=== PATIENT | male | born 2000 | race Two or more races ===

== ENCOUNTER 2024-07-23 08:43 | Inpatient (IN) | payer MEDICAID, SELFPAY ==
[2024-07-23] VITALS (47 sets, daily range): BP systolic 91–156; BP diastolic 60–94; PULSE 102–176; RESP 17–32; TEMP 36.9–38.7; O2SAT 95–100; BMI 25.8; BMI 23.6
--- NOTE | 2024-07-23 08:50 | PC.NURSE ---
pt began having seizures activity at this time, dr haddad informed. new orders received
[2024-07-23] MEDS: LORazepam 2 MG/ML VIAL IVP (08:52)
--- NOTE | 2024-07-23 08:58 | PC.NURSE ---
PER DR REYES DO NOT CALL SEPSIS ALERT ON PT. TEMP AND TACHYCARDIA IS DUE TO SEIZURE ACTIVITY
[2024-07-23] MEDS: ROCURONIUM INJ 10 MG/ML VIAL 10 ML 50 MG IVP (09:03)
[2024-07-23] MEDS: ETOMIDATE INJ 2 MG/ML VIAL 10 ML 20 MG IVP (09:03)
--- NOTE | 2024-07-23 09:04 | XR_ITS ---
Examination: AP chest single view Technique: AP supine portable chest single view Exam date and time: July 23, 2024 0925 hrs. Comparison 05/20/2024 Indications: Hypoxic respiratory failure postintubation this week Findings: Significant left base pneumonia with air bronchograms Endotracheal tube tip 2.6 cm above alysa The orogastric tube is in the stomach satisfactory position Mild vascular congestion Impression: Significant left base pneumonia, consider aspiration pneumonia
--- NOTE | 2024-07-23 09:04 | PC.NURSE ---
PT INTUBATED BY DR REYES AT THIS TIME WITH SIZE 7.5 TUBE. 21 AT TEETH. POSITIVE COLOR CHANGE ON C02 DETECTOR. BILATERAL LUNG SOUNDS AUSCULTATED BY DR REYES
--- NOTE | 2024-07-23 09:04 | XR_ITS ---
Examination: CT brain head without contrast. 2-D sagittal coronal reconstructions Date and time of exam:July 23, 2024 1018 hrs. Indications: Multiple seizures this morning, with hypoxic respiratory failure, postintubation CTDI: vol (mGy):49.8 DLP: (mGycm):1080 Technique: Multiple CT axial sections of the brain have been obtained, 5 mm slice thickness. Contrast has not been administered. 2-D sagittal, coronal reconstructions have been obtained Low dose protocols were performed. One or more of the following dose reduction techniques were used; automated exposure control, adjustment of the mA and/or KV according to patient size, use of iterative reconstruction technique. Findings: No significant ventricular enlargement. Intra-axial or extra-axial hemorrhage density is not seen. No mass effect or midline shift Basal cisterns are not remarkable. Fourth ventricle is midline. Cranial vault intact. Prominent right sphenoid sinusitis Impression: Negative for acute hemorrhage, mass effect or midline shift Consider brain MRI follow-up, pre and postcontrast, seizure protocol
--- NOTE | 2024-07-23 09:08 | EDNOTE_ITS ---
ED Seizures RME/HPI General Chief Complaint: Seizure Stated Complaint: SEIZURES Time Seen by Provider: 07/23/24 08:49 Arrival date/time: 07/23/24 08:43 RME / HPI RME / HPI Narrative: Patient has history of seizure disorder. History is limited due to patient's active seizing. The family witnessed 3 episodes of seizures prior to the arrival of the EMS to the scene. Once on the scene, they witnessed another seizure which was treated with 4 mg of intranasal Versed. At the hospital entrance he had another seizure which was treated with 2 mg of IV Versed. Here in the emergency department patient never fully regained consciousness and had 3 more episodes of seizures witnessed, which required intubation to stabilize her condition. The patient was intubated with first-pass using a glide scope and a 7.5 ET tube with good CO2 color change and bilateral breath sounds. He remained at 100% saturation at all times. For the timing and details see the nursing documentation. Patient was induced using rocuronium 50 mg and etomidate 20 mg IV Review of systems is limited due to above 0950 Patient's brother is at the bedside. Informs me that the patient's mother has only been providing him with 3 out of 6 of the medications that he was supposed to be. Also states the patient has been using cocaine Related Data Home Medications ?Medication ?Instructions ?Recorded ?Confirmed oxcarbazepine 600 mg tablet 1,200 mg PO BID 07/23/24 07/23/24 Previous Rx's ?Medication ?Instructions ?Recorded apixaban 5 mg (74 tabs) tablets in 5 mg PO BID #74 tabs 06/20/24 a dose pack (EpiVax DVT-PE Treat 30D Start) clobazam 10 mg oral film 15 mg PO BID #60 ea 06/22/24 lacosamide 200 mg tablet 200 mg PO BID 30 days #60 tabs 06/22/24 levetiracetam 750 mg tablet 1,500 mg (2 x 750 mg) PO Q8HR #180 06/22/24 tabs perampanel 10 mg tablet (Fycompa) 10 mg PO HS #30 tabs 06/22/24 valproic acid 250 mg capsule 1,250 mg (5 x 250 mg) PO TID #360 06/22/24 caps Allergies Allergy/AdvReac Type Severity Reaction Status Date / Time No Known Allergies Allergy Verified 07/23/24 09:34 Review of Systems Review of Systems ROS Unobtainable: unobtainable due to mental status ED Exam Narrative Physical exam: Patient has a small hematoma to the posterior scalp. He has bit his tongue during his seizure with small amount of hemorrhage inside the mouth without need of repair General General appearance: Present other (See HPI. Patient never regained full consciousness) Eye Eye exam: Present normal appearance Neck Neck exam: Present normal inspection Respiratory Respiratory exam: Present normal lung sounds bilaterally Cardiovascular Cardiovascular exam: Present regular rate Abdominal Exam Abdominal exam: Present soft exam: Present normal inspection Course Quality Measures none Orders Category Date Time Status 24 HR Medical Restraints Q2HR Care 07/23/24 09:09 Active COVID-19 Screening Questionnaire NOW Care 07/23/24 11:17 Active Decision to Admit X1 Care 07/23/24 11:17 Active Rodriguez [Urinary Catheter] QS Care 07/23/24 09:09 Active Insert IV NOW Care 07/23/24 09:26 Active Insert NG / OG tube NOW Care 07/23/24 09:08 Active Intubation NOW Care 07/23/24 09:[address] head/brain wo con Stat Exams 07/23/24 09:04 Completed XR chest 1V post procedure Stat Exams 07/23/24 09:04 Completed Alcohol, Blood Medical Stat Lab 07/23/24 09:10 Results Arterial Blood Gas Stat Lab 07/23/24 10:00 Completed Blood Culture (Lab) Stat Lab 07/23/24 09:10 Received CBC Stat Lab 07/23/24 09:10 Completed CMP [Comprehensive Metabolic Panel] Stat Lab 07/23/24 09:10 Results Drug Screen,Urine Stat Lab 07/23/24 09:10 Received Lactic Acid [Lactate (Lactic Acid)] Stat Lab 07/23/24 09:10 Results Sputum Culture and Gram Stain Stat Lab 07/23/24 09:55 Received Troponin I Stat Lab 07/23/24 09:10 Results Urinalysis, C/S if Indicated Stat Lab 07/23/24 09:10 Completed Etomidate Inj [Amidate Inj] Med 07/23/24 08:56 Discontinued 20 mg .ROUTE .STK-MED ONE Etomidate Inj [Amidate Inj] Med 07/23/24 09:04 Discontinued 20 mg IVP X1 ONE LORazepam [Ativan Inj] Med 07/23/24 08:49 Discontinued 2 mg IVP X1 ONE Midazolam Inj [Versed Inj] Med 07/23/24 09:41 Discontinued 5 mg IV X1 ONE Midazolam Inj [Versed Inj] Med 07/23/24 09:57 Discontinued 5 mg IV X1 ONE Midazolam Inj [Versed Inj] Med 07/23/24 09:38 Discontinued 6 mg .ROUTE .STK-MED ONE Midazolam/Ns 100 mg Ivpb [Versed Pf Inj in Ns Premix] Med 07/23/24 09:05 Active 100 mg in 100 ml IV 1 mg/hr Rocuronium Inj [Zemuron Inj] Med 07/23/24 08:57 Discontinued 100 mg .ROUTE .STK-MED ONE Rocuronium Inj [Zemuron Inj] Med 07/23/24 09:04 Discontinued 50 mg IVP X1 ONE Sodium Chloride Rt Adeline 10% [NS Rt Adeline 10%] Med 07/23/24 09:30 Discontinued 5 ml INH X1 ONE cefTRIAXone/D5w 1gm IV premix [Rocephin/D5w 1gm IV Med 07/23/24 10:09 Discontinued premix] 50 ml IV X1 levETIRAcetam INJ [Keppra Inj] Med 07/23/24 09:56 Discontinued 1,000 mg IVP X1 ONE Sputum Induction PRN RT 07/23/24 09:45 Ordered Ventilator [Volume Ventilator] Stat RT 07/23/24 Active Vital Signs Vital signs: Vital Signs Temperature 99.3 F 07/23/24 08:46 Pulse Rate 163 H 07/23/24 08:46 Respiratory Rate 28 H 07/23/24 08:46 Blood Pressure 143/94 H 07/23/24 08:46 Pulse Oximetry (%) 98 07/23/24 08:46 Oxygen Delivery Method Oxy Mask 07/23/24 08:46 Oxygen Flow Rate 15 07/23/24 08:46 Seizure Patient data External records reviewed:: [facility] previous records and EMS form Clinical information provided by:: EMS and family Social determinants that could affect healthcare access:: substance use Patient has the following chronic illnesses:: Seizure disorder. Drug use disorder How is presenting disease/condition affected by chronic disease/condition?: caused by Evaluation data The following diagnostics were reviewed and interpreted by me:: radiology exam(s) and EKG tracing(s) Lab and/or radiology exams considered but not ordered:: Elevated WBC is secondary to demargination and does not appear to be from the infectious process of pneumonitis that was seen on the chest x-ray Interpretation Summary: As above Medications / Prescriptions Medications or Prescriptions considered but not ordered:: Not applicable Medication administrations:: Medication Administration History Midazolam HCl (Versed Pf Inj In Ns Premix) 100 mg in 100 mls @ 1 mls/hr IV .Q24H PRN; Protocol PRN Reason: PER PROTOCOL Stop: 07/28/24 09:04 Last Admin: 07/23/24 09:16 Dose: 1 mg/hr, 1 mls/hr Documented By: DO Co-signed By: ED Discontinued Medications Etomidate (Etomidate Inj 2 Mg/Ml Vial 10 Ml) Confirm Administered Dose 20 mg .ROUTE .STK-MED ONE Stop: 07/23/24 08:57 Last Admin: 07/23/24 09:06 Dose: Not Given Documented By: DO Non-Admin Reason: Override Medication Etomidate (Etomidate Inj 2 Mg/Ml Vial 10 Ml) 20 mg IVP X1 ONE Stop: 07/23/24 09:05 Last Admin: 07/23/24 09:03 Dose: 20 mg Documented By: DO Ceftriaxone Sodium/Dextrose (Rocephin/D5w 1gm Iv Premix) 50 mls @ 100 mls/hr IV X1 ONE Stop: 07/23/24 10:38 Last Admin: 07/23/24 10:50 Dose: 100 mls/hr Documented By: DO Levetiracetam (Levetiracetam Inj 100 Mg/Ml Vial 5ml) 1,000 mg IVP X1 ONE Stop: 07/23/24 09:57 Last Admin: 07/23/24 10:11 Dose: 1,000 mg Documented By: DO Lorazepam (Lorazepam 2 Mg/Ml Vial) 2 mg IVP X1 ONE Stop: 07/23/24 08:50 Last Admin: 07/23/24 08:52 Dose: 2 mg Documented By: DO Midazolam HCl (Midazolam Inj 1 Mg/Ml Vial 2 Ml) Confirm Administered Dose 6 mg .ROUTE .STK-MED ONE Stop: 07/23/24 09:39 Last Admin: 07/23/24 09:43 Dose: Not Given Documented By: DO Non-Admin Reason: Duplicate Medication on eMAR Midazolam HCl (Midazolam Inj 1 Mg/Ml Vial 2 Ml) 5 mg IV X1 ONE Stop: 07/23/24 09:42 Last Admin: 07/23/24 09:44 Dose: 5 mg Documented By: DO Midazolam HCl (Midazolam Inj 1 Mg/Ml Vial 2 Ml) 5 mg IV X1 ONE Stop: 07/23/24 09:58 Last Admin: 07/23/24 09:59 Dose: 5 mg Documented By: DO Rocuronium Evans (Rocuronium Inj 10 Mg/Ml Vial 10 Ml) Confirm Administered Dose 100 mg .ROUTE .STK-MED ONE Stop: 07/23/24 08:58 Last Admin: 07/23/24 09:08 Dose: Not Given Documented By: DO Non-Admin Reason: Override Medication Rocuronium Evans (Rocuronium Inj 10 Mg/Ml Vial 10 Ml) 50 mg IVP X1 ONE Stop: 07/23/24 09:05 Last Admin: 07/23/24 09:03 Dose: 50 mg Documented By: DO Co-signed By: TONIO Sodium Chloride (Sodium Chloride Rt 10% 15 Ml Nebu) 5 ml INH X1 ONE Stop: 07/23/24 09:31 As noted Consultations Consultation(s) initiated? (list below): Yes Diagnosis Seizure Differential Diagnosis: intractable seizure disorder, generalized seizure, epileptic seizure and status epilepticus Most likely diagnosis given after review of the tests above:: Status epilepticus Admission Indicated Admission indicated?: indicated Admission Request Was there a request for admission?: Yes Admission Attestation Admission request attestation: Discussed case with [] from Hospitalist service regarding admission. Discussed patients ED course, exam findings, labs, and radiology results. The Hospitalist [agrees,declines] to accept the patient for admission. Disposition Plan Disposition Plan: Admit Critical Care Time Critical Care Time Critical Care Time: Yes Total Critical Care Time (min.): 45 Attestation: Patient was discussed with Dr. Oakes who will admit the patient. Dr. Singh is also aware and will consult on the patient. The critical care time is separate from intubation time Discharge Plan Plan Patient Disposition: Admit Acute Care w/in Hospital Patient condition on transfer: Stable Prescriptions/Referrals Prescriptions/Med Rec: No Action Eliquis DVT-PE Treat 30D Start 5 mg (74 tabs) tablets,dose pack 5 mg PO BID Qty: 74 0RF Rx Instructions: Please take 2 tabs of 5 mg twice daily for 1 week and then continue with 1 tablet of 5 mg twice daily to complete total 3 months. lacosamide 200 mg tablet 200 mg PO BID 30 Days Qty: 60 2RF levetiracetam 750 mg tablet 1,500 mg PO Q8HR Qty: 180 2RF Fycompa 10 mg tablet 10 mg PO HS Qty: 30 2RF valproic acid 250 mg capsule 1,250 mg PO TID Qty: 360 3RF clobazam 10 mg film 15 mg PO BID Qty: 60 3RF oxcarbazepine 600 mg tablet 1,200 mg PO BID Referrals: No Primary/Family,Physician [Primary Care Provider] - In 1 week Problem List Clinical Impression: Convulsions, status epilepticus Patient/Caregiver Discharge Instructions Print Language: Nigerien Stand Alone Forms: Vee Award Info., Patient Portal Info Letter
[2024-07-23] MEDS: MIDAZOLAM/NS 100 MG IVPB 100 MG/100 ML BAG IV (09:16)
[2024-07-23 09:38] LABS: Collection Type, Urine Catheter
[2024-07-23] MEDS: MIDAZOLAM INJ 1 MG/ML VIAL 2 ML 5 MG IV ×4 (09:44→12:54)
[2024-07-23 09:51] LABS: Basophils # (Auto) 0.1 Thou/mm3 (0.0-0.2); Basophils % (Auto) 0 % (0-2.5); Eosinophils # (Auto) 0.1 Thou/mm3 (0.0-0.5); Eosinophils % (Auto) 1 % (0-10); Hemoglobin 15.5 g/dL (13.5-16.0); Immature Granulocytes % (Auto) 6 % (0-0); Immature Granulocytes Auto 1.02 Thou/mm3 (0.00-0.00); Lymphocytes # (Auto) 7.1 Thou/mm3 (1.0-4.8); Lymphocytes % (Auto) 44 % (10-50); Mean Corpuscular Hemoglobin 29.8 pg (25.0-35.0); Mean Corpuscular Volume 96 fL (80-100); Monocytes % (Auto) 6 % (0-12); Neutrophils # (Auto) 6.9 Thou/mm3 (1.8-7.7); Neutrophils % (Auto) 43 % (37-80); Nucleated Red Blood Cell % 0 /100 WBC (0); Platelet Count 568 Thou/mm3 (140-440); RDW Standard Deviation 49.1 fL (35.1-43.9); Red Blood Count 5.21 Miln/mm3 (4.50-5.90); White Blood Count 16.1 Thou/mm3 (3.8-10.6)
[2024-07-23 09:56] LABS: Bilirubin,Urine Negative (Negative); Blood,Urine Trace (Negative); Clarity,Urine Clear (Clear/Hazy); Color,Urine Colorless (Lt Yel-Yel); Culture Indicated,Urine Not Indicated; Glucose, Urine Negative (Negative); Ketones,Urine 1+ (Negative); Leukocyte Esterase,Urine Negative (Negative); Nitrite,Urine Negative (Negative); Protein,Urine 2+ (Neg - Trace); RBC,Urine 1 /hpf (0-3); Specific Gravity,Urine 1.012 (1.001-1.035); Squamous Epithelial Cell,Urine < 1 /hpf (0-5); Urobilinogen,Urine Negative mg/dL (0.0-1.0); WBC,Urine < 1 /hpf (0-5)
[2024-07-23 10:06] LABS: Base Excess -16 (-3-3); HCO3 16 mEq/L (20-26); Inspired Oxygen, FIO2 50 %; PCO2 64 mmHg (32.0-48.0); PO2 110 mmHg (83-108)
[2024-07-23] MEDS: levETIRAcetam INJ 100 MG/ML VIAL 5ML 1000 MG IVP (10:11)
[2024-07-23 10:12] LABS: Allen Test Not Performed; O2 Saturation 96 % (91-98); Puncture Site Right Radial
[2024-07-23 10:14] LABS: pH, Arterial 7.01 (7.35-7.45)
[2024-07-23 10:20] LABS: Alanine Aminotransferase 21 U/L (10-49); Albumin, Serum 5.5 gm/dL (3.5-5.0); Albumin/Globulin Ratio 1.7 (1.2-2.2); Alkaline Phosphatase 128 U/L (46-116); Anion Gap 28 (7-16); Aspartate Amino Transferase 38 U/L (0-34); BUN/Creatinine Ratio 5 Ratio (12-20); Blood Urea Nitrogen 7 mg/dL (9-23); Calcium 11.6 mg/dL (8.3-10.6); Calcium (Corrected) 11.6 mg/dL (8.5-10.1); Chloride 97 mMol/L (98-107); Creatinine (Component) 1.3 mg/dL (0.6-1.3); Estimated Creatinine Clearance 80.4 mL/min (>60); Globulin 3.2 gm/dL (2.3-3.5); Glucose 283 mg/dL (74-106); Osmolality,Calculated 278 (275-295); Potassium 4.9 mMol/L (3.4-5.1); Sodium 135 mMol/L (136-145); Total Protein 8.7 gm/dL (5.7-8.2); Troponin I < 0.020 ng/mL (0.0-0.045); eGFR > 60 See Note
[2024-07-23 10:22] LABS: Carbon Dioxide < 10.0 mMol/L (20.0-31.0)
[2024-07-23 10:34] LABS: Alcohol, Blood Medical < 3.0 mg/dL (0-10.0)
[2024-07-23] MEDS: cefTRIAXone/D5w 1gm IV premix 50 ML IV (10:50)
[2024-07-23 12:04] LABS: Bilirubin,Total 0.5 mg/dL (0.3-1.2)
[2024-07-23 12:25] LABS: Amphetamine/Methamp Scrn,U Positive (Negative); Barbiturate Screen,Urine Negative (Negative); Benzodiazepines Screen,Urine Positive (Negative); Benzoylecgonine Screen, Ur Negative (Negative); Fentanyl Screen,Urine Negative (Negative); Opiate Screen,Urine Negative (Negative); THC Screen,Urine Negative (Negative)
[2024-07-23 12:40] LABS: Reflex Lactate? Y
--- NOTE | 2024-07-23 12:42 | PC.NURSE ---
pt waking up and fighting vent. called dr Tafoya. new orders received to give versed 5mg ivp and increase drip to 5mg/hr
--- NOTE | 2024-07-23 13:12 | PC.NURSE ---
report given to Heather on ICU floor. pt to go to room 255
[2024-07-23 14:58] LABS: Lactic Acid, 3 HR 1.3 mMol/L (0.4-2.0)
[2024-07-23] MEDS: PROPOFOL 1,000 MG IVPB 1,000 MG/100 ML VIAL 2.177 MG IV (15:02)
--- NOTE | 2024-07-23 15:57 | ESHP_ITS ---
Documentation for date of: 07/23/24 [facility] History of Present Illness Chief complaint: seizures History of present illness: The patient is a 24-year-old male with a previous medical history of seizure disorder, right upper extremity brachial DVT and substance abuse disorder who was brought by the ambulance due to multiple seizures, before coming to the hospital he received 6 mg of Versed IV. Patient has a history of previous ICU admission with status epilepticus that required tranfer to the [facility], where he inderwent deep brain stimulation. He was discharged from [facility] in May 2024 and 2 medication added to his antiepileptic medications: clobazam and perampanel. ED course: BP was 143/94, RR 28, SaO2 98% on oxymask at the arrival. He continued to have seizures at the ED, received 2 mg of lorazepam, was tachycardic and had temperature of 101.6 and to continuing seizures, according to the nurse, he never regained consciousness and altered mental status he was intubated for airway protection and management of status epilepticus. He was started on midazolam drip, later midazolam IV was added as needed. During examination patient was awake, was trying to sit up, was retching due to the tube. Was dyssynchronising with ventilator. Was additionally started on propofol for sedation. Labs showed: Leukocytosis 16.1, platelets 568, ABGs showed pH 7.01, pCO2 64, pO2 110. Sodium 135, bicarb <10, creatinine 1.3, glucose 283, Lactic Acid 29.0, Ca 11.6, Alk phos 128. Headt CT negative for stroke, bleeding or fractures. Chest xray showed left base pneumonia. EEG 07/23/24: normal. Utox was positive for methamphetamine and benzodiazepines. Home medications: Clobazam, lacosamide, levetiracetam, oxcarbazepine, perampanel, valproic acid, apixaban. Patient was admitted to the ICU for epileptic status management. Review of Systems Review of Systems ROS Unobtainable: unobtainable due to mental status and due to endotracheal tube Exam Vital Signs Temp Pulse Resp BP Pulse Ox O2 Del Method O2 Flow Rate 99.8 F 121 H 17 125/85 H 100 Mechanical Ventilation 15 07/23/24 13:04 07/23/24 14:55 07/23/24 13:30 07/23/24 14:55 07/23/24 14:55 07/23/24 13:04 07/23/24 08:46 FiO2 40 07/23/24 14:55 Narrative Exam Physical Exam General: Sedated, intubated. Follows commands after repeating. Intubated. RASS - 1 HEENT: Normocephalic, atraumatic, mucous membranes moist. Heart: Regular rate and rhythm, no murmurs. Lungs: Clear to auscultation with no wheezing or crackles. Abdomen: Soft, nondistended, nontender, positive bowel sounds. ?No guarding or rebound tenderness. Neurologic: intubated, sedated, no gross neurological deficit, and patient able to move all 4 extremities. Extremities: No edema. Skin: No rash or ecchymoses. Shaved spots on the parietal and occipital area of the head s/p electrode implantation. Results: Labs 07/30/24 04:33 07/29/24 05:34 Labs: Short CBC 07/23/24 Range/Units 09:10 WBC 16.1 H (3.8-10.6) Thou/mm3 Hgb 15.5 (13.5-16.0) g/dL Hct 50.0 (41.0-53.0) % Plt Count 568 H D (140-440) Thou/mm3 BMP 07/23/24 09:10 Sodium 135 L Potassium 4.9 Chloride 97 L Carbon Dioxide < 10.0 L* BUN 7 L Creatinine 1.3 Glucose 283 H Calcium 11.6 H Cardiac Enzymes 07/23/24 Range/Units 09:10 Troponin I < 0.020 (0.0-0.045) ng/mL Liver Function 07/23/24 Range/Units 09:10 Total Bilirubin 0.5 (0.3-1.2) mg/dL AST 38 H (0-34) U/L ALT 21 (10-49) U/L Alkaline Phosphatase 128 H (46-116) U/L Albumin 5.5 H (3.5-5.0) gm/dL Urine 07/23/24 Range/Units 09:10 Urine Color Colorless A (Lt Yel-Yel) Urine Clarity Clear (Clear/Hazy) Urine pH 6.0 (5.0-7.0) Ur Specific [place] 1.012 (1.001-1.035) Urine Protein 2+ A (Neg - Trace) Urine Glucose (UA) Negative (Negative) ABG Interpretation ABG results: 07/23/24 10:00 ABG pH 7.01 L* ABG pCO2 64 H ABG pO2 110 H ABG HCO3 16 L ABG O2 Saturation 96 ABG Base Excess -16 L Quality Measures Quality Measures VTE prophylaxis Medications Home Medications and Allergies Home Medications ?Medication ?Instructions ?Recorded ?Confirmed ?Type oxcarbazepine 600 mg tablet 1,200 mg PO BID 07/23/24 07/23/24 History Allergies Allergy/AdvReac Type Severity Reaction Status Date / Time No Known Allergies Allergy Verified 07/23/24 09:34 Visit Medications Apixaban (Apixaban 2.5 Mg Tablet) 5 mg PO BID [facility] Stop: 08/13/24 20:59 Phenobarbital Sodium 130 mg/ (Sodium Chloride 12 ml) 0 mg IVP TID PANCHO Stop: 08/06/24 15:44 Midazolam HCl (Versed Pf Inj In Ns Premix) 100 mg in 100 mls @ 1 mls/hr IV .Q24H PRN; Protocol PRN Reason: PER PROTOCOL Stop: 07/28/24 09:04 Last Titration: 07/23/24 12:50 Dose: 5 mg/hr, 5 mls/hr Propofol (Diprivan Ivpb) 1,000 mg in 100 mls @ 13.064 mls/hr IV .Q7H40M PRN; Protocol PRN Reason: PER PROTOCOL Stop: 08/22/24 14:49 Last Admin: 07/23/24 15:02 Dose: 5 mcg/kg/min, 2.177 mls/hr Lacosamide (Lacosamide 50 Mg Tablet) 200 mg PO BID PANCHO Stop: 08/22/24 20:59 Levetiracetam (Levetiracetam Liqd 500 Mg/5 Ml Udc) 1,500 mg PO Q8HR PANCHO Stop: 08/22/24 13:59 Midazolam HCl (Midazolam Inj 1 Mg/Ml Vial 2 Ml) 2 mg IV Q10MIN PRN PRN Reason: breakthrough seizures Stop: 07/28/24 12:29 Home Medication- Please Speak With Patient Caregiver To Have Rx Brought To [facility] 15 mg PO BID PANCHO Stop: 08/22/24 20:59 Oxcarbazepine (Oxcarbazepine 150 Mg Tablet (Non-Formulary)) 1,200 mg PO BID [facility] Stop: 08/22/24 20:59 Perampanel (Perampanel 10 Mg Tablet (Non-Form)) 10 mg PO HS@1900 [facility] Stop: 08/22/24 18:59 Valproic Acid (Valproic Acid Syrup 250 Mg/5 Ml Udc) 1,250 mg PO TID [facility] Stop: 08/22/24 13:59 Discontinued Medications Etomidate (Etomidate Inj 2 Mg/Ml Vial 10 Ml) 20 mg IVP X1 ONE Stop: 07/23/24 09:05 Last Admin: 07/23/24 09:03 Dose: 20 mg Ceftriaxone Sodium/Dextrose (Rocephin/D5w 1gm Iv Premix) 50 mls @ 100 mls/hr IV X1 ONE Stop: 07/23/24 10:38 Last Infusion: 07/23/24 11:30 Dose: Infused Propofol (Diprivan Ivpb) 1,000 mg in 100 mls @ 2.177 mls/hr IV .Q24H PRN; Protocol PRN Reason: PER PROTOCOL Stop: 08/22/24 14:49 Levetiracetam (Levetiracetam Inj 100 Mg/Ml Vial 5ml) 1,000 mg IVP X1 ONE Stop: 07/23/24 09:57 Last Admin: 07/23/24 10:11 Dose: 1,000 mg Lorazepam (Lorazepam 2 Mg/Ml Vial) 2 mg IVP X1 ONE Stop: 07/23/24 08:50 Last Admin: 07/23/24 08:52 Dose: 2 mg Midazolam HCl (Midazolam Inj 1 Mg/Ml Vial 2 Ml) 5 mg IV X1 ONE Stop: 07/23/24 09:42 Last Admin: 07/23/24 09:44 Dose: 5 mg Midazolam HCl (Midazolam Inj 1 Mg/Ml Vial 2 Ml) 5 mg IV X1 ONE Stop: 07/23/24 09:58 Last Admin: 07/23/24 09:59 Dose: 5 mg Midazolam HCl (Midazolam Inj 1 Mg/Ml Vial 2 Ml) 5 mg IV X1 ONE Stop: 07/23/24 11:55 Last Admin: 07/23/24 12:00 Dose: 5 mg Midazolam HCl (Midazolam Inj 1 Mg/Ml Vial 2 Ml) 5 mg IV X1 ONE Stop: 07/23/24 12:50 Last Admin: 07/23/24 12:54 Dose: 5 mg Rocuronium [place] (Rocuronium Inj 10 Mg/Ml Vial 10 Ml) 50 mg IVP X1 ONE Stop: 07/23/24 09:05 Last Admin: 07/23/24 09:03 Dose: 50 mg Sodium Chloride (Sodium Chloride Rt 10% 15 Ml Nebu) 5 ml INH X1 ONE Stop: 07/23/24 09:31 Assessment & Plan Plan The patient is a 24-year-old male with a previous medical history of seizure disorder, right upper extremity brachial DVT and substance abuse disorder who was brought by the ambulance due to multiple seizures, before coming to the hospital he received 6 mg of Versed IV. Patient has a history of previous ICU admission with status epilepticus that required tranfer to the [facility]. He was discharged from [facility] in May 2024 and 2 medication added to his antiepileptic medications: clobazam and perampanel. NEURO # Status epilepticus, improving #Seizure disorder #Substance abuse Patient is awake, somnolent, intubated. Utox was positive for Methamphetamine and benzodiazepines (could be due patient receiving versed IV before test) Plan: ?Resumed home medications ?Clobazam 50 mg twice daily ? Lacosamide 200 mg twice daily ? Levetiracetam 1500 mg p.o. every 8 hours ? Oxcarbazepine 1200 twice daily ? Perampanel 10 mg daily ? Valproic acid 1250 mg 3 times daily - Alli downtitrate sedation and will try to extubate tomorrow CARDIO #Sinus tachycardia # History of upper extremity DVT Tachycardia most likely due to seizure activity. Patient was diagnosed with upper extremity DVT while being admitted inthe [facility]. At the moment, no signs of DVT. Plan: ?Continue Eliquis 5 mg twice a day PULM #No active problems GI #No active problems NEPHRO #Lactic acidosis, resolved. Most likelt due to seizure activity. Repeat LA is 1.3. URO #No active problems HEME #Leukocytosis Most likely reactive in the setting of status epilepticus. ENDO #No active problems ID #No active problems MSK #No active problems SKIN #No active problems DVT prophylaxis: Eliquis GI prophylaxis: None Diet: NPO Rodriguez: Present Lines: peripheral Antibiotics: none CODE STATUS: FULL CODE Reason for ICU care: status epilepticus requiring intubation and sedation Plan of care discussed with attending Dr. Mosley and PGY-[address] Tafoya. Yarely Bocanegra MD, PGY 1. Attending Provider Attestation/Addendum Patient seen and examined with above resident, Yarely Bocanegra MD. I agree with the findings, assessment, and plan of care as documented except for any differences below. Patient seen in the ED where he was intubated for status epilepticus and adequate control of seizures using propofol/versed. Patient with sedation reduced now remains appropriate with no repeat seizure activity. Will plan on continuing on heavy sedation overnight until we are able to load him with his antiepileptic regimen. UDS is positive for amphetamines as a potential precipitant alternatively though family reports that he has been noncompliant only when he is using illicit substances. Otherwise has been compliant with regimen since discharge from [facility] after prior to transfer there from [facility] for status epilepticus that was refractory to available regimen here. Patient was advised remains hemodynamically stable with no other evidence of endorgan damage at this point. Patient's sister was at bedside and provided bottles of his medications which we were able to locate and reinitiate. EEG testing as per neurology, they will assess the patient on their own later on today. Appreciate their input as always. I personally discussed plan of care and counseled the patient's sister at bedside. Total critical care time: I personally spent 40 minutes for review of physiologic parameters, directing plan of care throughout the day, coordination of care with other specialties, and counseling patient's family at bedside. This is exclusive of time spent teaching housestaff or performing any separate billable procedures. Patient continues to require critical care services for acute respiratory failure/hypoxia and status epilepticus. Patient remains at high risk for further morbidity and increased mortality.
[2024-07-23] MEDS: levETIRAcetam LIQD 500 MG/5 ML UDC 1500 MG PO ×2 (17:18→21:50)
[2024-07-23] MEDS: VALPROIC ACID SYRUP 250 MG/5 ML UDC 1250 MG PO ×2 (17:19→21:51)
[2024-07-23] MEDS: [UNRECOGNIZED DRUG - REMARK] 15 MG PO (19:25)
[2024-07-23] MEDS: [UNRECOGNIZED DRUG - REMARK] PO (19:26)
--- NOTE | 2024-07-23 20:10 | PC.NURSE ---
at 1400 received report from Nataliia, pt transported to room 255 ICU via gurney and mechanically ventilated, pt following commands, pt sister Kellie at the bedside with patients home medications, home medications given to Dr. Mosley
[2024-07-23] MEDS: APIXABAN 2.5 MG TABLET 5 MG PO (20:50)
[2024-07-23] MEDS: LACOSAMIDE 50 MG TABLET 200 MG PO (20:50)
[2024-07-23] MEDS: OXCARBazepine 150 MG TABLET (NON-FORMULARY) 1200 MG PO (21:50)
--- NOTE | 2024-07-23 22:29 | PC.NURSE ---
pt intubated, all po meds given tonight given thru OGtube.
[2024-07-23] MEDS: MIDAZOLAM/NS 100 MG IVPB 100 MG/100 ML BAG 7 MG IV (22:55)
--- NOTE | 2024-07-23 23:44 | ESCONSULT_ITS ---
History of Present Illness Data of Consult Requesting Physician: Chintan Mosley MD Primary Care Provider: Physician No Primary/Family Consult Narrative History of present illness: Mr. Evangelista is a 24-year-old male with seizure disorder, right upper extremity brachial DVT and substance abuse was brought by the ambulance due to multiple seizures. Prior to coming to the hospital, he received 6 mg of Versed IV. Patient has a history of previous ICU admission with status epilepticus that required transfer to the [facility]. Subsequently was discharged on additional AEDs: clobazam and perampanel. Workup in the ER: Vitals: febrile, BP was 143/94, RR 28, SaO2 98% on oxymask at the arrival. As the seizures recurred at the ER, he got 2 mg of lorazepam. As he never regained consciousness and altered mental status persisted, he was intubated for airway protection and management of status epilepticus. He was started on midazolam infusion followed by midazolam IV needed. He needed propofol for additional sedation as he started waking up and retching from the tube placement. Labs: Leukocytosis 16.1, platelets 568, ABGs showed pH 7.01, pCO2 64, pO2 110. Sodium 135, bicarb <10, creatinine 1.3, glucose 283, Lactic Acid 29.0, Ca 11.6, Alk phos 128 Utox was positive for methamphetamine and benzodiazepines. Imaging: Head CT negative for stroke, bleeding or fractures. Chest xray showed left base pneumonia. Home medications: Clobazam, lacosamide, levetiracetam, oxcarbazepine, perampanel, valproic acid, apixaban. However, noted that he was only taking 3 out of 6 meds. Patient was admitted to the ICU for management of status epilepticus. Neurology was consulted in the ER. cc:: cc: Chintan Mosley MD Review of Systems Review of Systems ROS Unobtainable: unobtainable due to mental status Past Medical History Past Medical History Comments PMH COMMENT: Past Medical History: seizure disorder, multi-substance abuse Family History: Non-contributory Surgical History: None Social History: Denies history of smoking, alcohol use with average of 12 beers weekly, cocaine use, benzo use with Xanax Current Medications: oxcarbazepine 900 mg BID, clobazepam (Onfi) 15 mg BID, lacosamide (Vimpat) 200 mg BID, levetiracetam (Keppra) 1500 mg TID, valproic acid 1250 mg TID, perampanel (Fycompa) 10 mg HS, ergocalciferol, multivitamin, Miralax, senna (Source: [facility] rec discharge paperwork) Allergies: No known drug allergies Meds Home Medications and Allergies Home Medications ?Medication ?Instructions ?Recorded ?Confirmed ?Type oxcarbazepine 600 mg tablet 1,200 mg PO BID 07/23/24 07/23/24 History Allergies Allergy/AdvReac Type Severity Reaction Status Date / Time No Known Allergies Allergy Verified 07/23/24 09:34 Exam - Neurology Vital Signs Temp Pulse Resp BP Pulse Ox O2 Del Method O2 Flow Rate 98.4 F 114 H 20 102/82 100 Mechanical Ventilation 15 07/23/24 20:00 07/23/24 23:15 07/23/24 14:08 07/23/24 23:15 07/23/24 23:15 07/23/24 20:00 07/23/24 08:46 FiO2 35 07/23/24 23:14 Narrative Exam GENERAL APPEARANCE: Well hydrated, well-nourished, intubated and on mechanical ventilatory support on sedation HEENT: Normocephalic, atraumatic, extraocular movements intact. Pupils: Equal reacting to light NECK: Supple, no JVD or bruits. CARDIOVASULAR: Heart: S1, S2 heard, regular without S3-S4 or murmur no rubs or gallops. LUNGS/CHEST: Clear to auscultation bilaterally. No rails, rhonchi, or wheezing. Normal inspection. ABDOMEN: Soft, nontender, with normal bowel sounds. No pulsatile masses. No rebound, rigidity, or guarding. Normal inspection and palpation. EXTREMITIES: Normal inspection and palpation. No edema, clubbing or cyanosis. SKIN: Warm and dry without rashes. Normal inspection. MUSCULOSKELETAL: No cervical, thoracic, lumbar or midline bony tenderness. Normal inspection. NEURO: Limited secondary to sedation on board, brainstem function: Intact, no signs of meningeal irritation noted. PSYCHIATRIC: Limited. Results Labs 07/23/24 09:10 07/23/24 09:10 Labs: Short CBC 07/23/24 Range/Units 09:10 WBC 16.1 H (3.8-10.6) Thou/mm3 Hgb 15.5 (13.5-16.0) g/dL Hct 50.0 (41.0-53.0) % Plt Count 568 H D (140-440) Thou/mm3 BMP 07/23/24 09:10 Sodium 135 L Potassium 4.9 Chloride 97 L Carbon Dioxide < 10.0 L* BUN 7 L Creatinine 1.3 Glucose 283 H Calcium 11.6 H Cardiac Enzymes 07/23/24 Range/Units 09:10 Troponin I < 0.020 (0.0-0.045) ng/mL Liver Function 07/23/24 Range/Units 09:10 Total Bilirubin 0.5 (0.3-1.2) mg/dL AST 38 H (0-34) U/L ALT 21 (10-49) U/L Alkaline Phosphatase 128 H (46-116) U/L Albumin 5.5 H (3.5-5.0) gm/dL Urine 07/23/24 Range/Units 09:10 Urine Color Colorless A (Lt Yel-Yel) Urine Clarity Clear (Clear/Hazy) Urine pH 6.0 (5.0-7.0) Ur Specific [place] 1.012 (1.001-1.035) Urine Protein 2+ A (Neg - Trace) Urine Glucose (UA) Negative (Negative) ABG Interpretation ABG results: 07/23/24 10:00 ABG pH 7.01 L* ABG pCO2 64 H ABG pO2 110 H ABG HCO3 16 L ABG O2 Saturation 96 ABG Base Excess -16 L Assessment & Plan Assessment and plan (1) Status epilepticus: Status: Resolved Assessment and plan: Continue with the current AEDs: Oxcarbazepine 1200 mg bid, Keppra 1500 mg tid and Vimpat 200 mg twice daily Will try and get the rest of the meds refilled at [place] pharmacy as prescribed at [facility] upon discharge: Clobazam 15 mg bid and Fycompa 10 mg qhs if not available here Monitor for any sz (2) Pneumonia: Status: Acute Assessment and plan: Continue with IV antibiotics. could be from aspiration.
[2024-07-24] VITALS (53 sets, daily range): BP systolic 83–144; BP diastolic 53–104; PULSE 93–130; RESP 14–28; TEMP 35.9–37.6; O2SAT 95–100; BMI 23.6
[2024-07-24] MEDS: VALPROIC ACID SYRUP 250 MG/5 ML UDC 1250 MG PO ×3 (05:39→21:20)
[2024-07-24] MEDS: levETIRAcetam LIQD 500 MG/5 ML UDC 1500 MG PO ×3 (05:39→21:20)
[2024-07-24 06:56] LABS: Base Excess, Venous -4 (-3-3); O2 Saturation, Venous 84 % (96-97); PCO2, Venous 41 mmHg (36-56); PO2, Venous 49 mmHg (15-58); pH, Venous 7.33 (7.33-7.66)
[2024-07-24] MEDS: LACOSAMIDE 50 MG TABLET 200 MG PO ×2 (08:02→21:18)
[2024-07-24] MEDS: APIXABAN 2.5 MG TABLET 5 MG PO ×2 (08:03→21:17)
[2024-07-24] MEDS: OXCARBazepine 150 MG TABLET (NON-FORMULARY) 1200 MG PO ×2 (08:03→21:19)
[2024-07-24] MEDS: [UNRECOGNIZED DRUG - REMARK] 15 MG PO ×2 (08:03→19:45)
[2024-07-24 08:59] LABS: Basophils # (Auto) 0.1 Thou/mm3 (0.0-0.2); Basophils % (Auto) 1 % (0-2.5); Eosinophils % (Auto) 0 % (0-10); Hematocrit 41.9 % (41.0-53.0); Hemoglobin 14.1 g/dL (13.5-16.0); Immature Granulocytes % (Auto) 1 % (0-0); Immature Granulocytes Auto 0.11 Thou/mm3 (0.00-0.00); Lymphocytes # (Auto) 1.6 Thou/mm3 (1.0-4.8); Lymphocytes % (Auto) 15 % (10-50); Mean Corpuscular HGB Conc 33.7 g/dl (31.0-37.0); Mean Corpuscular Hemoglobin 29.6 pg (25.0-35.0); Mean Corpuscular Volume 88 fL (80-100); Monocytes # (Auto) 0.9 Thou/mm3 (0.0-0.8); Monocytes % (Auto) 9 % (0-12); Neutrophils # (Auto) 7.7 Thou/mm3 (1.8-7.7); Neutrophils % (Auto) 74 % (37-80); Nucleated Red Blood Cell % 0 /100 WBC (0); Platelet Count 446 Thou/mm3 (140-440); RDW Standard Deviation 47.1 fL (35.1-43.9); Red Blood Count 4.77 Miln/mm3 (4.50-5.90); White Blood Count 10.4 Thou/mm3 (3.8-10.6)
[2024-07-24 09:17] LABS: Alanine Aminotransferase 19 U/L (10-49); Albumin, Serum 4.5 gm/dL (3.5-5.0); Albumin/Globulin Ratio 1.7 (1.2-2.2); Alkaline Phosphatase 104 U/L (46-116); Anion Gap 12 (7-16); Aspartate Amino Transferase 20 U/L (0-34); BUN/Creatinine Ratio 6 Ratio (12-20); Bilirubin,Total 0.4 mg/dL (0.3-1.2); Blood Urea Nitrogen 21 mg/dL (9-23); Calcium 9.4 mg/dL (8.3-10.6); Calcium (Corrected) 9.4 mg/dL (8.5-10.1); Carbon Dioxide 20.8 mMol/L (20.0-31.0); Chloride 100 mMol/L (98-107); Creatinine (Component) 3.7 mg/dL (0.6-1.3); Estimated Creatinine Clearance 28.3 mL/min (>60); Globulin 2.7 gm/dL (2.3-3.5); Glucose 88 mg/dL (74-106); Osmolality,Calculated 268 (275-295); Potassium 4.2 mMol/L (3.4-5.1); Sodium 133 mMol/L (136-145); Total Protein 7.2 gm/dL (5.7-8.2); eGFR 23 See Note
--- NOTE | 2024-07-24 10:01 | PC.SS ---
FIRE CONTROL MECHANIC went to see pt but pt was asleep, FIRE CONTROL MECHANIC called pt's mom Angela Evangelista who is listed as pt's medical decision maker and emergency contact. Pt lives at home with his parents and currently not employed. Pt does not use any DME and is not diabetic or on dialysis. Pt uses [facility] in [place]. Pt only sees his PCP Kathie Felder at [facility] and if needed SNF pt's family does not have a preference.
[2024-07-24] MEDS: RINGERS LACTATED 1000 ML 1,000 ML 999 ML IV (10:24)
[2024-07-24] MEDS: RINGERS LACTATED 1000 ML 1,000 ML 200 ML IV ×2 (10:28→17:05)
[2024-07-24 10:31] LABS: Creatine Kinase 102 U/L (34-171)
[2024-07-24] MEDS: cefTRIAXone/D5w 1gm IV premix 50 ML IV (18:23)
--- NOTE | 2024-07-24 18:37 | ESPR_ITS ---
<Statement entered by Ele Marin MD - 07/25/24 07:26> Patient was seen and examined by me personally. I have directly supervised and reviewed the above documentation by the team resident and agree with its findings with any exceptions or additional findings as below. Plan of care was discussed with the attending, Dr. Mosley. Ele Marin, PGY-2 Documentation for date of: 07/24/24 Subjective Subjective Interval history: 07/24/2024:Patient was seen and examined by the bedside. Overnight patient continued to be on midazolam and propofol sedation, he received all of his antiseizure medications. In the morning patient became more awake, was able to follow commands, successfully passed SBT and was extubated. After the extubation he continued to be somnolent, but is able to protect his airways and saturates well on room air. He is urine output was low, he received 1 L bolus of LR and continued on LR 200 mL/h. Will continue to monitor I's and O's, if kidney function improves and output is adequate, will consider to downgrade to the floors tomorrow. Exam Vital Signs Temp Pulse Resp BP Pulse Ox O2 Del Method O2 Flow Rate 98.0 F 103 H 22 H 84/55 L 96 Room Air 2 07/24/24 16:00 07/24/24 17:00 07/24/24 17:00 07/24/24 17:00 07/24/24 17:00 07/24/24 17:00 07/24/24 10:00 FiO2 21 07/24/24 09:24 Narrative Exam Physical Exam General: Somnolent. Follows commands. HEENT: Normocephalic, atraumatic, mucous membranes moist. Heart: Regular rate and rhythm, no murmurs. Lungs: Mild diffuse rhonchi. Abdomen: Soft, nondistended, nontender, positive bowel sounds. ?No guarding or rebound tenderness. Neurologic: no gross neurological deficit, and patient able to move all 4 extremities. Extremities: No edema. Skin: No rash or ecchymoses. Shaved spots on the parietal and occipital area of the head s/p electrode implantation. Objective Labs 07/30/24 04:33 07/29/24 05:34 Labs: Laboratory Results - last 24 hr 07/24/24 07/24/24 06:30 08:40 WBC 10.4 D RBC 4.77 Hgb 14.1 Hct 41.9 MCV 88 MCH 29.6 MCHC 33.7 RDW Std Deviation 47.1 H Plt Count 446 H D Neut % (Auto) 74 Lymph % (Auto) 15 [place] % (Auto) 9 Eos % (Auto) 0 Baso % (Auto) 1 Neut # (Auto) 7.7 Lymph # (Auto) 1.6 [place] # (Auto) 0.9 H Eos # (Auto) 0.0 Baso # (Auto) 0.1 Immature Gran # (Auto) 0.11 H Absolute Nucleated RBC 0.00 Immature Gran % 1 H Nucleated RBC % 0 VBG pH 7.33 VBG pCO2 41 VBG pO2 49 VBG O2 Sat (Davion) 84 L VBG Base Excess -4 L Sodium 133 L Potassium 4.2 D Chloride 100 Carbon Dioxide 20.8 Anion Gap 12 BUN 21 Creatinine 3.7 H D Estim Creat Clear Calc 28.3 L eGFR 23 L BUN/Creatinine Ratio 6 L Glucose 88 D Calculated Osmolality 268 L Calcium 9.4 D Corrected Calcium 9.4 D Total Bilirubin 0.4 AST 20 ALT 19 Alkaline Phosphatase 104 D Total Creatine Kinase 102 D Total Protein 7.2 Albumin 4.5 D Globulin 2.7 Albumin/Globulin Ratio 1.7 ABG Interpretation ABG results: 07/23/24 07/24/24 10:00 06:30 ABG pH 7.01 L* ABG pCO2 64 H ABG pO2 110 H ABG HCO3 16 L ABG O2 Saturation 96 ABG Base Excess -16 L VBG pH 7.33 VBG pCO2 41 VBG pO2 49 VBG Base Excess -4 L Quality Measures Quality Measures VTE prophylaxis Assessment & Plan Assessment Current Active Medications: Generic Name Dose Route Start Last Admin Trade Name Freq PRN Reason Stop Dose Admin Apixaban 5 mg 07/23/24 21:00 07/24/24 08:03 Apixaban 2.5 Mg Tablet PO 08/13/24 20:59 5 mg BID PANCHO Administration Clobazam 15 mg 07/23/24 19:00 07/24/24 08:03 Clobazam 10 Mg Tablet (Non-Form) PO 07/28/24 18:59 15 mg BID@0700,1900 PANCHO Administration Midazolam HCl 100 mg in 100 mls @ 1 mls/hr 07/23/24 09:05 07/24/24 08:19 Versed Pf Inj In Ns Premix IV 07/28/24 09:04 0 mg/hr .Q24H PRN 0 mls/hr PER PROTOCOL Titration Protocol 1 MG/HR Propofol 1,000 mg in 100 mls @ 13.064 mls/hr 07/23/24 14:53 07/24/24 08:19 Diprivan Ivpb IV 08/22/24 14:49 0 mcg/kg/min .Q7H40M PRN 0 mls/hr PER PROTOCOL Titration Protocol 30 MCG/KG/MIN Ceftriaxone Sodium/Dextrose 50 mls @ 100 mls/hr 07/24/24 17:54 07/24/24 18:23 Rocephin/D5w 1gm Iv Premix IV 07/31/24 17:53 100 mls/hr QDAY PANCHO Administration Lacosamide 200 mg 07/23/24 21:00 07/24/24 08:02 Lacosamide 50 Mg Tablet PO 08/22/24 20:59 200 mg BID PANCHO Administration Levetiracetam 1,500 mg 07/23/24 14:00 07/24/24 14:14 Levetiracetam Liqd 500 Mg/5 Ml Udc PO 08/22/24 13:59 1,500 mg Q8HR PANCHO Administration Midazolam HCl 2 mg 07/23/24 12:20 Midazolam Inj 1 Mg/Ml Vial 2 Ml IV 07/28/24 12:29 Q10MIN PRN breakthrough seizures Oxcarbazepine 1,200 mg 07/23/24 21:00 07/24/24 08:03 Oxcarbazepine 150 Mg Tablet (Non-Formulary) PO 08/22/24 20:59 1,200 mg BID PANCHO Administration Perampanel 10 mg 07/23/24 19:00 07/23/24 19:26 Perampanel 10 Mg Tablet (Non-Form) PO 08/22/24 18:59 10 mg HS@1900 PANCHO Administration Valproic Acid 1,250 mg 07/23/24 14:00 07/24/24 14:14 Valproic Acid Syrup 250 Mg/5 Ml Udc PO 08/22/24 13:59 1,250 mg TID PANCHO Administration Plan The patient is a 24-year-old male with a previous medical history of seizure disorder, right upper extremity brachial DVT and substance abuse disorder who was brought by the ambulance due to multiple seizures, before coming to the hospital he received 6 mg of Versed IV. Patient has a history of previous ICU admission with status epilepticus that required tranfer to the [facility]. He was discharged from [facility] in May 2024 and 2 medication added to his antiepileptic medications: clobazam and perampanel. NEURO #Status epilepticus, resolved #Seizure disorder #Substance abuse Patient is awake, somnolent, intubated. Utox was positive for Methamphetamine and benzodiazepines (could be due patient receiving versed IV before test) Plan: ?Resumed home medications ?Clobazam 50 mg twice daily ? Lacosamide 200 mg twice daily ? Levetiracetam 1500 mg p.o. every 8 hours ? Oxcarbazepine 1200 twice daily ? Perampanel 10 mg daily ? Valproic acid 1250 mg 3 times daily CARDIO #Sinus tachycardia # History of upper extremity DVT Tachycardia most likely due to seizure activity. Patient was diagnosed with upper extremity DVT while being admitted inthe [facility]. At the moment, no signs of DVT. Plan: ?Continue Eliquis 5 mg twice a day PULM #Aspiration pneumonia Chest Xray showed: significant left base pneumonia, consider aspiration pneumonia. Sputum cultures grew gram-positive cocci and gram-negative rods. On auscultation mild diffuse rhonchi. Plan: ? Ceftriaxone 07/24?present GI #No active problems NEPHRO #CECILE #Lactic acidosis, resolved. Prerenal versus intrarenal Could be in the setting of decreased oral intake. CK level is normal. Repeat LA 07/23 is 1.3. Patient received 1 L bolus and will continue to receive maintenance fluids. Plan: ? Normal saline at 75 mL/h ? Encouraged oral rehydration ? Daily CMP ? I's and O's URO #No active problems HEME #Leukocytosis Most likely reactive in the setting of status epilepticus and aspiration pneumonia. ENDO #No active problems ID #No active problems MSK #No active problems SKIN #No active problems DVT prophylaxis: Eliquis GI prophylaxis: None Diet: Regular Rodriguez: Present Lines: peripheral Antibiotics: Ceftriaxone CODE STATUS: FULL CODE Reason for ICU care: status epilepticus requiring intubation and sedation Plan of care discussed with attending Dr. Mosley and PGY-[address] Marin. Yarely Bocanegra MD, PGY 1. Attending Provider Attestation/Addendum Patient seen and examined with above resident, Yarely Bocanegra MD. I agree with the findings, assessment, and plan of care as documented except for any differences below. Patient successfully weaned from mechanical ventilation today. No repeat seizure events and EEG completed. Neurology is on board and assisting with resumption of antiepileptic regimen as prescribed by neurology team at [facility] during previous admission for status epilepticus. Patient continues to do well overall however low urine output noted. Concern for rhabdomyolysis secondary to seizure activity that may have led to acute kidney injury. Large volume resuscitation initiated with 1 L LR bolus given followed by high rate of continuous IV fluids. Patient continues to produce urine which is slowly clearing. Will complete workup for causes of acute kidney injury as well. Patient remains somnolent likely related to poor clearance of his antiepileptic regimen and will defer to neurology for appropriate adjustments in regimen. Patient's family updated at bedside on plan of care including development of renal failure. Explained need for long-term counseling for his drug abuse history given prior use of cocaine and positive for amphetamines this time. Total critical care time: I personally spent 35 minutes for review of physiologic parameters, directing plan of care throughout the day, coordination of care with other specialties, and counseling patient's family at bedside. This is exclusive of time spent teaching housestaff or performing separate billable procedures. Patient continues to require critical care services for acute hypoxic respiratory failure and status epilepticus with superimposed acute renal failure. Patient continues to be at high risk for increased morbidity and mortality.
[2024-07-24] MEDS: [UNRECOGNIZED DRUG - REMARK] PO (19:45)
[2024-07-24] MEDS: SODIUM CHLORIDE 0.9% 1000 ML 1,000 ML 150 ML IV (21:18)
--- NOTE | 2024-07-24 23:45 | VVPN_ITS ---
Telemedicine visit statement This visit was conducted with the use of phone was obtained on 07/24/24 at 2345. Documentation for date of: 07/24/24 Subjective Subjective Interval history: Patient got extubated and remains seizure-free on 6 antiepileptic drugs including Keppra, lacosamide, Depakote, clobazam, Fycompa and oxcarbazepine. Still somnolent but maintaining o2 sat fine. Virtual exam Vital Signs Temp Pulse Resp BP Pulse Ox O2 Del Method O2 Flow Rate 99.0 F 114 H 28 H 110/73 100 Room Air 2 07/24/24 21:00 07/24/24 22:00 07/24/24 22:00 07/24/24 22:00 07/24/24 22:00 07/24/24 21:00 07/24/24 10:00 FiO2 21 07/24/24 09:24 Objective Labs 07/24/24 08:40 07/24/24 08:40 Labs: Laboratory Results - last 24 hr 07/24/24 07/24/24 06:30 08:40 WBC 10.4 D RBC 4.77 Hgb 14.1 Hct 41.9 MCV 88 MCH 29.6 MCHC 33.7 RDW Std Deviation 47.1 H Plt Count 446 H D Neut % (Auto) 74 Lymph % (Auto) 15 [place] % (Auto) 9 Eos % (Auto) 0 Baso % (Auto) 1 Neut # (Auto) 7.7 Lymph # (Auto) 1.6 [place] # (Auto) 0.9 H Eos # (Auto) 0.0 Baso # (Auto) 0.1 Immature Gran # (Auto) 0.11 H Absolute Nucleated RBC 0.00 Immature Gran % 1 H Nucleated RBC % 0 VBG pH 7.33 VBG pCO2 41 VBG pO2 49 VBG O2 Sat ([place]) 84 L VBG Base Excess -4 L Sodium 133 L Potassium 4.2 D Chloride 100 Carbon Dioxide 20.8 Anion Gap 12 BUN 21 Creatinine 3.7 H D Estim Creat Clear Calc 28.3 L eGFR 23 L BUN/Creatinine Ratio 6 L Glucose 88 D Calculated Osmolality 268 L Calcium 9.4 D Corrected Calcium 9.4 D Total Bilirubin 0.4 AST 20 ALT 19 Alkaline Phosphatase 104 D Total Creatine Kinase 102 D Total Protein 7.2 Albumin 4.5 D Globulin 2.7 Albumin/Globulin Ratio 1.7 ABG Interpretation ABG results: 07/23/24 07/24/24 10:00 06:30 ABG pH 7.01 L* ABG pCO2 64 H ABG pO2 110 H ABG HCO3 16 L ABG O2 Saturation 96 ABG Base Excess -16 L VBG pH 7.33 VBG pCO2 41 VBG pO2 49 VBG Base Excess -4 L Assessment & Plan Problem List (1) Seizure disorder: Status: Acute Assessment and plan: Will continue with the current antiepileptic drugs including Keppra, lacosamide, Depakote, clobazam, oxcarbazepine and Fycompa. Continue to monitor for any breakthrough seizures and Ativan for breakthrough. EEG did show paroxysmal multifocal and generalized epileptiform discharges consistent with sz. If he continues to be somnolent, will lower the dose of Keppra to 1500 mg bid and Clobazam to 10 mg bid. (2) Status epilepticus: Status: Resolved (3) Pneumonia: Status: Acute Assessment and plan: Treated with IV antibiotics, DVT: continue Eliquis.
[2024-07-25] VITALS (16 sets, daily range): BP systolic 95–150; BP diastolic 68–103; PULSE 91–110; RESP 12–33; TEMP 36.2–37.3; O2SAT 96–100; BMI 25.0
[2024-07-25] MEDS: SODIUM CHLORIDE 0.9% 1000 ML 1,000 ML 150 ML IV (04:06)
[2024-07-25 06:08] LABS: Basophils % (Auto) 0 % (0-2.5); Eosinophils % (Auto) 0 % (0-10); Hematocrit 39.7 % (41.0-53.0); Hemoglobin 13.3 g/dL (13.5-16.0); Immature Granulocytes % (Auto) 1 % (0-0); Immature Granulocytes Auto 0.06 Thou/mm3 (0.00-0.00); Lymphocytes # (Auto) 1.5 Thou/mm3 (1.0-4.8); Lymphocytes % (Auto) 20 % (10-50); Mean Corpuscular HGB Conc 33.5 g/dl (31.0-37.0); Mean Corpuscular Hemoglobin 29.8 pg (25.0-35.0); Mean Corpuscular Volume 89 fL (80-100); Monocytes # (Auto) 0.8 Thou/mm3 (0.0-0.8); Monocytes % (Auto) 11 % (0-12); Neutrophils % (Auto) 68 % (37-80); Nucleated Red Blood Cell % 0 /100 WBC (0); Platelet Count 392 Thou/mm3 (140-440); RDW Standard Deviation 46.8 fL (35.1-43.9); Red Blood Count 4.46 Miln/mm3 (4.50-5.90); White Blood Count 7.4 Thou/mm3 (3.8-10.6)
[2024-07-25 06:33] LABS: Alanine Aminotransferase 13 U/L (10-49); Albumin, Serum 3.9 gm/dL (3.5-5.0); Albumin/Globulin Ratio 1.6 (1.2-2.2); Alkaline Phosphatase 94 U/L (46-116); Anion Gap 14 (7-16); Aspartate Amino Transferase 12 U/L (0-34); BUN/Creatinine Ratio 6 Ratio (12-20); Bilirubin,Total 0.5 mg/dL (0.3-1.2); Blood Urea Nitrogen 31 mg/dL (9-23); Calcium 8.8 mg/dL (8.3-10.6); Calcium (Corrected) 8.9 mg/dL (8.5-10.1); Carbon Dioxide 19.4 mMol/L (20.0-31.0); Chloride 106 mMol/L (98-107); Creatinine (Component) 5.6 mg/dL (0.6-1.3); Estimated Creatinine Clearance 18.7 mL/min (>60); Globulin 2.4 gm/dL (2.3-3.5); Glucose 98 mg/dL (74-106); Osmolality,Calculated 284 (275-295); Potassium 4.2 mMol/L (3.4-5.1); Sodium 139 mMol/L (136-145); Total Protein 6.3 gm/dL (5.7-8.2); eGFR 14 See Note
[2024-07-25] MEDS: levETIRAcetam LIQD 500 MG/5 ML UDC 1500 MG PO ×2 (06:51→15:41)
[2024-07-25] MEDS: VALPROIC ACID SYRUP 250 MG/5 ML UDC 1250 MG PO ×3 (06:51→21:43)
[2024-07-25 08:29] LABS: Creatine Kinase 91 U/L (34-171)
[2024-07-25] MEDS: LACOSAMIDE 50 MG TABLET 200 MG PO ×2 (08:46→21:32)
[2024-07-25] MEDS: APIXABAN 2.5 MG TABLET 5 MG PO ×2 (08:46→21:32)
[2024-07-25] MEDS: cefTRIAXone/D5w 1gm IV premix 50 ML IV (08:47)
[2024-07-25] MEDS: OXCARBazepine 150 MG TABLET (NON-FORMULARY) 1200 MG PO ×2 (08:47→21:33)
[2024-07-25] MEDS: [UNRECOGNIZED DRUG - REMARK] 15 MG PO ×2 (08:48→19:48)
--- NOTE | 2024-07-25 11:25 | XR_ITS ---
Examination: Retroperitoneal ultrasound, complete Technique: Multiple high resolution grayscale images of the retroperitoneum obtained, including kidneys and bladder. Exam date and time:July 25, 2024 1429 hours INDICATIONS: Acute renal insufficiency, creatinine on laboratory examination today 5.6 FINDINGS: Right kidney 12.2 x 6.4 x 7.4 cm cortex 1.8 cm Left kidney 12.3 x 6.4 x 4.9 cm cortex 1.9 cm Mild renal parenchymal scar formation No hydronephrosis Bladder contracted around a Rodriguez catheter No prostatomegaly IMPRESSION: Mild bilateral renal parenchymal scar No hydronephrosis
[2024-07-25] MEDS: RINGERS LACTATED 1000 ML 1,000 ML 999 ML IV (11:32)
[2024-07-25 11:51] LABS: Collection Type, Urine Catheter; Squamous Epithelial Cell,Urine 0 /hpf (0-5)
[2024-07-25 12:02] LABS: Bilirubin,Urine Negative (Negative); Blood,Urine 2+ (Negative); Clarity,Urine Clear (Clear/Hazy); Color,Urine Colorless (Lt Yel-Yel); Glucose, Urine Negative (Negative); Ketones,Urine Negative (Negative); Leukocyte Esterase,Urine Negative (Negative); Nitrite,Urine Negative (Negative); Protein,Urine Negative (Neg - Trace); RBC,Urine 9 /hpf (0-3); Specific Gravity,Urine 1.007 (1.001-1.035); Uric Acid Crystals,Urine Rare; Urobilinogen,Urine Negative mg/dL (0.0-1.0); WBC,Urine 5 /hpf (0-5)
[2024-07-25 12:05] LABS: Creatinine,Random Urine 38 mg/dL (30-125); Sodium,Urine Random 51.8 mMol/L (20.0-110.0)
--- NOTE | 2024-07-25 12:58 | PD.NEPHCONS ---
History of Present Illness Data of Consult Consult date: 07/25/24 Requesting Physician: Chintan Mosley MD Primary Care Provider: Physician No Primary/Family Consult Narrative Reason for consult: CECILE History of present illness: Chart review done as patient seems to be very sleepy and did not want to give enough information. Mr. Evangelista is a 24-year-old male with a previous medical history of seizure disorder (on 6 different antiseizure medications), right upper extremity brachial DVT and substance abuse disorder who was brought by the ambulance due to multiple seizures, before coming to the hospital he received 6 mg of Versed IV. Patient has a history of previous ICU admission with status epilepticus that required tranfer to the [facility], where he inderwent deep brain stimulation. He was discharged from [facility] in May 2024 and 2 medication added to his antiepileptic medications: clobazam and perampanel. In the emergency department patient continued to have seizures and for airway protection he was intubated. Patient was started on midazolam drip and transferred to ICU. Subsequently he was extubated. During the course of the last 24 to 48 hours patient has significant episodes of hypotension. For the last 24 hours his creatinine significantly elevated from 1.3-3.7-5.6. Nephrology consultation was requested for acute renal failure. Patient was transferred from ICU to medical floor this morning. Currently seen in medical floor along with my resident physician. Current medications include. Eliquis, ceftriaxone, Onfi, Vimpat, Keppra, Trileptal, Complera, valproic acid Dr Singh on the case. cc:: cc: Chintan Mosley MD Review of Systems Review of Systems ROS Unobtainable: unobtainable due to medical condition Past Medical History Past Medical History NEUROLOGIC: Positive Neurological Disorders, Seizures and Epilepsy CARDIAC: Negative Cardiac Disorders or Congestive Heart Failure RESPIRATORY: Negative Chronic Obstructive Pulmonary Disease (COPD) GASTROINTESTINAL: Negative Gastrointestinal Disorders GENITOURINARY: Negative Genitourinary Disorders or Renal Disease MUSCULOSKELETAL: Negative Musculoskeletal Disorders ENDOCRINE: Negative Endocrine Disorders, Diabetes Mellitus Type 1 or Diabetes Mellitus Type 2 HEMATOLOGIC: Negative Blood Disorders Family History FAMILY HISTORY: Positive Family Endocrine Disorders; Negative Family Cardiac Disorders Social History SMOKING STATUS: Never smoker SUBSTANCE USE: unknown Past Medical History Comments PMH COMMENT: Past Medical History: seizure disorder, multi-substance abuse Family History: Non-contributory Surgical History: None Social History: Denies history of smoking, alcohol use with average of 12 beers weekly, cocaine use, benzo use with Xanax Current Medications: oxcarbazepine 900 mg BID, clobazepam (Onfi) 15 mg BID, lacosamide (Vimpat) 200 mg BID, levetiracetam (Keppra) 1500 mg TID, valproic acid 1250 mg TID, perampanel (Fycompa) 10 mg HS, ergocalciferol, multivitamin, Miralax, senna (Source: [facility] rec discharge paperwork) Allergies: No known drug allergies Meds Home Medications and Allergies Home Medications ?Medication ?Instructions ?Recorded ?Confirmed ?Type oxcarbazepine 600 mg tablet 1,200 mg PO BID 07/23/24 07/23/24 History Allergies Allergy/AdvReac Type Severity Reaction Status Date / Time No Known Allergies Allergy Verified 07/23/24 09:34 Exam Vital Signs Temp Pulse Resp BP Pulse Ox O2 Del Method O2 Flow Rate 36.9 C 95 19 111/82 100 Room Air 2 07/25/24 12:00 07/25/24 12:00 07/25/24 12:00 07/25/24 12:00 07/25/24 12:00 07/25/24 12:00 07/24/24 10:00 FiO2 21 07/24/24 09:24 Narrative Exam GENERAL APPEARANCE: Patient currently seen in medical floor NECK: Neck supple, no JVD or bruit CARDIOVASCULAR: Heart regular, no murmurs LUNGS/CHEST: Chest clear to auscultation. No rales, rhonchi, wheezing ABDOMEN: Soft, nontender, nondistended. No masses. Normal bowel sounds. EXTREMITIES: No edema, clubbing or cyanosis. SKIN: Skin exam normal without any rashes MUSCULOSKELETAL: In bed NEUROLOGICAL : Sleepy, arousable no active seizures now Results Labs 07/25/24 05:41 07/25/24 05:41 Labs: Short CBC 07/25/24 Range/Units 05:41 WBC 7.4 (3.8-10.6) Thou/mm3 Hgb 13.3 L (13.5-16.0) g/dL Hct 39.7 L (41.0-53.0) % Plt Count 392 D (140-440) Thou/mm3 BMP 07/25/24 05:41 Sodium 139 Potassium 4.2 Chloride 106 Carbon Dioxide 19.4 L BUN 31 H Creatinine 5.6 H* D Glucose 98 Calcium 8.8 Cardiac Enzymes 07/25/24 Range/Units 05:41 Total Creatine Kinase 91 (34-171) U/L Liver Function 07/25/24 Range/Units 05:41 Total Bilirubin 0.5 (0.3-1.2) mg/dL AST 12 (0-34) U/L ALT 13 (10-49) U/L Alkaline Phosphatase 94 (46-116) U/L Albumin 3.9 D (3.5-5.0) gm/dL Urine 07/25/24 Range/Units 11:40 Urine Color Colorless A (Lt Yel-Yel) Urine Clarity Clear (Clear/Hazy) Urine pH 6.0 (5.0-7.0) Ur Specific [place] 1.007 (1.001-1.035) Urine Protein Negative (Neg - Trace) Urine Glucose (UA) Negative (Negative) ABG Interpretation ABG results: 07/23/24 07/24/24 10:00 06:30 ABG pH 7.01 L* ABG pCO2 64 H ABG pO2 110 H ABG HCO3 16 L ABG O2 Saturation 96 ABG Base Excess -16 L VBG pH 7.33 VBG pCO2 41 VBG pO2 49 VBG Base Excess -4 L Assessment & Plan Assessment and plan (1) Acute renal failure (ARF): Status: Acute Assessment and plan: Acute renal failure with a rapid rise in creatinine-suggestive of ATN. Upon reviewing his medications and vital signs patient has a combination of hypotensive episodes along with the multiple medications which can cause ATN. Noted mild metabolic acidosis-added Bicitra. Lactic acidosis improved. No need for emergency dialysis. Urine output seems to be good. Continue with IV fluids. If ATN hopefully there will be renal recovery. Strict I&O's ordered. (2) Metabolic acidosis: Status: Inactive Assessment and plan: Added Bicitra (3) Seizure disorder: Status: Acute Assessment and plan: Patient admitted with status epilepticus-currently asymptomatic on 6 antiseizure medications Sodium stable, CK levels normal (4) Pneumonia: Status: Acute Assessment and plan: On ceftriaxone- (5) DVT (deep venous thrombosis): Status: Acute Assessment and plan: On Eliquis Additional Assessment & Plan Additional Plan: Thank you Dr. Mosley for allowing me to participate in the care of Mr. Ashford. I will be on vacation starting 07/26/2024 through 07/30/2024. Dr Piña will be covering for me.
[2024-07-25] MEDS: CITRIC ACID/SODIUM CITR 15 ML UDC (BICITRA) 30 ML PO ×2 (15:41→21:33)
[2024-07-25] MEDS: RINGERS LACTATED 1000 ML 1,000 ML 75 ML IV (15:42)
--- NOTE | 2024-07-25 16:40 | PD.RESPRO ---
Documentation for date of: 07/25/24 Exam Vital Signs Temp Pulse Resp BP Pulse Ox O2 Del Method O2 Flow Rate 98.5 F 95 19 111/82 100 Room Air 2 07/25/24 12:00 07/25/24 12:00 07/25/24 12:00 07/25/24 12:00 07/25/24 12:00 07/25/24 12:00 07/24/24 10:00 FiO2 21 07/24/24 09:24 Objective Labs 07/25/24 05:41 07/25/24 05:41 Labs: Laboratory Results - last 24 hr 07/25/24 07/25/24 05:41 11:40 WBC 7.4 RBC 4.46 L Hgb 13.3 L Hct 39.7 L MCV 89 MCH 29.8 MCHC 33.5 RDW Std Deviation 46.8 H Plt Count 392 D Neut % (Auto) 68 Lymph % (Auto) 20 [place] % (Auto) 11 Eos % (Auto) 0 Baso % (Auto) 0 Neut # (Auto) 5.0 Lymph # (Auto) 1.5 [place] # (Auto) 0.8 Eos # (Auto) 0.0 Baso # (Auto) 0.0 Immature Gran # (Auto) 0.06 H Absolute Nucleated RBC 0.00 Immature Gran % 1 H Nucleated RBC % 0 Sodium 139 Potassium 4.2 Chloride 106 Carbon Dioxide 19.4 L Anion Gap 14 BUN 31 H Creatinine 5.6 H* D Estim Creat Clear Calc 18.7 L eGFR 14 L* BUN/Creatinine Ratio 6 L Glucose 98 Calculated Osmolality 284 Calcium 8.8 Corrected Calcium 8.9 Total Bilirubin 0.5 AST 12 ALT 13 Alkaline Phosphatase 94 Total Creatine Kinase 91 Total Protein 6.3 Albumin 3.9 D Globulin 2.4 Albumin/Globulin Ratio 1.6 Ur Collection Type Catheter Urine Color Colorless A Urine Clarity Clear Urine pH 6.0 Ur Specific [place] 1.007 Urine Protein Negative Urine Glucose (UA) Negative Urine Ketones Negative Urine Blood 2+ A Urine Nitrite Negative Urine Bilirubin Negative Urine Urobilinogen (Auto) Negative Ur Leukocyte Esterase Negative Urine RBC 9 H Urine WBC 5 Ur Squamous Epith Cells 0 Uric Acid Crystals Rare Urine Bacteria None Ur Random Creatinine 38 Ur Random Sodium 51.8 ABG Interpretation ABG results: 07/23/24 07/24/24 10:00 06:30 ABG pH 7.01 L* ABG pCO2 64 H ABG pO2 110 H ABG HCO3 16 L ABG O2 Saturation 96 ABG Base Excess -16 L VBG pH 7.33 VBG pCO2 41 VBG pO2 49 VBG Base Excess -4 L Quality Measures Quality Measures VTE prophylaxis Assessment & Plan Assessment Current Active Medications: Generic Name Dose Route Start Last Admin Trade Name Freq PRN Reason Stop Dose Admin Apixaban 5 mg 07/23/24 21:00 07/25/24 08:46 Apixaban 2.5 Mg Tablet PO 08/13/24 20:59 5 mg BID PANCHO Administration Citric Acid/Sodium Citrate 30 ml 07/25/24 13:00 07/25/24 15:41 Citric Acid/Sodium Citr 15 Ml Udc (Bicitra) PO 08/24/24 12:59 30 ml BID PANCHO Administration Clobazam 15 mg 07/23/24 19:00 07/25/24 08:48 Clobazam 10 Mg Tablet (Non-Form) PO 07/28/24 18:59 15 mg BID@0700,1900 PANCHO Administration Ceftriaxone Sodium/Dextrose 50 mls @ 100 mls/hr 07/24/24 17:54 07/25/24 08:47 Rocephin/D5w 1gm Iv Premix IV 07/31/24 17:53 100 mls/hr QDAY PANCHO Administration Lactated Ringer's 1,000 mls @ 75 mls/hr 07/25/24 15:09 07/25/24 15:42 Lactated Ringers IV 07/26/24 15:08 75 mls/hr .[id number] PANCHO Administration Lacosamide 200 mg 07/23/24 21:00 07/25/24 08:46 Lacosamide 50 Mg Tablet PO 08/22/24 20:59 200 mg BID PANCHO Administration Levetiracetam 1,500 mg 07/23/24 14:00 07/25/24 15:41 Levetiracetam Liqd 500 Mg/5 Ml Udc PO 08/22/24 13:59 1,500 mg Q8HR PANCHO Administration Midazolam HCl 2 mg 07/23/24 12:20 Midazolam Inj 1 Mg/Ml Vial 2 Ml IV 07/28/24 12:29 Q10MIN PRN breakthrough seizures Oxcarbazepine 1,200 mg 07/23/24 21:00 07/25/24 08:47 Oxcarbazepine 150 Mg Tablet (Non-Formulary) PO 08/22/24 20:59 1,200 mg BID PANCHO Administration Perampanel 10 mg 07/23/24 19:00 07/24/24 19:45 Perampanel 10 Mg Tablet (Non-Form) PO 08/22/24 18:59 10 mg HS@1900 PANCHO Administration Pharmacy Consult 1 each 07/25/24 11:19 Pharmacy Renal Dose Adjustment 1 Ea XX 08/24/24 11:18 PRN PRN CONSULT Valproic Acid 1,250 mg 07/23/24 14:00 07/25/24 15:40 Valproic Acid Syrup 250 Mg/5 Ml Udc PO 08/22/24 13:59 1,250 mg TID PANCHO Administration
--- NOTE | 2024-07-25 16:41 | PD.RESEVENT ---
Documentation for date of: 07/25/24 Event Note Event Note: ICU downgrade was received, and sign out given by Dr. Bocanegra. Team C will assume care starting tomorrow 07/26/24. 24 yr male with past medical history of seizure disorder and upper extremity DVT was admitted on 07/23/2024 due to status epilepticus. Patient was intubated while in the ED and upgraded to the ICU. Subsequent day patient passed SBT and was successfully extubated. He was restarted on all 6 antiseizure medications that he takes at home along with ceftriaxone due to aspiration pneumonia. Cultures were positive for P aeruginosa and GPC which showed sensitivity to the ceftriaxone. Patient's creatinine has elevated to 5.6 and was started on fluids. Mental status has improved and there have been no repeat seizures. Internal medicine will continue monitoring status and manage care.
--- NOTE | 2024-07-25 18:00 | ESPR_ITS ---
<Statement entered by Ele Marin MD - 07/26/24 06:52> Patient was seen and examined by me personally. I have directly supervised and reviewed the above documentation by the team resident and agree with its findings with any exceptions or additional findings as below. Plan of care was discussed with the attending, Dr. Mosley. Ele Marin, PGY-2 Documentation for date of: 07/25/24 Subjective Subjective Interval history: 07/24/2024:Patient was seen and examined by the bedside. Overnight patient continued to be on midazolam and propofol sedation, he received all of his antiseizure medications. In the morning patient became more awake, was able to follow commands, successfully passed SBT and was extubated. After the extubation he continued to be somnolent, but is able to protect his airways and saturates well on room air. He is urine output was low, he received 1 L bolus of LR and continued on LR 200 mL/h. Will continue to monitor I's and O's, if kidney function improves and output is adequate, will consider to downgrade to the floors tomorrow. 07/25/2024:Patient was seen and examined by the bedside. No acute overnight events. Patient is somnolent, AO x 2, does not remember what happened and does not remember why he is in the hospital. No seizures. Creatinine increased to 5.6, compared to 3.7 on 07/24, urine output continues to be > 100 mL/h. Patient continues to receive maintenance fluids. Renal ultrasound showed mild bilateral renal parenchymal scar, no hydronephrosis. FENa, urine creatinine were ordered. Continues to receive ceftriaxone. Patient was downgraded to the [facility], hospitalist team to assume care starting 07/26/2024 Exam Vital Signs Temp Pulse Resp BP Pulse Ox O2 Del Method O2 Flow Rate 97.4 F 104 H 19 133/94 H 96 Room Air 2 07/25/24 17:05 07/25/24 17:05 07/25/24 17:05 07/25/24 17:05 07/25/24 17:05 07/25/24 17:05 07/25/24 17:05 FiO2 21 07/25/24 17:05 Narrative Exam Physical Exam General: Somnolent. Follows commands. AOx2 HEENT: Normocephalic, atraumatic, mucous membranes moist. Heart: Regular rate and rhythm, no murmurs. Lungs: Diffuse rhonchi. Abdomen: Soft, nondistended, nontender, positive bowel sounds. ?No guarding or rebound tenderness. Neurologic: no gross neurological deficit, and patient able to move all 4 extremities. Extremities: No edema. Skin: No rash or ecchymoses. Shaved spots on the parietal and occipital area of the head s/p electrode implantation. Objective Labs 07/29/24 05:34 07/29/24 05:34 Labs: Laboratory Results - last 24 hr 07/25/24 07/25/24 05:41 11:40 WBC 7.4 RBC 4.46 L Hgb 13.3 L Hct 39.7 L MCV 89 MCH 29.8 MCHC 33.5 RDW Std Deviation 46.8 H Plt Count 392 D Neut % (Auto) 68 Lymph % (Auto) 20 [place] % (Auto) 11 Eos % (Auto) 0 Baso % (Auto) 0 Neut # (Auto) 5.0 Lymph # (Auto) 1.5 [place] # (Auto) 0.8 Eos # (Auto) 0.0 Baso # (Auto) 0.0 Immature Gran # (Auto) 0.06 H Absolute Nucleated RBC 0.00 Immature Gran % 1 H Nucleated RBC % 0 Sodium 139 Potassium 4.2 Chloride 106 Carbon Dioxide 19.4 L Anion Gap 14 BUN 31 H Creatinine 5.6 H* D Estim Creat Clear Calc 18.7 L eGFR 14 L* BUN/Creatinine Ratio 6 L Glucose 98 Calculated Osmolality 284 Calcium 8.8 Corrected Calcium 8.9 Total Bilirubin 0.5 AST 12 ALT 13 Alkaline Phosphatase 94 Total Creatine Kinase 91 Total Protein 6.3 Albumin 3.9 D Globulin 2.4 Albumin/Globulin Ratio 1.6 Ur Collection Type Catheter Urine Color Colorless A Urine Clarity Clear Urine pH 6.0 Ur Specific [place] 1.007 Urine Protein Negative Urine Glucose (UA) Negative Urine Ketones Negative Urine Blood 2+ A Urine Nitrite Negative Urine Bilirubin Negative Urine Urobilinogen (Auto) Negative Ur Leukocyte Esterase Negative Urine RBC 9 H Urine WBC 5 Ur Squamous Epith Cells 0 Uric Acid Crystals Rare Urine Bacteria None Ur Random Creatinine 38 Ur Random Sodium 51.8 ABG Interpretation ABG results: 07/23/24 07/24/24 10:00 06:30 ABG pH 7.01 L* ABG pCO2 64 H ABG pO2 110 H ABG HCO3 16 L ABG O2 Saturation 96 ABG Base Excess -16 L VBG pH 7.33 VBG pCO2 41 VBG pO2 49 VBG Base Excess -4 L Quality Measures Quality Measures VTE prophylaxis Assessment & Plan Assessment Current Active Medications: Generic Name Dose Route Start Last Admin Trade Name Freq PRN Reason Stop Dose Admin Apixaban 5 mg 07/23/24 21:00 07/25/24 08:46 Apixaban 2.5 Mg Tablet PO 08/13/24 20:59 5 mg BID PANCHO Administration Citric Acid/Sodium Citrate 30 ml 07/25/24 13:00 07/25/24 15:41 Citric Acid/Sodium Citr 15 Ml Udc (Bicitra) PO 08/24/24 12:59 30 ml BID PANCHO Administration Clobazam 15 mg 07/23/24 19:00 07/25/24 08:48 Clobazam 10 Mg Tablet (Non-Form) PO 07/28/24 18:59 15 mg BID@0700,1900 PANCHO Administration Ceftriaxone Sodium/Dextrose 50 mls @ 100 mls/hr 07/24/24 17:54 07/25/24 08:47 Rocephin/D5w 1gm Iv Premix IV 07/31/24 17:53 100 mls/hr QDAY PANCHO Administration Lactated Ringer's 1,000 mls @ 75 mls/hr 07/25/24 15:09 07/25/24 15:42 Lactated Ringers IV 07/26/24 15:08 75 mls/hr .[id number] PANCHO Administration Lacosamide 200 mg 07/23/24 21:00 07/25/24 08:46 Lacosamide 50 Mg Tablet PO 08/22/24 20:59 200 mg BID PANCHO Administration Levetiracetam 500 mg 07/26/24 09:00 Levetiracetam Liqd 500 Mg/5 Ml Udc PO 08/25/24 08:59 BID PANCHO Midazolam HCl 2 mg 07/23/24 12:20 Midazolam Inj 1 Mg/Ml Vial 2 Ml IV 07/28/24 12:29 Q10MIN PRN breakthrough seizures Oxcarbazepine 1,200 mg 07/23/24 21:00 07/25/24 08:47 Oxcarbazepine 150 Mg Tablet (Non-Formulary) PO 08/22/24 20:59 1,200 mg BID PANCHO Administration Perampanel 10 mg 07/23/24 19:00 07/24/24 19:45 Perampanel 10 Mg Tablet (Non-Form) PO 08/22/24 18:59 10 mg HS@1900 PANCHO Administration Pharmacy Consult 1 each 07/25/24 11:19 Pharmacy Renal Dose Adjustment 1 Ea XX 08/24/24 11:18 PRN PRN CONSULT Valproic Acid 1,250 mg 07/23/24 14:00 07/25/24 15:40 Valproic Acid Syrup 250 Mg/5 Ml Udc PO 08/22/24 13:59 1,250 mg TID PANCHO Administration Plan The patient is a 24-year-old male with a previous medical history of seizure disorder, right upper extremity brachial DVT and substance abuse disorder who was brought by the ambulance due to multiple seizures, before coming to the hospital he received 6 mg of Versed IV. Patient has a history of previous ICU admission with status epilepticus that required tranfer to the [facility]. He was discharged from [facility] in May 2024 and 2 medication added to his antiepileptic medications: clobazam and perampanel. NEURO #Status epilepticus, resolved #Seizure disorder #Substance abuse Patient is awake, somnolent, intubated. Utox was positive for Methamphetamine and benzodiazepines (could be due patient receiving versed IV before test) Plan: ?Resumed home medications ?Clobazam 50 mg twice daily ? Lacosamide 200 mg twice daily ? Levetiracetam 1500 mg p.o. every 8 hours ? Oxcarbazepine 1200 twice daily ? Perampanel 10 mg daily ? Valproic acid 1250 mg 3 times daily ? Neurology is following, if patient continues to be somnolent at this possible to decrease Keppra to 1500 twice daily and clobazam to 10 mg twice daily. ?Consider clinical studies specialist consult outpatient CARDIO #Sinus tachycardia, resolved # History of upper extremity DVT Tachycardia most likely due to seizure activity. Patient was diagnosed with upper extremity DVT while being admitted inthe [facility]. At the moment, no signs of DVT. Plan: ?Continue Eliquis 5 mg twice a day PULM #Aspiration pneumonia Chest Xray showed: significant left base pneumonia, consider aspiration pneumonia. Sputum cultures grew gram-positive cocci and gram-negative rods. On auscultation mild diffuse rhonchi. Plan: ? Ceftriaxone 07/24?present (7 days course) GI #No active problems NEPHRO #CECILE #Lactic acidosis, resolved. Prerenal versus intrarenal Could be in the setting of decreased oral intake. CK level is normal. Repeat LA 07/23 is 1.3. Patient received 1 L bolus and will continue to receive maintenance fluids. Plan: ? Ringer Lactate at 75 mL/h ? Encouraged oral rehydration ? Daily CMP ? I's and O's - repeat UA - FeNA, urine creatinine URO #No active problems HEME #Leukocytosis Most likely reactive in the setting of status epilepticus and aspiration pneumonia. ENDO #No active problems ID #No active problems MSK #No active problems SKIN #No active problems DVT prophylaxis: Eliquis GI prophylaxis: None Diet: Regular Rodriguez: Present Lines: peripheral Antibiotics: Ceftriaxone CODE STATUS: FULL CODE Disposition: [facility] Plan of care discussed with attending Dr. Mosley and PGY-[address] Marin. Yarely Bocanegra MD, PGY 1. Attending Provider Attestation/Addendum Patient seen and examined with above resident, Yarely Bocanegra MD. I agree with the findings, assessment, and plan of care as documented except for any differences below. Patient continues to show improvement postextubation and is back on room air. Patient however with development of acute kidney injury. CK and surprisingly low and not related to the rhabdomyolysis. Potential for hypotension leading to CECILE/ATN or drug-induced. Will send urine studies to help determining etiology of acute renal failure. Patient fortunately is having good urine output with use of IV fluids for clearance. Will keep up with any postobstructive diuresis that may occur. Patient had Rodriguez in place throughout hospitalization with close monitoring of urine output. Patient restarted on all antiepileptics as per his regimen from discharge at [facility] about 1 month ago after status epilepticus. Patient remains lethargic and neurology is adjusting medications to help with this. I suspect that this is also related to poor renal clearance of metabolites of his antiepileptic medications. Patient otherwise remained stable and will be transferred to the medicine rodriguez for ongoing management. Patient's family at bedside was updated on plan of care and appreciative of resumption of his antiepileptics appropriately based on discharge paperwork. Coordination with his insurance will be required to ensure that he has medications at home. Additionally also needs extensive counseling about drug abuse which is also playing a role in his noncompliance and as a potential precipitant. Previously patient had cocaine on UDS at this time amphetamines. Total critical care time: I personally spent 40 minutes for review of physiologic parameters, directing plan of care throughout the day, coordination of care with other specialties, and counseling patient's family at bedside. This is exclusive of time spent teaching housestaff or performing any separate billable procedures. Patient continues to require critical care services for acute respiratory failure and status epilepticus, now resolved with development of acute renal failure. Patient continues to have high risk for further morbidity and mortality.
[2024-07-25] MEDS: [UNRECOGNIZED DRUG - REMARK] PO (19:48)
--- NOTE | 2024-07-25 23:58 | ESPR_ITS ---
Documentation for date of: 07/25/24 Subjective Subjective Interval history: Mr. Evangelista was seen in [facility] today with family at the bedside. No seizures reported extubation. Continues to be lethargic Exam - Neurology Vital Signs Temp Pulse Resp BP Pulse Ox O2 Del Method O2 Flow Rate 97.1 F 99 18 140/95 H 97 Room Air 2 07/25/24 20:00 07/25/24 20:00 07/25/24 20:00 07/25/24 20:00 07/25/24 20:00 07/25/24 20:00 07/25/24 17:05 FiO2 21 07/25/24 17:05 Narrative Exam GENERAL APPEARANCE: Well-developed, well-nourished male in no acute distress HEENT: Normocephalic, atraumatic, extraocular movements intact. Pupils: Equal reacting to light NECK: Supple, no JVD or bruits. CARDIOVASULAR: Heart: S1, S2 heard, regular without S3-S4 or murmur no rubs or gallops. LUNGS/CHEST: Clear to auscultation bilaterally. No rails, rhonchi, or wheezing. Normal inspection. ABDOMEN: Soft, nontender, with normal bowel sounds. No pulsatile masses. No rebound, rigidity, or guarding. Normal inspection and palpation. EXTREMITIES: Normal inspection and palpation. No edema, clubbing or cyanosis. SKIN: Warm and dry without rashes. Normal inspection. MUSCULOSKELETAL: No cervical, thoracic, lumbar or midline bony tenderness. Normal inspection. NEURO: Lethargic but arousable, not able to answer questions readily, moves both upper and lower extremities. No focal deficit noted, no meningeal irritation seen PSYCHIATRIC: Limited. Objective Labs 07/25/24 05:41 07/25/24 05:41 Labs: Laboratory Results - last 24 hr 07/25/24 07/25/24 05:41 11:40 WBC 7.4 RBC 4.46 L Hgb 13.3 L Hct 39.7 L MCV 89 MCH 29.8 MCHC 33.5 RDW Std Deviation 46.8 H Plt Count 392 D Neut % (Auto) 68 Lymph % (Auto) 20 [place] % (Auto) 11 Eos % (Auto) 0 Baso % (Auto) 0 Neut # (Auto) 5.0 Lymph # (Auto) 1.5 [place] # (Auto) 0.8 Eos # (Auto) 0.0 Baso # (Auto) 0.0 Immature Gran # (Auto) 0.06 H Absolute Nucleated RBC 0.00 Immature Gran % 1 H Nucleated RBC % 0 Sodium 139 Potassium 4.2 Chloride 106 Carbon Dioxide 19.4 L Anion Gap 14 BUN 31 H Creatinine 5.6 H* D Estim Creat Clear Calc 18.7 L eGFR 14 L* BUN/Creatinine Ratio 6 L Glucose 98 Calculated Osmolality 284 Calcium 8.8 Corrected Calcium 8.9 Total Bilirubin 0.5 AST 12 ALT 13 Alkaline Phosphatase 94 Total Creatine Kinase 91 Total Protein 6.3 Albumin 3.9 D Globulin 2.4 Albumin/Globulin Ratio 1.6 Ur Collection Type Catheter Urine Color Colorless A Urine Clarity Clear Urine pH 6.0 Ur Specific [place] 1.007 Urine Protein Negative Urine Glucose (UA) Negative Urine Ketones Negative Urine Blood 2+ A Urine Nitrite Negative Urine Bilirubin Negative Urine Urobilinogen (Auto) Negative Ur Leukocyte Esterase Negative Urine RBC 9 H Urine WBC 5 Ur Squamous Epith Cells 0 Uric Acid Crystals Rare Urine Bacteria None Ur Random Creatinine 38 Ur Random Sodium 51.8 ABG Interpretation ABG results: 07/23/24 07/24/24 10:00 06:30 ABG pH 7.01 L* ABG pCO2 64 H ABG pO2 110 H ABG HCO3 16 L ABG O2 Saturation 96 ABG Base Excess -16 L VBG pH 7.33 VBG pCO2 41 VBG pO2 49 VBG Base Excess -4 L Assessment & Plan Assessment and plan (1) Acute renal failure (ARF): Status: Acute Assessment and plan: Noted significant drop in kidney function. Suspected lab error (2) Metabolic acidosis: Status: Inactive (3) Seizure disorder: Status: Chronic Assessment and plan: Continue with meds: Lacosamide 200 twice daily, levetiracetam 1500 mg twice daily, clobazam 10 mg twice daily, oxcarbazepine 1200 mg twice daily and perampanel 10 mg at bedtime. If mental status does not improve with improvement in kidney function, will consider discontinuing perampanel followed by clobazam after a week. (4) Pneumonia: Status: Acute Assessment and plan: Continue with IV antibiotics. could be from aspiration. (5) DVT (deep venous thrombosis): Status: Chronic Assessment and plan: Continue with Eliquis (6) Status epilepticus: Status: Resolved Assessment and plan: Monitor for any recurrence
[2024-07-26] VITALS (8 sets, daily range): BP systolic 111–137; BP diastolic 67–92; PULSE 89–104; RESP 17–19; TEMP 36.1–37; O2SAT 95–97
[2024-07-26] MEDS: ONDANSETRON INJ 2 MG/ML INJ 2 ML 4 MG IV (00:08)
[2024-07-26 06:11] LABS: Basophils % (Auto) 0 % (0-2.5); Eosinophils % (Auto) 0 % (0-10); Hematocrit 39.8 % (41.0-53.0); Hemoglobin 13.2 g/dL (13.5-16.0); Immature Granulocytes % (Auto) 1 % (0-0); Immature Granulocytes Auto 0.03 Thou/mm3 (0.00-0.00); Lymphocytes # (Auto) 1.4 Thou/mm3 (1.0-4.8); Lymphocytes % (Auto) 25 % (10-50); Mean Corpuscular HGB Conc 33.2 g/dl (31.0-37.0); Mean Corpuscular Hemoglobin 29.5 pg (25.0-35.0); Mean Corpuscular Volume 89 fL (80-100); Monocytes # (Auto) 0.5 Thou/mm3 (0.0-0.8); Monocytes % (Auto) 9 % (0-12); Neutrophils # (Auto) 3.6 Thou/mm3 (1.8-7.7); Neutrophils % (Auto) 65 % (37-80); Nucleated Red Blood Cell % 0 /100 WBC (0); Platelet Count 377 Thou/mm3 (140-440); RDW Standard Deviation 48.8 fL (35.1-43.9); Red Blood Count 4.47 Miln/mm3 (4.50-5.90); White Blood Count 5.5 Thou/mm3 (3.8-10.6)
[2024-07-26 06:52] LABS: Alanine Aminotransferase 10 U/L (10-49); Albumin, Serum 3.9 gm/dL (3.5-5.0); Albumin/Globulin Ratio 1.5 (1.2-2.2); Alkaline Phosphatase 90 U/L (46-116); Anion Gap 11 (7-16); Aspartate Amino Transferase 11 U/L (0-34); BUN/Creatinine Ratio 7 Ratio (12-20); Bilirubin,Total 0.4 mg/dL (0.3-1.2); Blood Urea Nitrogen 27 mg/dL (9-23); Calcium 9.2 mg/dL (8.3-10.6); Calcium (Corrected) 9.3 mg/dL (8.5-10.1); Carbon Dioxide 21.8 mMol/L (20.0-31.0); Chloride 113 mMol/L (98-107); Creatinine (Component) 4.1 mg/dL (0.6-1.3); Estimated Creatinine Clearance 25.5 mL/min (>60); Globulin 2.6 gm/dL (2.3-3.5); Glucose 101 mg/dL (74-106); Osmolality,Calculated 295 (275-295); Potassium 3.8 mMol/L (3.4-5.1); Sodium 146 mMol/L (136-145); Total Protein 6.5 gm/dL (5.7-8.2); eGFR 20 See Note
[2024-07-26] MEDS: cefTRIAXone/D5w 1gm IV premix 50 ML IV (08:58)
[2024-07-26] MEDS: CITRIC ACID/SODIUM CITR 15 ML UDC (BICITRA) 30 ML PO ×2 (08:58→21:59)
[2024-07-26] MEDS: [UNRECOGNIZED DRUG - REMARK] 15 MG PO ×2 (08:58→19:44)
[2024-07-26] MEDS: LACOSAMIDE 50 MG TABLET 200 MG PO ×2 (08:59→21:59)
[2024-07-26] MEDS: APIXABAN 2.5 MG TABLET 5 MG PO ×2 (08:59→21:59)
[2024-07-26] MEDS: VALPROIC ACID SYRUP 250 MG/5 ML UDC 1250 MG PO ×3 (09:00→21:58)
[2024-07-26] MEDS: levETIRAcetam LIQD 500 MG/5 ML UDC PO ×2 (09:01→21:58)
[2024-07-26] MEDS: RINGERS LACTATED 1000 ML 1,000 ML 75 ML IV (09:03)
[2024-07-26] MEDS: OXCARBazepine 150 MG TABLET (NON-FORMULARY) 1200 MG PO ×2 (10:17→21:59)
[2024-07-26 11:59] LABS: Creatine Kinase 60 U/L (34-171)
--- NOTE | 2024-07-26 17:27 | PD.RESPRO ---
Documentation for date of: 07/26/24 Subjective Subjective Interval history: Patient was seen and examined at bedside. No acute events overnight. Patient states he is feeling better today but lethargic. No new episode of seizure. Will continue with current regimen. Sputum grew Klebsiella and GPC. Patient has been on Rocefin for 2 days now. CECILE improving slowly to 4.1 today. CK ordered to rule out rhabdo. CBC, CMP otherwise unremarkable. Anticipate discharge in 24-48hrs pending Cr trend. Review of systems otherwise negative except what is mentioned above. Exam Vital Signs Temp Pulse Resp BP Pulse Ox O2 Del Method O2 Flow Rate 97.1 F 90 17 124/82 95 Room Air 2 07/26/24 16:00 07/26/24 16:00 07/26/24 16:00 07/26/24 16:00 07/26/24 16:00 07/26/24 16:00 07/26/24 00:00 FiO2 21 07/26/24 00:00 Narrative Exam Physical Exam General: Somnolent. Follows commands. AOx3 HEENT: Normocephalic, atraumatic, mucous membranes moist. Heart: Regular rate and rhythm, no murmurs. Lungs: Diffuse rhonchi. Abdomen: Soft, nondistended, nontender, positive bowel sounds. ?No guarding or rebound tenderness. Neurologic: no gross neurological deficit, and patient able to move all 4 extremities. Extremities: No edema. Skin: No rash or ecchymoses. Shaved spots on the parietal and occipital area of the head s/p electrode implantation. Objective Labs 07/26/24 05:35 07/26/24 05:35 Labs: Laboratory Results - last 24 hr 07/26/24 07/26/24 05:35 05:35 WBC 5.5 RBC 4.47 L Hgb 13.2 L Hct 39.8 L MCV 89 MCH 29.5 MCHC 33.2 RDW Std Deviation 48.8 H Plt Count 377 Neut % (Auto) 65 Lymph % (Auto) 25 [place] % (Auto) 9 Eos % (Auto) 0 Baso % (Auto) 0 Neut # (Auto) 3.6 Lymph # (Auto) 1.4 [place] # (Auto) 0.5 Eos # (Auto) 0.0 Baso # (Auto) 0.0 Immature Gran # (Auto) 0.03 H Absolute Nucleated RBC 0.00 Immature Gran % 1 H Nucleated RBC % 0 Sodium 146 H Potassium 3.8 Chloride 113 H Carbon Dioxide 21.8 Anion Gap 11 BUN 27 H Creatinine 4.1 H* D Estim Creat Clear Calc 25.5 L eGFR 20 L BUN/Creatinine Ratio 7 L Glucose 101 Calculated Osmolality 295 Calcium 9.2 Corrected Calcium 9.3 Total Bilirubin 0.4 AST 11 ALT 10 Alkaline Phosphatase 90 Total Creatine Kinase Cancelled 60 D Total Protein 6.5 Albumin 3.9 Globulin 2.6 Albumin/Globulin Ratio 1.5 ABG Interpretation ABG results: 07/23/24 07/24/24 10:00 06:30 ABG pH 7.01 L* ABG pCO2 64 H ABG pO2 110 H ABG HCO3 16 L ABG O2 Saturation 96 ABG Base Excess -16 L VBG pH 7.33 VBG pCO2 41 VBG pO2 49 VBG Base Excess -4 L Quality Measures Quality Measures VTE prophylaxis Assessment & Plan Assessment Current Active Medications: Generic Name Dose Route Start Last Admin Trade Name Freq PRN Reason Stop Dose Admin Apixaban 5 mg 07/23/24 21:00 07/26/24 08:59 Apixaban 2.5 Mg Tablet PO 08/13/24 20:59 5 mg BID PANCHO Administration Citric Acid/Sodium Citrate 30 ml 07/25/24 13:00 07/26/24 08:58 Citric Acid/Sodium Citr 15 Ml Udc (Bicitra) PO 08/24/24 12:59 30 ml BID PANCHO Administration Clobazam 15 mg 07/23/24 19:00 07/26/24 08:58 Clobazam 10 Mg Tablet (Non-Form) PO 07/28/24 18:59 15 mg BID@0700,1900 PANCHO Administration Ceftriaxone Sodium/Dextrose 50 mls @ 100 mls/hr 07/24/24 17:54 07/26/24 09:28 Rocephin/D5w 1gm Iv Premix IV 07/31/24 17:53 Infused QDAY PANCHO Infusion Lacosamide 200 mg 07/23/24 21:00 07/26/24 08:59 Lacosamide 50 Mg Tablet PO 08/22/24 20:59 200 mg BID PANCHO Administration Levetiracetam 500 mg 07/26/24 09:00 07/26/24 09:01 Levetiracetam Liqd 500 Mg/5 Ml Udc PO 08/25/24 08:59 500 mg BID PANCHO Administration Ondansetron HCl 4 mg 07/25/24 23:55 07/26/24 00:08 Ondansetron Inj 2 Mg/Ml Inj 2 Ml IV 08/24/24 23:54 4 mg Q6HR PRN Administration NAUSEA OR VOMITING Protocol Oxcarbazepine 1,200 mg 07/23/24 21:00 07/26/24 10:17 Oxcarbazepine 150 Mg Tablet (Non-Formulary) PO 08/22/24 20:59 1,200 mg BID PANCHO Administration Perampanel 10 mg 07/23/24 19:00 07/25/24 19:48 Perampanel 10 Mg Tablet (Non-Form) PO 08/22/24 18:59 10 mg HS@1900 PANCHO Administration Pharmacy Consult 1 each 07/25/24 11:19 Pharmacy Renal Dose Adjustment 1 Ea XX 08/24/24 11:18 PRN PRN CONSULT Valproic Acid 1,250 mg 07/23/24 14:00 07/26/24 14:48 Valproic Acid Syrup 250 Mg/5 Ml Udc PO 08/22/24 13:59 1,250 mg TID PANCHO Administration Plan The patient is a 24-year-old male with a previous medical history of seizure disorder, right upper extremity brachial DVT and substance abuse disorder who was brought by the ambulance due to multiple seizures, before coming to the hospital he received 6 mg of Versed IV. Patient has a history of previous ICU admission with status epilepticus that required tranfer to the [facility]. He was discharged from [facility] in May 2024 and 2 medication added to his antiepileptic medications: clobazam and perampanel. #Status epilepticus?resolved #History seizure disorder Continue -Clobazam 50 mg twice daily ? Lacosamide 200 mg twice daily ? Levetiracetam 1500 mg p.o. every 8 hours ? Oxcarbazepine 1200 twice daily ? Perampanel 10 mg daily ? Valproic acid 1250 mg 3 times daily -Neurology is following, if patient continues to be somnolent may decrease Keppra to 1500 twice daily and clobazam to 10 mg twice daily. #History of upper extremity DVT ?Patient was diagnosed with upper extremity DVT while being admitted inthe [facility]. At the moment, no signs of DVT. Plan: ?Continue Eliquis 5 mg twice a day #Aspiration pneumonia 2/2 Klebsiella pneumoniae and GPC Chest Xray showed: significant left base pneumonia, consider aspiration pneumonia. Sputum cultures grew gram-positive cocci and gram-negative rods. On auscultation mild diffuse rhonchi. Plan: ? Ceftriaxone 07/24?present (7 days course) #CECILE Creatinine peaked at 5.6 and downtrending. Today 4.1 Receiving LR maintenance fluid 75 mL/h May be due to side effect of seizure medication, Dr. Singh is following #Leukocytosis?resolved #History substance abuse disorder Health maintenance: Dispo: d/c tomorrow pending Cr DVT prophylaxis: none CODE STATUS: Full code Diet: Regular The patient's management plan was discussed with my attending physician Dr. Villasenor and senior Dr. Weaver. Brigitte Alvarado, PGY-1 Attending Provider Attestation/Addendum In short, the patient is a 24-year-old male with a previous medical history of seizure disorder, right upper extremity DVT and substance abuse who was brought to the emergency department for multiple episodes of seizure., Previous history of ICU admissions with status epilepticus requiring transfer to [facility]. INTERVAL HX: 07/26: Vital signs stable, patient afebrile overnight. No acute events overnight, patient was somnolent lethargic in the morning at time of bedside visit however no new episodes of seizure activity reported overnight. Significant labs include a normal WBC, hemoglobin stable at 13.2, sodium 146, chloride 113, BUN 27, creatinine improved to 4.1 today. A renal ultrasound performed on 07/25 demonstrated mild bilateral renal parenchymal scar formations however no hydro nephrosis reported. EEG performed on 07/24 demonstrated paroxysmal multifocal and generalized spike and wave discharges consistent with seizure disorder. Blood cultures drawn on 07/23 NGTD. PT cultures demonstrating pansensitive Klebsiella as well as gram-positive cocci. MRSA screen is negative. ASSESSMENT: #Status epilepticus?resolved #History of seizure disorder 1. Neurology consulted, appreciate recommendations. Will continue lacosamide 200 mg twice daily, Keppra 1500 mg twice daily, clobazam 10 mg twice daily, oxcarbazepine 1200 mg twice daily and perampanel 10 mg at bedtime. Patient presently however on Keppra 500 mg twice daily and valproic acid syrup 1250 mg p.o. 3 times daily so we will clarify with neurology. #Pneumonia, likely aspiration secondary to Klebsiella pneumonia and unspecified GPC as per ET cultures 1 continue ceftriaxone for a total 7-day course #CECILE possibly secondary to medications?improved, creatinine 4.1 today -Continue to monitor, encourage oral intake chronic Conditions: #Substance abuse disorder, initial U tox positive for amphetamines previously positive for cocaine and marijuana #History of upper extremity DVT: Continue Eliquis 5 mg twice daily Antimicrobials: Ceftriaxone start: 07/24 DISPO: Likely discharge home in 1 to 2 days pending clinical improvement and specialist recommendations.
[2024-07-26] MEDS: [UNRECOGNIZED DRUG - REMARK] PO (19:44)
[2024-07-26 19:50] LABS: Creatine Kinase 67 U/L (34-171)
--- NOTE | 2024-07-26 23:28 | PD.NEUROPROG ---
Documentation for date of: 07/26/24 Subjective Subjective Interval history: Mr. Evangelista was seen in [facility] today with family at the bedside. No seizures reported extubation. Continues to be somnolent Exam - Neurology Vital Signs Temp Pulse Resp BP Pulse Ox O2 Del Method O2 Flow Rate 98.6 F 94 18 120/78 97 Room Air 2 07/26/24 20:00 07/26/24 20:00 07/26/24 20:00 07/26/24 20:00 07/26/24 20:00 07/26/24 20:00 07/26/24 00:00 FiO2 21 07/26/24 00:00 Narrative Exam GENERAL APPEARANCE: Well-developed, well-nourished male in no acute distress HEENT: Normocephalic, atraumatic, extraocular movements intact. Pupils: Equal reacting to light NECK: Supple, no JVD or bruits. CARDIOVASULAR: Heart: S1, S2 heard, regular without S3-S4 or murmur no rubs or gallops. LUNGS/CHEST: Clear to auscultation bilaterally. No rails, rhonchi, or wheezing. Normal inspection. ABDOMEN: Soft, nontender, with normal bowel sounds. No pulsatile masses. No rebound, rigidity, or guarding. Normal inspection and palpation. EXTREMITIES: Normal inspection and palpation. No edema, clubbing or cyanosis. SKIN: Warm and dry without rashes. Normal inspection. MUSCULOSKELETAL: No cervical, thoracic, lumbar or midline bony tenderness. Normal inspection. NEURO: Somnolent still, no focal deficit noted, no meningeal irritation seen PSYCHIATRIC: Limited. Objective Labs 07/26/24 05:35 07/26/24 05:35 Labs: Laboratory Results - last 24 hr 07/26/24 07/26/24 07/26/24 05:35 05:35 18:49 WBC 5.5 RBC 4.47 L Hgb 13.2 L Hct 39.8 L MCV 89 MCH 29.5 MCHC 33.2 RDW Std Deviation 48.8 H Plt Count 377 Neut % (Auto) 65 Lymph % (Auto) 25 [place] % (Auto) 9 Eos % (Auto) 0 Baso % (Auto) 0 Neut # (Auto) 3.6 Lymph # (Auto) 1.4 [place] # (Auto) 0.5 Eos # (Auto) 0.0 Baso # (Auto) 0.0 Immature Gran # (Auto) 0.03 H Absolute Nucleated RBC 0.00 Immature Gran % 1 H Nucleated RBC % 0 Sodium 146 H Potassium 3.8 Chloride 113 H Carbon Dioxide 21.8 Anion Gap 11 BUN 27 H Creatinine 4.1 H* D Estim Creat Clear Calc 25.5 L eGFR 20 L BUN/Creatinine Ratio 7 L Glucose 101 Calculated Osmolality 295 Calcium 9.2 Corrected Calcium 9.3 Total Bilirubin 0.4 AST 11 ALT 10 Alkaline Phosphatase 90 Total Creatine Kinase Cancelled 60 D 67 Total Protein 6.5 Albumin 3.9 Globulin 2.6 Albumin/Globulin Ratio 1.5 ABG Interpretation ABG results: 07/23/24 07/24/24 10:00 06:30 ABG pH 7.01 L* ABG pCO2 64 H ABG pO2 110 H ABG HCO3 16 L ABG O2 Saturation 96 ABG Base Excess -16 L VBG pH 7.33 VBG pCO2 41 VBG pO2 49 VBG Base Excess -4 L Assessment & Plan Assessment and plan (1) Acute renal failure (ARF): Status: Acute (2) Seizure disorder: Status: Chronic Assessment and plan: Continue with meds: Depakote 1250 mg twice daily, lacosamide 200 twice daily, levetiracetam 500 mg twice daily, clobazam 10 mg twice daily, oxcarbazepine 1200 mg twice daily and discontinue perampanel. If continues to be lethargic, will discontinue oxcarbazepine followed by clobazam. (3) Pneumonia: Status: Acute Assessment and plan: Continue with IV antibiotics. could be from aspiration. (4) DVT (deep venous thrombosis): Status: Chronic Assessment and plan: Continue with Eliquis (5) Status epilepticus: Status: Resolved Assessment and plan: Monitor for any recurrence
[2024-07-27] VITALS (8 sets, daily range): BP systolic 119–140; BP diastolic 78–99; PULSE 77–99; RESP 15–25; TEMP 36.1–37; O2SAT 96–98
--- NOTE | 2024-07-27 00:17 | ESPR_ITS ---
RE: JULIUS HOOKS : 2000 DATE OF SERVICE: 07/26/2024 SUBJECTIVE: Briefly, he is a 24-year-old Kyrgyz speaking only gentleman with past medical history significant for seizure disorder, right upper extremity deep venous thrombosis, substance abuse with multiple seizures. The patient was also noted to have an increasing creatinine level from 1.3 up to 5.6. The patient is doing well and is more awake and alert. The patient has no episode of seizure for quite sometime. CURRENT MEDICATIONS: 1. Apixaban 5 mg b.i.d. 2. Rocephin 1 g IV daily. 3. Vimpat 200 mg p.o. b.i.d. 4. Keppra 500 mg b.i.d 5. Valproic Acid OBJECTIVE: General: He is awake, alert. Vital Signs: Blood pressure of 120/78, heart rate of 94. Heent: Anicteric sclerae. Normocephalic. Neck: Supple. No JVD. Chest and Lungs: Symmetrical expansion. Clear breath sounds. Heart: Without murmur. Abdomen: Soft, nontender. Extremities: No edema. LABORATORY DATA: Hemoglobin 13.2, WBC 5500, platelet count 277,000. Sodium 146, potassium 3.8, CO2 of 21.8, BUN 27, creatinine 4.1, glucose 101. ASSESSMENT: 1. Nonoliguric acute kidney injury, most likely secondary to acute tubular necrosis, now improving. 2. Metabolic acidosis, now improving 3. History of deep venous thrombosis. 4. Hypertension. PLAN: The patient's kidney function is now improving. Continue to monitor urine output, kidney function, electrolytes on a daily basis. DT: 22:20:31 TT: 22:41:00 Ref: [id number] - TID: [id number] MTDD
[2024-07-27] MEDS: LORazepam 2 MG/ML VIAL IVP (04:46)
[2024-07-27 05:54] LABS: Basophils % (Auto) 0 % (0-2.5); Eosinophils % (Auto) 1 % (0-10); Hematocrit 38.4 % (41.0-53.0); Immature Granulocytes % (Auto) 1 % (0-0); Immature Granulocytes Auto 0.03 Thou/mm3 (0.00-0.00); Lymphocytes # (Auto) 1.6 Thou/mm3 (1.0-4.8); Lymphocytes % (Auto) 30 % (10-50); Mean Corpuscular HGB Conc 33.9 g/dl (31.0-37.0); Mean Corpuscular Hemoglobin 29.8 pg (25.0-35.0); Mean Corpuscular Volume 88 fL (80-100); Monocytes # (Auto) 0.4 Thou/mm3 (0.0-0.8); Monocytes % (Auto) 7 % (0-12); Neutrophils # (Auto) 3.3 Thou/mm3 (1.8-7.7); Neutrophils % (Auto) 61 % (37-80); Nucleated Red Blood Cell % 0 /100 WBC (0); Platelet Count 366 Thou/mm3 (140-440); RDW Standard Deviation 48.2 fL (35.1-43.9); Red Blood Count 4.36 Miln/mm3 (4.50-5.90); White Blood Count 5.3 Thou/mm3 (3.8-10.6)
[2024-07-27 06:49] LABS: Alanine Aminotransferase 8 U/L (10-49); Albumin, Serum 3.8 gm/dL (3.5-5.0); Albumin/Globulin Ratio 1.5 (1.2-2.2); Alkaline Phosphatase 81 U/L (46-116); Anion Gap 10 (7-16); Aspartate Amino Transferase 10 U/L (0-34); BUN/Creatinine Ratio 8 Ratio (12-20); Bilirubin,Total 0.3 mg/dL (0.3-1.2); Blood Urea Nitrogen 18 mg/dL (9-23); Calcium 9.3 mg/dL (8.3-10.6); Calcium (Corrected) 9.5 mg/dL (8.5-10.1); Carbon Dioxide 27.8 mMol/L (20.0-31.0); Chloride 108 mMol/L (98-107); Creatinine (Component) 2.2 mg/dL (0.6-1.3); Estimated Creatinine Clearance 47.5 mL/min (>60); Globulin 2.5 gm/dL (2.3-3.5); Glucose 95 mg/dL (74-106); Osmolality,Calculated 292 (275-295); Potassium 3.7 mMol/L (3.4-5.1); Sodium 146 mMol/L (136-145); Total Protein 6.3 gm/dL (5.7-8.2); eGFR 42 See Note
[2024-07-27] MEDS: [UNRECOGNIZED DRUG - REMARK] PO ×2 (09:00→18:23)
[2024-07-27] MEDS: cefTRIAXone/D5w 1gm IV premix 50 ML IV (09:00)
[2024-07-27] MEDS: VALPROIC ACID SYRUP 250 MG/5 ML UDC 1250 MG PO ×2 (09:03→20:53)
[2024-07-27] MEDS: OXCARBazepine 150 MG TABLET (NON-FORMULARY) 1200 MG PO ×2 (09:04→20:56)
[2024-07-27] MEDS: levETIRAcetam LIQD 500 MG/5 ML UDC PO (09:04)
[2024-07-27] MEDS: APIXABAN 2.5 MG TABLET 5 MG PO ×2 (09:04→20:55)
[2024-07-27] MEDS: CITRIC ACID/SODIUM CITR 15 ML UDC (BICITRA) 30 ML PO ×2 (09:04→20:55)
[2024-07-27] MEDS: LACOSAMIDE 50 MG TABLET 200 MG PO ×2 (09:04→20:55)
[2024-07-27] MEDS: VANCOMYCIN/D5W 1,250 MG IVPB 250 ML 120 MG IV (10:37)
--- NOTE | 2024-07-27 12:39 | ESPR_ITS ---
Subjective Subjective Interval history: cx neg mostly but different organisms from sputum . afebrile on rx, but remains somewhat encephalopathic Exam Vital Signs Temp Pulse Resp BP Pulse Ox O2 Del Method O2 Flow Rate 98.1 F 93 18 131/99 H 96 Room Air 2 07/27/24 12:00 07/27/24 12:00 07/27/24 12:00 07/27/24 12:00 07/27/24 12:00 07/27/24 12:00 07/26/24 00:00 FiO2 21 07/26/24 00:00 Narrative Exam sister provides much of the hx. not that awake for me but that may be due to other meds. exam otherwise benign Objective - Internal Medicine Labs 07/27/24 04:10 07/27/24 04:10 Labs: Laboratory Results - last 24 hr 07/26/24 07/27/24 18:49 04:10 WBC 5.3 RBC 4.36 L Hgb 13.0 L Hct 38.4 L MCV 88 MCH 29.8 MCHC 33.9 RDW Std Deviation 48.2 H Plt Count 366 Neut % (Auto) 61 Lymph % (Auto) 30 [place] % (Auto) 7 Eos % (Auto) 1 Baso % (Auto) 0 Neut # (Auto) 3.3 Lymph # (Auto) 1.6 [place] # (Auto) 0.4 Eos # (Auto) 0.0 Baso # (Auto) 0.0 Immature Gran # (Auto) 0.03 H Absolute Nucleated RBC 0.00 Immature Gran % 1 H Nucleated RBC % 0 Sodium 146 H Potassium 3.7 Chloride 108 H Carbon Dioxide 27.8 Anion Gap 10 BUN 18 Creatinine 2.2 H D Estim Creat Clear Calc 47.5 L eGFR 42 L BUN/Creatinine Ratio 8 L Glucose 95 Calculated Osmolality 292 Calcium 9.3 Corrected Calcium 9.5 Total Bilirubin 0.3 AST 10 ALT 8 L Alkaline Phosphatase 81 Total Creatine Kinase 67 Total Protein 6.3 Albumin 3.8 Globulin 2.5 Albumin/Globulin Ratio 1.5 ABG Interpretation ABG results: 07/23/24 07/24/24 10:00 06:30 ABG pH 7.01 L* ABG pCO2 64 H ABG pO2 110 H ABG HCO3 16 L ABG O2 Saturation 96 ABG Base Excess -16 L VBG pH 7.33 VBG pCO2 41 VBG pO2 49 VBG Base Excess -4 L Assessment & Plan A&P Narrative 2 organisms in sputum in pt with abn cxr on admit and sz pt is afebrile. so other than admitting fever, none since then. ok to finish rx with po cefuroxime and doxy for total of 7d overall home at your discretion. urine unimpressive in terms of ua sz disorder substance use shaheed, resolving w/o hd will give cefuroxime, if shaheed resolved fully, may need to change dose and po doxy , both thru thursday mid day. (no adjustment needed for doxy for shaheed or ckd) will f/u thursday if remains, no objection to release if mental status adequate for that purpose. if remains encephalopathic, please consider LP . he had one not long ago (05/30/24) that was benign, but that does not assure that a current tap will be benign. Time Spent With Patient Time: Total time spent is greater than 50% in coordination of care (as documented) at patient's floor/unit and/or counseling patient:
--- NOTE | 2024-07-27 13:40 | ESPR_ITS ---
<Statement entered by Xiomy Singh MD - 07/27/24 16:52> I discussed with and supervised the machine learning intern physician who took care of this patient. I personally saw and examined the patient and discussed the assessment and plan with the entire medicine team, including my attending Dr. Villasenor, I agree with most of the assessment and plan as documented below Xiomy Singh M.D. PGY-2 Documentation for date of: 07/27/24 Subjective Subjective Interval history: 07/27/2024: No acute overnight events to report. Patient seen and examined in hospital bed with new physical exam findings; myoclonic jerking which occurs at an interval of 10 seconds and lasts about [address] Singh (neurology) regarding these findings; her recommendations are to increase patient's Keppra from 500 mg twice daily to 1000 mg twice daily. Patient's sputum speciation positive for Klebsiella and MRSA; as a result, consulted infectious disease, Dr Bryant, who started the patient on cefuroxime and doxycycline. Will continue to monitor patient for any acute changes. Exam Vital Signs Temp Pulse Resp BP Pulse Ox O2 Del Method O2 Flow Rate 98.1 F 93 18 131/99 H 96 Room Air 2 07/27/24 12:00 07/27/24 12:00 07/27/24 12:00 07/27/24 12:00 07/27/24 12:00 07/27/24 12:00 07/26/24 00:00 FiO2 21 07/26/24 00:00 Narrative Exam Physical Exam General: Somnolent. Follows commands. HEENT: Normocephalic, atraumatic, mucous membranes moist. Heart: Regular rate and rhythm, no murmurs. Lungs: Diffuse rhonchi. Abdomen: Soft, nondistended, nontender, positive bowel sounds. ?No guarding or rebound tenderness. Extremities: No edema. Skin: No rash or ecchymoses. Shaved spots on the parietal and occipital area of the head s/p electrode implantation. Neurologic: Patient having 1 second myoclonic jerking movements which occur at intervals 10 seconds. No other focal neurologic deficits. Objective Labs 07/27/24 04:10 07/27/24 04:10 Labs: Laboratory Results - last 24 hr 07/26/24 07/27/24 18:49 04:10 WBC 5.3 RBC 4.36 L Hgb 13.0 L Hct 38.4 L MCV 88 MCH 29.8 MCHC 33.9 RDW Std Deviation 48.2 H Plt Count 366 Neut % (Auto) 61 Lymph % (Auto) 30 [place] % (Auto) 7 Eos % (Auto) 1 Baso % (Auto) 0 Neut # (Auto) 3.3 Lymph # (Auto) 1.6 [place] # (Auto) 0.4 Eos # (Auto) 0.0 Baso # (Auto) 0.0 Immature Gran # (Auto) 0.03 H Absolute Nucleated RBC 0.00 Immature Gran % 1 H Nucleated RBC % 0 Sodium 146 H Potassium 3.7 Chloride 108 H Carbon Dioxide 27.8 Anion Gap 10 BUN 18 Creatinine 2.2 H D Estim Creat Clear Calc 47.5 L eGFR 42 L BUN/Creatinine Ratio 8 L Glucose 95 Calculated Osmolality 292 Calcium 9.3 Corrected Calcium 9.5 Total Bilirubin 0.3 AST 10 ALT 8 L Alkaline Phosphatase 81 Total Creatine Kinase 67 Total Protein 6.3 Albumin 3.8 Globulin 2.5 Albumin/Globulin Ratio 1.5 ABG Interpretation ABG results: 07/23/24 07/24/24 10:00 06:30 ABG pH 7.01 L* ABG pCO2 64 H ABG pO2 110 H ABG HCO3 16 L ABG O2 Saturation 96 ABG Base Excess -16 L VBG pH 7.33 VBG pCO2 41 VBG pO2 49 VBG Base Excess -4 L Quality Measures Quality Measures VTE prophylaxis Assessment & Plan Assessment Current Active Medications: Generic Name Dose Route Start Last Admin Trade Name Freq PRN Reason Stop Dose Admin Apixaban 5 mg 07/23/24 21:00 07/27/24 09:04 Apixaban 2.5 Mg Tablet PO 08/13/24 20:59 5 mg BID PANCHO Administration Cefuroxime Axetil 250 mg 07/27/24 21:00 Cefuroxime Axetil 250 Mg Tablet PO 07/30/24 12:00 BID PANCHO Citric Acid/Sodium Citrate 30 ml 07/25/24 13:00 07/27/24 09:04 Citric Acid/Sodium Citr 15 Ml Udc (Bicitra) PO 08/24/24 12:59 30 ml BID PANCHO Administration Clobazam 10 mg 07/27/24 07:00 07/27/24 09:00 Clobazam 10 Mg Tablet (Non-Form) PO 08/01/24 06:59 10 mg BID@0700,1900 PANCHO Administration Doxycycline Hyclate 100 mg 07/27/24 21:00 Doxycycline 100 Mg Tablet PO 07/30/24 12:00 BID PANCHO Lacosamide 200 mg 07/23/24 21:00 07/27/24 09:04 Lacosamide 50 Mg Tablet PO 08/22/24 20:59 200 mg BID PANCHO Administration Levetiracetam 500 mg 07/26/24 09:00 07/27/24 09:04 Levetiracetam Liqd 500 Mg/5 Ml Udc PO 08/25/24 08:59 500 mg BID PANCHO Administration Lorazepam 2 mg 07/27/24 04:36 07/27/24 04:46 Lorazepam 2 Mg/Ml Vial IVP 08/01/24 05:59 2 mg Q2HR PRN Administration sezure Ondansetron HCl 4 mg 07/25/24 23:55 07/26/24 00:08 Ondansetron Inj 2 Mg/Ml Inj 2 Ml IV 08/24/24 23:54 4 mg Q6HR PRN Administration NAUSEA OR VOMITING Protocol Oxcarbazepine 1,200 mg 07/23/24 21:00 07/27/24 09:04 Oxcarbazepine 150 Mg Tablet (Non-Formulary) PO 08/22/24 20:59 1,200 mg BID PANCHO Administration Valproic Acid 1,250 mg 07/27/24 09:00 07/27/24 09:03 Valproic Acid Syrup 250 Mg/5 Ml Udc PO 08/26/24 08:59 1,250 mg BID PANCHO Administration Plan 24-year-old male with a previous medical history of seizure disorder, right upper extremity brachial DVT and substance abuse disorder who was brought by the ambulance due to multiple seizures, before coming to the hospital he received 6 mg of Versed IV. Patient has a history of previous ICU admission with status epilepticus that required tranfer to the [facility]. He was discharged from [facility] in May 2024 and 2 medication added to his antiepileptic medications: clobazam and perampanel. #Status epilepticus, resolved #Myoclonic Jerking #History seizure disorder On exam 07/27, patient appears to have myoclonic jerking which lasts 1 second at an interval of [address] Singh (neurology) consulted - appreciate recs Plan: Increased Keppra to 1000mg BID per neurology recs Continue the following: Clobazam 50 mg twice daily, Lacosamide 200 mg twice daily, Oxcarbazepine 1200 twice daily, Valproic acid 1250 mg 3 times daily Discontined Perampanel 10 mg daily #History of upper extremity DVT [facility] At the moment, no signs of DVT. Plan: Continue Eliquis 5 mg twice a day #Aspiration pneumonia 2/2 Klebsiella pneumoniae and MRSA #Leukocytosis,resolved Chest Xray showed: significant left base pneumonia, consider aspiration pneumonia. Sputum cultures grew gram-positive cocci and gram-negative rods. On auscultation mild diffuse rhonchi. Sputum positive for Klebsiella and MRSA Plan: Dr. Bryant, ID, consulted - appreciate recs Started on Cefuroxime and Doxycycline #CECILE Creatinine peaked at 5.6 and downtrending. Today 4.1 Receiving LR maintenance fluid 75 mL/h May be due to side effect of seizure medication, Dr. 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 Bryant for aspiration PNA; Dr. Singh for myoclonic jerking Code: Full The patient's management plan was discussed with my attending physician Dr. Villasenor and senior Dr. Francisco De Luna, PGY-1 Attending Provider Attestation/Addendum In short, the patient is a 24-year-old male with a previous medical history of seizure disorder, right upper extremity DVT and substance abuse who was brought to the emergency department for multiple episodes of seizure., Previous history of ICU admissions with status epilepticus requiring transfer to [facility]. INTERVAL HX: 07/26: Vital signs stable, patient afebrile overnight. No acute events overnight, patient was somnolent lethargic in the morning at time of bedside visit however no new episodes of seizure activity reported overnight. Significant labs include a normal WBC, hemoglobin stable at 13.2, sodium 146, chloride 113, BUN 27, creatinine improved to 4.1 today. A renal ultrasound performed on 07/25 demonstrated mild bilateral renal parenchymal scar formations however no hydro nephrosis reported. EEG performed on 07/24 demonstrated paroxysmal multifocal and generalized spike and wave discharges consistent with seizure disorder. Blood cultures drawn on 07/23 NGTD. PT cultures demonstrating pansensitive Klebsiella as well as gram-positive cocci. MRSA screen is negative. 07/27: Vital signs stable, patient afebrile overnight. CBC unremarkable, BMP shows a downtrending creatinine. Patient appeared to have intermittent myoclonic jerks today during bedside examination which we did not see on previous day. No new imaging performed ASSESSMENT: #Status epilepticus?resolved #History of seizure disorder 1. Neurology consulted, appreciate recommendations. Will adjust medications to include lacosamide 200 mg twice daily, Keppra 1000 mg twice daily, clobazam 10 mg twice daily, oxcarbazepine 1200 mg twice daily. #Pneumonia, likely aspiration secondary to Klebsiella and MRSA as demonstrated in cultures 1 infectious disease consulted in setting of several antiepileptic medications, we do not want to lower the seizure threshold with antibiotic regimen. Infectious disease is currently recommending a course of cefuroxime and doxycycline for a total of 7 days. #CECILE possibly secondary to medications?improving -Continue to monitor, encourage oral intake chronic Conditions: #Substance abuse disorder, initial U tox positive for amphetamines previously positive for cocaine and marijuana #History of upper extremity DVT: Continue Eliquis 5 mg twice daily Antimicrobials: Ceftriaxone start: 07/24 DISPO: Likely discharge home in 1 to 2 days pending clinical improvement and specialist recommendations.
--- NOTE | 2024-07-27 14:25 | ESPR_ITS ---
RE: JULIUS HOOKS : 2000 DATE OF SERVICE: 07/27/2024 SUBJECTIVE: Briefly, he is a 24-year-old Persian speaking only gentleman with past medical history significant for seizure disorder, right upper extremity deep venous thrombosis, substance abuse. The patient also was found with increasing creatinine level from 1.3 to 5.6. He continues to have good urine output and creatinine started to improve and today creatinine is at 2.2. He also maintains good urine output. CURRENT MEDICATIONS: 1. Apixaban 5 mg b.i.d. 2. Cefuroxime axetil 250 mg p.o. b.i.d. 3. Sodium citrate 30 mL p.o. b.i.d. 4. Clobazam 10 mg p.o. b.i.d. 5. Doxycycline 100 mg p.o. b.i.d. 6. Lacosamide 200 mg p.o. b.i.d. 7. Lorazepam. 8. Ondansetron. 9. Trileptal 1200 mg p.o. b.i.d. 10. Valproic 1250 mg p.o. b.i.d. PHYSICAL EXAMINATION: General: He is awake and alert. Vital Signs: Blood pressure of 131/99, heart rate of 93, O2 saturation of 96% on room air. HEENT: Anicteric sclerae. Normocephalic. Neck: Supple. JVD. Chest and Lungs: Symmetrical expansion. Clear breath sounds. Heart: Without murmur. Abdomen: Soft, nontender. Extremities: No edema. LABORATORY DATA: Sodium 146, potassium 3.7, creatinine 108, CO2 27.8, BUN 18, creatinine 2.2. Hemoglobin 13, WBC 5,300, plate count 366,000. ASSESSMENT: 1. Acute kidney injury, most likely secondary to acute tubular necrosis, now improved. 2. Metabolic acidosis, now improved. 3. History of deep venous thrombosis on Eliquis. 4. Hypertension. 5. Hypernatremia, most likely secondary to lack of free water intake. Plan: Continue monitoring kidney function and electrolytes daily. The patient is on his way to full recovery. DT: 13:08:11 TT: 14:23:00 Ref: [id number] - TID: [id number]
[2024-07-27] MEDS: levETIRAcetam 250 MG TABLET 500 MG PO (16:45)
[2024-07-27] MEDS: levETIRAcetam LIQD 500 MG/5 ML UDC 1000 MG PO (20:54)
[2024-07-27] MEDS: DOXYCYCLINE 100 MG TABLET PO (20:55)
[2024-07-27] MEDS: cefuroxime axetiL 250 MG TABLET PO (20:57)
--- NOTE | 2024-07-27 21:28 | PC.NURSE ---
Contacted Dr. Dave regarding patient being hard to arouse. Nurse and patient's family member was able to arouse patient and patient was able to take his scheduled pills with no issues. Patient is currently lethargic. Family member is at bedside.
--- NOTE | 2024-07-27 23:49 | PD.VPROG1 ---
Telemedicine visit statement This visit was conducted with the use of phone was obtained on 07/27/24 at 2349. Documentation for date of: 07/27/24 Subjective Subjective Interval history: Patient is in MedSurg, is little more awake but still slow to respond. Started having myoclonic jerks very frequently lasting few seconds. Virtual exam Vital Signs Temp Pulse Resp BP Pulse Ox O2 Del Method O2 Flow Rate 97.9 F 92 16 140/96 H 97 Room Air 2 07/27/24 20:00 07/27/24 20:00 07/27/24 20:00 07/27/24 20:00 07/27/24 20:00 07/27/24 20:00 07/26/24 00:00 FiO2 21 07/26/24 00:00 Objective Labs 07/27/24 04:10 07/27/24 04:10 Labs: Laboratory Results - last 24 hr 07/27/24 04:10 WBC 5.3 RBC 4.36 L Hgb 13.0 L Hct 38.4 L MCV 88 MCH 29.8 MCHC 33.9 RDW Std Deviation 48.2 H Plt Count 366 Neut % (Auto) 61 Lymph % (Auto) 30 [place] % (Auto) 7 Eos % (Auto) 1 Baso % (Auto) 0 Neut # (Auto) 3.3 Lymph # (Auto) 1.6 [place] # (Auto) 0.4 Eos # (Auto) 0.0 Baso # (Auto) 0.0 Immature Gran # (Auto) 0.03 H Absolute Nucleated RBC 0.00 Immature Gran % 1 H Nucleated RBC % 0 Sodium 146 H Potassium 3.7 Chloride 108 H Carbon Dioxide 27.8 Anion Gap 10 BUN 18 Creatinine 2.2 H D Estim Creat Clear Calc 47.5 L eGFR 42 L BUN/Creatinine Ratio 8 L Glucose 95 Calculated Osmolality 292 Calcium 9.3 Corrected Calcium 9.5 Total Bilirubin 0.3 AST 10 ALT 8 L Alkaline Phosphatase 81 Total Protein 6.3 Albumin 3.8 Globulin 2.5 Albumin/Globulin Ratio 1.5 ABG Interpretation ABG results: 07/23/24 07/24/24 10:00 06:30 ABG pH 7.01 L* ABG pCO2 64 H ABG pO2 110 H ABG HCO3 16 L ABG O2 Saturation 96 ABG Base Excess -16 L VBG pH 7.33 VBG pCO2 41 VBG pO2 49 VBG Base Excess -4 L Assessment & Plan Problem List (1) Seizure disorder: Status: Chronic Assessment and plan: Will go back on the Keppra 1000 mg twice a day, continue with the Depakote, Vimpat and clobazam continue to monitor for any breakthrough seizures and Ativan for breakthrough. Will do a repeat EEG tomorrow if his myoclonic jerks persist (2) Status epilepticus: Status: Resolved (3) Pneumonia: Status: Acute Assessment and plan: Treated with IV antibiotics, DVT: continue Eliquis.
[2024-07-28] VITALS (7 sets, daily range): BP systolic 108–135; BP diastolic 71–98; PULSE 69–98; RESP 16–19; TEMP 36.1–36.8; O2SAT 94–98
[2024-07-28 06:26] LABS: Basophils % (Auto) 1 % (0-2.5); Eosinophils % (Auto) 1 % (0-10); Hematocrit 38.4 % (41.0-53.0); Hemoglobin 12.8 g/dL (13.5-16.0); Immature Granulocytes % (Auto) 1 % (0-0); Immature Granulocytes Auto 0.02 Thou/mm3 (0.00-0.00); Lymphocytes # (Auto) 1.5 Thou/mm3 (1.0-4.8); Lymphocytes % (Auto) 41 % (10-50); Mean Corpuscular HGB Conc 33.3 g/dl (31.0-37.0); Mean Corpuscular Hemoglobin 29.4 pg (25.0-35.0); Mean Corpuscular Volume 88 fL (80-100); Monocytes # (Auto) 0.3 Thou/mm3 (0.0-0.8); Monocytes % (Auto) 8 % (0-12); Neutrophils # (Auto) 1.9 Thou/mm3 (1.8-7.7); Neutrophils % (Auto) 50 % (37-80); Nucleated Red Blood Cell % 0 /100 WBC (0); Platelet Count 354 Thou/mm3 (140-440); RDW Standard Deviation 47.1 fL (35.1-43.9); Red Blood Count 4.35 Miln/mm3 (4.50-5.90); White Blood Count 3.7 Thou/mm3 (3.8-10.6)
[2024-07-28 06:41] LABS: Ammonia 76 uMol/L (11-32)
[2024-07-28 06:56] LABS: Folate 8.34 ng/mL (>5.38); Vitamin B12 455 pg/mL (211-911)
[2024-07-28 06:59] LABS: Carbon Dioxide 33.1 mMol/L (20.0-31.0); Chloride 106 mMol/L (98-107); Potassium 3.8 mMol/L (3.4-5.1); Sodium 143 mMol/L (136-145)
[2024-07-28 07:00] LABS: Alanine Aminotransferase < 7 U/L (10-49); Albumin, Serum 3.8 gm/dL (3.5-5.0); Albumin/Globulin Ratio 1.6 (1.2-2.2); Alkaline Phosphatase 75 U/L (46-116); Anion Gap 4 (7-16); Aspartate Amino Transferase < 8 U/L (0-34); BUN/Creatinine Ratio 9 Ratio (12-20); Bilirubin,Total 0.3 mg/dL (0.3-1.2); Blood Urea Nitrogen 12 mg/dL (9-23); Calcium 9.2 mg/dL (8.3-10.6); Calcium (Corrected) 9.4 mg/dL (8.5-10.1); Creatinine (Component) 1.3 mg/dL (0.6-1.3); Estimated Creatinine Clearance 80.4 mL/min (>60); Globulin 2.4 gm/dL (2.3-3.5); Glucose 98 mg/dL (74-106); Osmolality,Calculated 284 (275-295); Thyroid Stimulating Hormone 0.27 uIU/mL (0.55-4.78); Total Protein 6.2 gm/dL (5.7-8.2); eGFR > 60 See Note
[2024-07-28 08:00] LABS: Syphilis Nonreactive (Nonreactive)
[2024-07-28 09:11] LABS: Free T4 (Free Thyroxine) 0.54 ng/dL (0.89-1.76)
[2024-07-28] MEDS: cefuroxime axetiL 250 MG TABLET PO ×2 (09:11→21:24)
[2024-07-28] MEDS: levETIRAcetam LIQD 500 MG/5 ML UDC 1000 MG PO ×2 (09:11→21:22)
[2024-07-28] MEDS: CITRIC ACID/SODIUM CITR 15 ML UDC (BICITRA) 30 ML PO ×2 (09:11→21:22)
[2024-07-28] MEDS: VALPROIC ACID SYRUP 250 MG/5 ML UDC 1250 MG PO ×2 (09:11→21:23)
[2024-07-28] MEDS: LACOSAMIDE 50 MG TABLET 200 MG PO ×2 (09:12→21:22)
[2024-07-28] MEDS: DOXYCYCLINE 100 MG TABLET PO ×2 (09:12→21:23)
[2024-07-28] MEDS: APIXABAN 2.5 MG TABLET 5 MG PO ×2 (09:12→21:23)
[2024-07-28] MEDS: [UNRECOGNIZED DRUG - REMARK] PO ×2 (09:12→18:54)
[2024-07-28 14:23] LABS: Cocci Serology, IgM Positive (Negative)
[2024-07-28 14:24] LABS: Cocid Sro, CF/ID (UCD) NO CHG* See Sep Rpt
--- NOTE | 2024-07-28 15:00 | PC.NURSE ---
Dr. Singh notified of pt episode of jerking right arm in a back and forth motion for 2 minutes with no changes in heart rate and no muscle contractions noted, pt was laying on left side when episode occured, pt was monitored for 10 minuted post-jerking episode, pt placed on Spo2 continuous spo2 monitor.
[2024-07-28] MEDS: LORazepam 2 MG/ML VIAL IVP (17:24)
--- NOTE | 2024-07-28 17:24 | PC.NURSE ---
Dr. pozo performing a lumbar puncture at bedside during the procedure pt became very aggressive and per Dr. Pozo orders to administer lorazepam 2mg stat
[2024-07-28 18:36] LABS: Coccid Serology, CF CSF (UCD)* See Sep Rpt
[2024-07-28 18:44] LABS: CSF White Blood Cell 8 /cmm
[2024-07-28 18:46] LABS: CSF Cell Count Tube # Tube #1; CSF Color Xantochromic (Colorless); CSF Red Blood Cell 1000 /cmm
[2024-07-28 19:19] LABS: Glucose,CSF 66 mg/dL (40-70); Protein Total,CSF 68 mg/dL (8-32)
--- NOTE | 2024-07-28 19:35 | PC.NURSE ---
Contacted Dr. Banda hospitalist regarding family member Kellie's concern regarding patient's condition and the medications that are being administered to him. Per Dr. Banda, will come to unit and talk to family.
--- NOTE | 2024-07-28 19:50 | PC.NURSE ---
Was contacted by Johnnie Ellis for a follow up on patient. Dr. Singh was notified regarding patient's family member Lucy's concerns about the patient's plan of care, medications and condition. Also, hospitalist Dr. Singh arrived on unit to talk to family members regarding their concerns.
[2024-07-28 20:13] LABS: CSF, Appearance Clear (Clear)
[2024-07-28] MEDS: LACTULOSE SYRUP 20 GM/30 ML UDC 10 GM PO (21:22)
--- NOTE | 2024-07-28 22:02 | ESPR_ITS ---
<Statement entered by Xiomy Singh MD - 07/28/24 23:01> Patient seen and examined at bedside. No acute overnight events reported. Patient had a 2 minute movement of his right extremity where he was swaying back and forth, but since then no other movements. Patient however appeared very lethargic today, and could be d/t multiple issues. Patient is currently on 4 seizure medications, and can consider dropping one more tmw if lethargy doesn't improve. Patient's ammonia level was also high, and could be d/t Valproic acid, and will manage with Lactulose 10mg TID, titrate with 2-3 BMs. Patient's Cocci IgM serology also came back positive, and LP was done today with cocci CSF panel sent. Patient also on Cefuroxime and Doxycycline PO for his sputum cx. 19:30- Spoke extensively with patient's sister about above plan. Patient's sister is in agreement but still frustrated at commute and current length of stay and progress of patient. Patient's sister states that family would like to start transfer process to another hospital. Will reach out to social human services assistants tomorrow regarding starting process. However, patient's sister updated on plan and plans moving forward, and agrees. All questions asked and answered. I discussed with and supervised the hospital internship physician who took care of this patient. I personally saw and examined the patient and discussed the assessment and plan with the entire medicine team, including my attending , I agree with most of the assessment and plan as documented below Xiomy Singh M.D. PGY-2 Documentation for date of: 07/28/24 Subjective Subjective Interval history: Patient was seen and examined at bedside. No acute events overnight. Per nursing,?patient had another jerky movement of right side arm but no seizures. Patient is very somnolent and difficult to arouse. Cocci serology was positive--LP results pending to rule out disseminated infection. At this time, will hold off starting patient on antifungals due to possible interactions with seizure medications. Dr. Singh neurology will continue to follow. Due to increased somnolence and lethargy, will hold oxcarbazepine and reassess. Vitals unremarkable. CECILE improving with creatinine downtrending to 1.3 today. Ammonia levels elevated to 76 therefore started patient on lactulose 10 p.o. 3 times daily. ?No further complaints at this time. Review of systems otherwise negative except what is mentioned above. Exam Vital Signs Temp Pulse Resp BP Pulse Ox O2 Del Method O2 Flow Rate 98.0 F 81 19 126/85 H 94 L Room Air 2 07/28/24 20:00 07/28/24 20:00 07/28/24 20:00 07/28/24 20:00 07/28/24 20:00 07/28/24 20:00 07/26/24 00:00 FiO2 21 07/26/24 00:00 Narrative Exam Physical Exam General: Somnolent. Difficult to arouse, opens eye for few seconds HEENT: Normocephalic, atraumatic, mucous membranes moist. Heart: Regular rate and rhythm, no murmurs. Lungs: Diffuse rhonchi. Abdomen: Soft, nondistended, nontender, positive bowel sounds. ?No guarding or rebound tenderness. Extremities: No edema. Skin: No rash or ecchymoses. Shaved spots on the parietal and occipital area of the head s/p electrode implantation. Neurologic: Patient having 1 second myoclonic jerking movements which occur at intervals 10 seconds. No other focal neurologic deficits. Objective Labs 07/28/24 06:00 07/28/24 06:00 Labs: Laboratory Results - last 24 hr 07/28/24 07/28/24 06:00 17:30 WBC 3.7 L RBC 4.35 L Hgb 12.8 L Hct 38.4 L MCV 88 MCH 29.4 MCHC 33.3 RDW Std Deviation 47.1 H Plt Count 354 Neut % (Auto) 50 Lymph % (Auto) 41 [place] % (Auto) 8 Eos % (Auto) 1 Baso % (Auto) 1 Neut # (Auto) 1.9 Lymph # (Auto) 1.5 [place] # (Auto) 0.3 Eos # (Auto) 0.0 Baso # (Auto) 0.0 Immature Gran # (Auto) 0.02 H Absolute Nucleated RBC 0.00 Immature Gran % 1 H Nucleated RBC % 0 Sodium 143 Potassium 3.8 Chloride 106 Carbon Dioxide 33.1 H Anion Gap 4 L BUN 12 Creatinine 1.3 D Estim Creat Clear Calc 80.4 eGFR > 60 BUN/Creatinine Ratio 9 L Glucose 98 Calculated Osmolality 284 Calcium 9.2 Corrected Calcium 9.4 Total Bilirubin 0.3 AST < 8 ALT < 7 L Alkaline Phosphatase 75 Ammonia 76 H Total Protein 6.2 Albumin 3.8 Globulin 2.4 Albumin/Globulin Ratio 1.6 Vitamin B12 455 Folate 8.34 TSH 0.27 L Free T4 0.54 L CSF Appearance Clear CSF Color Xantochromic A CSF WBC 8 CSF RBC 1000 CSF Cell Count Tube # Tube #1 CSF Mononuclear WBCs 62.5 CSF Glucose 66 CSF Total Protein 68 H Syphilis Serology Nonreactive Coccidioides IgM Ab Positive A ABG Interpretation ABG results: 07/23/24 07/24/24 10:00 06:30 ABG pH 7.01 L* ABG pCO2 64 H ABG pO2 110 H ABG HCO3 16 L ABG O2 Saturation 96 ABG Base Excess -16 L VBG pH 7.33 VBG pCO2 41 VBG pO2 49 VBG Base Excess -4 L Quality Measures Quality Measures VTE prophylaxis Assessment & Plan Assessment Current Active Medications: Generic Name Dose Route Start Last Admin Trade Name Freq PRN Reason Stop Dose Admin Apixaban 5 mg 07/23/24 21:00 07/28/24 21:23 Apixaban 2.5 Mg Tablet PO 08/13/24 20:59 5 mg BID PANCHO Administration Cefuroxime Axetil 250 mg 07/27/24 21:00 07/28/24 21:24 Cefuroxime Axetil 250 Mg Tablet PO 07/30/24 12:00 250 mg BID PANCHO Administration Citric Acid/Sodium Citrate 30 ml 07/25/24 13:00 07/28/24 21:22 Citric Acid/Sodium Citr 15 Ml Udc (Bicitra) PO 08/24/24 12:59 30 ml BID PANCHO Administration Clobazam 10 mg 07/27/24 07:00 07/28/24 18:54 Clobazam 10 Mg Tablet (Non-Form) PO 08/01/24 06:59 10 mg BID@0700,1900 PANCHO Administration Doxycycline Hyclate 100 mg 07/27/24 21:00 07/28/24 21:23 Doxycycline 100 Mg Tablet PO 07/30/24 12:00 100 mg BID PANCHO Administration Lacosamide 200 mg 07/23/24 21:00 07/28/24 21:22 Lacosamide 50 Mg Tablet PO 08/22/24 20:59 200 mg BID PANCHO Administration Lactulose 10 gm 07/28/24 14:00 07/28/24 21:22 Lactulose Syrup 20 Gm/30 Ml Udc PO 08/27/24 13:59 10 gm TID PANCHO Administration Protocol Levetiracetam 1,000 mg 07/27/24 21:00 07/28/24 21:22 Levetiracetam Liqd 500 Mg/5 Ml Udc PO 08/26/24 20:59 1,000 mg BID PANCHO Administration Lorazepam 2 mg 07/27/24 04:36 07/28/24 17:24 Lorazepam 2 Mg/Ml Vial IVP 08/01/24 05:59 2 mg Q2HR PRN Administration sezure Ondansetron HCl 4 mg 07/25/24 23:55 07/26/24 00:08 Ondansetron Inj 2 Mg/Ml Inj 2 Ml IV 08/24/24 23:54 4 mg Q6HR PRN Administration NAUSEA OR VOMITING Protocol Oxcarbazepine 1,200 mg 07/23/24 21:00 07/27/24 20:56 Oxcarbazepine 150 Mg Tablet (Non-Formulary) PO 08/22/24 20:59 1,200 mg BID PANCHO Administration Sennosides 1 tab 07/27/24 16:38 Senna Tablet PO 08/26/24 16:37 QDAY PRN CONSTIPATION Protocol Valproic Acid 1,250 mg 07/27/24 09:00 07/28/24 21:23 Valproic Acid Syrup 250 Mg/5 Ml Udc PO 08/26/24 08:59 1,250 mg BID PANCHO Administration Plan 24-year-old male with a previous medical history of seizure disorder, right upper extremity brachial DVT and substance abuse disorder who was brought by the ambulance due to multiple seizures, before coming to the hospital he received 6 mg of Versed IV. Patient has a history of previous ICU admission with status epilepticus that required tranfer to the [facility]. He was discharged from [facility] in May 2024 and 2 medication added to his antiepileptic medications: clobazam and perampanel. #Status epilepticus, resolved #Myoclonic Jerking #History seizure disorder On exam 07/27, patient appears to have myoclonic jerking which lasts 1 second at an interval of [address] 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 ?At this time we will hold off starting antifungals due to interactions with seizure medications ? Will await recommendations from ID and neurology #History of upper extremity DVT [facility] At the moment, no signs of DVT. Plan: Continue Eliquis 5 mg twice a day #Aspiration pneumonia 2/2 Klebsiella pneumoniae and MRSA #Leukocytosis,resolved Chest Xray showed: significant left base pneumonia, consider aspiration pneumonia. Sputum cultures grew gram-positive cocci and gram-negative rods. On auscultation mild diffuse rhonchi. Sputum positive for Klebsiella and MRSA Plan: Dr. Bryant, ID, consulted - appreciate recs -continue Cefuroxime and Doxycycline #CECILE-resolving Creatinine peaked at 5.6 and downtrending. Today 1.3 Receiving LR maintenance fluid 75 mL/h May be due to side effect of seizure medication, Dr. 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 Villasenor and senior Dr. Francisco Alvarado, PGY-1
--- NOTE | 2024-07-28 23:24 | ESPR_ITS ---
Documentation for date of: 07/28/24 Subjective Subjective Interval history: Mr. Evangelista was seen in [facility] today with family at the bedside. Patient started having prolonged myoclonic status involving the right upper and right lower extremity with altered level of consciousness. Exam - Neurology Vital Signs Temp Pulse Resp BP Pulse Ox O2 Del Method O2 Flow Rate 98.0 F 81 19 126/85 H 94 L Room Air 2 07/28/24 20:00 07/28/24 20:00 07/28/24 20:00 07/28/24 20:00 07/28/24 20:00 07/28/24 20:00 07/26/24 00:00 FiO2 21 07/26/24 00:00 Narrative Exam GENERAL APPEARANCE: Well-developed, well-nourished male in no acute distress HEENT: Normocephalic, atraumatic, extraocular movements intact. Pupils: Equal reacting to light NECK: Supple, no JVD or bruits. CARDIOVASULAR: Heart: S1, S2 heard, regular without S3-S4 or murmur no rubs or gallops. LUNGS/CHEST: Clear to auscultation bilaterally. No rails, rhonchi, or wheezing. Normal inspection. ABDOMEN: Soft, nontender, with normal bowel sounds. No pulsatile masses. No rebound, rigidity, or guarding. Normal inspection and palpation. EXTREMITIES: Normal inspection and palpation. No edema, clubbing or cyanosis. SKIN: Warm and dry without rashes. Normal inspection. MUSCULOSKELETAL: No cervical, thoracic, lumbar or midline bony tenderness. Normal inspection. NEURO: Somnolent still, no focal deficit noted, no meningeal irritation seen PSYCHIATRIC: Limited. Objective Labs 07/30/24 04:33 07/30/24 04:33 Labs: Laboratory Results - last 24 hr 07/28/24 07/28/24 06:00 17:30 WBC 3.7 L RBC 4.35 L Hgb 12.8 L Hct 38.4 L MCV 88 MCH 29.4 MCHC 33.3 RDW Std Deviation 47.1 H Plt Count 354 Neut % (Auto) 50 Lymph % (Auto) 41 [place] % (Auto) 8 Eos % (Auto) 1 Baso % (Auto) 1 Neut # (Auto) 1.9 Lymph # (Auto) 1.5 [place] # (Auto) 0.3 Eos # (Auto) 0.0 Baso # (Auto) 0.0 Immature Gran # (Auto) 0.02 H Absolute Nucleated RBC 0.00 Immature Gran % 1 H Nucleated RBC % 0 Sodium 143 Potassium 3.8 Chloride 106 Carbon Dioxide 33.1 H Anion Gap 4 L BUN 12 Creatinine 1.3 D Estim Creat Clear Calc 80.4 eGFR > 60 BUN/Creatinine Ratio 9 L Glucose 98 Calculated Osmolality 284 Calcium 9.2 Corrected Calcium 9.4 Total Bilirubin 0.3 AST < 8 ALT < 7 L Alkaline Phosphatase 75 Ammonia 76 H Total Protein 6.2 Albumin 3.8 Globulin 2.4 Albumin/Globulin Ratio 1.6 Vitamin B12 455 Folate 8.34 TSH 0.27 L Free T4 0.54 L CSF Appearance Clear CSF Color Xantochromic A CSF WBC 8 CSF RBC 1000 CSF Cell Count Tube # Tube #1 CSF Mononuclear WBCs 62.5 CSF Glucose 66 CSF Total Protein 68 H Syphilis Serology Nonreactive Coccidioides IgM Ab Positive A ABG Interpretation ABG results: 07/23/24 07/24/24 10:00 06:30 ABG pH 7.01 L* ABG pCO2 64 H ABG pO2 110 H ABG HCO3 16 L ABG O2 Saturation 96 ABG Base Excess -16 L VBG pH 7.33 VBG pCO2 41 VBG pO2 49 VBG Base Excess -4 L Assessment & Plan Assessment and plan (1) Seizure disorder: Status: Chronic Assessment and plan: Patient is somnolent and not responsive with myoclonic status. Plan to do lumbar puncture to evaluate for encephalitis Continue with current antiepileptic drugs: Keppra Vimpat Depakote oxcarbazepine and clobazam. (2) Status epilepticus: Status: Acute Assessment and plan: Plan to do extended EEG monitoring to evaluate for nonconvulsive status (3) Pneumonia: Status: Acute Assessment and plan: Continue with antibiotics as per primary team
[2024-07-29] VITALS: PULSE 74
--- NOTE | 2024-07-29 00:29 | PC.NURSE ---
A 24hr EEG was ordered for patient and RT arrived to peform procedure on patient. Patient's family member had some concerns regarding the EEG and hospitalist Dr. Banda and Dr. Azar was notified regarding patient's family members concern. Hospitalist arrived on unit to talk to patient's family member.
[2024-07-29 03:19] LABS: CSF Gram Stain Alert Gram Stain Completed
[2024-07-29 04:00] VITALS: BP 113/84; PULSE 63; PULSE 68; RESP 18; TEMP 36.1; O2SAT 96
[2024-07-29] MEDS: LACTULOSE SYRUP 20 GM/30 ML UDC 10 GM PO ×3 (05:12→21:03)
[2024-07-29 05:55] LABS: Basophils % (Auto) 1 % (0-2.5); Eosinophils # (Auto) 0.1 Thou/mm3 (0.0-0.5); Eosinophils % (Auto) 2 % (0-10); Hematocrit 39.8 % (41.0-53.0); Hemoglobin 13.2 g/dL (13.5-16.0); Immature Granulocytes % (Auto) 1 % (0-0); Immature Granulocytes Auto 0.05 Thou/mm3 (0.00-0.00); Lymphocytes # (Auto) 2.3 Thou/mm3 (1.0-4.8); Lymphocytes % (Auto) 54 % (10-50); Mean Corpuscular HGB Conc 33.2 g/dl (31.0-37.0); Mean Corpuscular Hemoglobin 30.1 pg (25.0-35.0); Mean Corpuscular Volume 91 fL (80-100); Monocytes # (Auto) 0.3 Thou/mm3 (0.0-0.8); Monocytes % (Auto) 8 % (0-12); Neutrophils # (Auto) 1.5 Thou/mm3 (1.8-7.7); Neutrophils % (Auto) 35 % (37-80); Nucleated Red Blood Cell % 0 /100 WBC (0); Platelet Count 312 Thou/mm3 (140-440); Red Blood Count 4.39 Miln/mm3 (4.50-5.90); White Blood Count 4.3 Thou/mm3 (3.8-10.6)
[2024-07-29 07:14] LABS: Alanine Aminotransferase < 7 U/L (10-49); Albumin, Serum 3.9 gm/dL (3.5-5.0); Albumin/Globulin Ratio 1.6 (1.2-2.2); Alkaline Phosphatase 76 U/L (46-116); Anion Gap 8 (7-16); Aspartate Amino Transferase < 10 U/L (0-34); BUN/Creatinine Ratio 11 Ratio (12-20); Bilirubin,Total 0.3 mg/dL (0.3-1.2); Blood Urea Nitrogen 12 mg/dL (9-23); Calcium 9.4 mg/dL (8.3-10.6); Calcium (Corrected) 9.5 mg/dL (8.5-10.1); Carbon Dioxide 29.3 mMol/L (20.0-31.0); Chloride 108 mMol/L (98-107); Creatinine (Component) 1.1 mg/dL (0.6-1.3); Estimated Creatinine Clearance 95.1 mL/min (>60); Globulin 2.4 gm/dL (2.3-3.5); Glucose 89 mg/dL (74-106); Magnesium 1.8 mg/dL (1.6-2.6); Osmolality,Calculated 287 (275-295); Potassium 3.5 mMol/L (3.4-5.1); Sodium 145 mMol/L (136-145); Total Protein 6.3 gm/dL (5.7-8.2); eGFR > 60 See Note
[2024-07-29 07:49] LABS: CSF Mononuclear 63 %; CSF Polynuclear WBC 37 %
[2024-07-29 08:00] VITALS: BP 123/85; PULSE 66; PULSE 73; RESP 18; TEMP 36.3; O2SAT 96
[2024-07-29] MEDS: VALPROIC ACID SYRUP 250 MG/5 ML UDC 1250 MG PO ×2 (08:24→21:03)
[2024-07-29] MEDS: levETIRAcetam LIQD 500 MG/5 ML UDC 1000 MG PO ×2 (08:24→21:02)
[2024-07-29] MEDS: cefuroxime axetiL 250 MG TABLET PO ×2 (08:25→21:02)
[2024-07-29] MEDS: POTASSIUM CHLORIDE 20 mEq TABCR PO (08:25)
[2024-07-29] MEDS: APIXABAN 2.5 MG TABLET 5 MG PO ×2 (08:25→21:01)
[2024-07-29] MEDS: DOXYCYCLINE 100 MG TABLET PO ×2 (08:25→21:01)
--- NOTE | 2024-07-29 08:45 | PC.NURSE ---
Spoke to [facility] in Pharmacy regarding pt's clobazam. He stated they did not have it down there and to check and see if the family has it in the room . Per pt's mom, they brought in his meds and gave them to us and we sent them to pharmacy. I informed pharmacy that they have been delivering the med with pink slip for double signature. [facility] stated they're not in the safe where the pt's home meds are kept and today was his first day back. He said the new pharmacist will be here at 10:30 and he will ask her if she knows how they've been administering the clobazam .
[2024-07-29] MEDS: LACOSAMIDE 50 MG TABLET 200 MG PO ×2 (08:53→21:00)
[2024-07-29] MEDS: CITRIC ACID/SODIUM CITR 15 ML UDC (BICITRA) 30 ML PO ×2 (08:53→21:02)
[2024-07-29 11:07] VITALS: BMI 25.0
[2024-07-29] MEDS: [UNRECOGNIZED DRUG - REMARK] PO ×2 (11:42→19:24)
[2024-07-29 12:00] VITALS: BP 133/98; PULSE 86; PULSE 87; RESP 18; TEMP 36.3; O2SAT 97
--- NOTE | 2024-07-29 12:22 | ESCONSULT_ITS ---
RE: JULIUS HOOKS : 2000 DATE OF CONSULTATION: 07/27/2024 REFERRING PHYSICIAN: Dr. Mosley REASON FOR CONSULTATION: Encephalopathy and possible pneumonia HISTORY OF PRESENT ILLNESS: The patient is a 24-year-old who had a variety of pathogens potentially grown from his sputum when in ICU. He was initially admitted to the ICU and was seen there by Dr. Mosley. He has subsequently done relatively well. He has had no further seizures and is attended by his sister as well as nurses. He has been on a combination of vancomycin and one other agent. He is probably going to oral therapy with cephalexin and dicyclomine as the organisms present are found to be sensitive. Doxycycline is also a good atypical agent. Cocci test recently was negative, I am going to get one tomorrow as a precaution, but it would not be back for a few days because they may run it on Thursday, but they may not. His medical problems include seizure disorder, deep venous thrombosis, chronic kidney disease, acute kidney injury, and substance abuse disorder. SURGICAL HISTORY: None. ALLERGIES: NONE NOTED. IMMUNIZATIONS: Last tetanus is not known. His flu shot is probably some years, but not every year. He has had two COVID vaccines and has not had pneumococcal vaccination. FAMILY HISTORY: Father with hypertension and diabetes in his father. SOCIAL HISTORY: He lives with his parents. He is a nonsmoker. He used to work at [employer], but did not work when he had seizure before. This is all from his sister, the patient is unable to augment the history in any meaningful way. His sister speaks a mixture of Kitt[place] and Yoruba. I was able to communicate with her adequately. PHYSICAL EXAMINATION: On exam, the patient is in no distress. He does not seem to need oxygen and he does have some snoring behaviors, which may be sedation due to his seizure medication, which is commonly seen. RECOMMENDATIONS: I am going to change his antibiotics to cephalexinand possibly a second agent for the remainder of 7 days. He may go home at your discretion. I will go ahead and pear picker a valley fever test. The doxycycline will be good for atypicals, but if he has cocci, we will need to give him fluconazole for a long time. I will then be unable to follow up on his valley fever test because he will follow on this when he leaves the hospital. His antibiotics will be continued through Thursday about mid day. If you wish to go longer, that is your choice. I will check on him, he should have a repeat x-ray in 2-4 weeks to assure that the pneumonia has resolved. I will be happy to see him again if requested, but there is no routine need to see him again at this time. DT: 13:33:43 TT: 16:44:00 Ref: [id number] - TID: [id number] MTDD
--- NOTE | 2024-07-29 13:51 | ESPR_ITS ---
Documentation for date of: 07/29/24 Subjective Subjective Interval history: Patient was seen and examined at bedside. No acute events overnight. Today patient is less lethargic and somnolent with movements occurring while in bed. He is more responsive and opens eyes when you call his name. Currently undergoing 24-hour EEG study. Family had expressed interest in possibly transferring care to [facility]. reimbursement coordinator Anju was at bedside with me and spoke to patient's mother about how that would be difficult at this time unless family was able to arrange for transfer of care on their own. Vitals unremarkable. CECIEL resolving with creatinine 1.1 today. TSH 0.27, free T4 0.54--may be due to drug interaction or sick syndrome. Continue with antiseizure regimen with valproic acid 1250 twice daily, Keppra 1000 twice daily, lacosamide 200 twice daily, clobazam 10 twice daily. Continue to hold oxcarbazepine as it may have been worsening the drowsiness. Yesterday patient's cocci serology came back positive. To rule out disseminated infection, neurology Dr. Singh performed LP. No WBCs/no organisms seen on gram stain. Culture is still pending. Sputum culture positive for Klebsiella, MRSA. Continue with cefuroxime 250 twice daily and doxycycline 100 twice daily Review of systems otherwise negative except what is mentioned above. Exam Vital Signs Temp Pulse Resp BP Pulse Ox O2 Del Method O2 Flow Rate 97.4 F 87 18 133/98 H 97 Room Air 2 07/29/24 12:00 07/29/24 12:00 07/29/24 12:00 07/29/24 12:00 07/29/24 12:00 07/29/24 12:00 07/26/24 00:00 FiO2 21 07/26/24 00:00 Narrative Exam General: Less Somnolent, moving around in bed, opens eye for few seconds in response to name. HEENT: Normocephalic, atraumatic, mucous membranes moist. Heart: Regular rate and rhythm, no murmurs. Lungs: no wheezes, no crackles Abdomen: Soft, nondistended, nontender, positive bowel sounds. ?No guarding or rebound tenderness. Extremities: No edema. Skin: No rash or ecchymoses. Shaved spots on the parietal and occipital area of the head s/p electrode implantation. Neurologic: No other focal neurologic deficits, grossly intact, undergoing 24 hr EEG Objective Labs 07/29/24 05:34 07/29/24 05:34 Labs: Laboratory Results - last 24 hr 07/28/24 07/28/24 07/29/24 06:00 17:30 05:34 WBC 4.3 RBC 4.39 L Hgb 13.2 L Hct 39.8 L MCV 91 MCH 30.1 MCHC 33.2 RDW Std Deviation 48.0 H Plt Count 312 D Neut % (Auto) 35 L Lymph % (Auto) 54 H [place] % (Auto) 8 Eos % (Auto) 2 Baso % (Auto) 1 Neut # (Auto) 1.5 L Lymph # (Auto) 2.3 [place] # (Auto) 0.3 Eos # (Auto) 0.1 Baso # (Auto) 0.0 Immature Gran # (Auto) 0.05 H Absolute Nucleated RBC 0.00 Immature Gran % 1 H Nucleated RBC % 0 Sodium 145 Potassium 3.5 Chloride 108 H Carbon Dioxide 29.3 Anion Gap 8 BUN 12 Creatinine 1.1 Estim Creat Clear Calc 95.1 eGFR > 60 BUN/Creatinine Ratio 11 L Glucose 89 Calculated Osmolality 287 Calcium 9.4 Corrected Calcium 9.5 Magnesium 1.8 Total Bilirubin 0.3 AST < 10 ALT < 7 L Alkaline Phosphatase 76 Total Protein 6.3 Albumin 3.9 Globulin 2.4 Albumin/Globulin Ratio 1.6 CSF Appearance Clear CSF Color Xantochromic A CSF WBC 8 CSF RBC 1000 CSF Cell Count Tube # Tube #1 CSF Mononuclear WBCs 63 CSF Polynuclear WBCs 37 CSF Glucose 66 CSF Total Protein 68 H Coccidioides IgM Ab Positive A ABG Interpretation ABG results: 07/23/24 07/24/24 10:00 06:30 ABG pH 7.01 L* ABG pCO2 64 H ABG pO2 110 H ABG HCO3 16 L ABG O2 Saturation 96 ABG Base Excess -16 L VBG pH 7.33 VBG pCO2 41 VBG pO2 49 VBG Base Excess -4 L Quality Measures Quality Measures VTE prophylaxis Assessment & Plan Assessment Current Active Medications: Generic Name Dose Route Start Last Admin Trade Name Freq PRN Reason Stop Dose Admin Apixaban 5 mg 07/23/24 21:00 07/29/24 08:25 Apixaban 2.5 Mg Tablet PO 08/13/24 20:59 5 mg BID PANCHO Administration Cefuroxime Axetil 250 mg 07/27/24 21:00 07/29/24 08:25 Cefuroxime Axetil 250 Mg Tablet PO 07/30/24 12:00 250 mg BID PANCHO Administration Citric Acid/Sodium Citrate 30 ml 07/25/24 13:00 07/29/24 08:53 Citric Acid/Sodium Citr 15 Ml Udc (Bicitra) PO 08/24/24 12:59 30 ml BID PANCHO Administration Clobazam 10 mg 07/27/24 07:00 07/29/24 11:42 Clobazam 10 Mg Tablet (Non-Form) PO 08/01/24 06:59 10 mg BID@0700,1900 PANCHO Administration Doxycycline Hyclate 100 mg 07/27/24 21:00 07/29/24 08:25 Doxycycline 100 Mg Tablet PO 07/30/24 12:00 100 mg BID PANCHO Administration Lacosamide 200 mg 07/23/24 21:00 07/29/24 08:53 Lacosamide 50 Mg Tablet PO 08/22/24 20:59 200 mg BID PANCHO Administration Lactulose 10 gm 07/28/24 14:00 07/29/24 05:12 Lactulose Syrup 20 Gm/30 Ml Udc PO 08/27/24 13:59 10 gm TID PANCHO Administration Protocol Levetiracetam 1,000 mg 07/27/24 21:00 07/29/24 08:24 Levetiracetam Liqd 500 Mg/5 Ml Udc PO 08/26/24 20:59 1,000 mg BID PANCHO Administration Lorazepam 2 mg 07/27/24 04:36 07/28/24 17:24 Lorazepam 2 Mg/Ml Vial IVP 08/01/24 05:59 2 mg Q2HR PRN Administration sezure Ondansetron HCl 4 mg 07/25/24 23:55 07/26/24 00:08 Ondansetron Inj 2 Mg/Ml Inj 2 Ml IV 08/24/24 23:54 4 mg Q6HR PRN Administration NAUSEA OR VOMITING Protocol Oxcarbazepine 1,200 mg 07/23/24 21:00 07/27/24 20:56 Oxcarbazepine 150 Mg Tablet (Non-Formulary) PO 12/23/24 20:59 1,200 mg BID PANCHO Administration Sennosides 1 tab 07/27/24 16:38 Senna Tablet PO 08/26/24 16:37 QDAY PRN CONSTIPATION Protocol Valproic Acid 1,250 mg 07/27/24 09:00 07/29/24 08:24 Valproic Acid Syrup 250 Mg/5 Ml Udc PO 08/26/24 08:59 1,250 mg BID PANCHO Administration Plan 24-year-old male with a previous medical history of seizure disorder, right upper extremity brachial DVT and substance abuse disorder who was brought by the ambulance due to multiple seizures, before coming to the hospital he received 6 mg of Versed IV. Patient has a history of previous ICU admission with status epilepticus that required tranfer to the [facility]. He was discharged from [facility] in May 2024 and 2 medication added to his antiepileptic medications: clobazam and perampanel. #Status epilepticus, resolved #Myoclonic Jerking #History seizure disorder On exam 07/27, patient appears to have myoclonic jerking which lasts 1 second at an interval of [address] Singh (neurology) consulted - appreciate recs Plan: -continue Keppra to 1000mg BID per neurology recs -Continue the following: Clobazam 50 mg twice daily, Lacosamide 200 mg twice daily, Valproic acid 1250 mg 3 times daily -Discontined Perampanel 10 mg daily and oxcabazepine for now due to worsening somnolence #Rule out disseminated Cocci Coccidioides serology positive for IgM antibodies Lumbar puncture results are pending to evaluate for possible Coccidioides dissemination due to worsening lethargy and somnolence and patient. -No WBCs/no organisms seen on LP gram stain. Culture is still pending. ?At this time we will hold off starting antifungals due to interactions with seizure medications ? Will await recommendations from ID and neurology #History of upper extremity DVT [facility] At the [facility], no signs of DVT. Plan: Continue Eliquis 5 mg twice a day #Aspiration pneumonia 2/2 Klebsiella pneumoniae and MRSA #Leukocytosis,resolved Chest Xray showed: significant left base pneumonia, consider aspiration pneumonia. Sputum cultures grew gram-positive cocci and gram-negative rods. On auscultation mild diffuse rhonchi. Sputum positive for Klebsiella and MRSA Plan: Dr. Bryant, ID, consulted - appreciate recs -continue Cefuroxime and Doxycycline #CECILE-resolving Creatinine peaked at 5.6 and downtrending. Today 1.1 Receiving LR maintenance fluid 75 mL/h May be due to side effect of seizure medication, Dr. Piña is following #History substance abuse disorder Plan: student support services director Counselled for cessation and healthier lifestyle Health Maintenance: Lines: PIV Bowel: Senna prn Diet: Regular GI prophylaxis: not needed DVT prophylaxis: none Dispo: LP culture pending Code: Full The patient's management plan was discussed with my attending physician Dr. Villasenor and senior Dr. Francisco Alvarado, PGY-1 Attending Provider Attestation/Addendum I have discussed and was present for the essential components of the history, physical examination, diagnosis, and treatment plan with the resident. I agree with the patient's care as documented by the resident and amended herein by me. Claudio Villasenor, DO. No acute events overnight, no reported additional seizure activity, repeat EEG ongoing this morning. Vital signs stable, patient afebrile overnight. CSF protein noted to be 68, cultures pending. Per ID recommendations, antibiotics changed to Keflex and dicyclomine which will end on 07/31. Patient may need fluconazole if CSF cultures grow cocci. Neurology consulted, appreciate recommendations. I did have a thorough discussion with one of the patient's sisters today on the patient's management and plan. Apparently his other sister who works works at [employer] is upset with the patient's management and plan, instructed the family member at bedside today that she can call the hospital and discuss case with me at any time due to the fact she does not normally get here at bedside until approximately 730 to 8 PM. I am happy to discuss the case with her over the phone. For now we will continue Eliquis 5 mg p.o. twice daily, JONNIE Bassham 10 mg p.o. twice daily, lacosamide 200 mg p.o. twice daily, Keppra 1000 mg p.o. twice daily, oxcarbazepine currently held and valproic acid 1250 mg p.o. twice daily and as needed Ativan for any breakthrough seizures. Will continue to monitor closely Although this document has been carefully reviewed, there may still be some phonetic and other typographical errors. These errors are purely grammatical due to imperfections in the software program and should not be construed in any way to compromise the substance of the patient's medical care during this visit.
[2024-07-29 16:00] VITALS: BP 130/82; PULSE 80; PULSE 86; RESP 19; TEMP 36.3; O2SAT 95
[2024-07-29 20:00] VITALS: BP 121/90; PULSE 82; RESP 16; TEMP 36.2; O2SAT 100
--- NOTE | 2024-07-29 23:34 | VVPN_ITS ---
Telemedicine visit statement This visit was conducted with the use of phone was obtained on 07/29/24. Documentation for date of: 07/29/24 Subjective Subjective Interval history: Patient is in MedSurg, is little more awake but still slow to respond. No more seizures reported Virtual exam Vital Signs Temp Pulse Resp BP Pulse Ox O2 Del Method O2 Flow Rate 97.2 F 82 16 121/90 H 100 Room Air 2 07/29/24 20:00 07/29/24 20:00 07/29/24 20:00 07/29/24 20:00 07/29/24 20:00 07/29/24 20:00 07/26/24 00:00 FiO2 21 07/26/24 00:00 Objective Labs 07/30/24 04:33 07/30/24 04:33 Labs: Laboratory Results - last 24 hr 07/28/24 07/29/24 17:30 05:34 WBC 4.3 RBC 4.39 L Hgb 13.2 L Hct 39.8 L MCV 91 MCH 30.1 MCHC 33.2 RDW Std Deviation 48.0 H Plt Count 312 D Neut % (Auto) 35 L Lymph % (Auto) 54 H [place] % (Auto) 8 Eos % (Auto) 2 Baso % (Auto) 1 Neut # (Auto) 1.5 L Lymph # (Auto) 2.3 [place] # (Auto) 0.3 Eos # (Auto) 0.1 Baso # (Auto) 0.0 Immature Gran # (Auto) 0.05 H Absolute Nucleated RBC 0.00 Immature Gran % 1 H Nucleated RBC % 0 Sodium 145 Potassium 3.5 Chloride 108 H Carbon Dioxide 29.3 Anion Gap 8 BUN 12 Creatinine 1.1 Estim Creat Clear Calc 95.1 eGFR > 60 BUN/Creatinine Ratio 11 L Glucose 89 Calculated Osmolality 287 Calcium 9.4 Corrected Calcium 9.5 Magnesium 1.8 Total Bilirubin 0.3 AST < 10 ALT < 7 L Alkaline Phosphatase 76 Total Protein 6.3 Albumin 3.9 Globulin 2.4 Albumin/Globulin Ratio 1.6 Free T3 pg/dL 2.0 L CSF Mononuclear WBCs 63 CSF Polynuclear WBCs 37 ABG Interpretation ABG results: 07/23/24 07/24/24 10:00 06:30 ABG pH 7.01 L* ABG pCO2 64 H ABG pO2 110 H ABG HCO3 16 L ABG O2 Saturation 96 ABG Base Excess -16 L VBG pH 7.33 VBG pCO2 41 VBG pO2 49 VBG Base Excess -4 L Assessment & Plan Problem List (1) Seizure disorder: Status: Chronic Assessment and plan: Continue with Keppra 1000 mg twice a day, Depakote, oxcarbazepine, Vimpat and clobazam continue to monitor for any breakthrough seizures and Ativan for breakthrough. Follow-up with extended EEG report (2) Status epilepticus: Status: Resolved (3) Pneumonia: Status: Acute Assessment and plan: Getting treated with cefuroxime and doxycycline as per primary team DVT: continue Eliquis.
[2024-07-30] VITALS (8 sets, daily range): BP systolic 113–146; BP diastolic 74–95; PULSE 65–88; RESP 14–19; TEMP 36.2–36.8; O2SAT 94–99
--- NOTE | 2024-07-30 01:13 | RESP.EEG ---
EEG has been completed and is ready for MD interpretation
[2024-07-30] MEDS: LACTULOSE SYRUP 20 GM/30 ML UDC 10 GM PO ×3 (05:13→22:17)
[2024-07-30 06:49] LABS: Basophils # (Auto) 0.1 Thou/mm3 (0.0-0.2); Basophils % (Auto) 1 % (0-2.5); Eosinophils # (Auto) 0.1 Thou/mm3 (0.0-0.5); Eosinophils % (Auto) 2 % (0-10); Hematocrit 40.7 % (41.0-53.0); Hemoglobin 13.6 g/dL (13.5-16.0); Immature Granulocytes % (Auto) 1 % (0-0); Immature Granulocytes Auto 0.07 Thou/mm3 (0.00-0.00); Lymphocytes # (Auto) 2.7 Thou/mm3 (1.0-4.8); Lymphocytes % (Auto) 54 % (10-50); Mean Corpuscular HGB Conc 33.4 g/dl (31.0-37.0); Mean Corpuscular Hemoglobin 29.6 pg (25.0-35.0); Mean Corpuscular Volume 89 fL (80-100); Monocytes # (Auto) 0.4 Thou/mm3 (0.0-0.8); Monocytes % (Auto) 8 % (0-12); Neutrophils # (Auto) 1.7 Thou/mm3 (1.8-7.7); Neutrophils % (Auto) 34 % (37-80); Nucleated Red Blood Cell % 0 /100 WBC (0); Platelet Count 314 Thou/mm3 (140-440); RDW Standard Deviation 45.2 fL (35.1-43.9)
[2024-07-30 07:32] LABS: Alanine Aminotransferase 7 U/L (10-49); Albumin, Serum 4.1 gm/dL (3.5-5.0); Albumin/Globulin Ratio 1.8 (1.2-2.2); Alkaline Phosphatase 80 U/L (46-116); Anion Gap 12 (7-16); Aspartate Amino Transferase < 8 U/L (0-34); BUN/Creatinine Ratio 16 Ratio (12-20); Bilirubin,Total 0.3 mg/dL (0.3-1.2); Blood Urea Nitrogen 13 mg/dL (9-23); Calcium 9.5 mg/dL (8.3-10.6); Calcium (Corrected) 9.5 mg/dL (8.5-10.1); Carbon Dioxide 23.7 mMol/L (20.0-31.0); Chloride 106 mMol/L (98-107); Creatinine (Component) 0.8 mg/dL (0.6-1.3); Estimated Creatinine Clearance 130.7 mL/min (>60); Globulin 2.3 gm/dL (2.3-3.5); Glucose 81 mg/dL (74-106); Magnesium 1.5 mg/dL (1.6-2.6); Osmolality,Calculated 282 (275-295); Sodium 142 mMol/L (136-145); Total Protein 6.4 gm/dL (5.7-8.2); eGFR > 60 See Note
[2024-07-30] MEDS: [UNRECOGNIZED DRUG - REMARK] PO ×2 (08:10→18:34)
[2024-07-30] MEDS: CITRIC ACID/SODIUM CITR 15 ML UDC (BICITRA) 30 ML PO ×2 (08:11→22:24)
[2024-07-30] MEDS: levETIRAcetam LIQD 500 MG/5 ML UDC 1000 MG PO ×2 (08:12→21:12)
[2024-07-30] MEDS: VALPROIC ACID SYRUP 250 MG/5 ML UDC 1250 MG PO ×2 (08:13→21:25)
[2024-07-30] MEDS: DOXYCYCLINE 100 MG TABLET PO (08:15)
[2024-07-30] MEDS: APIXABAN 2.5 MG TABLET 5 MG PO ×2 (08:15→21:10)
[2024-07-30] MEDS: cefuroxime axetiL 250 MG TABLET PO (08:16)
[2024-07-30] MEDS: Magnesium Sulfate 2 GM Ivpb 2 GM/50 ML BAG IV (08:17)
[2024-07-30] MEDS: LACOSAMIDE 50 MG TABLET 200 MG PO ×2 (08:30→21:11)
[2024-07-30] MEDS: ONDANSETRON INJ 2 MG/ML INJ 2 ML 4 MG IV (13:02)
--- NOTE | 2024-07-30 13:05 | PC.NURSE ---
pt was vomiting filled up and emesis bag and got the rest of his gown, pt cleaned and changed administered 4 mg of zofran, Dr. Alvarado notified
--- NOTE | 2024-07-30 14:19 | PD.RESPRO ---
Documentation for date of: 07/30/24 Subjective Subjective Interval history: Patient was seen and examined at bedside. No acute events overnight. Per nursing,?patient had 1 episode of large-volume emesis. No blood noticed, somewhat clear. Symptoms improved with Zofran. Today patient is better and much less somnolent. Alert and oriented x 3. Lumbar puncture culture pending Vitals unremarkable labs significant for low Mag--repleted with 2 g Spent extensive time with patient and counseled on drug use. ?No further complaints at this time. Review of systems otherwise negative except what is mentioned above. Exam Vital Signs Temp Pulse Resp BP Pulse Ox O2 Del Method O2 Flow Rate 97.2 F 88 16 126/92 H 98 Room Air 2 07/30/24 13:19 07/30/24 13:19 07/30/24 12:00 07/30/24 13:19 07/30/24 13:19 07/30/24 12:00 07/26/24 00:00 FiO2 21 07/26/24 00:00 Narrative Exam General: A&Ox3, moving around in bed, doesn't make eye contact HEENT: Normocephalic, atraumatic, mucous membranes moist. Heart: Regular rate and rhythm, no murmurs. Lungs: no wheezes, no crackles Abdomen: Soft, nondistended, nontender, positive bowel sounds. ?No guarding or rebound tenderness. Extremities: No edema. Skin: No rash or ecchymoses. Shaved spots on the parietal and occipital area of the head s/p electrode implantation. Neurologic: No other focal neurologic deficits, grossly intact, undergoing 24 hr EEG Objective Labs 07/30/24 04:33 07/30/24 04:33 Labs: Laboratory Results - last 24 hr 07/29/24 07/30/24 05:34 04:33 WBC 5.0 RBC 4.60 Hgb 13.6 Hct 40.7 L MCV 89 MCH 29.6 MCHC 33.4 RDW Std Deviation 45.2 H Plt Count 314 Neut % (Auto) 34 L Lymph % (Auto) 54 H [place] % (Auto) 8 Eos % (Auto) 2 Baso % (Auto) 1 Neut # (Auto) 1.7 L Lymph # (Auto) 2.7 [place] # (Auto) 0.4 Eos # (Auto) 0.1 Baso # (Auto) 0.1 Immature Gran # (Auto) 0.07 H Absolute Nucleated RBC 0.00 Immature Gran % 1 H Nucleated RBC % 0 Sodium 142 Potassium 4.0 D Chloride 106 Carbon Dioxide 23.7 Anion Gap 12 BUN 13 Creatinine 0.8 Estim Creat Clear Calc 130.7 eGFR > 60 BUN/Creatinine Ratio 16 Glucose 81 Calculated Osmolality 282 Calcium 9.5 Corrected Calcium 9.5 Magnesium 1.5 L Total Bilirubin 0.3 AST < 8 ALT 7 L Alkaline Phosphatase 80 Total Protein 6.4 Albumin 4.1 Globulin 2.3 Albumin/Globulin Ratio 1.8 Free T3 pg/dL 2.0 L ABG Interpretation ABG results: 07/23/24 07/24/24 10:00 06:30 ABG pH 7.01 L* ABG pCO2 64 H ABG pO2 110 H ABG HCO3 16 L ABG O2 Saturation 96 ABG Base Excess -16 L VBG pH 7.33 VBG pCO2 41 VBG pO2 49 VBG Base Excess -4 L Quality Measures Quality Measures VTE prophylaxis Assessment & Plan Assessment Current Active Medications: Generic Name Dose Route Start Last Admin Trade Name Freq PRN Reason Stop Dose Admin Apixaban 5 mg 07/23/24 21:00 07/30/24 08:15 Apixaban 2.5 Mg Tablet PO 08/13/24 20:59 5 mg BID PANCHO Administration Citric Acid/Sodium Citrate 30 ml 07/25/24 13:00 07/30/24 08:11 Citric Acid/Sodium Citr 15 Ml Udc (Bicitra) PO 08/24/24 12:59 30 ml BID PANCHO Administration Clobazam 10 mg 07/27/24 07:00 07/30/24 08:10 Clobazam 10 Mg Tablet (Non-Form) PO 08/01/24 06:59 10 mg BID@0700,1900 PANCHO Administration Lacosamide 200 mg 07/23/24 21:00 07/30/24 08:30 Lacosamide 50 Mg Tablet PO 08/22/24 20:59 200 mg BID PANCHO Administration Lactulose 10 gm 07/28/24 14:00 07/30/24 05:13 Lactulose Syrup 20 Gm/30 Ml Udc PO 08/27/24 13:59 10 gm TID PANCHO Administration Protocol Levetiracetam 1,000 mg 07/27/24 21:00 07/30/24 08:12 Levetiracetam Liqd 500 Mg/5 Ml Udc PO 08/26/24 20:59 1,000 mg BID PANCHO Administration Lorazepam 2 mg 07/27/24 04:36 07/28/24 17:24 Lorazepam 2 Mg/Ml Vial IVP 08/01/24 05:59 2 mg Q2HR PRN Administration sezure Ondansetron HCl 4 mg 07/25/24 23:55 07/30/24 13:02 Ondansetron Inj 2 Mg/Ml Inj 2 Ml IV 08/24/24 23:54 4 mg Q6HR PRN Administration NAUSEA OR VOMITING Protocol Oxcarbazepine 1,200 mg 07/23/24 21:00 07/27/24 20:56 Oxcarbazepine 150 Mg Tablet (Non-Formulary) PO 08/22/24 20:59 1,200 mg BID PANCHO Administration Sennosides 1 tab 07/27/24 16:38 Senna Tablet PO 08/26/24 16:37 QDAY PRN CONSTIPATION Protocol Valproic Acid 1,250 mg 07/27/24 09:00 07/30/24 08:13 Valproic Acid Syrup 250 Mg/5 Ml Udc PO 08/26/24 08:59 1,250 mg BID PANCHO Administration Plan 24-year-old male with a previous medical history of seizure disorder, right upper extremity brachial DVT and substance abuse disorder who was brought by the ambulance due to multiple seizures, before coming to the hospital he received 6 mg of Versed IV. Patient has a history of previous ICU admission with status epilepticus that required tranfer to the [facility]. He was discharged from [facility] in May 2024 and 2 medication added to his antiepileptic medications: clobazam and perampanel. #Status epilepticus, resolved #Myoclonic Jerking-resolved #History seizure disorder On exam 07/27, patient appears to have myoclonic jerking which lasts 1 second at an interval of [address] Singh (neurology) consulted - appreciate recs Plan: -continue Keppra to 1000mg BID per neurology recs -Continue the following: Clobazam 50 mg twice daily, Lacosamide 200 mg twice daily, Valproic acid 1250 mg 3 times daily -Discontined Perampanel 10 mg daily and oxcabazepine for now due to worsening somnolence #Rule out disseminated Cocci Coccidioides serology positive for IgM antibodies Lumbar puncture results are pending to evaluate for possible Coccidioides dissemination due to worsening lethargy and somnolence and patient. -No WBCs/no organisms seen on LP gram stain. -Culture is still pending. ?At this time we will hold off starting antifungals due to interactions with seizure medications ? Will await recommendations from ID and neurology #History of upper extremity DVT [facility] At the [facility], no signs of DVT. Plan: Continue Eliquis 5 mg twice a day #Aspiration pneumonia 2/2 Klebsiella pneumoniae and MRSA #Leukocytosis,resolved Chest Xray showed: significant left base pneumonia, consider aspiration pneumonia. Sputum cultures grew gram-positive cocci and gram-negative rods. On auscultation mild diffuse rhonchi. Sputum positive for Klebsiella and MRSA Plan: Dr. Bryant, ID, consulted - appreciate recs -Completed course of cefuroxime and Doxycycline #CECILE-resolved Creatinine peaked at 5.6 and downtrending. Today 0.8 Receiving LR maintenance fluid 75 mL/h May be due to side effect of seizure medication, Dr. 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 Villasenor and senior Dr. Owen Alvarado, PGY-1 Attending Provider Attestation/Addendum I have discussed and was present for the essential components of the history, physical examination, diagnosis, and treatment plan with the resident. I agree with the patient's care as documented by the resident and amended herein by me. Claudio Villasenor DO. Although this document has been carefully reviewed, there may still be some phonetic and other typographical errors. These errors are purely grammatical due to imperfections in the software program and should not be construed in any way to compromise the substance of the patient's medical care during this visit.
--- NOTE | 2024-07-30 14:28 | PC.SS ---
Rounding: Pending cultures and neurology reccs
--- NOTE | 2024-07-30 22:04 | ESPR_ITS ---
Documentation for date of: 07/30/24 Subjective Subjective Interval history: Mr. Evangelista was seen in [facility] today with family at the bedside. No seizures reported for the last 48 hours, more awake and alert and answering questions. Able to tolerate oral diet. Exam - Neurology Vital Signs Temp Pulse Resp BP Pulse Ox O2 Del Method O2 Flow Rate 98.3 F 73 17 130/91 H 99 Room Air 2 07/30/24 20:00 07/30/24 20:00 07/30/24 20:00 07/30/24 20:00 07/30/24 20:00 07/30/24 20:00 07/26/24 00:00 FiO2 21 07/26/24 00:00 Narrative Exam GENERAL APPEARANCE: Well hydrated, well-nourished in no acute distress. HEENT: Normocephalic, atraumatic, extraocular movements intact. Ptosis seen bilaterally, pupils: Equal reacting to light and accommodation NECK: Supple, no JVD or bruits. CARDIOVASULAR: Heart: S1, S2 heard, regular without S3-S4 or murmur no rubs or gallops. LUNGS/CHEST: Clear to auscultation bilaterally. No rails, rhonchi, or wheezing. Normal inspection. ABDOMEN: Soft, nontender, with normal bowel sounds. No pulsatile masses. No rebound, rigidity, or guarding. Normal inspection and palpation. EXTREMITIES: Normal inspection and palpation. No edema, clubbing or cyanosis. SKIN: Warm and dry without rashes. Normal inspection. MUSCULOSKELETAL: No cervical, thoracic, lumbar or midline bony tenderness. Normal inspection. NEURO: Alert, awake and oriented x3. Cranial nerves: II through XII grossly intact. Speech and language: Normal with no dysarthria or dysphasia. Motor system: Tone and bulk: Normal: Strength: 5 out of 5 in all 4 extremities; No pronator drift noted. Deep tendon reflexes: 2+ bilaterally symmetrical. Plantar reflex: Downgoing bilaterally. Sensory system: Intact to all modalities of sensation bilaterally. Coordination: Intact to [id number]-[id number] and fgjk-omcf-oxko test bilaterally. No ataxia, no dysmetria, or dysdiadochokinesia noted. No intention tremors noted. Gait: Not tested. No signs of meningeal irritation noted. PSYCHIATRIC: Normal mood and affect. Objective Labs 07/30/24 04:33 07/30/24 04:33 Labs: Laboratory Results - last 24 hr 07/30/24 04:33 WBC 5.0 RBC 4.60 Hgb 13.6 Hct 40.7 L MCV 89 MCH 29.6 MCHC 33.4 RDW Std Deviation 45.2 H Plt Count 314 Neut % (Auto) 34 L Lymph % (Auto) 54 H [place] % (Auto) 8 Eos % (Auto) 2 Baso % (Auto) 1 Neut # (Auto) 1.7 L Lymph # (Auto) 2.7 [place] # (Auto) 0.4 Eos # (Auto) 0.1 Baso # (Auto) 0.1 Immature Gran # (Auto) 0.07 H Absolute Nucleated RBC 0.00 Immature Gran % 1 H Nucleated RBC % 0 Sodium 142 Potassium 4.0 D Chloride 106 Carbon Dioxide 23.7 Anion Gap 12 BUN 13 Creatinine 0.8 Estim Creat Clear Calc 130.7 eGFR > 60 BUN/Creatinine Ratio 16 Glucose 81 Calculated Osmolality 282 Calcium 9.5 Corrected Calcium 9.5 Magnesium 1.5 L Total Bilirubin 0.3 AST < 8 ALT 7 L Alkaline Phosphatase 80 Total Protein 6.4 Albumin 4.1 Globulin 2.3 Albumin/Globulin Ratio 1.8 ABG Interpretation ABG results: 07/23/24 07/24/24 10:00 06:30 ABG pH 7.01 L* ABG pCO2 64 H ABG pO2 110 H ABG HCO3 16 L ABG O2 Saturation 96 ABG Base Excess -16 L VBG pH 7.33 VBG pCO2 41 VBG pO2 49 VBG Base Excess -4 L Assessment & Plan Assessment and plan (1) Seizure disorder: Status: Chronic Assessment and plan: Patient is awake and alert and following commands stable on multiple antiepileptic drugs including Keppra, oxcarbazepine, Depakote, Vimpat and clobazam. Continue with the seizure precautions, Ativan for breakthrough seizures. (2) Status epilepticus: Status: Resolved (3) Pneumonia: Status: Acute Assessment and plan: Continue with antibiotics as per primary team
[2024-07-31] VITALS (7 sets, daily range): BP systolic 107–133; BP diastolic 71–94; PULSE 61–87; RESP 16–18; TEMP 36.2–36.8; O2SAT 95–100
[2024-07-31] MEDS: LACTULOSE SYRUP 20 GM/30 ML UDC 10 GM PO ×3 (06:11→21:24)
[2024-07-31 07:00] LABS: Basophils # (Auto) 0.1 Thou/mm3 (0.0-0.2); Basophils % (Auto) 1 % (0-2.5); Eosinophils # (Auto) 0.1 Thou/mm3 (0.0-0.5); Eosinophils % (Auto) 3 % (0-10); Hematocrit 40.7 % (41.0-53.0); Hemoglobin 13.6 g/dL (13.5-16.0); Immature Granulocytes % (Auto) 4 % (0-0); Immature Granulocytes Auto 0.19 Thou/mm3 (0.00-0.00); Lymphocytes # (Auto) 2.7 Thou/mm3 (1.0-4.8); Lymphocytes % (Auto) 52 % (10-50); Mean Corpuscular HGB Conc 33.4 g/dl (31.0-37.0); Mean Corpuscular Hemoglobin 29.4 pg (25.0-35.0); Mean Corpuscular Volume 88 fL (80-100); Monocytes # (Auto) 0.4 Thou/mm3 (0.0-0.8); Monocytes % (Auto) 7 % (0-12); Neutrophils # (Auto) 1.8 Thou/mm3 (1.8-7.7); Neutrophils % (Auto) 34 % (37-80); Nucleated Red Blood Cell % 0 /100 WBC (0); Platelet Count 264 Thou/mm3 (140-440); RDW Standard Deviation 44.4 fL (35.1-43.9); Red Blood Count 4.62 Miln/mm3 (4.50-5.90); White Blood Count 5.2 Thou/mm3 (3.8-10.6)
[2024-07-31 07:31] LABS: Alanine Aminotransferase 9 U/L (10-49); Albumin, Serum 4.1 gm/dL (3.5-5.0); Albumin/Globulin Ratio 1.7 (1.2-2.2); Alkaline Phosphatase 77 U/L (46-116); Anion Gap 11 (7-16); Aspartate Amino Transferase 13 U/L (0-34); BUN/Creatinine Ratio 8 Ratio (12-20); Bilirubin,Total 0.3 mg/dL (0.3-1.2); Blood Urea Nitrogen 7 mg/dL (9-23); Calcium 9.3 mg/dL (8.3-10.6); Calcium (Corrected) 9.3 mg/dL (8.5-10.1); Carbon Dioxide 25.2 mMol/L (20.0-31.0); Chloride 106 mMol/L (98-107); Creatinine (Component) 0.9 mg/dL (0.6-1.3); Estimated Creatinine Clearance 116.2 mL/min (>60); Globulin 2.4 gm/dL (2.3-3.5); Glucose 92 mg/dL (74-106); Magnesium 1.6 mg/dL (1.6-2.6); Osmolality,Calculated 281 (275-295); Potassium 3.3 mMol/L (3.4-5.1); Sodium 142 mMol/L (136-145); Total Protein 6.5 gm/dL (5.7-8.2); eGFR > 60 See Note
[2024-07-31] MEDS: LACOSAMIDE 50 MG TABLET 200 MG PO ×2 (08:05→20:06)
[2024-07-31] MEDS: [UNRECOGNIZED DRUG - REMARK] PO ×2 (08:05→18:01)
[2024-07-31] MEDS: CITRIC ACID/SODIUM CITR 15 ML UDC (BICITRA) 30 ML PO ×2 (08:06→20:06)
[2024-07-31] MEDS: levETIRAcetam LIQD 500 MG/5 ML UDC 1000 MG PO ×2 (08:06→20:06)
[2024-07-31] MEDS: APIXABAN 2.5 MG TABLET 5 MG PO ×2 (08:06→20:06)
[2024-07-31] MEDS: POTASSIUM CHLORIDE 20 mEq TABCR 40 MEQ PO (09:42)
[2024-07-31] MEDS: VALPROIC ACID SYRUP 250 MG/5 ML UDC 1250 MG PO ×2 (09:42→20:06)
--- NOTE | 2024-07-31 14:57 | PD.RESPRO ---
Documentation for date of: 07/31/24 Subjective Subjective Interval history: This patient was seen and examined with his mother by the bedside. Per mother, patient is back to his baseline. No acute overnight events and no further episodes of myoclonic jerks. Patient was able to sit by the side of bed yesterday. Rodriguez catheter was removed and recommended patient to mobilize. Vitals are stable. Physical examination remained unremarkable. Labs showed mild hypokalemia, 3.3 for which 40 mEq of oral potassium is given. CSF culture for Coccidioides is still pending. Will appreciate recommendations of Dr. Singh and planning for discharge tomorrow if Dr. Singh clears him for the discharge. Exam Vital Signs Temp Pulse Resp BP Pulse Ox O2 Del Method O2 Flow Rate 98.0 F 86 16 117/78 98 Room Air 2 07/31/24 12:00 07/31/24 12:00 07/31/24 12:00 07/31/24 12:00 07/31/24 12:00 07/31/24 12:00 07/26/24 00:00 FiO2 21 07/26/24 00:00 Narrative Exam General: Awake and in no acute distress. HEENT: Normocephalic, atraumatic, mucous membranes moist. Heart: Regular rate and rhythm, no murmurs. Lungs: Clear to auscultation with no wheezing or crackles. Abdomen: Soft, nondistended, nontender, positive bowel sounds. ?No guarding or rebound tenderness. Neurologic: Alert and oriented x3, no gross neurological deficit, and patient able to move all 4 extremities. Extremities: No edema. Skin: No rash or ecchymoses. Objective Labs 07/31/24 05:44 07/31/24 05:44 Labs: Laboratory Results - last 24 hr 07/31/24 05:44 WBC 5.2 RBC 4.62 Hgb 13.6 Hct 40.7 L MCV 88 MCH 29.4 MCHC 33.4 RDW Std Deviation 44.4 H Plt Count 264 D Neut % (Auto) 34 L Lymph % (Auto) 52 H [place] % (Auto) 7 Eos % (Auto) 3 Baso % (Auto) 1 Neut # (Auto) 1.8 Lymph # (Auto) 2.7 [place] # (Auto) 0.4 Eos # (Auto) 0.1 Baso # (Auto) 0.1 Immature Gran # (Auto) 0.19 H Absolute Nucleated RBC 0.00 Immature Gran % 4 H Nucleated RBC % 0 Sodium 142 Potassium 3.3 L D Chloride 106 Carbon Dioxide 25.2 Anion Gap 11 BUN 7 L Creatinine 0.9 Estim Creat Clear Calc 116.2 eGFR > 60 BUN/Creatinine Ratio 8 L Glucose 92 Calculated Osmolality 281 Calcium 9.3 Corrected Calcium 9.3 Magnesium 1.6 Total Bilirubin 0.3 AST 13 ALT 9 L Alkaline Phosphatase 77 Total Protein 6.5 Albumin 4.1 Globulin 2.4 Albumin/Globulin Ratio 1.7 ABG Interpretation ABG results: 07/23/24 07/24/24 10:00 06:30 ABG pH 7.01 L* ABG pCO2 64 H ABG pO2 110 H ABG HCO3 16 L ABG O2 Saturation 96 ABG Base Excess -16 L VBG pH 7.33 VBG pCO2 41 VBG pO2 49 VBG Base Excess -4 L Quality Measures Quality Measures VTE prophylaxis Assessment & Plan Assessment Current Active Medications: Generic Name Dose Route Start Last Admin Trade Name Freq PRN Reason Stop Dose Admin Apixaban 5 mg 07/23/24 21:00 07/31/24 08:06 Apixaban 2.5 Mg Tablet PO 08/13/24 20:59 5 mg BID PANCHO Administration Citric Acid/Sodium Citrate 30 ml 07/25/24 13:00 07/31/24 08:06 Citric Acid/Sodium Citr 15 Ml Udc (Bicitra) PO 08/24/24 12:59 30 ml BID PANCHO Administration Clobazam 10 mg 07/27/24 07:00 07/31/24 08:05 Clobazam 10 Mg Tablet (Non-Form) PO 08/01/24 06:59 10 mg BID@0700,1900 PANCHO Administration Lacosamide 200 mg 07/23/24 21:00 07/31/24 08:05 Lacosamide 50 Mg Tablet PO 08/22/24 20:59 200 mg BID PANCHO Administration Lactulose 10 gm 07/28/24 14:00 07/31/24 13:01 Lactulose Syrup 20 Gm/30 Ml Udc PO 08/27/24 13:59 10 gm TID PANCHO Administration Protocol Levetiracetam 1,000 mg 07/27/24 21:00 12/01/24 08:06 Levetiracetam Liqd 500 Mg/5 Ml Udc PO 08/26/24 20:59 1,000 mg BID PANCHO Administration Lorazepam 2 mg 07/27/24 04:36 07/28/24 17:24 Lorazepam 2 Mg/Ml Vial IVP 08/01/24 05:59 2 mg Q2HR PRN Administration sezure Ondansetron HCl 4 mg 07/25/24 23:55 07/30/24 13:02 Ondansetron Inj 2 Mg/Ml Inj 2 Ml IV 08/24/24 23:54 4 mg Q6HR PRN Administration NAUSEA OR VOMITING Protocol Oxcarbazepine 1,200 mg 07/23/24 21:00 07/27/24 20:56 Oxcarbazepine 150 Mg Tablet (Non-Formulary) PO 08/22/24 20:59 1,200 mg BID PANCHO Administration Sennosides 1 tab 07/27/24 16:38 Senna Tablet PO 08/26/24 16:37 QDAY PRN CONSTIPATION Protocol Valproic Acid 1,250 mg 07/27/24 09:00 07/31/24 09:42 Valproic Acid Syrup 250 Mg/5 Ml Udc PO 08/26/24 08:59 1,250 mg BID PANCHO Administration Plan 24-year-old male with a previous medical history of seizure disorder, right upper extremity brachial DVT and substance abuse disorder who was brought by the ambulance due to multiple seizures, before coming to the hospital he received 6 mg of Versed IV. Patient has a history of previous ICU admission with status epilepticus that required tranfer to the [facility]. He was discharged from [facility] in May 2024 and 2 medication added to his antiepileptic medications: clobazam and perampanel. #Status epilepticus, resolved #Myoclonic Jerking-resolved #History seizure disorder On exam 07/27, patient appears to have myoclonic jerking which lasts 1 second at an interval of [address] Singh (neurology) consulted - appreciate recs Plan: -continue Keppra to 1000mg BID per neurology recs -Continue the following: Clobazam 50 mg twice daily, Lacosamide 200 mg twice daily, Valproic acid 1250 mg 3 times daily -Discontined Perampanel 10 mg daily and oxcabazepine for now due to worsening somnolence #Rule out disseminated Cocci Coccidioides serology positive for IgM antibodies Lumbar puncture results are pending to evaluate for possible Coccidioides dissemination due to worsening lethargy and somnolence and patient. -No WBCs/no organisms seen on LP gram stain. -Culture is still pending. ?At this time we will hold off starting antifungals due to interactions with seizure medications ? Will await recommendations from ID and neurology #History of upper extremity DVT [facility] At the moment, no signs of DVT. Plan: Continue Eliquis 5 mg twice a day #Aspiration pneumonia 2/2 Klebsiella pneumoniae and MRSA #Leukocytosis,resolved Chest Xray showed: significant left base pneumonia, consider aspiration pneumonia. Sputum cultures grew gram-positive cocci and gram-negative rods. On auscultation mild diffuse rhonchi. Sputum positive for Klebsiella and MRSA Plan: Dr. Bryant, ID, consulted - appreciate recs -Completed course of cefuroxime and Doxycycline #CECILE-resolved Creatinine peaked at 5.6 and downtrending. Today 0.9 May be due to side effect of seizure medication, Dr. 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 Negro Simms, PGY1 Attending Provider Attestation/Addendum Cecelia Castro, , attest that I was physically present for the zavala portions of the service and evaluated the patient with the resident and I reviewed and discussed the case with the resident and agree with the resident's findings and plans of care as documented above Patient seen and evaluated this AM. Sister at bedside and states that the patient was able to sit at the edge of the bed this morning. He remains seizure free. Lethargy likely due to AEDs, rather than meningitis. CSF cultures are otherwise pending. Suspicion of cocci meningitis is rather low as he did not have hypoglycchorachia. Will f/u with neurology. Patient can likely be discharged within the next 24h.
--- NOTE | 2024-07-31 15:27 | PC.NURSE ---
Addendum entered by Alla Allen RN 07/31/24 15:28: ROSALBA rae at 11:35 patient urinated using urinal at bedside Original Note: ROSALBA rae at 11:35 patient urinated s
--- NOTE | 2024-07-31 16:14 | PC.SS ---
Rounding: Pending CSF cultures
--- NOTE | 2024-07-31 23:20 | PD.VPROG1 ---
Telemedicine visit statement This visit was conducted with the use of phone was obtained on 07/31/24 at 2320. Documentation for date of: 07/31/24 Subjective Subjective Interval history: Patient is in MedSurg, more awake but still slow to respond. No more seizures reported Virtual exam Vital Signs Temp Pulse Resp BP Pulse Ox O2 Del Method O2 Flow Rate 97.5 F 82 18 133/94 H 99 Room Air 2 07/31/24 20:00 07/31/24 20:00 07/31/24 20:00 07/31/24 20:00 07/31/24 20:00 07/31/24 20:00 07/26/24 00:00 FiO2 21 07/26/24 00:00 Objective Labs 08/01/24 05:45 08/01/24 06:58 Labs: Laboratory Results - last 24 hr 07/31/24 05:44 WBC 5.2 RBC 4.62 Hgb 13.6 Hct 40.7 L MCV 88 MCH 29.4 MCHC 33.4 RDW Std Deviation 44.4 H Plt Count 264 D Neut % (Auto) 34 L Lymph % (Auto) 52 H [place] % (Auto) 7 Eos % (Auto) 3 Baso % (Auto) 1 Neut # (Auto) 1.8 Lymph # (Auto) 2.7 [place] # (Auto) 0.4 Eos # (Auto) 0.1 Baso # (Auto) 0.1 Immature Gran # (Auto) 0.19 H Absolute Nucleated RBC 0.00 Immature Gran % 4 H Nucleated RBC % 0 Sodium 142 Potassium 3.3 L D Chloride 106 Carbon Dioxide 25.2 Anion Gap 11 BUN 7 L Creatinine 0.9 Estim Creat Clear Calc 116.2 eGFR > 60 BUN/Creatinine Ratio 8 L Glucose 92 Calculated Osmolality 281 Calcium 9.3 Corrected Calcium 9.3 Magnesium 1.6 Total Bilirubin 0.3 AST 13 ALT 9 L Alkaline Phosphatase 77 Total Protein 6.5 Albumin 4.1 Globulin 2.4 Albumin/Globulin Ratio 1.7 ABG Interpretation ABG results: 07/23/24 07/24/24 10:00 06:30 ABG pH 7.01 L* ABG pCO2 64 H ABG pO2 110 H ABG HCO3 16 L ABG O2 Saturation 96 ABG Base Excess -16 L VBG pH 7.33 VBG pCO2 41 VBG pO2 49 VBG Base Excess -4 L Assessment & Plan Problem List (1) Seizure disorder: Status: Chronic Assessment and plan: Continue with Keppra 1000 mg twice a day, Depakote, Vimpat and clobazam continue to monitor for any breakthrough seizures and Ativan for breakthrough. (2) Status epilepticus: Status: Resolved (3) Pneumonia: Status: Acute Assessment and plan: Getting treated with cefuroxime and doxycycline as per primary team DVT: continue Eliquis.
[2024-08-01] VITALS (7 sets, daily range): BP systolic 127–145; BP diastolic 88–98; PULSE 62–91; RESP 17–18; TEMP 36.3–36.9; O2SAT 98–100
[2024-08-01] MEDS: LACTULOSE SYRUP 20 GM/30 ML UDC 10 GM PO ×2 (05:31→14:31)
[2024-08-01 06:15] LABS: Basophils # (Auto) 0.1 Thou/mm3 (0.0-0.2); Basophils % (Auto) 1 % (0-2.5); Eosinophils # (Auto) 0.2 Thou/mm3 (0.0-0.5); Eosinophils % (Auto) 3 % (0-10); Hematocrit 42.5 % (41.0-53.0); Hemoglobin 14.4 g/dL (13.5-16.0); Immature Granulocytes % (Auto) 3 % (0-0); Immature Granulocytes Auto 0.14 Thou/mm3 (0.00-0.00); Lymphocytes # (Auto) 2.7 Thou/mm3 (1.0-4.8); Lymphocytes % (Auto) 50 % (10-50); Mean Corpuscular HGB Conc 33.9 g/dl (31.0-37.0); Mean Corpuscular Hemoglobin 29.8 pg (25.0-35.0); Mean Corpuscular Volume 88 fL (80-100); Monocytes # (Auto) 0.4 Thou/mm3 (0.0-0.8); Monocytes % (Auto) 7 % (0-12); Neutrophils % (Auto) 36 % (37-80); Nucleated Red Blood Cell % 0 /100 WBC (0); Platelet Count 195 Thou/mm3 (140-440); RDW Standard Deviation 44.3 fL (35.1-43.9); Red Blood Count 4.84 Miln/mm3 (4.50-5.90); White Blood Count 5.5 Thou/mm3 (3.8-10.6)
[2024-08-01 07:26] LABS: Alanine Aminotransferase 16 U/L (10-49); Albumin, Serum 4.6 gm/dL (3.5-5.0); Albumin/Globulin Ratio 1.6 (1.2-2.2); Alkaline Phosphatase 88 U/L (46-116); Anion Gap 12 (7-16); Aspartate Amino Transferase 14 U/L (0-34); BUN/Creatinine Ratio 10 Ratio (12-20); Bilirubin,Total 0.4 mg/dL (0.3-1.2); Blood Urea Nitrogen 8 mg/dL (9-23); Calcium 10.1 mg/dL (8.3-10.6); Calcium (Corrected) 10.1 mg/dL (8.5-10.1); Carbon Dioxide 23.9 mMol/L (20.0-31.0); Chloride 107 mMol/L (98-107); Creatinine (Component) 0.8 mg/dL (0.6-1.3); Estimated Creatinine Clearance 130.7 mL/min (>60); Globulin 2.8 gm/dL (2.3-3.5); Glucose 98 mg/dL (74-106); Magnesium 1.7 mg/dL (1.6-2.6); Osmolality,Calculated 283 (275-295); Potassium 3.6 mMol/L (3.4-5.1); Sodium 143 mMol/L (136-145); Total Protein 7.4 gm/dL (5.7-8.2); eGFR > 60 See Note
--- NOTE | 2024-08-01 09:18 | ESPR_ITS ---
Subjective Subjective Interval history: awake , alert. off abx. cocci pos IgM on f/u. cxr on admit abnormal. Exam Vital Signs Temp Pulse Resp BP Pulse Ox O2 Del Method O2 Flow Rate 97.9 F 72 18 145/98 H 100 Room Air 2 08/01/24 07:36 08/01/24 07:36 08/01/24 07:36 08/01/24 07:36 08/01/24 07:36 08/01/24 07:36 07/26/24 00:00 FiO2 21 07/26/24 00:00 Narrative Exam awake, alert. no stigmata of active cocci noted. Objective - Internal Medicine Labs 08/01/24 05:45 08/01/24 06:58 Labs: Laboratory Results - last 24 hr 08/01/24 08/01/24 05:45 06:58 WBC 5.5 RBC 4.84 Hgb 14.4 Hct 42.5 MCV 88 MCH 29.8 MCHC 33.9 RDW Std Deviation 44.3 H Plt Count 195 D Neut % (Auto) 36 L Lymph % (Auto) 50 [place] % (Auto) 7 Eos % (Auto) 3 Baso % (Auto) 1 Neut # (Auto) 2.0 Lymph # (Auto) 2.7 [place] # (Auto) 0.4 Eos # (Auto) 0.2 Baso # (Auto) 0.1 Immature Gran # (Auto) 0.14 H Absolute Nucleated RBC 0.00 Immature Gran % 3 H Nucleated RBC % 0 Sodium 143 Potassium 3.6 Chloride 107 Carbon Dioxide 23.9 Anion Gap 12 BUN 8 L Creatinine 0.8 Estim Creat Clear Calc 130.7 eGFR > 60 BUN/Creatinine Ratio 10 L Glucose 98 Calculated Osmolality 283 Calcium 10.1 Corrected Calcium 10.1 Magnesium 1.7 Total Bilirubin 0.4 AST 14 ALT 16 Alkaline Phosphatase 88 Total Protein 7.4 Albumin 4.6 D Globulin 2.8 Albumin/Globulin Ratio 1.6 ABG Interpretation ABG results: 07/23/24 07/24/24 10:00 06:30 ABG pH 7.01 L* ABG pCO2 64 H ABG pO2 110 H ABG HCO3 16 L ABG O2 Saturation 96 ABG Base Excess -16 L VBG pH 7.33 VBG pCO2 41 VBG pO2 49 VBG Base Excess -4 L Assessment & Plan A&P Narrative 2 organisms in sputum in pt with abn cxr on admit and sz pt is afebrile. so other than admitting fever, none since then. ok to finish rx with po cefuroxime and doxy for total of 7d overall home at your discretion. urine unimpressive in terms of ua sz disorder substance use hx shaheed, resolving w/o hd will see again on thu if he stays will f/u wed as cocci pos initially but not likely sent out till tomorrow He had an LP not long ago (05/30/24) that was benign, but that does not assure that a current tap will be benign , although he is much improved. if released on flucon. I can see him with a copy of his cxr and pos test at [facility], but if test neg at [facility], then I can not see him in f/u Time Spent With Patient Time: Total time spent is greater than 50% in coordination of care (as documented) at patient's floor/unit and/or counseling patient:
[2024-08-01] MEDS: FLUCONAZOLE 100 MG TABLET 400 MG PO (09:50)
[2024-08-01] MEDS: CITRIC ACID/SODIUM CITR 15 ML UDC (BICITRA) 30 ML PO (09:50)
[2024-08-01] MEDS: levETIRAcetam LIQD 500 MG/5 ML UDC 1000 MG PO (09:51)
[2024-08-01] MEDS: VALPROIC ACID SYRUP 250 MG/5 ML UDC 1250 MG PO (09:51)
[2024-08-01] MEDS: LACOSAMIDE 50 MG TABLET 200 MG PO (09:51)
[2024-08-01] MEDS: APIXABAN 2.5 MG TABLET 5 MG PO (09:52)
--- NOTE | 2024-08-01 10:48 | PC.SS ---
Follow up note: Patient has d/c orders for today. D/c home. No needs.
[2024-08-01] MEDS: [UNRECOGNIZED DRUG - REMARK] PO (11:35)
--- NOTE | 2024-08-01 14:43 | ESDS_ITS ---
<Statement entered by Cecelia Tom DO - 08/02/24 20:40> I, Cecelia Tom DO, attest that I was physically present for the zavala portions of the service and evaluated the patient with the resident and I reviewed and discussed the case with the resident and agree with the resident's findings and plans of care as documented above <Statement entered by Prema Bonilla MD - 08/02/24 18:26> Patient was seen and examined by me personally. I agree with the discharge plan as discussed with the marketing pr intern physician, and my attending, Dr. Tom. Prema Bonilla MD, PGY-3 Planned Discharge Date 08/01/24 DS: Providers Provider Date of admission: 07/23/24 11:36 Primary care physician: Physician No Primary/Family Admitting Provider: Chintan Mosley MD Attending Provider on Admission: Alan Villasenor DO Consults: 07/25/24 11:52 Consult to Nephrology Stat Comment: atn Consulting Provider: Winston Loera 07/27/24 11:16 Consult to Infectious Diseases Routine Comment: Consulting Provider: Jesse Bryant 08/01/24 08:00 Referral Physical Therapy Routine Comment: Physician Instructions: Attending Provider on DC: Abdi Simms MD Discharging Provider: Abdi Simms MD DS: Diagnosis Problem List Completed Was Problem List Reviewed/Reconciled?: Yes Hospital Course Hospital Course Hospital course: The patient is a 24-year-old male with a previous medical history of seizure disorder, right upper extremity brachial DVT and substance abuse disorder who was brought by the ambulance on 07/23/2024 due to multiple seizures, before coming to the hospital he received 6 mg of Versed IV. Patient has a history of previous ICU admission with status epilepticus that required tranfer to the [facility], where he inderwent deep brain stimulation. He was discharged from [facility] in May 2024 and 2 medication added to his antiepileptic medications: clobazam and perampanel. Vitals are stable at the time of admission. He continued to have seizures at the ED, received 2 mg of lorazepam, was tachycardic and had temperature of 101.6 and continued to have seizures without regaining of consciousness in between seizure episodes. In view of altered mental status he was intubated for airway protection and management of status epilepticus. He was started on midazolam drip and propofol. Labs showed at the time of admission showed leukocytosis 16.1, platelets 568, Sodium 135, bicarb <10, creatinine 1.3, glucose 283, Lactic Acid 29.0, Ca 11.6, Alk phos 128. ABG showed pH 7.01, pCO2 64, pO2 110. Head CT negative for stroke, bleeding or fractures. Chest xray showed left base pneumonia. EEG 07/23/24: normal. Utox was positive for methamphetamine and benzodiazepines. Later seizures came under control. Dr. Singh was consulted and appreciated her recommendations. Resumed his home medications. Patient was extubated on 07/24/2024 without any complications. Later patient developed CECILE for which nephrology was consulted. As the patient is able to maintain urine output and creatinine continue to improve, patient did not get any hemodialysis during the hospital stay. Patient was downgraded to the floors for further management on 07/25/2024 for further management. During the hospital stay patient was treated with antibiotics for Klebsiella pneumonia from sputum and MRSA. As patient is still lethargic, CSF analysis was done which was within normal limits except for mildly elevated protein, 68. Also noted to have myoclonic jerks and adjusted antiepileptic medications as recommended by Dr. Julia her. After adjusting the doses and stopping oxcarbazepine, perampanel patient's lethargy started to improve and myoclonic jerks resolved. Also tested positive for IgM cocci, consulted Dr Bryant, ID specialist followed the patient and advised fluconazole 400 Mg. Counseled about medication compliance, seizure precautions and risks of drug abuse. Patient was discharged to home with the following medications and recommendations. -Follow-up with the primary care provider within 1 week of discharge -Follow-up with neurologist Dr. Singh or the consulting neurologist at your place -Continue the medications as prescribed -Follow seizure precautions -Return to the ED if symptoms worsen or returns -Continue fluconazole for 3 months and follow-up with the PCP -Continue Eliquis and if there are any signs of bleeding, immediately reach out to the doctor. #Status epilepticus, resolved #Myoclonic Jerking-resolved # Cocci #History of upper extremity DVT #Aspiration pneumonia 2/2 Klebsiella pneumoniae and MRSA #CECILE-resolved #History substance abuse disorder Patient plan of care was discussed with the attending physician, Dr. Tom and senior resident Dr. Chad Simms, PGY1 Time Spent with Patient Time attestation: Total time spent providing and/or coordinating discharge services: Time spent: Greater than 30 minutes Exam Vital Signs Temp Pulse Resp BP Pulse Ox O2 Del Method O2 Flow Rate 97.4 F 80 18 138/95 H 99 Room Air 2 08/01/24 11:46 08/01/24 12:00 08/01/24 11:46 08/01/24 11:46 08/01/24 11:46 08/01/24 11:46 07/26/24 00:00 FiO2 21 07/26/24 00:00 Narrative Exam General: Awake and in no acute distress. HEENT: Normocephalic, atraumatic, mucous membranes moist. Heart: Regular rate and rhythm, no murmurs. Lungs: Clear to auscultation with no wheezing or crackles. Abdomen: Soft, nondistended, nontender, positive bowel sounds. ?No guarding or rebound tenderness. Neurologic: Alert and oriented x3, no gross neurological deficit, and patient able to move all 4 extremities. Extremities: No edema. Skin: No rash or ecchymoses. Discharge Plan Plan Patient Disposition: HOME (Self Care) Patient condition on transfer: Stable Prescriptions/Referrals Prescriptions/Med Rec: New levetiracetam [Keppra] 1,000 mg tablet 1,000 mg PO BID 30 Days Qty: 60 0RF valproic acid 250 mg capsule 1,250 mg PO BID 30 Days Qty: 300 0RF fluconazole 200 mg tablet 400 mg PO QDAY 30 Days Qty: 60 0RF clobazam 10 mg Tablet 10 mg PO BID@0700,1900 30 Days Qty: 60 0RF Continued Eliquis DVT-PE Treat 30D Start 5 mg (74 tabs) tablets,dose pack 5 mg PO BID Qty: 74 0RF Rx Instructions: Please take 2 tabs of 5 mg twice daily for 1 week and then continue with 1 tablet of 5 mg twice daily to complete total 3 months. lacosamide 200 mg tablet 200 mg PO BID 30 Days Qty: 60 2RF Discontinued levetiracetam 750 mg tablet 1,500 mg PO Q8HR Qty: 180 2RF Fycompa 10 mg tablet 10 mg PO HS Qty: 30 2RF valproic acid 250 mg capsule 1,250 mg PO TID Qty: 360 3RF clobazam 10 mg film 15 mg PO BID Qty: 60 3RF oxcarbazepine 600 mg tablet 1,200 mg PO BID Referrals: No Primary/Family,Physician [Primary Care Provider] - Patient/Caregiver Discharge Instructions Discharge Activity: resume usual activities Other Discharge Activity Instructions:: -Follow-up with the primary care provider within 1 week of discharge -Follow-up with neurologist Dr. Singh or the consulting neurologist at your place -Continue the medications as prescribed -Follow seizure precautions -Return to the ED if symptoms worsen or returns -Continue fluconazole for 3 months and follow-up with the PCP -Continue Eliquis and if there are any signs of bleeding, immediately reach out to the doctor. Education Materials: Self-Care for Epilepsy, Preventing Deep Vein Thrombosis Print Language: Ukrainian Stand Alone Forms: Vee Award Info., Patient Portal Info Letter Discharge Order Discharge Orders: Discharge (Routine); Ordered 08/01/24 Ordered By: Davion Palacios Quality Discharge Quality Measures VTE therapy
--- NOTE | 2024-08-01 16:39 | PC.NURSE ---
Patient was discharged home with family via private vehicle at 1400. Patient was transported to hospital's main entrance via wheelchair by [employer]. IV was discontinued, tolerated well. Tele monitor discontinued. Discharge instructions were reviewed with patient and mom at beside, understanding verbalized. 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 Nursing care ended at this time.
--- NOTE | 2024-08-01 21:09 | ESPR_ITS ---
Documentation for date of: 08/01/24 Subjective Subjective Interval history: Mr. Evangelista was seen in [facility] today with family at the bedside. He is back to his baseline, no seizures reported in the last 3 days. Exam - Neurology Vital Signs Temp Pulse Resp BP Pulse Ox O2 Del Method O2 Flow Rate 97.6 F 91 18 136/93 H 98 Room Air 2 08/01/24 16:00 08/01/24 16:00 08/01/24 16:00 08/01/24 16:00 08/01/24 16:00 08/01/24 16:00 07/26/24 00:00 FiO2 21 07/26/24 00:00 Narrative Exam GENERAL APPEARANCE: Well hydrated, well-nourished in no acute distress. HEENT: Normocephalic, atraumatic, extraocular movements intact. Ptosis seen bilaterally, pupils: Equal reacting to light and accommodation NECK: Supple, no JVD or bruits. CARDIOVASULAR: Heart: S1, S2 heard, regular without S3-S4 or murmur no rubs or gallops. LUNGS/CHEST: Clear to auscultation bilaterally. No rails, rhonchi, or wheezing. Normal inspection. ABDOMEN: Soft, nontender, with normal bowel sounds. No pulsatile masses. No rebound, rigidity, or guarding. Normal inspection and palpation. EXTREMITIES: Normal inspection and palpation. No edema, clubbing or cyanosis. SKIN: Warm and dry without rashes. Normal inspection. MUSCULOSKELETAL: No cervical, thoracic, lumbar or midline bony tenderness. Normal inspection. NEURO: Alert, awake and oriented x3. Cranial nerves: II through XII grossly intact. Speech and language: Normal with no dysarthria or dysphasia. Motor system: Tone and bulk: Normal: Strength: 5 out of 5 in all 4 extremities; No pronator drift noted. Deep tendon reflexes: 2+ bilaterally symmetrical. Plantar reflex: Downgoing bilaterally. Sensory system: Intact to all modalities of sensation bilaterally. Coordination: Intact to ocmiuh-[id number]-hydth and bwal-rmic-nejn test bilaterally. No ataxia, no dysmetria, or dysdiadochokinesia noted. No intention tremors noted. Gait: Walked in the hallway with a walker.. No signs of meningeal irritation noted. PSYCHIATRIC: Normal mood and affect. Objective Labs 08/01/24 05:45 08/01/24 06:58 Labs: Laboratory Results - last 24 hr 08/01/24 08/01/24 05:45 06:58 WBC 5.5 RBC 4.84 Hgb 14.4 Hct 42.5 MCV 88 MCH 29.8 MCHC 33.9 RDW Std Deviation 44.3 H Plt Count 195 D Neut % (Auto) 36 L Lymph % (Auto) 50 [place] % (Auto) 7 Eos % (Auto) 3 Baso % (Auto) 1 Neut # (Auto) 2.0 Lymph # (Auto) 2.7 [place] # (Auto) 0.4 Eos # (Auto) 0.2 Baso # (Auto) 0.1 Immature Gran # (Auto) 0.14 H Absolute Nucleated RBC 0.00 Immature Gran % 3 H Nucleated RBC % 0 Sodium 143 Potassium 3.6 Chloride 107 Carbon Dioxide 23.9 Anion Gap 12 BUN 8 L Creatinine 0.8 Estim Creat Clear Calc 130.7 eGFR > 60 BUN/Creatinine Ratio 10 L Glucose 98 Calculated Osmolality 283 Calcium 10.1 Corrected Calcium 10.1 Magnesium 1.7 Total Bilirubin 0.4 AST 14 ALT 16 Alkaline Phosphatase 88 Total Protein 7.4 Albumin 4.6 D Globulin 2.8 Albumin/Globulin Ratio 1.6 ABG Interpretation ABG results: 07/23/24 07/24/24 10:00 06:30 ABG pH 7.01 L* ABG pCO2 64 H ABG pO2 110 H ABG HCO3 16 L ABG O2 Saturation 96 ABG Base Excess -16 L VBG pH 7.33 VBG pCO2 41 VBG pO2 49 VBG Base Excess -4 L Assessment & Plan Assessment and plan (1) Seizure disorder: Status: Chronic Assessment and plan: Patient is awake and alert and following commands, back to baseline stable on multiple antiepileptic drugs including Keppra, Depakote, Vimpat and clobazam. Continue with the seizure precautions, Ativan for breakthrough seizures. Patient is stable for discharge and follow up with neurology in 1 to 2 weeks. Advised no driving, meds compliance and drug cessation. (2) Status epilepticus: Status: Acute (3) Pneumonia: Status: Acute Assessment and plan: Continue with Diflucan for valley fever.
== END 2024-08-01 16:00 | disposition home or self-care (01) | DRG 53 ==
LOC: SERX 09:44 → S2SX 07-25 07:30 → SERHOLD 07-25 09:54 → S2SX 07-25 09:54 → S3NX 07-25 12:13
PROVIDERS: Internal Medicine Infectious Disease; Internal Medicine Nephrology; Psychiatry & Neurology Neurology; Student in an Organized Health Care Education/Training Program; Admitting Provider Internal Medicine Critical Care Medicine; Emergency Provider Emergency Medicine; Visit Provider Internal Medicine
DX: G40.901 Epilepsy, unspecified, not intractable, with status epilepticus (principal); Z86.718 Personal history of other venous thrombosis and embolism; Z79.01 Long term (current) use of anticoagulants; J69.0 Pneumonitis due to inhalation of food and vomit; J15.0 Pneumonia due to Klebsiella pneumoniae; N17.9 Acute kidney failure, unspecified; E87.20 Acidosis, unspecified; I10 Essential (primary) hypertension; E87.0 Hyperosmolality and hypernatremia; E87.6 Hypokalemia; J96.01 Acute respiratory failure with hypoxia
CPT/HCPCS: 36415; 36600; 70450; 76770; 80053; 80307; 80320; 81001; 82140; 82550; 82570; 82607; 82746; 82803; 82945; 83605; 83735; 84157; 84300; 84439; 84443; 84481; 84484; 85025; 86171; 86635; 86780; 87040; 87070; 87077; 87081; 87186; 87205; 87811; 89051; 93225; 94002; 94003; 95813; 95816; 96365; 96374; 96375; 97162; 99291; J0696; J1953; J2060; J2250; J2251; J2405; J2704; J3370; J3475; J3490; J7030; J7120; J8499; A9270; G0480

== ENCOUNTER 2024-10-15 16:57 | Inpatient (IN) | payer MEDICAID, SELFPAY ==
[2024-10-15] VITALS (29 sets, daily range): BP systolic 99–135; BP diastolic 59–92; PULSE 92–150; RESP 9–25; TEMP 38.1–39; O2SAT 94–100; BMI 29.0
[2024-10-15] MEDS: LORazepam 2 MG/ML VIAL IVP (17:00)
--- NOTE | 2024-10-15 17:00 | PD.EDSEIZ ---
ED Seizures RME/HPI General Chief Complaint: Seizure Stated Complaint: SEIZURE Time Seen by Provider: 10/15/24 17:24 Arrival date/time: 10/15/24 16:57 RME / HPI RME / HPI Narrative: DR. TOMPKINS MAIN ED EVALUATION: 24 year old male presents to the Emergency Department [facility] with complaint of a seizure; per EMS, patient had at least 10 minute long seizure. EMS gave 8 mg total of Versed prior to arrival, but patient still seizing. No trauma per EMS. PMHx: Seizures and multi-substance abuse. Medications: Keppra 1,250 mg x3 a day; Eliquis 5 mg, Lacosamide 200 mg BID. Social Hx: Multi-substance abuse. Related Data Previous Rx's ?Medication ?Instructions ?Recorded apixaban 5 mg (74 tabs) tablets in 5 mg PO BID #74 tabs 06/20/24 a dose pack (Eliquis DVT-PE Treat 30D Start) lacosamide 200 mg tablet 200 mg PO BID 30 days #60 tabs 06/22/24 Allergies Allergy/AdvReac Type Severity Reaction Status Date / Time No Known Allergies Allergy Verified 07/23/24 09:34 Review of Systems Review of Systems ROS Unobtainable: unobtainable due to mental status and unobtainable due to medical condition Past Medical History Past Medical History NEUROLOGIC: Positive Neurological Disorders, Seizures and Epilepsy CARDIAC: Negative Cardiac Disorders or Congestive Heart Failure RESPIRATORY: Negative Chronic Obstructive Pulmonary Disease (COPD) GASTROINTESTINAL: Negative Gastrointestinal Disorders GENITOURINARY: Negative Genitourinary Disorders or Renal Disease MUSCULOSKELETAL: Negative Musculoskeletal Disorders ENDOCRINE: Negative Endocrine Disorders, Diabetes Mellitus Type 1 or Diabetes Mellitus Type 2 HEMATOLOGIC: Negative Blood Disorders Family History FAMILY HISTORY: Positive Family Endocrine Disorders; Negative Family Cardiac Disorders Social History SMOKING STATUS: Never smoker SUBSTANCE USE: unknown ALCOHOL: Never Past Medical History Comments PMH COMMENT: Past Medical History: seizure disorder, multi-substance abuse Family History: Non-contributory Surgical History: None Social History: Denies history of smoking, alcohol use with average of 12 beers weekly, cocaine use, benzo use with Xanax Current Medications: oxcarbazepine 900 mg BID, clobazepam (Onfi) 15 mg BID, lacosamide (Vimpat) 200 mg BID, levetiracetam (Keppra) 1500 mg TID, valproic acid 1250 mg TID, perampanel (Fycompa) 10 mg HS, ergocalciferol, multivitamin, Miralax, senna (Source: [facility] rec discharge paperwork) Allergies: No known drug allergies ED Exam Narrative Physical exam: GENERAL APPEARANCE: Status epilepticus. Febrile. VITALS: All vitals were reviewed and the pulse ox is 100% on room air which is normal according to my interpretation. HEENT: Normocephalic, atramatic, EOMI, EACs are patent. There is no bulge or retraction. Throat without erythema or exudate. Moist oromucosa. No jaundice NECK: Supple, no JVD or bruits. CARDIOVASCULAR: Heart regular without S3-S4 or murmur. No rubs or gallops. LUNGS/CHEST: Clear to auscultation bilaterally. No rales, rhonchi, or wheezing. Normal inspection. ABDOMEN: Soft, nontender, with normal bowel sounds. No pulsatile masses. No rebound, rigidity, or guarding. No incarcerated hernia. Normal inspection and palpation. EXTREMITIES: No edema, clubbing, or cyanosis. Intact CSM. SKIN: Warm and dry without rashes. Normal inspection. MUSCULOSKELETAL: No gross deformity. NEURO: Unobtainable. Status epilepticus. PSYCHIATRIC: Unobtainable. Course Course Course Narrative: 1800: Patient was signed out to Dr. Bonilla. Past medical, surgical, social and family history reviewed. Vitals and home medications reviewed. Results and treatment plan discussed. They will assume the care of the patient at this time and will follow the patient, pending remainder of diagnostic test and final disposition. Quality Measures none Orders Category Date Time Status Bedside COVID-19 Antigen Test NOW Care 10/15/24 18:13 Active Bedside Influenza A&B Antigen Test NOW Care 10/15/24 18:13 Active EKG (ED ONLY) *Do not use* NOW Care 10/15/24 18:11 Active Rodriguez [Urinary Catheter] QS Care 10/15/24 17:31 Active Intubation NOW Care 10/15/24 17:[address] head/brain wo con Stat Exams 10/15/24 18:12 Ordered EKG (ED Only) Stat Exams 10/15/24 18:11 Ordered XR chest 1V portable Stat Exams 10/15/24 17:35 Completed XR chest 1V post procedure Stat Exams 10/15/24 17:16 Completed Acetaminophen Stat Lab 10/15/24 18:10 Ordered Alcohol, Blood Medical Stat Lab 10/15/24 17:28 Received Arterial Blood Gas Stat Lab 10/15/24 17:24 Ordered BNP [B-Type Natriuretic Peptide] Stat Lab 10/15/24 18:10 Ordered Blood Culture (Lab) Stat Lab 10/15/24 18:10 Ordered CBC Stat Lab 10/15/24 18:10 Ordered CMP [Comprehensive Metabolic Panel] Stat Lab 10/15/24 18:10 Ordered CRP [C-Reactive Protein] Stat Lab 10/15/24 18:10 Ordered Drug Screen,Urine Stat Lab 10/15/24 17:49 Received ESR [Sed Rate (ESR)] Stat Lab 10/15/24 18:10 Ordered Lactate (Lactic Acid) Stat Lab 10/15/24 18:10 Ordered Magnesium Stat Lab 10/15/24 18:10 Ordered Procalcitonin Stat Lab 10/15/24 18:10 Ordered Sputum Culture and Gram Stain Routine Lab 10/15/24 17:25 Ordered TSH [Thyroid Stimulating Hormone] Stat Lab 10/15/24 18:10 Ordered Troponin I Stat Lab 10/15/24 18:10 Ordered UA, C/S IF [Urinalysis, C/S if Indicated] Stat Lab 10/15/24 17:49 Received Acetaminophen Ivpb [Ofirmev Inj] Med 10/15/24 17:22 Discontinued 1,000 mg in 100 ml IV X1 Ketorolac Inj [Toradol Inj] Med 10/15/24 18:08 Discontinued 30 mg IVP X1 ONE LORazepam [Ativan Inj] Med 10/15/24 16:50 Discontinued 2 mg IVP X1 ONE Propofol 1,000 mg Ivpb [Diprivan Ivpb] Med 10/15/24 16:57 Discontinued 1,000 mg in 100 ml IV .STK-MED Propofol 1,000 mg Ivpb [Diprivan Ivpb] Med 10/15/24 17:06 Active 1,000 mg in 100 ml IV 5 mcg/kg/min Propofol Inj [Diprivan Inj] Med 10/15/24 16:57 Discontinued 200 mg IV .STK-MED ONE Propofol Inj [Diprivan Inj] Med 10/15/24 17:05 Discontinued 200 mg IV X1 ONE Rocuronium Inj [Zemuron Inj] Med 10/15/24 16:58 Discontinued 100 mg .ROUTE .STK-MED ONE Rocuronium Inj [Zemuron Inj] Med 10/15/24 17:04 Discontinued 60 mg IV X1 ONE Sodium Chloride 0.9% 1000 ml [Ns] 1,000 ml Med 10/15/24 17:18 Active IV 999 mls/hr Sodium Chloride 0.9% 1000 ml [Ns] 1,000 ml Med 10/15/24 17:20 Active IV 999 mls/hr cefTRIAXone [Rocephin] 2 gm Med 10/15/24 17:26 Discontinued Sodium Chloride 0.9% [Ns] 50 ml IV X1 cefTRIAXone/D5w 1gm IV premix [Rocephin/D5w 1gm IV Med 10/15/24 18:08 Active premix] 50 ml IV X1 levETIRAcetam INJ [Keppra Inj] Med 10/15/24 17:07 Discontinued 1,500 mg IVP X1 ONE levETIRAcetam INJ [Keppra Inj] Med 10/15/24 18:08 Discontinued 2,000 mg IVP X1 ONE Sputum Induction PRN RT 10/15/24 17:30 Ordered Vital Signs Vital signs: Vital Signs Temperature 102.2 F H 10/15/24 17:44 Pulse Rate 135 H 10/15/24 17:44 Respiratory Rate 20 10/15/24 17:44 Blood Pressure 135/92 H 10/15/24 17:44 Pulse Oximetry (%) 98 10/15/24 17:44 Oxygen Delivery Method Mechanical Ventilation 10/15/24 17:44 Seizure MDM Narrative MDM Narrative:: I, Abby Amaro am scribing for and in the presence of Dr. Tompkins. The patient presented to the emergency department with full-blown status epilepticus. And he was Ambu bag by the air conditioning installer supervisor. I intubated the patient with a size 7 and half ET tube. Using glide a scope. It went in easily without any complication. Positive for CO2 hand-held collar monitor change. Negative for stomach air bubble. Positive for bilateral lung sound. Postintubation chest x-ray and adjustment interpreted by me: ET tube is in good position. Heart is normal. Mediastinum normal. No pneumothorax. And there may be a retrocardiac infiltrate on the chest x-ray. Shortly after arrival to the emergency department, I was also informed that the patient spiked a fever to 102.2. Septic alert was called for. And treatment plan was according to the septic protocol. Including IV antibiotics Tylenol and culture lactic acid procalcitonin and so on. Specifically for the seizure I gave the patient Keppra IV and Ativan IV. And postintubation the patient was sedated with propofol drip. 6 PM the end of my shift, still pending workup and further evaluation and treatment, the patient is stable and improved and is signed out to Dr. Bonilla Patient data External records reviewed:: [facility] previous records (Reviewed last admission discharge dated 10/02/23, patient admitted for the following: Convulsions, status epilepticus) and EMS form Clinical information provided by:: EMS Social determinants that could affect healthcare access:: substance use (multi-substance abuse) Patient has the following chronic illnesses:: PMHx: Seizures and multi-substance abuse. Medications: Keppra 1,250 mg x3 a day; Eliquis 5 mg, Lacosamide 200 mg BID. How is presenting disease/condition affected by chronic disease/condition?: caused by Evaluation data The following diagnostics were reviewed and interpreted by me:: lab results and radiology exam(s) Lab and/or radiology exams considered but not ordered:: none Interpretation Summary: See above under MDM narrative. RADIOLOGY zProcedure(s): XR chest 1V post procedure Accession Number(s): [id number] cc: Javan Winters MD; Panfilo Tompkins MD~ Examination: AP chest single view Technique one AP portable supine chest single view Exam date and time: October 15, 2024 1759 hrs. Comparison July 23, 2024 Indications: Hypoxic respiratory failure postintubation. Findings: Endotracheal tube tip projects 2.5 cm in the right mainstem bronchus Significant pneumonia left base Prominent vascular congestion Impression: Retract the endotracheal tube 5 cm Dictated By: Javan Winters MD Procedure(s): XR chest 1V portable Accession Number(s): [id number] cc: Javan Winters MD; Panfilo Tompkins MD~ Examination: AP chest single view Technique: AP portable upright chest single view Exam date and time: October 15, 2024 1738 hrs. Comparison October 15, 2024 1729 hrs. Indications: Hypoxic respiratory failure, repositioned tracheal tube Findings: Endotracheal tube tip 2.4 cm above alysa Significant left base pneumonia Moderate vascular congestion Impression: Tracheal tube tip 2.4 cm above alysa Dictated By: Javan Winters MD Medications / Prescriptions Medications or Prescriptions considered but not ordered:: none Medication administrations:: Medication Administration History Propofol (Diprivan Ivpb) 1,000 mg in 100 mls @ 2.449 mls/hr IV .Q24H PRN; Protocol PRN Reason: PER PROTOCOL Stop: 11/14/24 17:05 Last Titration: 10/15/24 17:59 Dose: 10 mcg/kg/min, 4.899 mls/hr Documented By: Admin: 10/15/24 17:15 Dose: 5 mcg/kg/min, 2.449 mls/hr Documented By: KYLER Co-signed By: DO Sodium Chloride (Ns) 1,000 mls @ 999 mls/hr IV .Q1H1M ONE Stop: 10/15/24 18:18 Last Admin: 10/15/24 17:36 Dose: 999 mls/hr Documented By: ED Sodium Chloride (Ns) 1,000 mls @ 999 mls/hr IV .Q1H1M ONE Stop: 10/15/24 18:20 Ceftriaxone Sodium/Dextrose (Rocephin/D5w 1gm Iv Premix) 50 mls @ 100 mls/hr IV X1 ONE Stop: 10/15/24 18:37 Discontinued Medications Propofol (Diprivan Ivpb) Confirm Administered Dose 1,000 mg in 100 mls @ ud IV .STK-MED ONE Stop: 10/15/24 16:58 Last Admin: 10/15/24 17:28 Dose: Not Given Documented By: ED Non-Admin Reason: Duplicate Medication on eMAR Acetaminophen (Ofirmev Inj) 1,000 mg in 100 mls @ 250 mls/hr IV X1 ONE Stop: 10/15/24 17:45 Ceftriaxone Sodium 2 gm/ (Sodium Chloride) 50 mls @ 100 mls/hr IV X1 ONE Stop: 10/15/24 17:55 Last Admin: 10/15/24 17:39 Dose: 100 mls/hr Documented By: Ketorolac Tromethamine (Ketorolac Inj 30 Mg/Ml Vial) 30 mg IVP X1 ONE Stop: 10/15/24 18:09 Levetiracetam (Levetiracetam Inj 100 Mg/Ml Vial 5ml) 1,500 mg IVP X1 ONE Stop: 10/15/24 17:08 Last Admin: 10/15/24 17:16 Dose: 1,500 mg Documented By: ED Levetiracetam (Levetiracetam Inj 100 Mg/Ml Vial 5ml) 2,000 mg IVP X1 ONE Stop: 10/15/24 18:09 Lorazepam (Lorazepam 2 Mg/Ml Vial) 2 mg IVP X1 ONE Stop: 10/15/24 16:51 Propofol (Propofol Inj 10 Mg/Ml Vial 20 Ml) Confirm Administered Dose 200 mg IV .STK-MED ONE Stop: 10/15/24 16:58 Last Admin: 10/15/24 17:29 Dose: Not Given Documented By: ED Non-Admin Reason: Duplicate Medication on eMAR Propofol (Propofol Inj 10 Mg/Ml Vial 20 Ml) 200 mg IV X1 ONE Stop: 10/15/24 17:06 Last Admin: 10/15/24 17:10 Dose: 200 mg Documented By: ED Comments: for intubation by Dr. Tompkins. Rocuronium [place] (Rocuronium Inj 10 Mg/Ml Vial 10 Ml) 60 mg IV X1 ONE Stop: 10/15/24 17:05 Last Admin: 10/15/24 17:11 Dose: 60 mg Documented By: ED Co-signed By: KYLER Comments: for intubation by Dr. Tompkins. Rocuronium [place] (Rocuronium Inj 10 Mg/Ml Vial 10 Ml) Confirm Administered Dose 100 mg .ROUTE .STK-MED ONE Stop: 10/15/24 16:59 Last Admin: 10/15/24 17:29 Dose: Not Given Documented By: ED Non-Admin Reason: Duplicate Medication on eMAR see above Consultations Consultation(s) initiated? (list below): No Consultation #1 (Physician, Specialty, Details): Patient signout to the product development carpenter provider. Diagnosis Seizure Differential Diagnosis: intractable seizure disorder, epileptic seizure and status epilepticus Most likely diagnosis given after review of the tests above:: No official diagnoses at this time, still pending diagnostic tests. Patient signout to the product development carpenter provider. Admission Indicated Admission indicated?: not indicated Explain why admission is indicated or not indicated:: No final disposition plan at this time, still pending diagnostic tests. Patient signout to the product development carpenter provider. Admission Request Was there a request for admission?: No Disposition Plan Disposition Plan: other (specify) (Patient signout to the product development carpenter provider. ) Critical Care Time Critical Care Time Critical Care Time: Yes Total Critical Care Time (min.): 45 Attestation: The high probability of sudden, clinically significant deterioration in the patient?s condition required the highest level of my preparedness to intervene urgently. The services I provided to this patient were to treat and/or prevent clinically significant deterioration. Services included the following: chart data review, reviewing nursing notes and/or old charts, documentation time, center lead consultant collaboration regarding findings and treatment options, medication orders and management, direct patient care, vital sign assessments and ordering, interpreting and reviewing diagnostic studies and lab tests. Aggregate critical care time includes only time during which I was engaged in work directly related to the patient?s care, as described above, whether at bedside or elsewhere in the Emergency Department. It did not include time spent performing other reported procedures or the services of residents, students, nurses or physician assistants. Discharge Plan Plan Disposition Comment: Stable at signout Prescriptions/Referrals Prescriptions/Med Rec: No Action Laviniaquis DVT-PE Treat 30D Start 5 mg (74 tabs) tablets,dose pack 5 mg PO BID Qty: 74 0RF Rx Instructions: Please take 2 tabs of 5 mg twice daily for 1 week and then continue with 1 tablet of 5 mg twice daily to complete total 3 months. lacosamide 200 mg tablet 200 mg PO BID 30 Days Qty: 60 2RF Problem List Clinical Impression: Sepsis, Status epilepticus Patient/Caregiver Discharge Instructions Print Language: Bulgarian
[2024-10-15] MEDS: PROPOFOL INJ 10 MG/ML VIAL 20 ML 200 MG IV (17:10)
[2024-10-15] MEDS: ROCURONIUM INJ 10 MG/ML VIAL 10 ML 60 MG IV (17:11)
[2024-10-15] MEDS: PROPOFOL 1,000 MG IVPB 1,000 MG/100 ML VIAL 2.449 MG IV (17:15)
[2024-10-15] MEDS: levETIRAcetam INJ 100 MG/ML VIAL 5ML 1500 MG IVP (17:16)
--- NOTE | 2024-10-15 17:16 | XR_ITS ---
Examination: AP chest single view Technique one AP portable supine chest single view Exam date and time: October 15, 2024 1759 hrs. Comparison July 23, 2024 Indications: Hypoxic respiratory failure postintubation. Findings: Endotracheal tube tip projects 2.5 cm in the right mainstem bronchus Significant pneumonia left base Prominent vascular congestion Impression: Retract the endotracheal tube 5 cm
--- NOTE | 2024-10-15 17:35 | XR_ITS ---
Examination: AP chest single view Technique: AP portable upright chest single view Exam date and time: October 15, 2024 1738 hrs. Comparison October 15, 2024 1729 hrs. Indications: Hypoxic respiratory failure, repositioned tracheal tube Findings: Endotracheal tube tip 2.4 cm above alysa Significant left base pneumonia Moderate vascular congestion Impression: Tracheal tube tip 2.4 cm above alysa
[2024-10-15] MEDS: SODIUM CHLORIDE 0.9% 1000 ML 1,000 ML 999 ML IV ×2 (17:36→18:19)
[2024-10-15] MEDS: ACETAMINOPHEN IVPB 1,000 MG/100 ML VIAL 250 MG IV (18:04)
--- NOTE | 2024-10-15 18:11 | EKG_ITS ---
[facility] Test Date: 2024-10-15 Pat Name: JULIUS HOOKS Department: Room: - Gender: Male [employer]: : 2000 Requested By: Adrián Blair Order Number: [id number] Reading MD: Adrián Blair Measurements Intervals [place] Rate: 111 P: 66 MT: 113 QRS: 59 QRSD: 104 T: 48 QT: 301 QTc: 410 Interpretive Statements SINUS TACHYCARDIA WITH SHORT MT INTERVAL ABNORMAL RHYTHM ECG Compared to ECG 06/02/2024 08:26:09 No significant changes /store/S0/[id number]/ecg/[id number].pdf
--- NOTE | 2024-10-15 18:12 | XR_ITS ---
Examination: CT brain head without contrast. 2-D sagittal coronal reconstructions Date and time of exam:October 15, 2024 1911 hrs. Indications: Onset seizure today CTDI: vol (mGy):50.3 DLP: (mGycm):1046 Technique: Multiple CT axial sections of the brain have been obtained, 5 mm slice thickness. Contrast has not been administered. 2-D sagittal, coronal reconstructions have been obtained Low dose protocols were performed. One or more of the following dose reduction techniques were used; automated exposure control, adjustment of the mA and/or KV according to patient size, use of iterative reconstruction technique. Findings: No significant ventricular enlargement. Intra-axial or extra-axial hemorrhage density is not seen. No mass effect or midline shift Basal cisterns are not remarkable. Fourth ventricle is midline. Cranial vault intact. Impression: Negative for acute hemorrhage, mass effect or midline shift Consider elective brain MRI follow-up, pre and postcontrast, seizure protocol
[2024-10-15 18:14] LABS: Collection Type, Urine Catheter; Squamous Epithelial Cell,Urine 0 /hpf (0-5)
[2024-10-15 18:23] LABS: Base Excess -3 (-3-3); HCO3 24 mEq/L (20-26); Inspired Oxygen, FIO2 100 %; O2 Saturation 100 % (91-98); PCO2 45 mmHg (32.0-48.0); PO2 384 mmHg (83-108); pH, Arterial 7.32 (7.35-7.45)
[2024-10-15 18:23] LABS: Alcohol, Blood Medical < 3.0 mg/dL (0-10.0)
[2024-10-15 18:24] LABS: Bilirubin,Urine Negative (Negative); Blood,Urine Negative (Negative); Clarity,Urine Clear (Clear/Hazy); Color,Urine Lt-Yellow (Lt Yel-Yel); Culture Indicated,Urine Not Indicated; Glucose, Urine Negative (Negative); Hyaline Casts,Urine < 1 /hpf (0-1); Ketones,Urine 1+ (Negative); Leukocyte Esterase,Urine Negative (Negative); Nitrite,Urine Negative (Negative); Protein,Urine 1+ (Neg - Trace); RBC,Urine < 1 /hpf (0-3); Specific Gravity,Urine 1.019 (1.001-1.035); Urobilinogen,Urine Negative mg/dL (0.0-1.0); WBC,Urine 1 /hpf (0-5)
[2024-10-15 18:26] LABS: Allen Test Not Performed; Puncture Site Right Brachial
[2024-10-15 18:30] LABS: Basophils # (Auto) 0.1 Thou/mm3 (0.0-0.2); Basophils % (Auto) 1 % (0-2.5); Eosinophils # (Auto) 0.2 Thou/mm3 (0.0-0.5); Eosinophils % (Auto) 1 % (0-10); Hematocrit 48.7 % (41.0-53.0); Hemoglobin 15.6 g/dL (13.5-16.0); Immature Granulocytes % (Auto) 2 % (0-0); Immature Granulocytes Auto 0.36 Thou/mm3 (0.00-0.00); Lymphocytes % (Auto) 44 % (10-50); Mean Corpuscular Hemoglobin 29.4 pg (25.0-35.0); Mean Corpuscular Volume 92 fL (80-100); Monocytes # (Auto) 1.4 Thou/mm3 (0.0-0.8); Monocytes % (Auto) 9 % (0-12); Neutrophils # (Auto) 6.9 Thou/mm3 (1.8-7.7); Neutrophils % (Auto) 43 % (37-80); Nucleated Red Blood Cell % 0 /100 WBC (0); Platelet Count 414 Thou/mm3 (140-440); RDW Standard Deviation 54.2 fL (35.1-43.9); White Blood Count 15.9 Thou/mm3 (3.8-10.6)
[2024-10-15] MEDS: KETOROLAC INJ 30 MG/ML VIAL IVP (18:31)
[2024-10-15] MEDS: ETOMIDATE INJ 2 MG/ML VIAL 10 ML 20 MG IVP (18:31)
[2024-10-15 18:41] LABS: Lactate (Lactic Acid) 6.7 mMol/L (0.4-2.0)
[2024-10-15] MEDS: ROCURONIUM INJ 10 MG/ML VIAL 10 ML 100 MG IVP (18:41)
[2024-10-15 18:42] LABS: Sed Rate (ESR) 4 mm/hr (0-15)
[2024-10-15 18:44] LABS: Amphetamine/Methamp Scrn,U Negative (Negative); Barbiturate Screen,Urine Negative (Negative); Benzodiazepines Screen,Urine Positive (Negative); Benzoylecgonine Screen, Ur Positive (Negative); Fentanyl Screen,Urine Negative (Negative); Opiate Screen,Urine Negative (Negative); THC Screen,Urine Negative (Negative)
[2024-10-15 19:02] LABS: B-Type Natriuretic Peptide < 20 pg/mL (0-100)
--- NOTE | 2024-10-15 19:05 | EDNOTE_ITS ---
ED Seizures RME/HPI General Chief Complaint: Seizure Stated Complaint: SEIZURE Time Seen by Provider: 10/15/24 17:24 Arrival date/time: 10/15/24 16:57 RME / HPI RME / HPI Narrative: DR. RODAS MAIN ED EVALUATION: 24 year old male presents to the Emergency Department [facility] with complaint of a seizure; per EMS, patient had at least 10 minute long seizure. EMS gave 8 mg total of Versed prior to arrival, but patient still seizing. No trauma per EMS. PMHx: Seizures and multi-substance abuse. Medications: Keppra 1,250 mg x3 a day; Eliquis 5 mg, Lacosamide 200 mg BID. Social Hx: Multi-substance abuse. This section includes all my notes and documentations, including HPI, PE, and ED course. Adrián Bonilla MD I took over the care from Dr. Rodas at 6 PM on 10/15/2024, see his notes for complete H&P and ED course. I reviewed all diagnostic test results. At this point, diagnoses include status epilepticus and sepsis. Treatment here included intubation and ABX and IVF. I discussed the case with our hospitalist. About the presentation and exam and diagnostics and treatments here. And need of further care in the hospital. Will accept the patient. Adrián Bonilla MD Related Data Home Medications ?Medication ?Instructions ?Recorded ?Confirmed clobazam 10 mg tablet 10 mg PO BID 10/15/24 fluconazole 200 mg tablet 400 mg PO DAILY 10/15/24 levetiracetam 1,000 mg tablet 1,000 mg PO Q12H 5 10/15/24 valproic acid 250 mg capsule 1,250 mg PO TID 10/15/24 10/15/24 Allergies Allergy/AdvReac Type Severity Reaction Status Date / Time No Known Allergies Allergy Verified 07/23/24 09:34 Course Course Course Narrative: 1800: Patient was signed out to Dr. Bonilla. Past medical, surgical, social and family history reviewed. Vitals and home medications reviewed. Results and treatment plan discussed. They will assume the care of the patient at this time and will follow the patient, pending remainder of diagnostic test and final disposition. Quality Measures none Orders Category Date Time Status Bedside COVID-19 Antigen Test NOW Care 10/15/24 18:13 Active Bedside Influenza A&B Antigen Test NOW Care 10/15/24 18:13 Completed COVID-19 Screening Questionnaire NOW Care 10/15/24 20:45 Active Decision to Admit X1 Care 10/15/24 20:45 Completed EKG (ED ONLY) *Do not use* NOW Care 10/15/24 18:11 Completed Rodriguez [Urinary Catheter] QS Care 10/15/24 17:31 Active Intubation NOW Care 10/15/24 17:[address] head/brain wo con Stat Exams 10/15/24 18:12 Completed EKG (ED Only) Stat Exams 10/15/24 18:11 Draft XR chest 1V portable Stat Exams 10/15/24 17:35 Completed XR chest 1V post procedure Stat Exams 10/15/24 17:16 Completed Acetaminophen Stat Lab 10/15/24 17:28 Completed Alcohol, Blood Medical Stat Lab 10/15/24 17:28 Completed Arterial Blood Gas Stat Lab 10/15/24 18:14 Completed BNP [B-Type Natriuretic Peptide] Stat Lab 10/15/24 17:28 Completed Blood Culture (Lab) Stat Lab 10/15/24 17:28 Received CBC Stat Lab 10/15/24 17:28 Completed CMP [Comprehensive Metabolic Panel] Stat Lab 10/15/24 17:28 Completed CRP [C-Reactive Protein] Stat Lab 10/15/24 17:28 Completed Drug Screen,Urine Stat Lab 10/15/24 17:49 Completed ESR [Sed Rate (ESR)] Stat Lab 10/15/24 17:28 Completed Lactate (Lactic Acid) Stat Lab 10/15/24 18:30 Completed Magnesium Stat Lab 10/15/24 17:28 Completed Procalcitonin Stat Lab 10/15/24 17:28 Completed TSH [Thyroid Stimulating Hormone] Stat Lab 10/15/24 17:28 Completed Troponin I Stat Lab 10/15/24 17:28 Completed UA, C/S IF [Urinalysis, C/S if Indicated] Stat Lab 10/15/24 17:49 Completed Acetaminophen Ivpb [Ofirmev Inj] Med 10/15/24 17:22 Discontinued 1,000 mg in 100 ml IV X1 Etomidate Inj [Amidate Inj] Med 10/15/24 18:16 Discontinued 20 mg IVP X1 ONE Ketorolac Inj [Toradol Inj] Med 10/15/24 18:08 Discontinued 30 mg IVP X1 ONE LORazepam [Ativan Inj] Med 10/15/24 16:50 Discontinued 2 mg IVP X1 ONE Midazolam Inj [Versed Inj] Med 10/15/24 19:47 Discontinued 10 mg IV X1 ONE Midazolam/Ns 100 mg Ivpb [Versed Pf Inj in Ns Premix] Med 10/15/24 19:48 Discontinued 100 mg in 100 ml IV 1 mg/hr Propofol 1,000 mg Ivpb [Diprivan Ivpb] Med 10/15/24 16:57 Discontinued 1,000 mg in 100 ml IV .STK-MED Propofol 1,000 mg Ivpb [Diprivan Ivpb] Med 10/15/24 17:06 Discontinued 1,000 mg in 100 ml IV 5 mcg/kg/min Propofol Inj [Diprivan Inj] Med 10/15/24 16:57 Discontinued 200 mg IV .STK-MED ONE Propofol Inj [Diprivan Inj] Med 10/15/24 17:05 Discontinued 200 mg IV X1 ONE Rocuronium Inj [Zemuron Inj] Med 10/15/24 16:58 Discontinued 100 mg .ROUTE .STK-MED ONE Rocuronium Inj [Zemuron Inj] Med 10/15/24 18:16 Discontinued 100 mg IVP X1 ONE Rocuronium Inj [Zemuron Inj] Med 10/15/24 17:04 Discontinued 60 mg IV X1 ONE Sodium Chloride 0.9% 1000 ml [Ns] 1,000 ml Med 10/15/24 17:18 Discontinued IV 999 mls/hr Sodium Chloride 0.9% 1000 ml [Ns] 1,000 ml Med 10/15/24 17:20 Discontinued IV 999 mls/hr cefTRIAXone [Rocephin] 2 gm Med 10/15/24 17:26 Discontinued Sodium Chloride 0.9% [Ns] 50 ml IV X1 cefTRIAXone/D5w 1gm IV premix [Rocephin/D5w 1gm IV Med 10/15/24 18:08 Discontinued premix] 50 ml IV X1 levETIRAcetam INJ [Keppra Inj] Med 10/15/24 17:07 Discontinued 1,500 mg IVP X1 ONE levETIRAcetam INJ [Keppra Inj] Med 10/15/24 18:08 Discontinued 2,000 mg IVP X1 ONE Vital Signs Vital signs: Vital Signs Temperature 102.2 F H 10/15/24 17:44 Pulse Rate 135 H 10/15/24 17:44 Respiratory Rate 20 10/15/24 17:44 Blood Pressure 135/92 H 10/15/24 17:44 Pulse Oximetry (%) 98 10/15/24 17:44 Oxygen Delivery Method Mechanical Ventilation 10/15/24 17:44 Seizure Patient data External records reviewed:: [facility] previous records Clinical information provided by:: EMS Social determinants that could affect healthcare access:: other (specify) (Unknown) Patient has the following chronic illnesses:: Seizure disorder How is presenting disease/condition affected by chronic disease/condition?: exacerbated by Evaluation data The following diagnostics were reviewed and interpreted by me:: lab results, radiology exam(s) and EKG tracing(s) (My interpretation of the EKG: Sinus tachycardia (111 bpm) with no ST-T changes. Adrián Bonilla MD) Lab and/or radiology exams considered but not ordered:: None Interpretation Summary: Status epilepticus and sepsis Medications / Prescriptions Medications or Prescriptions considered but not ordered:: None Medication administrations:: Medication Administration History Acetaminophen (Acetaminophen Supp 650 Mg Supp) 650 mg [place] Q6HR PRN PRN Reason: [id number] Stop: 11/14/24 20:51 Dextrose (Dextrose 50%-Water Inj 50 Ml Syringe) 25 ml IV Q15MIN PRN PRN Reason: BG 50-70 responsive npo pt Stop: 11/14/24 20:51 Dextrose (Dextrose 50%-Water Inj 50 Ml Syringe) 50 ml IV Q15MIN PRN PRN Reason: BG <50 OR BG <70 & pt unresponsive Stop: 11/14/24 20:51 Enoxaparin Sodium (Enoxaparin Sod Inj 40 Mg/0.4 Ml Syringe) 40 mg SC QDAY PANCHO Stop: 10/30/24 08:59 Lactated Ringer's (Lactated Ringers) 1,000 mls @ 75 mls/hr IV .[id number] ONE Stop: 10/16/24 10:19 Last Admin: 10/15/24 21:20 Dose: 75 mls/hr Documented By: TC Ceftriaxone Sodium/Dextrose (Rocephin/D5w 1gm Iv Premix) 50 mls @ 100 mls/hr IV QDAY PANCHO Stop: 10/23/24 08:59 Azithromycin 250 mg/ Sodium (Chloride) 250 mls @ 250 mls/hr IV QDAY@2100 [facility] Stop: 10/20/24 20:59 Fentanyl Citrate (Sublimaze Inj 2,500 Mcg/250 Ml Bag) 2,500 mcg in 250 mls @ 2.5 mls/hr IV .Q24H PRN; Protocol PRN Reason: PER PROTOCOL Stop: 10/20/24 23:34 Propofol (Diprivan Ivpb) 1,000 mg in 100 mls @ 2.449 mls/hr IV .Q24H PRN; Protocol PRN Reason: PER PROTOCOL Stop: 11/14/24 17:05 Lacosamide (Lacosamide Inj 200 Mg/20 Ml Vial) 200 mg IVP BID PANCHO Stop: 11/14/24 20:59 Last Admin: 10/15/24 21:19 Dose: 200 mg Documented By: TC Levetiracetam (Levetiracetam Inj 100 Mg/Ml Vial 5ml) 1,000 mg IVP Q12HR PANCHO Stop: 11/14/24 21:09 Last Admin: 10/15/24 21:25 Dose: Not Given Documented By: TC Non-Admin Reason: Contraindicated Lorazepam (Lorazepam 2 Mg/Ml Vial) 4 mg IVP Q10M PRN PRN Reason: SEIZURES Pantoprazole Sodium (Pantoprazole Inj 40 Mg Vial) 40 mg IVP QDAY [facility] Stop: 11/15/24 08:59 Valproic Acid (Valproic Acid Syrup 250 Mg/5 Ml Udc) 1,250 mg GT BID PANCHO Stop: 11/15/24 08:59 Discontinued Medications Etomidate (Etomidate Inj 2 Mg/Ml Vial 10 Ml) 20 mg IVP X1 ONE Stop: 10/15/24 18:17 Last Admin: 10/15/24 18:31 Dose: 20 mg Documented By: KYLER Propofol (Diprivan Ivpb) Confirm Administered Dose 1,000 mg in 100 mls @ ud IV .STK-MED ONE Stop: 10/15/24 16:58 Last Admin: 10/15/24 17:28 Dose: Not Given Documented By: ED Non-Admin Reason: Duplicate Medication on eMAR Propofol (Diprivan Ivpb) 1,000 mg in 100 mls @ 2.449 mls/hr IV .Q24H PRN; Protocol PRN Reason: PER PROTOCOL Stop: 11/14/24 17:05 Last Admin: 10/15/24 22:48 Dose: 30 mcg/kg/min, 14.696 mls/hr Documented By: TC Co-signed By: MC Titration: 10/15/24 22:48 Dose: Infused Documented By: TC Co-signed By: MC Titration: 10/15/24 18:21 Dose: 30 mcg/kg/min, 14.696 mls/hr Documented By: Titration: 10/15/24 18:20 Dose: 30 mcg/kg/min, 14.696 mls/hr Documented By: Titration: 10/15/24 18:15 Dose: 25 mcg/kg/min, 12.247 mls/hr Documented By: Titration: 10/15/24 18:10 Dose: 20 mcg/kg/min, 9.798 mls/hr Documented By: Titration: 10/15/24 18:05 Dose: 15 mcg/kg/min, 7.348 mls/hr Documented By: Titration: 10/15/24 17:59 Dose: 10 mcg/kg/min, 4.899 mls/hr Documented By: Admin: 10/15/24 17:15 Dose: 5 mcg/kg/min, 2.449 mls/hr Documented By: KYLER Co-signed By: DO Sodium Chloride (Ns) 1,000 mls @ 999 mls/hr IV .Q1H1M ONE Stop: 10/15/24 18:18 Last Infusion: 10/15/24 18:38 Dose: Infused Documented By: Admin: 10/15/24 17:36 Dose: 999 mls/hr Documented By: ED Sodium Chloride (Ns) 1,000 mls @ 999 mls/hr IV .Q1H1M ONE Stop: 10/15/24 18:20 Last Infusion: 10/15/24 19:46 Dose: Infused Documented By: Admin: 10/15/24 18:19 Dose: 999 mls/hr Documented By: KYLER Acetaminophen (Ofirmev Inj) 1,000 mg in 100 mls @ 250 mls/hr IV X1 ONE Stop: 10/15/24 17:45 Last Infusion: 10/15/24 18:30 Dose: Infused Documented By: Admin: 10/15/24 18:04 Dose: 250 mls/hr Documented By: KYLER Ceftriaxone Sodium 2 gm/ (Sodium Chloride) 50 mls @ 100 mls/hr IV X1 ONE Stop: 10/15/24 17:55 Last Infusion: 10/15/24 18:10 Dose: Infused Documented By: Admin: 10/15/24 17:39 Dose: 100 mls/hr Documented By: KYLER Ceftriaxone Sodium/Dextrose (Rocephin/D5w 1gm Iv Premix) 50 mls @ 100 mls/hr IV X1 ONE Stop: 10/15/24 18:37 Last Admin: 10/15/24 19:47 Dose: Not Given Documented By: ADRIAN Non-Admin Reason: Contraindicated Midazolam HCl (Versed Pf Inj In Ns Premix) 100 mg in 100 mls @ 1 mls/hr IV .Q24H PRN; Protocol PRN Reason: Per Protocol Stop: 10/20/24 19:47 Midazolam HCl (Versed Pf Inj In Ns Premix) 100 mg in 100 mls @ 1 mls/hr IV .Q24H PRN; Protocol PRN Reason: Per Protocol Stop: 10/20/24 19:47 Azithromycin 250 mg/ Sodium (Chloride) 250 mls @ 250 mls/hr IV X1 ONE Stop: 10/15/24 22:59 Last Admin: 10/15/24 22:37 Dose: 250 mls/hr Documented By: ADRIAN Ketorolac Tromethamine (Ketorolac Inj 30 Mg/Ml Vial) 30 mg IVP X1 ONE Stop: 10/15/24 18:09 Last Admin: 10/15/24 18:31 Dose: 30 mg Documented By: KYLER Levetiracetam (Levetiracetam Inj 100 Mg/Ml Vial 5ml) 1,500 mg IVP X1 ONE Stop: 10/15/24 17:08 Last Admin: 10/15/24 17:16 Dose: 1,500 mg Documented By: TATI Levetiracetam (Levetiracetam Inj 100 Mg/Ml Vial 5ml) 2,000 mg IVP X1 ONE Stop: 10/15/24 18:09 Last Admin: 10/15/24 18:20 Dose: Not Given Documented By: KYLER Non-Admin Reason: Cancelled by Provider Levetiracetam (Levetiracetam Inj 100 Mg/Ml Vial 5ml) 1,500 mg IVP Q12HR PANCHO Stop: 11/15/24 08:59 Lorazepam (Lorazepam 2 Mg/Ml Vial) 2 mg IVP X1 ONE Stop: 10/15/24 16:51 Last Admin: 10/15/24 17:00 Dose: 2 mg Documented By: SM Midazolam HCl (Midazolam Inj 1 Mg/Ml Vial 2 Ml) 10 mg IV X1 ONE Stop: 10/15/24 19:48 Last Admin: 10/15/24 21:38 Dose: Not Given Documented By: TC Non-Admin Reason: Change of Condition Propofol (Propofol Inj 10 Mg/Ml Vial 20 Ml) Confirm Administered Dose 200 mg IV .STK-MED ONE Stop: 10/15/24 16:58 Last Admin: 10/15/24 17:29 Dose: Not Given Documented By: ED Non-Admin Reason: Duplicate Medication on eMAR Propofol (Propofol Inj 10 Mg/Ml Vial 20 Ml) 200 mg IV X1 ONE Stop: 10/15/24 17:06 Last Admin: 10/15/24 17:10 Dose: 200 mg Documented By: ED Comments: for intubation by Dr. Rodas. Rocuronium [place] (Rocuronium Inj 10 Mg/Ml Vial 10 Ml) 60 mg IV X1 ONE Stop: 10/15/24 17:05 Last Admin: 10/15/24 17:11 Dose: 60 mg Documented By: ED Co-signed By: SM Comments: for intubation by Dr. Rodas. Rocuronium [place] (Rocuronium Inj 10 Mg/Ml Vial 10 Ml) Confirm Administered Dose 100 mg .ROUTE .STK-MED ONE Stop: 10/15/24 16:59 Last Admin: 10/15/24 17:29 Dose: Not Given Documented By: ED Non-Admin Reason: Duplicate Medication on eMAR Rocuronium [place] (Rocuronium Inj 10 Mg/Ml Vial 10 Ml) 100 mg IVP X1 ONE Stop: 10/15/24 18:17 Last Admin: 10/15/24 18:41 Dose: 100 mg Documented By: SM Co-signed By: DO Valproic Acid (Valproic Acid Syrup 250 Mg/5 Ml Udc) 1,250 mg GT TID APNCHO Stop: 11/15/24 05:59 Intubation and ABX and IVF Consultations Consultation(s) initiated? (list below): No Diagnosis Seizure Differential Diagnosis: intractable seizure disorder, febrile convulsion, focal seizure, generalized seizure, new onset seizure, epileptic seizure and status epilepticus Most likely diagnosis given after review of the tests above:: Status epilepticus and sepsis Admission Indicated Admission indicated?: indicated Explain why admission is indicated or not indicated:: Status epilepticus and sepsis Admission Request Was there a request for admission?: Yes Admission Attestation Admission request attestation: Discussed case with ICU service regarding admission. Discussed patients ED course, exam findings, labs, and radiology results. The Hospitalist [agrees] to accept the patient for admission. Disposition Plan Disposition Plan: Admit Discharge Plan Plan Patient Disposition: Admit Acute Care w/in Hospital Disposition Comment: Stable at signout Problem List Clinical Impression: Status epilepticus, Sepsis
[2024-10-15 19:11] LABS: Acetaminophen < 2.0 mcg/mL (10.0-20.0); Alanine Aminotransferase 45 U/L (10-49); Albumin, Serum 4.7 gm/dL (3.5-5.0); Albumin/Globulin Ratio 1.6 (1.2-2.2); Alkaline Phosphatase 123 U/L (46-116); Anion Gap 27 (7-16); Aspartate Amino Transferase 33 U/L (0-34); BUN/Creatinine Ratio 6 Ratio (12-20); Bilirubin,Total 0.2 mg/dL (0.3-1.2); Blood Urea Nitrogen 7 mg/dL (9-23); C-Reactive Protein < 0.4 mg/dL (0.0-0.9); Calcium 9.6 mg/dL (8.3-10.6); Calcium (Corrected) 9.6 mg/dL (8.5-10.1); Chloride 105 mMol/L (98-107); Creatinine (Component) 1.1 mg/dL (0.6-1.3); Estimated Creatinine Clearance 105.7 mL/min (>60); Globulin 2.9 gm/dL (2.3-3.5); Glucose 163 mg/dL (74-106); Magnesium 2.2 mg/dL (1.6-2.6); Osmolality,Calculated 290 (275-295); Potassium 4.3 mMol/L (3.4-5.1); Procalcitonin 0.07 ng/ml (0.0-0.49); Sodium 145 mMol/L (136-145); Thyroid Stimulating Hormone 3.06 uIU/mL (0.55-4.78); Total Protein 7.6 gm/dL (5.7-8.2); Troponin I < 0.020 ng/mL (0.0-0.045); eGFR > 60 See Note
[2024-10-15 19:24] LABS: Carbon Dioxide 12.7 mMol/L (20.0-31.0)
--- NOTE | 2024-10-15 21:16 | PC.RT ---
1817: decreased fio2 to 60% per ABG.
--- NOTE | 2024-10-15 21:17 | PC.RT ---
2051: Decreased fio2 to 50% on vent. SATHISH patel.
[2024-10-15] MEDS: LACOSAMIDE INJ 200 MG/20 ML VIAL IVP (21:19)
[2024-10-15] MEDS: RINGERS LACTATED 1000 ML 1,000 ML 75 ML IV (21:20)
--- NOTE | 2024-10-15 21:20 | PD.RESHP ---
Documentation for date of: 10/15/24 HPI History of Present Illness History of present illness: Patient is a 24-year-old male with a previous medical history of seizure disorder with multiple admissions at [facility] for seizures and status epilepticus, right upper extremity brachial DVT and substance use disorder who was brought via ambulance due to status epilepticus with seizures lasting longer than 10 minutes. En route to hospital patient received 8 milligrams of Versed by EMS. Patient was intubated for airway protection on arrival to ED. Most of information obtained from chart review. Spoke with neurologist Dr Singh prior to admission, and she will follow-up with patient during hospitalization. Patient currently intubated and sedated. No known drug allergies Patient has history of drug use Patient is full code Pertinent labs: WBCs 15.9, bicarb 12.7, anion gap 27, lactic acid 6.7, alk phos 123, UA positive for benzos and cocaine. In ED patient was given Keppra, ceftriaxone, propofol, IV fluids and Tylenol. Review of Systems Review of Systems Narrative Review of Systems: Unable to obtain due to patient's current condition. Exam Vital Signs Temp Pulse Resp BP Pulse Ox O2 Del Method O2 Flow Rate 100.5 F H 95 19 115/77 100 Mechanical Ventilation 100 10/15/24 19:54 10/15/24 20:30 10/15/24 20:30 10/15/24 20:30 10/15/24 20:30 10/15/24 19:00 10/15/24 18:02 FiO2 100 10/15/24 19:00 Narrative Exam GENERAL: Young male, sedated and intubated. HEENT: Atraumatic. PERRLA, nonicteric. HEART: Regular rate and rhythm, no murmurs, rubs or gallops. LUNGS: Clear to auscultation bilaterally with symmetrical chest rise. On mechanical ventilation ABDOMEN: Soft, non-tender, no guarding or rebound tenderness. There are no abnormal masses palpated. Active bowel sounds. EXTREMITIES: Non-tender. No edema. On restraints SKIN: Warm and dry, no jaundice or rashes noted. Results: Labs 10/15/24 17:28 10/15/24 17:28 Labs: Short CBC 10/15/24 Range/Units 17:28 WBC 15.9 H (3.8-10.6) Thou/mm3 Hgb 15.6 (13.5-16.0) g/dL Hct 48.7 (41.0-53.0) % Plt Count 414 (140-440) Thou/mm3 BMP 10/15/24 17:28 Sodium 145 Potassium 4.3 Chloride 105 Carbon Dioxide 12.7 L* BUN 7 L Creatinine 1.1 Glucose 163 H Calcium 9.6 Cardiac Enzymes 10/15/24 Range/Units 17:28 Troponin I < 0.020 (0.0-0.045) ng/mL Liver Function 10/15/24 Range/Units 17:28 Total Bilirubin 0.2 L (0.3-1.2) mg/dL AST 33 (0-34) U/L ALT 45 (10-49) U/L Alkaline Phosphatase 123 H (46-116) U/L Albumin 4.7 (3.5-5.0) gm/dL Urine 10/15/24 Range/Units 17:49 Urine Color Lt-Yellow (Lt Yel-Yel) Urine Clarity Clear (Clear/Hazy) Urine pH 6.0 (5.0-7.0) Ur Specific [place] 1.019 (1.001-1.035) Urine Protein 1+ A (Neg - Trace) Urine Glucose (UA) Negative (Negative) ABG Interpretation ABG results: 10/15/24 18:14 ABG pH 7.32 L ABG pCO2 45 ABG pO2 384 H ABG HCO3 24 ABG O2 Saturation 100 H ABG Base Excess -3 Quality Measures Quality Measures none Medications Home Medications and Allergies Home Medications ?Medication ?Instructions ?Recorded ?Confirmed ?Type clobazam 10 mg tablet 10 mg PO BID 10/15/24 10/15/24 History fluconazole 200 mg tablet 400 mg PO DAILY 10/15/24 10/15/24 History levetiracetam 1,000 mg tablet 1,000 mg PO Q12H 10/15/24 10/15/24 History valproic acid 250 mg capsule 1,250 mg PO TID 10/15/24 10/15/24 History Allergies Allergy/AdvReac Type Severity Reaction Status Date / Time No Known Allergies Allergy Verified 07/23/24 09:34 Visit Medications Acetaminophen (Acetaminophen Supp 650 Mg Supp) 650 mg [place] Q6HR PRN PRN Reason: [id number] Stop: 11/14/24 20:51 Dextrose (Dextrose 50%-Water Inj 50 Ml Syringe) 25 ml IV Q15MIN PRN PRN Reason: BG 50-70 responsive npo pt Stop: 11/14/24 20:51 Dextrose (Dextrose 50%-Water Inj 50 Ml Syringe) 50 ml IV Q15MIN PRN PRN Reason: BG <50 OR BG <70 & pt unresponsive Stop: 11/14/24 20:51 Enoxaparin Sodium (Enoxaparin Sod Inj 40 Mg/0.4 Ml Syringe) 40 mg SC QDAY PANCHO Stop: 10/30/24 08:59 Propofol (Diprivan Ivpb) 1,000 mg in 100 mls @ 2.449 mls/hr IV .Q24H PRN; Protocol PRN Reason: PER PROTOCOL Stop: 11/14/24 17:05 Last Titration: 10/15/24 18:21 Dose: 30 mcg/kg/min, 14.696 mls/hr Lactated Ringer's (Lactated Ringers) 1,000 mls @ 75 mls/hr IV .[id number] ONE Stop: 10/16/24 10:19 Midazolam HCl (Versed Pf Inj In Ns Premix) 100 mg in 100 mls @ 1 mls/hr IV .Q24H PRN; Protocol PRN Reason: Per Protocol Stop: 10/20/24 19:47 Lacosamide (Lacosamide Inj 200 Mg/20 Ml Vial) 200 mg IVP BID PANCHO Stop: 11/14/24 20:59 Levetiracetam (Levetiracetam Inj 100 Mg/Ml Vial 5ml) 1,000 mg IVP Q12HR PANCHO Stop: 11/14/24 21:09 Pantoprazole Sodium (Pantoprazole Inj 40 Mg Vial) 40 mg IVP QDAY PANCHO Stop: 11/15/24 08:59 Discontinued Medications Etomidate (Etomidate Inj 2 Mg/Ml Vial 10 Ml) 20 mg IVP X1 ONE Stop: 10/15/24 18:17 Last Admin: 10/15/24 18:31 Dose: 20 mg Sodium Chloride (Ns) 1,000 mls @ 999 mls/hr IV .Q1H1M ONE Stop: 10/15/24 18:18 Last Infusion: 10/15/24 18:38 Dose: Infused Sodium Chloride (Ns) 1,000 mls @ 999 mls/hr IV .Q1H1M ONE Stop: 10/15/24 18:20 Last Infusion: 10/15/24 19:46 Dose: Infused Acetaminophen (Ofirmev Inj) 1,000 mg in 100 mls @ 250 mls/hr IV X1 ONE Stop: 10/15/24 17:45 Last Infusion: 10/15/24 18:30 Dose: Infused Ceftriaxone Sodium 2 gm/ (Sodium Chloride) 50 mls @ 100 mls/hr IV X1 ONE Stop: 10/15/24 17:55 Last Infusion: 10/15/24 18:10 Dose: Infused Ceftriaxone Sodium/Dextrose (Rocephin/D5w 1gm Iv Premix) 50 mls @ 100 mls/hr IV X1 ONE Stop: 10/15/24 18:37 Last Admin: 10/15/24 19:47 Dose: Not Given Midazolam HCl (Versed Pf Inj In Ns Premix) 100 mg in 100 mls @ 1 mls/hr IV .Q24H PRN; Protocol PRN Reason: Per Protocol Stop: 10/20/24 19:47 Ketorolac Tromethamine (Ketorolac Inj 30 Mg/Ml Vial) 30 mg IVP X1 ONE Stop: 10/15/24 18:09 Last Admin: 10/15/24 18:31 Dose: 30 mg Levetiracetam (Levetiracetam Inj 100 Mg/Ml Vial 5ml) 1,500 mg IVP X1 ONE Stop: 10/15/24 17:08 Last Admin: 10/15/24 17:16 Dose: 1,500 mg Levetiracetam (Levetiracetam Inj 100 Mg/Ml Vial 5ml) 2,000 mg IVP X1 ONE Stop: 10/15/24 18:09 Last Admin: 10/15/24 18:20 Dose: Not Given Levetiracetam (Levetiracetam Inj 100 Mg/Ml Vial 5ml) 1,500 mg IVP Q12HR PANCHO Stop: 11/15/24 08:59 Lorazepam (Lorazepam 2 Mg/Ml Vial) 2 mg IVP X1 ONE Stop: 10/15/24 16:51 Last Admin: 10/15/24 17:00 Dose: 2 mg Midazolam HCl (Midazolam Inj 1 Mg/Ml Vial 2 Ml) 10 mg IV X1 ONE Stop: 10/15/24 19:48 Propofol (Propofol Inj 10 Mg/Ml Vial 20 Ml) 200 mg IV X1 ONE Stop: 10/15/24 17:06 Last Admin: 10/15/24 17:10 Dose: 200 mg Rocuronium [place] (Rocuronium Inj 10 Mg/Ml Vial 10 Ml) 60 mg IV X1 ONE Stop: 10/15/24 17:05 Last Admin: 10/15/24 17:11 Dose: 60 mg Rocuronium [place] (Rocuronium Inj 10 Mg/Ml Vial 10 Ml) 100 mg IVP X1 ONE Stop: 10/15/24 18:17 Last Admin: 10/15/24 18:41 Dose: 100 mg Assessment & Plan Plan Patient is a 24-year-old male with a previous medical history of seizure disorder with multiple admissions at [facility] for seizures and status epilepticus, right upper extremity brachial DVT and substance use disorder who was brought via ambulance due to status epilepticus with seizures lasting longer than 10 minutes. Patient admitted to ICU after being intubated for airway protection. Neuro #Status epilepticus #History of seizures Patient currently sedated and on mechanical ventilation CT head negative for any acute changes Patient on propofol and Versed with RASS -3 Patient restarted home med Keppra and lacosamide Neurology consulted appreciate recommendations Seizure precautions #Polysubstance use Patient positive for cocaine guest services attendant referral Cardiac Stable Pulm #Intubated and mechanically ventilated Patient is intubated for airway protection given status epilepticus Daily SBT's until patient meets extubation criteria GI Currently stable Renal #Anion gap metabolic acidosis #Lactic acidosis Likely secondary to seizure activity Patient given IV fluids Will follow-up lactic acid Follow-up creatinine kinase Endo Currently stable Heme #Leukocytosis Likely reactive in setting of status epilepticus Will continue to monitor ID #Sepsis #Pneumonia Patient meets 3 out of 4 SIRS positive Tachycardia, febrile, and leukocytosis Chest x-ray reading left base pneumonia Likely secondary to status epilepticus VS left base pneumonia noted on x-ray Pro-Jose negative Will start patient on ceftriaxone and azithromycin for community acquired pneumonia Patient received IV fluids per sepsis protocol Follow-up blood cultures De-escalate antibiotics pending results DVT prophylaxis: Lovenox Diet: N.p.o. CODE STATUS: Full code Case discussed with attending physician Dr. Alanis Arias MD PGY3 Attending Provider Attestation/Addendum 25-year-old male patient with seizure disorder was admitted for status epilepticus. The patient is currently intubated. [id number] evaluation done in the emergency room tonight. I discussed with housestaff.
[2024-10-15 21:30] LABS: Reflex Lactate? Y
[2024-10-15 21:41] LABS: Lactic Acid, 3 HR 2.7 mMol/L (0.4-2.0)
[2024-10-15 22:22] LABS: Creatine Kinase 1340 U/L (34-171)
[2024-10-15] MEDS: AZITHROMYCIN INJ 250 MG in SODIUM CHLORIDE 0.9% 250 ML 250 ML IV (22:37)
[2024-10-15] MEDS: PROPOFOL 1,000 MG IVPB 1,000 MG/100 ML VIAL 14.696 MG IV (22:48)
--- NOTE | 2024-10-15 23:36 | XR_ITS ---
Examination: AP chest single view Technique one AP portable semiupright chest single view Exam date and time: October 15, 2024 1146 hrs. Comparison October 15, 2024 1738 hrs. Indications: Hypoxic respiratory failure postintubation. Findings: Endotracheal tube tip 4.7 cm above alysa Normal heart size Moderate vascular congestion Subsegmental atelectasis left base No pneumonia or pulmonary edema Impression: Endotracheal tube tip 4.7 cm above alysa Moderate vascular congestion
--- NOTE | 2024-10-15 23:45 | PC.RT ---
ETT placement requested CXR for tube placement confirmation. Tube located 22cm @ lip upon arrival and while CXR film was shot. initial appearance looked well above right-mainstem placement. resecured in place at 22cm @ lip
[2024-10-16] VITALS (22 sets, daily range): BP systolic 89–126; BP diastolic 52–92; PULSE 94–126; RESP 15–39; TEMP 36.9–37.8; O2SAT 99–100
[2024-10-16] MEDS: PROPOFOL 1,000 MG IVPB 1,000 MG/100 ML VIAL 24.494 MG IV (02:43)
[2024-10-16 05:08] LABS: Basophils # (Auto) 0.1 Thou/mm3 (0.0-0.2); Basophils % (Auto) 0 % (0-2.5); Eosinophils # (Auto) 0.1 Thou/mm3 (0.0-0.5); Eosinophils % (Auto) 1 % (0-10); Hematocrit 38.9 % (41.0-53.0); Hemoglobin 12.9 g/dL (13.5-16.0); Immature Granulocytes % (Auto) 1 % (0-0); Immature Granulocytes Auto 0.07 Thou/mm3 (0.00-0.00); Lymphocytes # (Auto) 2.7 Thou/mm3 (1.0-4.8); Lymphocytes % (Auto) 20 % (10-50); Mean Corpuscular HGB Conc 33.2 g/dl (31.0-37.0); Mean Corpuscular Hemoglobin 29.5 pg (25.0-35.0); Mean Corpuscular Volume 89 fL (80-100); Monocytes # (Auto) 1.3 Thou/mm3 (0.0-0.8); Monocytes % (Auto) 10 % (0-12); Neutrophils # (Auto) 9.6 Thou/mm3 (1.8-7.7); Neutrophils % (Auto) 69 % (37-80); Nucleated Red Blood Cell % 0 /100 WBC (0); Platelet Count 286 Thou/mm3 (140-440); RDW Standard Deviation 53.1 fL (35.1-43.9); Red Blood Count 4.37 Miln/mm3 (4.50-5.90); White Blood Count 13.8 Thou/mm3 (3.8-10.6)
[2024-10-16 05:19] LABS: Alanine Aminotransferase 28 U/L (10-49); Albumin, Serum 3.4 gm/dL (3.5-5.0); Albumin/Globulin Ratio 1.5 (1.2-2.2); Alkaline Phosphatase 76 U/L (46-116); Anion Gap 9 (7-16); Aspartate Amino Transferase 29 U/L (0-34); BUN/Creatinine Ratio 9 Ratio (12-20); Bilirubin,Total 0.4 mg/dL (0.3-1.2); Blood Urea Nitrogen 7 mg/dL (9-23); Calcium 8.6 mg/dL (8.3-10.6); Calcium (Corrected) 9.1 mg/dL (8.5-10.1); Chloride 112 mMol/L (98-107); Creatinine (Component) 0.8 mg/dL (0.6-1.3); Estimated Creatinine Clearance 145.3 mL/min (>60); Globulin 2.2 gm/dL (2.3-3.5); Glucose 94 mg/dL (74-106); Magnesium 2.1 mg/dL (1.6-2.6); Osmolality,Calculated 286 (275-295); Potassium 4.2 mMol/L (3.4-5.1); Sodium 145 mMol/L (136-145); Total Protein 5.6 gm/dL (5.7-8.2); eGFR > 60 See Note
[2024-10-16 05:52] LABS: Path Review Blood Smear Sent to Pathologist
[2024-10-16] MEDS: PROPOFOL 1,000 MG IVPB 1,000 MG/100 ML VIAL 17.146 MG IV (08:14)
[2024-10-16] MEDS: levETIRAcetam INJ 100 MG/ML VIAL 5ML 1000 MG IVP ×2 (08:32→22:14)
[2024-10-16] MEDS: PANTOPRAZOLE INJ 40 MG VIAL IVP (08:32)
[2024-10-16] MEDS: ENOXAPARIN SOD INJ 40 MG/0.4 ML SYRINGE SC (08:33)
[2024-10-16] MEDS: cefTRIAXone 1,000 MG in SODIUM CHLORIDE 0.9% (P) 50 ML 100 MG IV (08:33)
[2024-10-16] MEDS: VANCOMYCIN/WATER 1250 MG IVPB 250 ML 120 MG IV ×2 (10:55→23:35)
--- NOTE | 2024-10-16 11:36 | ESPR_ITS ---
<Statement entered by Nadeem Martinez MD - 10/17/24 13:49> TOTAL CC TIME: 45 MIN I saw and evaluated the patient. I reviewed the resident?s note and agree with findings and plan as documented in the resident?s note. Upon my evaluation, this patient had a high probability of imminent or life- threatening deterioration due to prolonged seizures in the setting of cocaine use history. Which required my direct attention, intervention, and personal management. This time is exclusive of time spent on procedures, which are documented separately if performed. Seizures have abated with appropriate medications, Keppra was started. Encephalopathy is improving. Patient is likely bacterial pneumonia given thick purulent sputum and fevers as well as retrocardiac infiltrate. Appropriate antibiotics have been started. Extubated after passing SBT. Documentation for date of: 10/16/24 Subjective Subjective Interval history: Marc Evangelista is a 24-year-old male with a PMHx of seizure disorder with multiple admissions at [facility] for seizures/status epilepticus requiring intubation, RUE brachial DVT, and substance use disorder who was BIBA for status epilepticus with seizures lasting longer than 10 minutes. En route to hospital patient received 8 milligrams of Versed by EMS. Intubated for airway protection on arrival to ED and then received 2 mg lorazepam and 1.5 g keppra. Met 3/4 SIRS criteria with fever 102.2 ?F, WBC 15.9, and HR 135. CXR showed left base pneumonia, suspect due to aspiration in setting of status epilepticus. Spoke with neurologist, Dr. Singh, prior to admission, and she will follow-up with patient during hospitalization. 10/16: Seen and examined at bedside in ICU. Initially intubated and and sedated on fentanyl propofol but was able to open his eyes and follow commands. Given hemodynamic stability, good O2 saturation, and RSBI < 105, patient was extubated at around 10 AM. Has history of MRSA and Klebsiella pneumonia positive sputum cultures so started on vancomycin and will continue ceftriaxone and azithromycin. Obtained new sputum cultures today and follow-up. Per patient, states that he only takes valproate 250 mg x5 BID and not TID. Exam Vital Signs Temp Pulse Resp BP Pulse Ox O2 Del Method O2 Flow Rate 98.4 F 107 H 18 121/92 H 100 Mechanical Ventilation 100 10/16/24 08:00 10/16/24 10:00 10/16/24 10:00 10/16/24 10:00 10/16/24 10:00 10/16/24 04:00 10/15/24 18:02 FiO2 30 10/16/24 08:00 Narrative Exam General: alert, mildly sedated, in no acute distress HEENT: NC/AT, mucous membranes moist, bilateral sclera anicteric Cardiovascular: tachycardic, regular rhythm, S1/S2 present, no murmurs appreciated Pulmonary: coarse lung sounds in upper lung richardson, no rales/rhonchi/wheezes Abdominal: soft, non-tender, non-distended, no rebound/guarding, normal bowel sounds present Musculoskeletal: normal ROM, no peripheral edema Skin: warm and dry, intact, no rashes Objective Labs 10/16/24 04:17 10/16/24 04:17 Labs: Laboratory Results - last 24 hr 10/15/24 10/15/24 10/15/24 17:28 17:49 18:14 WBC 15.9 H RBC 5.30 Hgb 15.6 Hct 48.7 MCV 92 MCH 29.4 MCHC 32.0 RDW Std Deviation 54.2 H Plt Count 414 Neut % (Auto) 43 Lymph % (Auto) 44 [place] % (Auto) 9 Eos % (Auto) 1 Baso % (Auto) 1 Neut # (Auto) 6.9 Lymph # (Auto) 7.0 H [place] # (Auto) 1.4 H Eos # (Auto) 0.2 Baso # (Auto) 0.1 Immature Gran # (Auto) 0.36 H Absolute Nucleated RBC 0.00 Immature Gran % 2 H Nucleated RBC % 0 Smear Path Review Sent to Pathologist ESR 4 Puncture Site Right Brachial ABG pH 7.32 L ABG pCO2 45 ABG pO2 384 H ABG HCO3 24 ABG O2 Saturation 100 H ABG Base Excess -3 FiO2 100 Sodium 145 Potassium 4.3 Chloride 105 Carbon Dioxide 12.7 L* Anion Gap 27 H BUN 7 L Creatinine 1.1 Estim Creat Clear Calc 105.7 eGFR > 60 BUN/Creatinine Ratio 6 L Glucose 163 H Calculated Osmolality 290 Lactic Acid Calcium 9.6 Corrected Calcium 9.6 Magnesium 2.2 Total Bilirubin 0.2 L AST 33 ALT 45 Alkaline Phosphatase 123 H Total Creatine Kinase Troponin I < 0.020 C-Reactive Prot, Quant < 0.4 B-Natriuretic Peptide < 20 Total Protein 7.6 Albumin 4.7 Globulin 2.9 Albumin/Globulin Ratio 1.6 Procalcitonin 0.07 TSH 3.06 Ur Collection Type Catheter Urine Color Lt-Yellow Urine Clarity Clear Urine pH 6.0 Ur Specific [place] 1.019 Urine Protein 1+ A Urine Glucose (UA) Negative Urine Ketones 1+ A Urine Blood Negative Urine Nitrite Negative Urine Bilirubin Negative Urine Urobilinogen (Auto) Negative Ur Leukocyte Esterase Negative Urine RBC < 1 Urine WBC 1 Ur Squamous Epith Cells 0 Urine Bacteria None Hyaline Casts < 1 Ur Culture Indicated? Not Indicated Urine Opiates Screen Negative Urine Fentanyl Screen Negative Acetaminophen < 2.0 L Ur Barbiturates Screen Negative U Amphetamin/Meth Scrn Negative U Benzodiazepines Scrn Positive A U Cocaine Metab Screen Positive A U Marijuana (THC) Screen Negative Ethyl Alcohol < 3.0 10/15/24 10/15/24 10/16/24 18:30 21:30 04:17 WBC 13.8 H RBC 4.37 L Hgb 12.9 L D Hct 38.9 L MCV 89 MCH 29.5 MCHC 33.2 RDW Std Deviation 53.1 H Plt Count 286 D Neut % (Auto) 69 Lymph % (Auto) 20 [place] % (Auto) 10 Eos % (Auto) 1 Baso % (Auto) 0 Neut # (Auto) 9.6 H Lymph # (Auto) 2.7 [place] # (Auto) 1.3 H Eos # (Auto) 0.1 Baso # (Auto) 0.1 Immature Gran # (Auto) 0.07 H Absolute Nucleated RBC 0.00 Immature Gran % 1 H Nucleated RBC % 0 Smear Path Review ESR Puncture Site ABG pH ABG pCO2 ABG pO2 ABG HCO3 ABG O2 Saturation ABG Base Excess FiO2 Sodium 145 Potassium 4.2 Chloride 112 H Carbon Dioxide 24.0 Anion Gap 9 BUN 7 L Creatinine 0.8 Estim Creat Clear Calc 145.3 eGFR > 60 BUN/Creatinine Ratio 9 L Glucose 94 D Calculated Osmolality 286 Lactic Acid 6.7 H* 2.7 H Calcium 8.6 Corrected Calcium 9.1 Magnesium 2.1 Total Bilirubin 0.4 AST 29 ALT 28 Alkaline Phosphatase 76 D Total Creatine Kinase 1340 H Troponin I C-Reactive Prot, Quant B-Natriuretic Peptide Total Protein 5.6 L Albumin 3.4 L D Globulin 2.2 L Albumin/Globulin Ratio 1.5 Procalcitonin TSH Ur Collection Type Urine Color Urine Clarity Urine pH Ur Specific [place] Urine Protein Urine Glucose (UA) Urine Ketones Urine Blood Urine Nitrite Urine Bilirubin Urine Urobilinogen (Auto) Ur Leukocyte Esterase Urine RBC Urine WBC Ur Squamous Epith Cells Urine Bacteria Hyaline Casts Ur Culture Indicated? Urine Opiates Screen Urine Fentanyl Screen Acetaminophen Ur Barbiturates Screen U Amphetamin/Meth Scrn U Benzodiazepines Scrn U Cocaine Metab Screen U Marijuana (THC) Screen Ethyl Alcohol ABG Interpretation ABG results: 10/15/24 18:14 ABG pH 7.32 L ABG pCO2 45 ABG pO2 384 H ABG HCO3 24 ABG O2 Saturation 100 H ABG Base Excess -3 Quality Measures Quality Measures none Assessment & Plan Assessment Current Active Medications: Generic Name Dose Route Start Last Admin Trade Name Freq PRN Reason Stop Dose Admin Acetaminophen 650 mg 10/15/24 20:52 Acetaminophen Supp 650 Mg Supp RI 11/14/24 20:51 Q6HR PRN [id number] Dextrose 25 ml 10/15/24 20:52 Dextrose 50%-Water Inj 50 Ml Syringe IV 11/14/24 20:51 Q15MIN PRN BG 50-70 responsive npo pt Dextrose 50 ml 10/15/24 20:52 Dextrose 50%-Water Inj 50 Ml Syringe IV 11/14/24 20:51 Q15MIN PRN BG <50 OR BG <70 & pt unresponsive Enoxaparin Sodium 40 mg 10/16/24 09:00 10/16/24 08:33 Enoxaparin Sod Inj 40 Mg/0.4 Ml Syringe SC 10/30/24 08:59 40 mg QDAY PANCHO Administration Azithromycin 250 mg/ Sodium 250 mls @ 250 mls/hr 10/16/24 21:00 Chloride IV 10/20/24 20:59 QDAY@2100 PANCHO Propofol 1,000 mg in 100 mls @ 2.449 mls/hr 10/15/24 23:36 10/16/24 08:14 Diprivan Ivpb IV 11/14/24 17:05 35 mcg/kg/min .Q24H PRN 17.146 mls/hr PER PROTOCOL Administration Protocol 5 MCG/KG/MIN Ceftriaxone Sodium 1,000 mg/ 50 mls @ 100 mls/hr 10/16/24 09:00 10/16/24 08:33 Sodium Chloride IV 10/23/24 08:59 100 mls/hr QDAY PANCHO Administration Dexmedetomidine/Sodium Chloride 200 mcg in 50 mls @ 3.615 mls/hr 10/16/24 07:46 Precedex Ivpb IV 11/15/24 07:45 .[id number] PRN Per PROTOCOL Protocol 0.2 MCG/KG/HR Vancomycin HCl 250 mls @ 120 mls/hr 10/16/24 10:00 Vancomycin/Water 1250 Mg Ivpb IV 10/23/24 09:59 BID@1000,2200 PANCHO Protocol Influenza Virus Vaccine Quadrival 0.5 ml 10/16/24 12:00 Influenza Virus Quadrivalent 0.5 Ml Syringe IMi 10/16/24 12:01 .ONCE ONE Levetiracetam 1,000 mg 10/15/24 21:10 10/16/24 08:32 Levetiracetam Inj 100 Mg/Ml Vial 5ml IVP 11/14/24 21:09 1,000 mg Q12HR PANCHO Administration Lorazepam 4 mg 10/15/24 22:02 Lorazepam 2 Mg/Ml Vial IVP Q10M PRN SEIZURES Pantoprazole Sodium 40 mg 10/16/24 09:00 10/16/24 08:32 Pantoprazole Inj 40 Mg Vial IVP 11/15/24 08:59 40 mg QDAY PANCHO Administration Pharmacy Consult 1 each 10/16/24 09:45 Vancomycin Pharmacy To Dose 1 Each Each IV 11/15/24 09:44 QDAY PRN PROTOCOL Valproic Acid 1,250 mg 10/16/24 14:00 Valproic Acid Syrup 250 Mg/5 Ml Udc PO 11/15/24 13:59 TID PANCHO Plan Marc Evangelista is a 24-year-old male with a PMHx of seizure disorder with multiple admissions at [facility] for seizures/status epilepticus requiring intubation, RUE brachial DVT, and substance use disorder who was BIBA for status epilepticus, intubated in the ED for airway protection, and admitted to the ICU for further management. Status post extubation on 10/16 at 10 AM and downgraded to med surg. Neurological #Status epilepticus #History of seizures 2 mg lorazepam and 1.5 g Keppra given in ED with total of 8 mg versed in field. Weaned off sedation and extubated. CT head negative for acute changes. Home meds: clobazam 10 mg twice daily, Keppra 1 g twice daily, valproic acid 250 mg x5 TID but states he takes BID (lacosamide listed but patient does not have on him) ? Keppra 1 g IV twice daily ? Valproic acid 1.25 g p.o. 3 times daily ? Lorazepam 4 mg IV as needed ? Neurology consulted appreciate recommendations ? Seizure precautions #Polysubstance use Positive for cocaine ? caregiver services home referral Cardiovascular Stable Pulmonary #Intubated and mechanically ventilated for airway protection, extubated on 10/16 Given hemodynamic stability, good O2 saturation, and RSBI < 105, patient was extubated at around 10 AM. Gastrointestinal Stable Renal #Anion gap metabolic acidosis, secondary to #Lactic acidosis Lactic acid decreased from 6.2 to 2.7, HCO3 increased from 12.7 and 24 Likely secondary to seizure activity and already given 2 L IVF (NS and LR) #Rhabdomyolysis, secondary to status epilepticus Total CK 1340 -> received 1 L NS in ED and on LR at 75 mL/h Already given 2 L IVF (NS and LR) Endocrine Stable Heme #Leukocytosis Likely reactive in setting of status epilepticus ? Continue to monitor Infectious disease #Sepsis, secondary to aspiration pneumonia #History of MRSA (+) sputum culture 3/4 SIRS positive: HR 135, 102.2 ?F, WBC 15.9 on admission. CXR: left base pneumonia. Remained afebrile overnight, pro-tigist negative, WBC improving, and received IVF per sepsis protocol. ? Ceftriaxone/azithromycin (10/15-) for community acquired pneumonia ? Vancomycin (10/16-) for history of MRSA positive sputum culture ? Follow-up sputum (10/16) and blood cultures (10/15) Hospital management: Disposition: ICU to med surg Pressors: none Sedation: none Fluids: none Diet: passed nurse bedside swallow screen -> clear liquid, advance as tolerated Lines: peripheral IV DVT prophylaxis: enoxaparin 40 mg SC daily GI prophylaxis: pantoprazole Rodriguez: removed CODE STATUS: full code ----- Plan discussed with attending physician Dr. Michelle Banda MD PGY-1 Internal Medicine
--- NOTE | 2024-10-16 12:04 | ESPR_ITS ---
<Statement entered by Dl Lux MD - 10/17/24 07:03> I discussed with and supervised the dietary internship physician involved in the care of this patient. Patient assessment and plan was discussed with entire medicine team, including my attending. I agree with the assessment and plan as documented by dietary internship doctor. Patient care was discussed with my attending physician Dr. Sara Lux, PGY-2 Documentation for date of: 10/16/24 Subjective Subjective Interval history: 10/16/2024: Signout received from ICU resident regarding 24-year-old male with past medical history of status epilepticus (since 8 months of age) who presented to the ED with seizures requiring intubation on 10/15. Patient has long history of noncompliance with medications along with use of illicit drugs (cocaine). Patient has been treated in the past at [facility] for recurring seizures; moreover, did develop a upper extremity/brachial DVT and was treated with 3-month course of anticoagulation. During this admission, patient presented with fever (102.2), tachycardia and elevated WBC with an elevated CK (1.3 thousand), lactic acid of 6.2 initially which then down trended to 2.7, bicarb of 12 which improved to 24. Patient was extubated on 10/16 after being weaned off sedation. Patient continues to be treated for right lung pneumonia seen on imaging with ceftriaxone and azithromycin along with vancomycin as patient's sputum is positive for MRSA. Patient's family members, Daquan (sister) and Lance ([id number]) spoke to me away from the patient regarding his frequent hospitalizations for seizures. They are concerned that his noncompliance will lead to his eventual demise. Patient's family is requesting meetings to discuss potential placement at a clinic in [place]. Will consult social work program coordinator for more information. Please contact Daquan at as she requested to be present for any family discussions. Exam Vital Signs Temp Pulse Resp BP Pulse Ox O2 Del Method O2 Flow Rate 98.4 F 107 H 18 121/92 H 100 Mechanical Ventilation 100 10/16/24 08:00 10/16/24 10:00 10/16/24 10:00 10/16/24 10:00 10/16/24 10:00 10/16/24 04:00 10/15/24 18:02 FiO2 30 10/16/24 08:00 Narrative Exam Physical exam: General: alert, mildly sedated, appears stated age HEENT: NC/AT, mucous membranes moist, mild scarring noted on left side of nose Cardiovascular: tachycardic, regular rhythm, S1/S2 present, no murmurs appreciated Pulmonary: coarse lung sounds in upper lung [place], no rales/rhonchi/wheezes Abdominal: soft, non-tender, non-distended, no rebound/guarding, normal bowel sounds present Musculoskeletal: normal ROM, no peripheral edema Neuro: Alert oriented x 3, no focal neurologic deficits Objective Labs 10/19/24 05:06 10/19/24 05:06 Labs: Laboratory Results - last 24 hr 10/15/24 10/15/24 10/15/24 17:28 17:49 18:14 WBC 15.9 H RBC 5.30 Hgb 15.6 Hct 48.7 MCV 92 MCH 29.4 MCHC 32.0 RDW Std Deviation 54.2 H Plt Count 414 Neut % (Auto) 43 Lymph % (Auto) 44 [place] % (Auto) 9 Eos % (Auto) 1 Baso % (Auto) 1 Neut # (Auto) 6.9 Lymph # (Auto) 7.0 H [place] # (Auto) 1.4 H Eos # (Auto) 0.2 Baso # (Auto) 0.1 Immature Gran # (Auto) 0.36 H Absolute Nucleated RBC 0.00 Immature Gran % 2 H Nucleated RBC % 0 Smear Path Review Sent to Pathologist ESR 4 Puncture Site Right Brachial ABG pH 7.32 L ABG pCO2 45 ABG pO2 384 H ABG HCO3 24 ABG O2 Saturation 100 H ABG Base Excess -3 FiO2 100 Sodium 145 Potassium 4.3 Chloride 105 Carbon Dioxide 12.7 L* Anion Gap 27 H BUN 7 L Creatinine 1.1 Estim Creat Clear Calc 105.7 eGFR > 60 BUN/Creatinine Ratio 6 L Glucose 163 H Calculated Osmolality 290 Lactic Acid Calcium 9.6 Corrected Calcium 9.6 Magnesium 2.2 Total Bilirubin 0.2 L AST 33 ALT 45 Alkaline Phosphatase 123 H Total Creatine Kinase Troponin I < 0.020 C-Reactive Prot, Quant < 0.4 B-Natriuretic Peptide < 20 Total Protein 7.6 Albumin 4.7 Globulin 2.9 Albumin/Globulin Ratio 1.6 Procalcitonin 0.07 TSH 3.06 Ur Collection Type Catheter Urine Color Lt-Yellow Urine Clarity Clear Urine pH 6.0 Ur Specific [place] 1.019 Urine Protein 1+ A Urine Glucose (UA) Negative Urine Ketones 1+ A Urine Blood Negative Urine Nitrite Negative Urine Bilirubin Negative Urine Urobilinogen (Auto) Negative Ur Leukocyte Esterase Negative Urine RBC < 1 Urine WBC 1 Ur Squamous Epith Cells 0 Urine Bacteria None Hyaline Casts < 1 Ur Culture Indicated? Not Indicated Urine Opiates Screen Negative Urine Fentanyl Screen Negative Acetaminophen < 2.0 L Ur Barbiturates Screen Negative U Amphetamin/Meth Scrn Negative U Benzodiazepines Scrn Positive A U Cocaine Metab Screen Positive A U Marijuana (THC) Screen Negative Ethyl Alcohol < 3.0 10/15/24 10/15/24 10/16/24 18:30 21:30 04:17 WBC 13.8 H RBC 4.37 L Hgb 12.9 L D Hct 38.9 L MCV 89 MCH 29.5 MCHC 33.2 RDW Std Deviation 53.1 H Plt Count 286 D Neut % (Auto) 69 Lymph % (Auto) 20 [place] % (Auto) 10 Eos % (Auto) 1 Baso % (Auto) 0 Neut # (Auto) 9.6 H Lymph # (Auto) 2.7 [place] # (Auto) 1.3 H Eos # (Auto) 0.1 Baso # (Auto) 0.1 Immature Gran # (Auto) 0.07 H Absolute Nucleated RBC 0.00 Immature Gran % 1 H Nucleated RBC % 0 Smear Path Review ESR Puncture Site ABG pH ABG pCO2 ABG pO2 ABG HCO3 ABG O2 Saturation ABG Base Excess FiO2 Sodium 145 Potassium 4.2 Chloride 112 H Carbon Dioxide 24.0 Anion Gap 9 BUN 7 L Creatinine 0.8 Estim Creat Clear Calc 145.3 eGFR > 60 BUN/Creatinine Ratio 9 L Glucose 94 D Calculated Osmolality 286 Lactic Acid 6.7 H* 2.7 H Calcium 8.6 Corrected Calcium 9.1 Magnesium 2.1 Total Bilirubin 0.4 AST 29 ALT 28 Alkaline Phosphatase 76 D Total Creatine Kinase 1340 H Troponin I C-Reactive Prot, Quant B-Natriuretic Peptide Total Protein 5.6 L Albumin 3.4 L D Globulin 2.2 L Albumin/Globulin Ratio 1.5 Procalcitonin TSH Ur Collection Type Urine Color Urine Clarity Urine pH Ur Specific [place] Urine Protein Urine Glucose (UA) Urine Ketones Urine Blood Urine Nitrite Urine Bilirubin Urine Urobilinogen (Auto) Ur Leukocyte Esterase Urine RBC Urine WBC Ur Squamous Epith Cells Urine Bacteria Hyaline Casts Ur Culture Indicated? Urine Opiates Screen Urine Fentanyl Screen Acetaminophen Ur Barbiturates Screen U Amphetamin/Meth Scrn U Benzodiazepines Scrn U Cocaine Metab Screen U Marijuana (THC) Screen Ethyl Alcohol ABG Interpretation ABG results: 10/15/24 18:14 ABG pH 7.32 L ABG pCO2 45 ABG pO2 384 H ABG HCO3 24 ABG O2 Saturation 100 H ABG Base Excess -3 Quality Measures Quality Measures none Assessment & Plan Assessment Current Active Medications: Generic Name Dose Route Start Last Admin Trade Name Freq PRN Reason Stop Dose Admin Acetaminophen 650 mg 10/15/24 20:52 Acetaminophen Supp 650 Mg Supp DE 11/14/24 20:51 Q6HR PRN [id number] Dextrose 25 ml 10/15/24 20:52 Dextrose 50%-Water Inj 50 Ml Syringe IV 11/14/24 20:51 Q15MIN PRN BG 50-70 responsive npo pt Dextrose 50 ml 10/15/24 20:52 Dextrose 50%-Water Inj 50 Ml Syringe IV 11/14/24 20:51 Q15MIN PRN BG <50 OR BG <70 & pt unresponsive Enoxaparin Sodium 40 mg 10/16/24 09:00 10/16/24 08:33 Enoxaparin Sod Inj 40 Mg/0.4 Ml Syringe SC 10/30/24 08:59 40 mg QDAY PANCHO Administration Azithromycin 250 mg/ Sodium 250 mls @ 250 mls/hr 10/16/24 21:00 Chloride IV 10/20/24 20:59 QDAY@2100 PANCHO Propofol 1,000 mg in 100 mls @ 2.449 mls/hr 10/15/24 23:36 10/16/24 08:14 Diprivan Ivpb IV 11/14/24 17:05 35 mcg/kg/min .Q24H PRN 17.146 mls/hr PER PROTOCOL Administration Protocol 5 MCG/KG/MIN Ceftriaxone Sodium 1,000 mg/ 50 mls @ 100 mls/hr 10/16/24 09:00 10/16/24 08:33 Sodium Chloride IV 10/23/24 08:59 100 mls/hr QDAY PANCHO Administration Dexmedetomidine/Sodium Chloride 200 mcg in 50 mls @ 3.615 mls/hr 10/16/24 07:46 Precedex Ivpb IV 11/15/24 07:45 .[id number] PRN Per PROTOCOL Protocol 0.2 MCG/KG/HR Vancomycin HCl 250 mls @ 120 mls/hr 10/16/24 10:00 Vancomycin/Water 1250 Mg Ivpb IV 10/23/24 09:59 BID@1000,2200 [facility] Protocol Levetiracetam 1,000 mg 10/15/24 21:10 10/16/24 08:32 Levetiracetam Inj 100 Mg/Ml Vial 5ml IVP 11/14/24 21:09 1,000 mg Q12HR PANCHO Administration Lorazepam 4 mg 10/15/24 22:02 Lorazepam 2 Mg/Ml Vial IVP Q10M PRN SEIZURES Pantoprazole Sodium 40 mg 10/16/24 09:00 10/16/24 08:32 Pantoprazole Inj 40 Mg Vial IVP 11/15/24 08:59 40 mg QDAY PANCHO Administration Pharmacy Consult 1 each 10/16/24 09:45 Vancomycin Pharmacy To Dose 1 Each Each IV 11/15/24 09:44 QDAY PRN PROTOCOL Valproic Acid 1,250 mg 10/16/24 14:00 Valproic Acid Syrup 250 Mg/5 Ml Udc PO 11/15/24 13:59 TID PANCHO Plan 24-year-old male with a PMHx of seizure disorder with multiple admissions at [facility] for seizures/status epilepticus requiring intubation, RUE brachial DVT, and substance use disorder who was BIBA for status epilepticus, intubated in the ED for airway protection, and admitted to the ICU for further management. Status post extubation on 10/16 at 10 AM and downgraded to med surg. #Status epilepticus #History of seizures Patient has history of seizures since 8 months of age; moreover, he is apparently noncompliant with medications 2 mg lorazepam and 1.5 g Keppra given in ED with total of 8 mg versed in field Presented with status epilepticus and required intubation and mechanical ventilation for airway protection Weaned off sedation and extubated on 10/16 CT head negative for acute changes Home meds: clobazam 10 mg twice daily, Keppra 1 g twice daily, valproic acid 250 mg x5 TID but states he takes BID (lacosamide listed but patient does not have on him) Plan: Keppra 1 g IV twice daily Valproic acid 1.25 g p.o. 3 times daily Lorazepam 4 mg IV as needed Neurology consulted appreciate recommendations Seizure precautions #Polysubstance use Positive for cocaine Patient's family members, Daquan (sister) and Lance ([id number]) spoke to me away from the patient regarding his frequent hospitalizations for seizures. They are concerned that his noncompliance will lead to his eventual demise. Patient's family is requesting meetings to discuss potential placement at a clinic in [place]. Will consult social work program coordinator for more information. Plan: director agricultural services referral #Anion gap metabolic acidosis, secondary to #Lactic acidosis Lactic acid decreased from 6.2 to 2.7, HCO3 increased from 12.7 and 24 Likely secondary to seizure activity and already given 2 L IVF (NS and LR) Plan: Treating underlying condition #Rhabdomyolysis, secondary to status epilepticus Total CK 1340 -> received 1 L NS in ED and on LR at 75 mL/h Already given 2 L IVF (NS and LR) Plan: Will continue to monitor, not concerningly elevated #Sepsis, secondary to aspiration pneumonia #History of MRSA (+) sputum culture #Leukocytosis Met 3/4 SIRS criteria: HR 135, 102.2 ?F, WBC 15.9 on admission. CXR: left base pneumonia. Remains afebrile, pro-tigist negative, WBC improving, and received IVF per sepsis protocol Plan: Ceftriaxone/azithromycin (10/15-) for community acquired pneumonia Vancomycin (10/16-) for history of MRSA positive sputum culture Blood and sputum cultures pending Hospital Management: Bowel: senna Diet: Regular Lines: PIV GI prophylaxis: not needed DVT prophylaxis: enoxaparin 40 mg SC daily Disposition: ICU to med surg Code: Full Patient seen and assessed with attending Dr. Ruiz and senior resident Dr. Maci De Luna, PGY-1 Attending Provider Attestation/Addendum I attest that I was physically present for the evaluation, physical examination, lab and imaging review of the patient with the residents. I discussed the case with the residents and agree with the findings and plans of care as documented above. Moses Ruiz MD
[2024-10-16] MEDS: ACETAMINOPHEN 325 MG TABLET 650 MG PO (14:13)
[2024-10-16] MEDS: VALPROIC ACID SYRUP 250 MG/5 ML UDC 1250 MG PO ×2 (14:14→23:34)
--- NOTE | 2024-10-16 18:25 | PC.NURSE ---
Seizure pads, suction, O2, and avasure set up for seizure precautions.
--- NOTE | 2024-10-16 19:17 | PC.NURSE ---
Rodriguez catheter removed at 1700
[2024-10-16] MEDS: AZITHROMYCIN INJ 250 MG in SODIUM CHLORIDE 0.9% 250 ML 250 ML IV (22:14)
--- NOTE | 2024-10-16 22:45 | VVPN_ITS ---
Telemedicine visit statement This visit was conducted with the use of interactive audio and video telecommunications system that permits real time communication between the patient and the provider. Patient's verbal consent for virtual visit was obtained on 10/16/24 at 2245. Documentation for date of: 10/16/24 Subjective Subjective Interval history: Patient is in MedSurg, no seizures reported after admission. Virtual exam Vital Signs Temp Pulse Resp BP Pulse Ox O2 Del Method O2 Flow Rate 98.8 F 126 H 32 H 119/79 99 Room Air 100 10/16/24 18:24 10/16/24 14:00 10/16/24 14:00 10/16/24 14:00 10/16/24 14:00 10/16/24 14:00 10/15/24 18:02 FiO2 30 10/16/24 08:00 Objective Labs 10/18/24 04:30 10/18/24 04:30 Labs: Laboratory Results - last 24 hr 10/15/24 10/16/24 17:28 04:17 WBC 13.8 H RBC 4.37 L Hgb 12.9 L D Hct 38.9 L MCV 89 MCH 29.5 MCHC 33.2 RDW Std Deviation 53.1 H Plt Count 286 D Neut % (Auto) 69 Lymph % (Auto) 20 [place] % (Auto) 10 Eos % (Auto) 1 Baso % (Auto) 0 Neut # (Auto) 9.6 H Lymph # (Auto) 2.7 [place] # (Auto) 1.3 H Eos # (Auto) 0.1 Baso # (Auto) 0.1 Immature Gran # (Auto) 0.07 H Absolute Nucleated RBC 0.00 Immature Gran % 1 H Nucleated RBC % 0 Smear Path Review Sent to Pathologist Sodium 145 Potassium 4.2 Chloride 112 H Carbon Dioxide 24.0 Anion Gap 9 BUN 7 L Creatinine 0.8 Estim Creat Clear Calc 145.3 eGFR > 60 BUN/Creatinine Ratio 9 L Glucose 94 D Calculated Osmolality 286 Calcium 8.6 Corrected Calcium 9.1 Magnesium 2.1 Total Bilirubin 0.4 AST 29 ALT 28 Alkaline Phosphatase 76 D Total Protein 5.6 L Albumin 3.4 L D Globulin 2.2 L Albumin/Globulin Ratio 1.5 ABG Interpretation ABG results: 10/15/24 18:14 ABG pH 7.32 L ABG pCO2 45 ABG pO2 384 H ABG HCO3 24 ABG O2 Saturation 100 H ABG Base Excess -3 Assessment & Plan Problem List (1) Seizure disorder: Status: Chronic Assessment and plan: Continue with Depakote, Keppra and clobazam continue to monitor for any breakthrough seizures and Ativan for breakthrough. (2) Status epilepticus: Status: Resolved (3) Pneumonia: Status: Acute Assessment and plan: Getting treated with vancomycin and Zithromax
[2024-10-17] VITALS: PULSE 112
[2024-10-17 04:00] VITALS: PULSE 101
[2024-10-17] MEDS: VALPROIC ACID SYRUP 250 MG/5 ML UDC 1250 MG PO ×3 (05:11→22:49)
[2024-10-17 05:55] LABS: Basophils # (Auto) 0.1 Thou/mm3 (0.0-0.2); Basophils % (Auto) 1 % (0-2.5); Eosinophils # (Auto) 0.2 Thou/mm3 (0.0-0.5); Eosinophils % (Auto) 2 % (0-10); Hematocrit 38.8 % (41.0-53.0); Hemoglobin 12.9 g/dL (13.5-16.0); Immature Granulocytes % (Auto) 1 % (0-0); Immature Granulocytes Auto 0.09 Thou/mm3 (0.00-0.00); Lymphocytes # (Auto) 3.3 Thou/mm3 (1.0-4.8); Lymphocytes % (Auto) 27 % (10-50); Mean Corpuscular HGB Conc 33.2 g/dl (31.0-37.0); Mean Corpuscular Volume 90 fL (80-100); Monocytes # (Auto) 0.9 Thou/mm3 (0.0-0.8); Monocytes % (Auto) 8 % (0-12); Neutrophils # (Auto) 7.5 Thou/mm3 (1.8-7.7); Neutrophils % (Auto) 62 % (37-80); Nucleated Red Blood Cell % 0 /100 WBC (0); Platelet Count 292 Thou/mm3 (140-440); RDW Standard Deviation 53.9 fL (35.1-43.9); White Blood Count 12.1 Thou/mm3 (3.8-10.6)
[2024-10-17 06:00] VITALS: BMI 25.7
[2024-10-17 06:32] LABS: Alanine Aminotransferase 23 U/L (10-49); Albumin, Serum 3.5 gm/dL (3.5-5.0); Albumin/Globulin Ratio 1.5 (1.2-2.2); Alkaline Phosphatase 79 U/L (46-116); Anion Gap 11 (7-16); Aspartate Amino Transferase 29 U/L (0-34); BUN/Creatinine Ratio 9 Ratio (12-20); Bilirubin,Total 0.3 mg/dL (0.3-1.2); Blood Urea Nitrogen 7 mg/dL (9-23); Calcium 8.7 mg/dL (8.3-10.6); Calcium (Corrected) 9.1 mg/dL (8.5-10.1); Carbon Dioxide 26.1 mMol/L (20.0-31.0); Chloride 110 mMol/L (98-107); Creatinine (Component) 0.8 mg/dL (0.6-1.3); Estimated Creatinine Clearance 130.7 mL/min (>60); Globulin 2.3 gm/dL (2.3-3.5); Glucose 94 mg/dL (74-106); Magnesium 2.1 mg/dL (1.6-2.6); Osmolality,Calculated 290 (275-295); Potassium 3.7 mMol/L (3.4-5.1); Sodium 147 mMol/L (136-145); Total Protein 5.8 gm/dL (5.7-8.2); eGFR > 60 See Note
[2024-10-17 08:00] VITALS: BP 130/88; PULSE 101; PULSE 112; RESP 18; TEMP 36.8; O2SAT 95
[2024-10-17] MEDS: levETIRAcetam INJ 100 MG/ML VIAL 5ML 1000 MG IVP ×2 (09:35→20:55)
[2024-10-17] MEDS: ENOXAPARIN SOD INJ 40 MG/0.4 ML SYRINGE SC (09:35)
[2024-10-17] MEDS: cefTRIAXone 1,000 MG in SODIUM CHLORIDE 0.9% (P) 50 ML 100 MG IV (09:35)
[2024-10-17 12:00] VITALS: PULSE 112
[2024-10-17] MEDS: VANCOMYCIN/WATER 1250 MG IVPB 250 ML 120 MG IV ×2 (14:35→23:19)
[2024-10-17] MEDS: DEXTROSE 5%-NS 1,000 ML 100 ML IV (15:33)
[2024-10-17 16:00] VITALS: BP 115/68; PULSE 100; PULSE 98; RESP 18; TEMP 36.6; O2SAT 97
--- NOTE | 2024-10-17 17:49 | ESPR_ITS ---
Documentation for date of: 10/17/24 Subjective Subjective Interval history: No significant overnight events. WBC down trended from 13.8-12.1, hemoglobin stable. CHEM labs significant for sodium 147. On physical exam patient seems to be dehydrated, will start patient on D5 W NS. Patient pending further neurology recommendations. Anticipating to discharge patient within 24 to 48 hours. Exam Vital Signs Temp Pulse Resp BP Pulse Ox O2 Del Method O2 Flow Rate 97.8 F 100 18 115/68 97 Room Air 100 10/17/24 16:00 10/17/24 16:00 10/17/24 16:00 10/17/24 16:00 10/17/24 16:00 10/17/24 16:00 10/15/24 18:02 FiO2 30 10/16/24 08:00 Narrative Exam Physical exam: General: alert, mildly sedated, appears stated age HEENT: NC/AT, mucous membranes moist, mild scarring noted on left side of nose Cardiovascular: tachycardic, regular rhythm, S1/S2 present, no murmurs appreciated Pulmonary: coarse lung sounds in upper lung rich[place]son, no rales/rhonchi/wheezes Abdominal: soft, non-tender, non-distended, no rebound/guarding, normal bowel sounds present Musculoskeletal: normal ROM, no peripheral edema Neuro: Alert oriented x 3, no focal neurologic deficits Objective Labs 10/19/24 05:06 10/19/24 05:06 Labs: Laboratory Results - last 24 hr 10/17/24 04:26 WBC 12.1 H RBC 4.30 L Hgb 12.9 L Hct 38.8 L MCV 90 MCH 30.0 MCHC 33.2 RDW Std Deviation 53.9 H Plt Count 292 Neut % (Auto) 62 Lymph % (Auto) 27 [place] % (Auto) 8 Eos % (Auto) 2 Baso % (Auto) 1 Neut # (Auto) 7.5 Lymph # (Auto) 3.3 [place] # (Auto) 0.9 H Eos # (Auto) 0.2 Baso # (Auto) 0.1 Immature Gran # (Auto) 0.09 H Absolute Nucleated RBC 0.00 Immature Gran % 1 H Nucleated RBC % 0 Sodium 147 H Potassium 3.7 D Chloride 110 H Carbon Dioxide 26.1 Anion Gap 11 BUN 7 L Creatinine 0.8 Estim Creat Clear Calc 130.7 eGFR > 60 BUN/Creatinine Ratio 9 L Glucose 94 Calculated Osmolality 290 Calcium 8.7 Corrected Calcium 9.1 Magnesium 2.1 Total Bilirubin 0.3 AST 29 ALT 23 Alkaline Phosphatase 79 Total Protein 5.8 Albumin 3.5 Globulin 2.3 Albumin/Globulin Ratio 1.5 ABG Interpretation ABG results: 10/15/24 18:14 ABG pH 7.32 L ABG pCO2 45 ABG pO2 384 H ABG HCO3 24 ABG O2 Saturation 100 H ABG Base Excess -3 Quality Measures Quality Measures none Assessment & Plan Assessment Current Active Medications: Generic Name Dose Route Start Last Admin Trade Name Freq PRN Reason Stop Dose Admin Acetaminophen 650 mg 10/16/24 13:57 10/16/24 14:13 Acetaminophen 325 Mg Tablet PO 11/15/24 13:56 650 mg Q6HR PRN Administration pain or fever > 100 Dextrose 25 ml 10/15/24 20:52 Dextrose 50%-Water Inj 50 Ml Syringe IV 11/14/24 20:51 Q15MIN PRN BG 50-70 responsive npo pt Dextrose 50 ml 10/15/24 20:52 Dextrose 50%-Water Inj 50 Ml Syringe IV 11/14/24 20:51 Q15MIN PRN BG <50 OR BG <70 & pt unresponsive Enoxaparin Sodium 40 mg 10/16/24 09:00 10/17/24 09:35 Enoxaparin Sod Inj 40 Mg/0.4 Ml Syringe SC 10/30/24 08:59 40 mg QDAY PANCHO Administration Azithromycin 250 mg/ Sodium 250 mls @ 250 mls/hr 10/16/24 21:00 10/16/24 23:14 Chloride IV 10/20/24 20:59 Infused QDAY@2100 PANCHO Infusion Ceftriaxone Sodium 1,000 mg/ 50 mls @ 100 mls/hr 10/16/24 09:00 10/17/24 09:35 Sodium Chloride IV 10/23/24 08:59 100 mls/hr QDAY PANCHO Administration Vancomycin HCl 250 mls @ 120 mls/hr 10/16/24 10:00 10/17/24 14:35 Vancomycin/Water 1250 Mg Ivpb IV 10/23/24 09:59 120 mls/hr BID@1000,2200 PANCHO Administration Protocol Dextrose/Sodium Chloride 1,000 mls @ 100 mls/hr 10/17/24 15:15 10/17/24 15:33 D5-Ns IV 11/16/24 15:14 100 mls/hr .Q10H PANCHO Administration Levetiracetam 1,000 mg 10/15/24 21:10 10/17/24 09:35 Levetiracetam Inj 100 Mg/Ml Vial 5ml IVP 11/14/24 21:09 1,000 mg Q12HR PANCHO Administration Lorazepam 4 mg 10/15/24 22:02 Lorazepam 2 Mg/Ml Vial IVP Q10M PRN SEIZURES Pharmacy Consult 1 each 10/16/24 09:45 Vancomycin Pharmacy To Dose 1 Each Each IV 11/15/24 09:44 QDAY PRN PROTOCOL Sennosides 1 tab 10/16/24 13:38 Senna Tablet PO 11/15/24 13:37 QDAY PRN CONSTIPATION Protocol Valproic Acid 1,250 mg 10/16/24 14:00 10/17/24 15:32 Valproic Acid Syrup 250 Mg/5 Ml Udc PO 11/15/24 13:59 1,250 mg TID PANCHO Administration Plan 24-year-old male with a PMHx of seizure disorder with multiple admissions at [facility] for seizures/status epilepticus requiring intubation, RUE brachial DVT, and substance use disorder who was BIBA for status epilepticus, intubated in the ED for airway protection, and admitted to the ICU for further management. Status post extubation on 10/16 at 10 AM and downgraded to med surg. #Status epilepticus #History of seizures Patient has history of seizures since 8 months of age; moreover, he is apparently noncompliant with medications 2 mg lorazepam and 1.5 g Keppra given in ED with total of 8 mg versed in field Presented with status epilepticus and required intubation and mechanical ventilation for airway protection Weaned off sedation and extubated on 10/16 CT head negative for acute changes Home meds: clobazam 10 mg twice daily, Keppra 1 g twice daily, valproic acid 250 mg x5 TID but states he takes BID (lacosamide listed but patient does not have on him) Plan: Keppra 1 g IV twice daily Valproic acid 1.25 g p.o. 3 times daily Lorazepam 4 mg IV as needed Neurology consulted appreciate recommendations Seizure precautions #Polysubstance use Positive for cocaine Patient's family members, Daquan (sister) and Lance ([id number]) spoke to me away from the patient regarding his frequent hospitalizations for seizures. They are concerned that his noncompliance will lead to his eventual demise. Patient's family is requesting meetings to discuss potential placement at a clinic in [place]. Will consult social service liaison for more information. Plan: director of anesthesia services referral #Anion gap metabolic acidosis, secondary to #Lactic acidosis Lactic acid decreased from 6.2 to 2.7, HCO3 increased from 12.7 and 24 Likely secondary to seizure activity and already given 2 L IVF (NS and LR) Plan: Treating underlying condition #Rhabdomyolysis, secondary to status epilepticus Total CK 1340 -> received 1 L NS in ED and on LR at 75 mL/h Already given 2 L IVF (NS and LR) Plan: Will continue to monitor, not concerningly elevated #Sepsis, secondary to aspiration pneumonia #History of MRSA (+) sputum culture #Leukocytosis Met 3/4 SIRS criteria: HR 135, 102.2 ?F, WBC 15.9 on admission. CXR: left base pneumonia. Remains afebrile, pro-tigist negative, WBC improving, and received IVF per sepsis protocol Plan: Ceftriaxone/azithromycin (10/15-) for community acquired pneumonia Vancomycin (10/16-) for history of MRSA positive sputum culture Blood and sputum cultures pending Hospital Management: Bowel: senna Diet: Regular Lines: PIV GI prophylaxis: not needed DVT prophylaxis: enoxaparin 40 mg SC daily Disposition: ICU to med surg Code: Full This patient care was discussed with my attending Dr. Sara Lux MD PGY-2 Disclaimer: Minor errors in bakery machine mechanic supervisor may be present since this note was dictated by speech recognition software. Attending Provider Attestation/Addendum I attest that I was physically present for the evaluation, physical examination, lab and imaging review of the patient with the residents. I discussed the case with the residents and agree with the findings and plans of care as documented above. Moses Ruiz MD
[2024-10-17 20:00] VITALS: BP 132/90; PULSE 98; PULSE 99; RESP 18; TEMP 36.6; O2SAT 98
[2024-10-17] MEDS: AZITHROMYCIN INJ 250 MG in SODIUM CHLORIDE 0.9% 250 ML 250 ML IV (20:55)
[2024-10-17 22:49] LABS: Vancomycin,Trough 11.1 mcg/mL (5.0-10.0)
[2024-10-18] VITALS (8 sets, daily range): BP systolic 114–124; BP diastolic 68–96; PULSE 75–101; RESP 16–19; TEMP 36.3–36.8; O2SAT 92–98; BMI 28.5
--- NOTE | 2024-10-18 00:02 | ESPR_ITS ---
Documentation for date of: 10/18/24 Subjective Subjective Interval history: Mr. Evangelista was seen in [facility] today with family at the bedside. He is back to his baseline, no seizures reported since admission Exam - Neurology Vital Signs Temp Pulse Resp BP Pulse Ox O2 Del Method O2 Flow Rate 97.9 F 98 18 132/90 H 98 Room Air 100 10/17/24 20:00 10/17/24 20:00 10/17/24 20:00 10/17/24 20:00 10/17/24 20:00 10/17/24 20:00 10/15/24 18:02 FiO2 30 10/16/24 08:00 Narrative Exam GENERAL APPEARANCE: Well hydrated, well-nourished in no acute distress. HEENT: Normocephalic, atraumatic, extraocular movements intact. Ptosis seen bilaterally, pupils: Equal reacting to light and accommodation NECK: Supple, no JVD or bruits. CARDIOVASULAR: Heart: S1, S2 heard, regular without S3-S4 or murmur no rubs or gallops. LUNGS/CHEST: Clear to auscultation bilaterally. No rails, rhonchi, or wheezing. Normal inspection. ABDOMEN: Soft, nontender, with normal bowel sounds. No pulsatile masses. No rebound, rigidity, or guarding. Normal inspection and palpation. EXTREMITIES: Normal inspection and palpation. No edema, clubbing or cyanosis. SKIN: Warm and dry without rashes. Normal inspection. MUSCULOSKELETAL: No cervical, thoracic, lumbar or midline bony tenderness. Normal inspection. NEURO: Alert, awake and oriented x3. Cranial nerves: II through XII grossly intact. Speech and language: Normal with no dysarthria or dysphasia. Motor system: Tone and bulk: Normal: Strength: 5 out of 5 in all 4 extremities; No pronator drift noted. Deep tendon reflexes: 2+ bilaterally symmetrical. Plantar reflex: Downgoing bilaterally. Sensory system: Intact to all modalities of sensation bilaterally. Coordination: Intact to [id number] and kwwp-fcyy-loca test bilaterally. No ataxia, no dysmetria, or dysdiadochokinesia noted. No intention tremors noted. Gait: Walked in the hallway with a walker.. No signs of meningeal irritation noted. PSYCHIATRIC: Normal mood and affect. Objective Labs 10/18/24 04:30 10/18/24 04:30 Labs: Laboratory Results - last 24 hr 10/17/24 10/17/24 04:26 21:03 WBC 12.1 H RBC 4.30 L Hgb 12.9 L Hct 38.8 L MCV 90 MCH 30.0 MCHC 33.2 RDW Std Deviation 53.9 H Plt Count 292 Neut % (Auto) 62 Lymph % (Auto) 27 [place] % (Auto) 8 Eos % (Auto) 2 Baso % (Auto) 1 Neut # (Auto) 7.5 Lymph # (Auto) 3.3 [place] # (Auto) 0.9 H Eos # (Auto) 0.2 Baso # (Auto) 0.1 Immature Gran # (Auto) 0.09 H Absolute Nucleated RBC 0.00 Immature Gran % 1 H Nucleated RBC % 0 Sodium 147 H Potassium 3.7 D Chloride 110 H Carbon Dioxide 26.1 Anion Gap 11 BUN 7 L Creatinine 0.8 Estim Creat Clear Calc 130.7 eGFR > 60 BUN/Creatinine Ratio 9 L Glucose 94 Calculated Osmolality 290 Calcium 8.7 Corrected Calcium 9.1 Magnesium 2.1 Total Bilirubin 0.3 AST 29 ALT 23 Alkaline Phosphatase 79 Total Protein 5.8 Albumin 3.5 Globulin 2.3 Albumin/Globulin Ratio 1.5 Vancomycin Trough 11.1 H ABG Interpretation ABG results: 10/15/24 18:14 ABG pH 7.32 L ABG pCO2 45 ABG pO2 384 H ABG HCO3 24 ABG O2 Saturation 100 H ABG Base Excess -3 Assessment & Plan Assessment and plan (1) Seizure disorder: Status: Chronic Assessment and plan: Patient is awake and alert and following commands, back to baseline stable on multiple antiepileptic drugs including Keppra, Depakote and clobazam. Continue with the seizure precautions, Ativan for breakthrough seizures. Patient is stable for discharge and follow up with neurology in 1 to 2 weeks. Advised no driving, meds compliance and drug cessation. (2) Status epilepticus: Status: Resolved
[2024-10-18] MEDS: VALPROIC ACID SYRUP 250 MG/5 ML UDC 1250 MG PO ×3 (05:17→21:20)
[2024-10-18 05:26] LABS: Basophils # (Auto) 0.1 Thou/mm3 (0.0-0.2); Basophils % (Auto) 1 % (0-2.5); Eosinophils # (Auto) 0.2 Thou/mm3 (0.0-0.5); Eosinophils % (Auto) 3 % (0-10); Hematocrit 37.4 % (41.0-53.0); Hemoglobin 12.6 g/dL (13.5-16.0); Immature Granulocytes % (Auto) 1 % (0-0); Immature Granulocytes Auto 0.09 Thou/mm3 (0.00-0.00); Lymphocytes # (Auto) 3.4 Thou/mm3 (1.0-4.8); Lymphocytes % (Auto) 40 % (10-50); Mean Corpuscular HGB Conc 33.7 g/dl (31.0-37.0); Mean Corpuscular Hemoglobin 30.1 pg (25.0-35.0); Mean Corpuscular Volume 90 fL (80-100); Monocytes # (Auto) 0.5 Thou/mm3 (0.0-0.8); Monocytes % (Auto) 6 % (0-12); Neutrophils # (Auto) 4.1 Thou/mm3 (1.8-7.7); Neutrophils % (Auto) 49 % (37-80); Nucleated Red Blood Cell % 0 /100 WBC (0); Platelet Count 258 Thou/mm3 (140-440); RDW Standard Deviation 52.6 fL (35.1-43.9); Red Blood Count 4.18 Miln/mm3 (4.50-5.90); White Blood Count 8.4 Thou/mm3 (3.8-10.6)
[2024-10-18 06:01] LABS: Alanine Aminotransferase 17 U/L (10-49); Albumin, Serum 3.3 gm/dL (3.5-5.0); Albumin/Globulin Ratio 1.6 (1.2-2.2); Alkaline Phosphatase 63 U/L (46-116); Anion Gap 10 (7-16); Aspartate Amino Transferase 25 U/L (0-34); BUN/Creatinine Ratio 8 Ratio (12-20); Bilirubin,Total 0.3 mg/dL (0.3-1.2); Blood Urea Nitrogen 5 mg/dL (9-23); Calcium 8.8 mg/dL (8.3-10.6); Calcium (Corrected) 9.4 mg/dL (8.5-10.1); Carbon Dioxide 26.7 mMol/L (20.0-31.0); Chloride 106 mMol/L (98-107); Creatinine (Component) 0.6 mg/dL (0.6-1.3); Estimated Creatinine Clearance 174.3 mL/min (>60); Globulin 2.1 gm/dL (2.3-3.5); Glucose 95 mg/dL (74-106); Magnesium 1.7 mg/dL (1.6-2.6); Osmolality,Calculated 282 (275-295); Potassium 3.4 mMol/L (3.4-5.1); Sodium 143 mMol/L (136-145); Total Protein 5.4 gm/dL (5.7-8.2); eGFR > 60 See Note
[2024-10-18] MEDS: VANCOMYCIN/WATER 1250 MG IVPB 250 ML 120 MG IV ×3 (08:55→21:25)
[2024-10-18] MEDS: Magnesium Sulfate 4 GM Ivpb 4 GM/50 ML BAG IV (08:56)
[2024-10-18] MEDS: ENOXAPARIN SOD INJ 40 MG/0.4 ML SYRINGE SC (08:56)
[2024-10-18] MEDS: levETIRAcetam INJ 100 MG/ML VIAL 5ML 1000 MG IVP ×2 (08:56→20:31)
[2024-10-18] MEDS: cefTRIAXone 1,000 MG in SODIUM CHLORIDE 0.9% (P) 50 ML 100 MG IV (08:56)
[2024-10-18 09:33] LABS: Creatine Kinase 2123 U/L (34-171)
[2024-10-18] MEDS: POTASSIUM CHLORIDE 20 mEq TABCR 40 MEQ PO (10:07)
--- NOTE | 2024-10-18 14:43 | ESPR_ITS ---
<Statement entered by Dl Lux MD - 10/19/24 13:47> I discussed with and supervised the creative services intern physician involved in the care of this patient. Patient assessment and plan was discussed with entire medicine team, including my attending. I agree with the assessment and plan as documented by creative services intern doctor. Patient care was discussed with my attending physician Dr. Sara Lux, PGY-2 Documentation for date of: 10/18/24 Subjective Subjective Interval history: 10/18/2024: No acute on evidence to report. Patient seen and examined in hospital bed remains at current baseline; neurology has been following the patient and per recommendations remained stable. Patient's creatinine kinase has been elevated; moreover, we will continue to monitor for any acute changes. Anticipating discharge within the next 24 to 48 hours. Exam Vital Signs Temp Pulse Resp BP Pulse Ox O2 Del Method O2 Flow Rate 97.4 F 89 16 118/96 H 98 Room Air 100 10/18/24 11:52 10/18/24 11:52 10/18/24 11:52 10/18/24 11:52 10/18/24 11:52 10/18/24 11:52 10/15/24 18:02 FiO2 30 10/16/24 08:00 Narrative Exam Physical exam: General: alert, mildly sedated, appears stated age HEENT: NC/AT, mucous membranes moist, mild scarring noted on left side of nose Cardiovascular: tachycardic, regular rhythm, S1/S2 present, no murmurs appreciated Pulmonary: coarse lung sounds in upper lung richardson, no rales/rhonchi/wheezes Abdominal: soft, non-tender, non-distended, no rebound/guarding, normal bowel sounds present Musculoskeletal: normal ROM, no peripheral edema Neuro: Alert oriented x 3, no focal neurologic deficits Objective Labs 10/19/24 05:06 10/19/24 05:06 Labs: Laboratory Results - last 24 hr 10/17/24 10/18/24 21:03 04:30 WBC 8.4 RBC 4.18 L Hgb 12.6 L Hct 37.4 L MCV 90 MCH 30.1 MCHC 33.7 RDW Std Deviation 52.6 H Plt Count 258 D Neut % (Auto) 49 Lymph % (Auto) 40 [place] % (Auto) 6 Eos % (Auto) 3 Baso % (Auto) 1 Neut # (Auto) 4.1 Lymph # (Auto) 3.4 [place] # (Auto) 0.5 Eos # (Auto) 0.2 Baso # (Auto) 0.1 Immature Gran # (Auto) 0.09 H Absolute Nucleated RBC 0.00 Immature Gran % 1 H Nucleated RBC % 0 Sodium 143 Potassium 3.4 Chloride 106 Carbon Dioxide 26.7 Anion Gap 10 BUN 5 L Creatinine 0.6 Estim Creat Clear Calc 174.3 eGFR > 60 BUN/Creatinine Ratio 8 L Glucose 95 Calculated Osmolality 282 Calcium 8.8 Corrected Calcium 9.4 Magnesium 1.7 Total Bilirubin 0.3 AST 25 ALT 17 Alkaline Phosphatase 63 D Total Creatine Kinase 2123 H D Total Protein 5.4 L Albumin 3.3 L Globulin 2.1 L Albumin/Globulin Ratio 1.6 Vancomycin Trough 11.1 H ABG Interpretation ABG results: 10/15/24 18:14 ABG pH 7.32 L ABG pCO2 45 ABG pO2 384 H ABG HCO3 24 ABG O2 Saturation 100 H ABG Base Excess -3 Quality Measures Quality Measures none Assessment & Plan Assessment Current Active Medications: Generic Name Dose Route Start Last Admin Trade Name Freq PRN Reason Stop Dose Admin Acetaminophen 650 mg 10/16/24 13:57 10/16/24 14:13 Acetaminophen 325 Mg Tablet PO 11/15/24 13:56 650 mg Q6HR PRN Administration pain or fever > 100 Azithromycin 250 mg 10/18/24 21:00 Azithromycin 250 Mg Tablet PO 10/20/24 20:59 HS PANCHO Dextrose 25 ml 10/15/24 20:52 Dextrose 50%-Water Inj 50 Ml Syringe IV 11/14/24 20:51 Q15MIN PRN BG 50-70 responsive npo pt Dextrose 50 ml 10/15/24 20:52 Dextrose 50%-Water Inj 50 Ml Syringe IV 11/14/24 20:51 Q15MIN PRN BG <50 OR BG <70 & pt unresponsive Enoxaparin Sodium 40 mg 10/16/24 09:00 10/18/24 08:56 Enoxaparin Sod Inj 40 Mg/0.4 Ml Syringe SC 10/30/24 08:59 40 mg QDAY PANCHO Administration Ceftriaxone Sodium 1,000 mg/ 50 mls @ 100 mls/hr 10/16/24 09:00 10/18/24 08:56 Sodium Chloride IV 10/23/24 08:59 100 mls/hr QDAY PANCHO Administration Dextrose/Sodium Chloride 1,000 mls @ 100 mls/hr 10/17/24 15:15 10/17/24 15:33 D5-Ns IV 11/16/24 15:14 100 mls/hr .Q10H PANCHO Administration Vancomycin HCl 250 mls @ 120 mls/hr 10/18/24 07:00 10/18/24 14:33 Vancomycin/Water 1250 Mg Ivpb IV 10/25/24 06:59 120 mls/hr Q8HR PANCHO Administration Protocol Levetiracetam 1,000 mg 10/15/24 21:10 10/18/24 08:56 Levetiracetam Inj 100 Mg/Ml Vial 5ml IVP 11/14/24 21:09 1,000 mg Q12HR PANCHO Administration Lorazepam 4 mg 10/15/24 22:02 Lorazepam 2 Mg/Ml Vial IVP Q10M PRN SEIZURES Pharmacy Consult 1 each 10/16/24 09:45 Vancomycin Pharmacy To Dose 1 Each Each IV 11/15/24 09:44 QDAY PRN PROTOCOL Sennosides 1 tab 10/16/24 13:38 Senna Tablet PO 11/15/24 13:37 QDAY PRN CONSTIPATION Protocol Valproic Acid 1,250 mg 10/16/24 14:00 10/18/24 05:17 Valproic Acid Syrup 250 Mg/5 Ml Udc PO 11/15/24 13:59 1,250 mg TID PANCHO Administration Plan 24-year-old male with a PMHx of seizure disorder with multiple admissions at [facility] for seizures/status epilepticus requiring intubation, RUE brachial DVT, and substance use disorder who was BIBA for status epilepticus, intubated in the ED for airway protection, and admitted to the ICU for further management. Status post extubation on 10/16 at 10 AM and downgraded to med surg. #Status epilepticus #History of seizures Patient has history of seizures since 8 months of age; moreover, he is apparently noncompliant with medications 2 mg lorazepam and 1.5 g Keppra given in ED with total of 8 mg versed in field Presented with status epilepticus and required intubation and mechanical ventilation for airway protection Weaned off sedation and extubated on 10/16 CT head negative for acute changes Home meds: clobazam 10 mg twice daily, Keppra 1 g twice daily, valproic acid 250 mg x5 TID but states he takes BID (lacosamide listed but patient does not have on him) Plan: Keppra 1 g IV twice daily Valproic acid 1.25 g p.o. 3 times daily Lorazepam 4 mg IV as needed Neurology consulted appreciate recommendations Seizure precautions #Rhabdomyolysis, secondary to status epilepticus, moderate Total CK 1340 -> received 1 L NS in ED and on LR at 75 mL/h Already given 2 L IVF (NS and LR) Patient creatinine kinase remains elevated at 2123 Plan: LR @150cc/hr - continue for now. Will continue to monitor #Polysubstance use Positive for cocaine Patient's family members, Daquan (sister) and Lance ([id number]) spoke to me away from the patient regarding his frequent hospitalizations for seizures. They are concerned that his noncompliance will lead to his eventual demise. Patient's family is requesting meetings to discuss potential placement at a clinic in [place]. Will consult outreach and education social worker for more information. Plan: dietary services manager referral #Anion gap metabolic acidosis, secondary to #Lactic acidosis Lactic acid decreased from 6.2 to 2.7, HCO3 increased from 12.7 and 24 Likely secondary to seizure activity and already given 2 L IVF (NS and LR) Plan: Treating underlying condition #Sepsis, secondary to aspiration pneumonia #History of MRSA (+) sputum culture #Leukocytosis Met 3/4 SIRS criteria: HR 135, 102.2 ?F, WBC 15.9 on admission. CXR: left base pneumonia. Remains afebrile, pro-tigist negative, WBC improving, and received IVF per sepsis protocol Plan: Ceftriaxone/azithromycin (10/15-) for community acquired pneumonia Vancomycin (10/16-) for history of MRSA positive sputum culture Blood and sputum cultures pending Hospital Management: Bowel: senna Diet: Regular Lines: PIV GI prophylaxis: not needed DVT prophylaxis: enoxaparin 40 mg SC daily Disposition: ICU to med surg Code: Full Patient seen and assessed with attending Dr. Ruiz and senior resident Dr. Maci De Luna, PGY-1 Attending Provider Attestation/Addendum I attest that I was physically present for the evaluation, physical examination, lab and imaging review of the patient with the residents. I discussed the case with the residents and agree with the findings and plans of care as documented above. Moses Ruiz MD
[2024-10-18] MEDS: RINGERS LACTATED 1000 ML 1,000 ML 150 ML IV (17:51)
[2024-10-18] MEDS: AZITHROMYCIN 250 MG TABLET PO (20:31)
[2024-10-18] MEDS: LORazepam 2 MG/ML VIAL 4 MG IVP (21:40)
--- NOTE | 2024-10-18 21:40 | PC.NURSE ---
Addendum entered by Abebe Atkinson RN 10/19/24 07:00: 2mg Lorazepam given IVP out of 4mg order,MD notified. Original Note: Received a call from the tele sitter that the patient was exhibiting unusual behavior and flailing his arm and legs. Upon arrival, the patient had a blank stare with altered mental status and was observed experiencing a tonic-clinic seizure. PRN lorazepam 4 mg IVP administered as per MD order. The patient became receptive, as evidenced by the AAOx.4 and relaxed muscle tone. Seizure duration: Approximately [address] Singh made aware.
--- NOTE | 2024-10-18 21:43 | PD.VPROG1 ---
Telemedicine visit statement This visit was conducted with the use of phone was obtained on 10/18/24 at 2143. Documentation for date of: 10/18/24 Subjective Subjective Interval history: Patient is in MedSurg, he just recently had a seizure lasting for 5 to 6 minutes, described as generalized tonic-clonic seizures with loss of consciousness. He was given Ativan. Virtual exam Vital Signs Temp Pulse Resp BP Pulse Ox O2 Del Method O2 Flow Rate 97.7 F 75 17 124/80 95 Room Air 100 10/18/24 20:00 10/18/24 20:00 10/18/24 20:00 10/18/24 20:00 10/18/24 20:00 10/18/24 20:00 10/15/24 18:02 FiO2 30 10/16/24 08:00 Objective Labs 10/18/24 04:30 10/18/24 04:30 Labs: Laboratory Results - last 24 hr 10/17/24 10/18/24 21:03 04:30 WBC 8.4 RBC 4.18 L Hgb 12.6 L Hct 37.4 L MCV 90 MCH 30.1 MCHC 33.7 RDW Std Deviation 52.6 H Plt Count 258 D Neut % (Auto) 49 Lymph % (Auto) 40 [place] % (Auto) 6 Eos % (Auto) 3 Baso % (Auto) 1 Neut # (Auto) 4.1 Lymph # (Auto) 3.4 [place] # (Auto) 0.5 Eos # (Auto) 0.2 Baso # (Auto) 0.1 Immature Gran # (Auto) 0.09 H Absolute Nucleated RBC 0.00 Immature Gran % 1 H Nucleated RBC % 0 Sodium 143 Potassium 3.4 Chloride 106 Carbon Dioxide 26.7 Anion Gap 10 BUN 5 L Creatinine 0.6 Estim Creat Clear Calc 174.3 eGFR > 60 BUN/Creatinine Ratio 8 L Glucose 95 Calculated Osmolality 282 Calcium 8.8 Corrected Calcium 9.4 Magnesium 1.7 Total Bilirubin 0.3 AST 25 ALT 17 Alkaline Phosphatase 63 D Total Creatine Kinase 2123 H D Total Protein 5.4 L Albumin 3.3 L Globulin 2.1 L Albumin/Globulin Ratio 1.6 Vancomycin Trough 11.1 H ABG Interpretation ABG results: 10/15/24 18:14 ABG pH 7.32 L ABG pCO2 45 ABG pO2 384 H ABG HCO3 24 ABG O2 Saturation 100 H ABG Base Excess -3 Assessment & Plan Problem List (1) Seizure disorder: Status: Chronic Assessment and plan: Continue with Depakote and clobazam Increase the dose of Keppra to 1500 mg twice a day continue to monitor for any breakthrough seizures and Ativan for breakthrough. (2) Status epilepticus: Status: Resolved (3) Pneumonia: Status: Acute Assessment and plan: Getting treated with vancomycin and Zithromax
[2024-10-19] VITALS: BP 108/71; PULSE 84; PULSE 98; RESP 18; TEMP 36.1; O2SAT 94
[2024-10-19] MEDS: RINGERS LACTATED 1000 ML 1,000 ML 150 ML IV ×2 (00:53→08:06)
[2024-10-19 03:59] VITALS: PULSE 62
[2024-10-19 04:00] VITALS: BP 97/65; PULSE 88; RESP 19; TEMP 36.2; O2SAT 96
[2024-10-19] MEDS: VALPROIC ACID SYRUP 250 MG/5 ML UDC 1250 MG PO ×2 (05:03→13:05)
[2024-10-19] MEDS: VANCOMYCIN/WATER 1250 MG IVPB 250 ML 120 MG IV (05:04)
[2024-10-19 05:27] LABS: Basophils # (Auto) 0.1 Thou/mm3 (0.0-0.2); Basophils % (Auto) 1 % (0-2.5); Eosinophils # (Auto) 0.2 Thou/mm3 (0.0-0.5); Eosinophils % (Auto) 2 % (0-10); Hematocrit 45.8 % (41.0-53.0); Immature Granulocytes % (Auto) 2 % (0-0); Lymphocytes # (Auto) 3.5 Thou/mm3 (1.0-4.8); Lymphocytes % (Auto) 42 % (10-50); Mean Corpuscular HGB Conc 32.8 g/dl (31.0-37.0); Mean Corpuscular Hemoglobin 29.5 pg (25.0-35.0); Mean Corpuscular Volume 90 fL (80-100); Monocytes # (Auto) 0.5 Thou/mm3 (0.0-0.8); Monocytes % (Auto) 6 % (0-12); Neutrophils # (Auto) 3.9 Thou/mm3 (1.8-7.7); Neutrophils % (Auto) 47 % (37-80); Nucleated Red Blood Cell % 0 /100 WBC (0); Platelet Count 278 Thou/mm3 (140-440); Red Blood Count 5.08 Miln/mm3 (4.50-5.90); White Blood Count 8.4 Thou/mm3 (3.8-10.6)
[2024-10-19 06:00] VITALS: BMI 29.2
[2024-10-19 06:05] LABS: Alanine Aminotransferase 19 U/L (10-49); Albumin, Serum 4.1 gm/dL (3.5-5.0); Albumin/Globulin Ratio 1.4 (1.2-2.2); Alkaline Phosphatase 83 U/L (46-116); Anion Gap 14 (7-16); Aspartate Amino Transferase 25 U/L (0-34); BUN/Creatinine Ratio 13 Ratio (12-20); Bilirubin,Total 0.3 mg/dL (0.3-1.2); Blood Urea Nitrogen 10 mg/dL (9-23); Calcium 9.6 mg/dL (8.3-10.6); Calcium (Corrected) 9.6 mg/dL (8.5-10.1); Carbon Dioxide 24.4 mMol/L (20.0-31.0); Chloride 104 mMol/L (98-107); Creatine Kinase 979 U/L (34-171); Creatinine (Component) 0.8 mg/dL (0.6-1.3); Estimated Creatinine Clearance 144.1 mL/min (>60); Globulin 2.9 gm/dL (2.3-3.5); Glucose 84 mg/dL (74-106); Osmolality,Calculated 281 (275-295); Potassium 3.9 mMol/L (3.4-5.1); Sodium 142 mMol/L (136-145); Vancomycin,Trough 12.5 mcg/mL (5.0-10.0); eGFR > 60 See Note
[2024-10-19 08:00] VITALS: BP 117/86; PULSE 71; PULSE 95; RESP 20; TEMP 36.2; O2SAT 97
[2024-10-19] MEDS: levETIRAcetam INJ 100 MG/ML VIAL 5ML 1500 MG IVP (08:05)
[2024-10-19] MEDS: cefTRIAXone 1,000 MG in SODIUM CHLORIDE 0.9% (P) 50 ML 100 MG IV (08:06)
[2024-10-19] MEDS: ENOXAPARIN SOD INJ 40 MG/0.4 ML SYRINGE SC (08:07)
--- NOTE | 2024-10-19 11:34 | ESDS_ITS ---
<Statement entered by Cecelia Tom DO - 10/20/24 08:10> I, Cecelia Tom DO, attest that I was physically present for the zavala portions of the service and evaluated the patient with the resident and I reviewed and discussed the case with the resident and agree with the resident's findings and plans of care as documented above <Statement entered by Dl Lux MD - 10/19/24 16:38> I discussed with and supervised the mechanical intern physician involved in the care of this patient. Patient assessment and plan was discussed with entire medicine team, including my attending. I agree with the assessment and plan as documented by mechanical intern doctor. Patient care was discussed with my attending physician Dr. Negro Lux, PGY-2 Planned Discharge Date 10/19/24 DS: Providers Provider Date of admission: 10/15/24 20:52 Primary care physician: Physician Jenifer Primary/Family Admitting Provider: Mat Thapa MD Attending Provider on Admission: Mat Thapa MD Consults: 10/15/24 21:37 Consult to Neurology / Tele-Neurology Routine Comment: Seizures Consulting Provider: Raul Singh Attending Provider on DC: Wiley De Luna MD Discharging Provider: Wiley De Luna MD DS: Diagnosis Problem List Completed Was Problem List Reviewed/Reconciled?: Yes Hospital Course Hospital Course Hospital course: 24-year-old male with previous medical history of seizure disorder with multiple admissions, 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, presented to the ED on 10/15 with status epilepticus with seizure lasting 5 to 10 minutes. Patient was admitted to ICU and required intubation for airway protection along with IV sedation with fentanyl and propofol. During admission, patient met 3 out of 4 SIRS criteria with fever of 102.2 Fahrenheit, leukocytosis, tachycardia and imaging findings included left base pneumonia. Dr Singh, neurology, was consulted and followed the patient throughout hospitalization. Patient was started on IV antibiotics for suspected aspiration pneumonia with ceftriaxone, azithromycin and vancomycin was added since the patient had been MRSA positive sputum prior admission. Patient ultimately improved and was downgraded to hospitalist team; moreover, patient did have breakthrough seizure on 10/19 and was given 2 mg IV Ativan. Neurology recommendation was to increase Keppra dosage from 1000 mg twice daily to 1500 mg twice daily. Patient will be discharged stable with the following strict instructions. Please take doxycycline (antibiotic) for one more day as directed for sputum positive for Klebsiella pneumonia in sputum Increased Keppra to 1500mg by mouth twice a day Stop taking Fluconazole 400mg tablet as your Cocci studies were negative from [facility] confirmatory testing site Continue taking all other medications as prescribed Please follow-up with your neurologist in [place] this week Please follow-up with your PCP within 1-2 weeks of discharge Avoid all illicit drug use as these substances can increase your risk of seizures and other medical emergencies If you develop new or worsening fever/chills, seizures, chest pain or shortness of breath - please come back to the ED immediately. Hospital Diagnosis: #Status epilepticus #History of seizures #Rhabdomyolysis, secondary to status epilepticus, moderate, resolved #Polysubstance use #Anion gap metabolic acidosis, secondary to #Lactic acidosis, resolved #Sepsis, secondary to aspiration pneumonia, resolved #History of MRSA (+) sputum culture Wiley De Luna, PGY-1 Status at Discharge Overall status at discharge: patient is progressing back to baseline Time Spent with Patient Time attestation: Total time spent providing and/or coordinating discharge services: 45 minutes Time spent: Greater than 30 minutes Exam Vital Signs Temp Pulse Resp BP Pulse Ox O2 Del Method O2 Flow Rate 97.2 F 88 19 97/65 96 Room Air 100 10/19/24 04:00 10/19/24 04:00 10/19/24 04:00 10/19/24 04:00 10/19/24 04:00 10/19/24 04:00 10/15/24 18:02 FiO2 30 10/16/24 08:00 Narrative Exam Physical exam: General: alert, answering questions appropriately, appears stated age HEENT: NC/AT, mucous membranes moist, mild scarring noted on left side of nose Cardiovascular: tachycardic, regular rhythm, S1/S2 present, no murmurs appreciated Pulmonary: coarse lung sounds in upper lung richardson, no rales/rhonchi/wheezes Abdominal: soft, non-tender, non-distended, no rebound/guarding, normal bowel sounds present Musculoskeletal: normal ROM, no peripheral edema Neuro: Alert oriented x 3, no focal neurologic deficits Discharge Plan Plan Patient Disposition: HOME (Self Care) Disposition Comment: Stable at signout Patient condition on transfer: Stable Care Plan Goals: Please take doxycycline (antibiotic) for one more day as directed for sputum positive for Klebsiella pneumonia in sputum Increased Keppra to 1500mg by mouth twice a day Stop taking Fluconazole 400mg tablet as your Cocci studies were negative from [facility] confirmatory testing site Continue taking all other medications as prescribed Please follow-up with your neurologist in [place] this week Please follow-up with your PCP within 1-2 weeks of discharge Avoid all illicit drug use as these substances can increase your risk of seizures and other medical emergencies If you develop new or worsening fever/chills, seizures, chest pain or shortness of breath - please come back to the ED immediately. Prescriptions/Referrals Prescriptions/Med Rec: New doxycycline monohydrate 100 mg capsule 100 mg PO BID 1 Days Qty: 2 0RF levetiracetam [Keppra] 1,000 mg tablet 1,500 mg PO BID 30 Days Qty: 90 0RF Continued clobazam 10 mg tablet 10 mg PO BID Patient Comments: TAKE 1 TABLET BY MOUTH TWICE A DAY valproic acid 250 mg capsule 1,250 mg PO TID Patient Comments: TAKE 5 CAPSULE BY ORAL ROUTE EVERY 12 HOURS Discontinued fluconazole 200 mg tablet 400 mg PO DAILY Patient Comments: TAKE 2 TABLETS BY MOUTH EVERY DAY levetiracetam 1,000 mg tablet 1,000 mg PO Q12H Patient Comments: TAKE 1 TABLET BY MOUTH EVERY 12 HOURS Referrals: No Primary/Family,Physician [Primary Care Provider] - Patient/Caregiver Discharge Instructions Education Materials: Cocaine: Getting Help, Addiction Recovery Counseling, Seizures and Epilepsy Print Language: Georgian Stand Alone Forms: Vee Award Info., Patient Portal Info Letter Discharge Order Discharge Orders: Discharge (Routine); Ordered 10/19/24 Ordered By: Wiley De Luna Quality Discharge Quality Measures VTE prophylaxis
[2024-10-19 11:45] VITALS: BP 125/84; PULSE 94; RESP 16; TEMP 36.9; O2SAT 96
[2024-10-19 12:00] VITALS: PULSE 75
--- NOTE | 2024-10-19 21:48 | ESPR_ITS ---
Documentation for date of: 10/19/24 Subjective Subjective Interval history: Mr. Evangelista was seen in [facility] today with family at the bedside. He is back to his baseline, no seizures reported since admission Exam - Neurology Vital Signs Temp Pulse Resp BP Pulse Ox O2 Del Method O2 Flow Rate 98.5 F 75 16 125/84 96 Room Air 100 10/19/24 11:45 10/19/24 12:00 10/19/24 11:45 10/19/24 11:45 10/19/24 11:45 10/19/24 11:45 10/15/24 18:02 FiO2 30 10/16/24 08:00 Narrative Exam GENERAL APPEARANCE: Well hydrated, well-nourished in no acute distress. HEENT: Normocephalic, atraumatic, extraocular movements intact. Pupils: Equal reacting to light and accommodation NECK: Supple, no JVD or bruits. CARDIOVASULAR: Heart: S1, S2 heard, regular without S3-S4 or murmur no rubs or gallops. LUNGS/CHEST: Clear to auscultation bilaterally. No rails, rhonchi, or wheezing. Normal inspection. ABDOMEN: Soft, nontender, with normal bowel sounds. No pulsatile masses. No rebound, rigidity, or guarding. Normal inspection and palpation. EXTREMITIES: Normal inspection and palpation. No edema, clubbing or cyanosis. SKIN: Warm and dry without rashes. Normal inspection. MUSCULOSKELETAL: No cervical, thoracic, lumbar or midline bony tenderness. Normal inspection. NEURO: Alert, awake and oriented x3. Cranial nerves: II through XII grossly intact. Speech and language: Normal with no dysarthria or dysphasia. Motor system: Tone and bulk: Normal: Strength: 5 out of 5 in all 4 extremities; No pronator drift noted. Deep tendon reflexes: 2+ bilaterally symmetrical. Plantar reflex: Downgoing bilaterally. Sensory system: Intact to all modalities of sensation bilaterally. Coordination: Intact to [id number] and rgcz-cvoz-vzzy test bilaterally. No ataxia, no dysmetria, or dysdiadochokinesia noted. No intention tremors noted. Gait: Normal. Toe, heel, tandem walk all are normal. Romberg: Negative. No signs of meningeal irritation noted. PSYCHIATRIC: Normal mood and affect. Objective Labs 10/19/24 05:06 10/19/24 05:06 Labs: Laboratory Results - last 24 hr 10/19/24 05:06 WBC 8.4 RBC 5.08 Hgb 15.0 D Hct 45.8 MCV 90 MCH 29.5 MCHC 32.8 RDW Std Deviation 52.0 H Plt Count 278 Neut % (Auto) 47 Lymph % (Auto) 42 [place] % (Auto) 6 Eos % (Auto) 2 Baso % (Auto) 1 Neut # (Auto) 3.9 Lymph # (Auto) 3.5 [place] # (Auto) 0.5 Eos # (Auto) 0.2 Baso # (Auto) 0.1 Immature Gran # (Auto) 0.20 H Absolute Nucleated RBC 0.00 Immature Gran % 2 H Nucleated RBC % 0 Sodium 142 Potassium 3.9 D Chloride 104 Carbon Dioxide 24.4 Anion Gap 14 BUN 10 Creatinine 0.8 Estim Creat Clear Calc 144.1 eGFR > 60 BUN/Creatinine Ratio 13 Glucose 84 Calculated Osmolality 281 Calcium 9.6 Corrected Calcium 9.6 Total Bilirubin 0.3 AST 25 ALT 19 Alkaline Phosphatase 83 D Total Creatine Kinase 979 H D Total Protein 7.0 Albumin 4.1 D Globulin 2.9 Albumin/Globulin Ratio 1.4 Vancomycin Trough 12.5 H ABG Interpretation ABG results: 10/15/24 18:14 ABG pH 7.32 L ABG pCO2 45 ABG pO2 384 H ABG HCO3 24 ABG O2 Saturation 100 H ABG Base Excess -3 Assessment & Plan Assessment and plan (1) Seizure disorder: Status: Chronic Assessment and plan: Continue with Depakote and clobazam increased dose of Keppra Stable for discharge home (2) Status epilepticus: Status: Resolved (3) Pneumonia: Status: Acute
== END 2024-10-19 13:00 | disposition home or self-care (01) | DRG 720 ==
LOC: SERX 20:45 → SERHOLD 21:19 → S2SX 23:10 → S3SX 10-18 07:56
PROVIDERS: Emergency Medicine; Internal Medicine; Student in an Organized Health Care Education/Training Program; Admitting Provider Internal Medicine; Emergency Provider Emergency Medicine; Visit Provider Internal Medicine
DX: A41.50 Gram-negative sepsis, unspecified (principal); J15.0 Pneumonia due to Klebsiella pneumoniae; J69.0 Pneumonitis due to inhalation of food and vomit; G93.41 Metabolic encephalopathy; G40.901 Epilepsy, unspecified, not intractable, with status epilepticus; G83.9 Paralytic syndrome, unspecified; E87.20 Acidosis, unspecified; E86.0 Dehydration; M62.82 Rhabdomyolysis; F14.90 Cocaine use, unspecified, uncomplicated; Z86.718 Personal history of other venous thrombosis and embolism; Z79.01 Long term (current) use of anticoagulants; Z79.899 Other long term (current) drug therapy; Z91.148 Patient's other noncompliance with medication regimen for other reason; Z86.14 Personal history of Methicillin resistant Staphylococcus aureus infection
CPT/HCPCS: 36415; 36600; 70450; 71045; 80053; 80164; 80202; 80307; 80320; 80329; 81001; 82550; 82803; 83605; 83735; 83880; 84145; 84443; 84484; 85025; 85652; 86140; 87040; 87077; 87081; 87186; 87205; 87400; 87811; 93005; 94002; 94003; 96361; 96365; 96367; 96374; 96375; 99291; C9254; J0131; J0456; J0696; J1650; J1885; J1953; J2060; J2470; J2704; J3372; J3475; J3490; J7030; J7042; J7050; J7120; A9270; G0480

== ENCOUNTER 2024-10-27 10:22 | Emergency (ER) | payer MEDICAID, SELFPAY ==
[2024-10-27] VITALS (8 sets, daily range): BP systolic 109–120; BP diastolic 65–90; PULSE 100–158; RESP 16–92; TEMP 37.1–38.6; O2SAT 92–100; BMI 27.4
[2024-10-27] MEDS: levETIRAcetam INJ 100 MG/ML VIAL 5ML 1000 MG IVP (10:33)
[2024-10-27] MEDS: LORazepam 2 MG/ML VIAL IVP (10:33)
--- NOTE | 2024-10-27 10:34 | EDNOTE_ITS ---
ED Seizures RME/HPI General Chief Complaint: Seizure Stated Complaint: SIEZURE Time Seen by Provider: 10/27/24 10:35 Arrival date/time: 10/27/24 10:24 RME / HPI RME / HPI Narrative: 24 year old male with history of seizures, multiple admissions for seizures and status epilepticus, right upper extremity DVT, polysubstance use presents to the ED BIBA from home for seizure today. Per medics, on their arrival patient was seizing and per family had been seizing for 20 minutes. Patient was given 4mg Versed IN and stopped seizing. However, en route became combative and again began seizing. Was given an additional 4mg Versed IN. Prehospital BS 216. On arrival to ED patient is postictal and combative, unable to provide any additional history. Related Data Home Medications ?Medication ?Instructions ?Recorded ?Confirmed valproic acid 250 mg capsule 1,250 mg PO Q12H 10/15/24 10/27/24 Previous Rx's ?Medication ?Instructions ?Recorded levetiracetam 1,000 mg tablet 1,500 mg (1.5 x 1,000 mg ) PO BID 1 10/19/24 (Keppra) month #90 tabs Allergies Allergy/AdvReac Type Severity Reaction Status Date / Time No Known Allergies Allergy Verified 07/23/24 09:34 Review of Systems Review of Systems ROS Unobtainable: unobtainable due to mental status Past Medical History Past Medical History NEUROLOGIC: Positive Neurological Disorders, Seizures and Epilepsy Family History FAMILY HISTORY: Negative Family Cardiac Disorders Social History SMOKING STATUS: Unknown if ever smoked SUBSTANCE USE: unknown ED Exam Narrative Physical exam: Patient is postictal initially holding still but then becomes combative and agitated as were trying to get IVs and and we eventually gave him Ativan to control things. Restraints were placed once we got him sedated Physical Exam:? General:?? ? Patient is brought in by EMS with obtundation. But arouses to painful stimulation. The vital signs were reviewed. The patient is arousable with verbal and painful stimuli but immediately falls back to sleep and becomes inattentive. Patient had a spontaneous respirations that required no assistance at this time . O2 sats are adequate at the present time. Head & Scalp:?? ? Normocephalic, atraumatic. Face:?? ? Appears normal and is without lesions, deformity. No apparent trauma Ears:??? Left external pinna appears normal. Right external pinna appears normal. Eyes:?? ? The sclera is anicteric. The Left and Right Orbit/Lid/Conjunctiva appears normal without swelling, discoloration or injection. Nose: ? ? The nose is without deformity, discharge or tenderness; Throat: ? ? Appears normal.? The mucous membranes are pink and moist without exudates, redness or mass seen.? The tongue appears normal. Neck: The neck is supple and no apparent mass or adenopathy. Chest: The chest wall is normal in size and symmetry and has no chest wall tenderness or crepitus. The patient displays adequate ventilator effort without retractions, accessory muscle use. Patient has adequate air movement bilaterally with no wheezes and no rales. ? Cardiovascular: Regular rate and rhythm; No murmurs, rubs, or gallops; Gastrointestinal: The abdomen appears normal.? No obvious hernias or mass. The abdomen is soft and benign, non-distended, with no pain, no guarding and no rebound tenderness.? Bowel sounds are present and normal sounding.? No CVA tenderness. Genitourinary: No apparent injury or trauma. Back/Spine: No apparent injury or trauma Extremities/Musculoskeletal/lymphatic:? ? ? The bilateral upper and lower extremities are warm. There is no evidence of arterial? insufficiency. There is no evidence of venous insufficiency/edema. The patient is obtunded but displays no obvious focal deficits and spontaneously moves bilateral upper and lower extremities with painful or verbal stimuli There is no apparent, injury or trauma. Skin:? The skin is warm, dry and intact.? No rashes. No petechia. No purpura. No abn ormal bruising.? The color is appropriate with no cyanosis. Mental status/Psychiatric: Mental status is obtunded no further evaluation can be made Neurological:? The patient is obtunded. The pupils are equal and reactive to light No obvious focal deficits. Patient responds to painful and verbal stimuli. Course Quality Measures none Orders Category Date Time Status 24 HR Medical Restraints Q2HR Care 10/27/24 10:49 Completed Bedside COVID-19 Antigen Test NOW Care 10/27/24 11:09 Completed Bedside Influenza A&B Antigen Test NOW Care 10/27/24 11:10 Completed In and Out Catheter X1 Care 10/27/24 11:09 Completed Miscellaneous Nursing Order NOW Care 10/27/24 10:35 Completed Miscellaneous Nursing Order X1 Care 10/27/24 12:57 Completed XR chest 1V portable Stat Exams 10/27/24 13:16 Completed Blood Culture (Lab) Stat Lab 10/27/24 11:06 Received CBC Stat Lab 10/27/24 11:06 Completed Comprehensive Metabolic Panel Stat Lab 10/27/24 11:06 Completed Drug Screen,Urine Stat Lab 10/27/24 11:00 Completed Lactate (Lactic Acid) Stat Lab 10/27/24 11:06 Completed Lactic Acid [Lactate (Lactic Acid)] Stat Lab 10/27/24 14:51 Completed Lactic Acid, 3 HR Stat Lab 10/27/24 16:04 Completed Lipase Stat Lab 10/27/24 13:32 Completed PT [Prothrombin Time with INR] Stat Lab 10/27/24 13:32 Completed Procalcitonin Stat Lab 10/27/24 13:32 Completed Urinalysis Stat Lab 10/27/24 11:00 Completed Urinalysis, C/S if Indicated Stat Lab 10/27/24 11:00 Completed VBG [Venous Blood Gas] Stat Lab 10/27/24 13:32 Completed Venous Blood Gas Stat Lab 10/27/24 11:06 Completed LORazepam [Ativan Inj] Med 10/27/24 10:26 Discontinued 2 mg IVP X1 ONE Sodium Chloride 0.9% 1000 ml [Ns] 1,000 ml Med 10/27/24 11:39 Discontinued IV 999 mls/hr Sodium Chloride 0.9% 1000 ml [Ns] 2,000 ml Med 10/27/24 14:40 Discontinued IV 999 mls/hr levETIRAcetam INJ [Keppra Inj] Med 10/27/24 10:26 Discontinued 1,000 mg IVP X1 ONE Vital Signs Vital signs: Vital Signs Temperature 101 F H 10/27/24 10:38 Pulse Rate 146 H 10/27/24 10:38 Respiratory Rate 18 10/27/24 10:38 Blood Pressure 114/71 10/27/24 10:38 Pulse Oximetry (%) 92 L 10/27/24 10:38 Oxygen Delivery Method Room Air 10/27/24 10:38 Oxygen Flow Rate 2 10/27/24 10:38 Pulse ox is 92% on room air which is low. Seizure MDM Narrative MDM Narrative:: I, Jovana Sandoval, am scribing for and in the presence of Dr. Noel. Patient is a gentleman who comes in I guess frequently for tonic-clonic seizures who was given 8 mg of intranasal Versed prior to arrival by EMS his seizures seem to stop by the time he arrived but he was quite postictal and obtunded when he arrived. Then he became agitated where we had to give him 2 of Ativan IV and 1000 of Keppra and no further seizure activity was noted. 3040 minutes later he is tachycardic already and his rectal temperature was positive so a septic alert was called. The following labs were then done white count came back at 15,000 PT/INR within normal is venous blood gas 7.41 note this was done after arrival sodium 142 potassium 4.0 carbadox is 12.7 soon after arrival. Anion gap was 25. Presumed that is due to the seizure. Lactic acid elevated 14.5 again presumed due to the seizure. Urinalysis came back negative urine drug screen is positive for benzos most likely given from us. Chest x-ray is read as having no infiltrates no effusion normal heart. Patient has been reevaluated by myself multiple times for altered mental status postictal and concerns for sepsis though this is most likely all related to his seizures which were multiple prior to arrival. Note this patient is known to be noncompliant. Because of the most likely cause of the elevated white count and lactic acid and low CO2's are due to seizure activity we did not give antibiotics. And I reevaluated him at approximately 1300 hrs. patient was alert and talking although little sleepy denied having any pain anywhere stated he was not sick prior to the seizures. He actually got up and use the bedside commode. Reevaluation at 1431 hrs. the patient is alert awake talking and his [id number]'s in the room and the family is worried about him using drugs patient admits to using cocaine and meth last week but his drug screen today is essentially negative other than benzos which he probably got from us. Patient's tachycardia rate 131 while he sitting still with no clear etiology for this. Other than fever. Recheck a lactic acid and chemistries and reevaluate the patient other couple hours. Be still spiking a fever and lactic acid is getting worse and obviously going to treat with antibiotics but he looks 1000 times better at this time clinically. Patient got multiple liters of fluid has normalized to 0.9 he is alert awake smiling he is now walking the hallways he is much improved note the [id number] reports patient had 3 or 4 seizures the night before and the 4 seizures that she witnessed prior to EMS arriving. Patient admits to being noncompliant and knows that he is making bad choices. He also admitted to using meth and cocaine last week but not this past week. Patient has a bottle of Keppra at his bedside he knows he should be taking it. Needs a follow-up with his doctor he is aware of that. This patient was listed as a sepsis patient as it was febrile post ictal all related to seizures. And now things have normalized and he has no pains no symptoms and is ready to go home. Besides fluids patient did not require any antibiotics. As no source is present or apparent. Patient was advised to return. Patient data External records reviewed:: [facility] previous records (I reviewed ED visit on 10/15/2024 through 10/19/2024) and EMS form Clinical information provided by:: EMS Social determinants that could affect healthcare access:: substance use Patient has the following chronic illnesses:: seizures, multiple admissions for seizures and status epilepticus, right upper extremity DVT, polysubstance use How is presenting disease/condition affected by chronic disease/condition?: exacerbated by Evaluation data The following diagnostics were reviewed and interpreted by me:: lab results Lab and/or radiology exams considered but not ordered:: None Interpretation Summary: Ordering Physician: Frantz Noel MD Date of Service: 10/27/24 Procedure(s): XR chest 1V portable Accession Number(s): [id number] cc: Esteban Encarnacion MD; Frantz Noel MD; Javan Winters MD~ Examination: AP chest single view Technique one AP portable upright chest single view Exam date and time: October 27, 2024 1345 hrs. Comparison October 15, 2024 Indications: History hypoxic respiratory failure postintubation October 15, 2024 Findings: The patient has been extubated Normal heart size The lungs are clear Impression: No pneumonia or pulmonary edema Dictated By: Javan Winters MD Signed By: <Electronically signed by Javan Winters MD in OV> 10/27/24 1411 Medications / Prescriptions Medications or Prescriptions considered but not ordered:: None Medication administrations:: Medication Administration History Discontinued Medications Sodium Chloride (Ns) 1,000 mls @ 999 mls/hr IV .Q1H1M ONE Stop: 10/27/24 12:39 Last Infusion: 10/27/24 14:18 Dose: Infused Documented By: Admin: 10/27/24 11:45 Dose: 999 mls/hr Documented By: JED Sodium Chloride (Ns) 2,000 mls @ 999 mls/hr IV .Q2H1M ONE Stop: 10/27/24 16:40 Last Infusion: 10/27/24 17:26 Dose: Infused Documented By: Admin: 10/27/24 15:09 Dose: 999 mls/hr Documented By: BD Levetiracetam (Levetiracetam Inj 100 Mg/Ml Vial 5ml) 1,000 mg IVP X1 ONE Stop: 10/27/24 10:27 Last Admin: 10/27/24 10:33 Dose: 1,000 mg Documented By: XENIA Lorazepam (Lorazepam 2 Mg/Ml Vial) 2 mg IVP X1 ONE Stop: 10/27/24 10:27 Last Admin: 10/27/24 10:33 Dose: 2 mg Documented By: XENIA See above Consultations Consultation(s) initiated? (list below): No Diagnosis Seizure Differential Diagnosis: intractable seizure disorder, febrile convulsion, focal seizure, generalized seizure, epileptic seizure and status epilepticus Most likely diagnosis given after review of the tests above:: Status epilepticus Non-compliance Fever Admission Indicated Admission indicated?: not indicated Admission Request Was there a request for admission?: No Disposition Plan Disposition Plan: Discharge Discharge Attestation Discharge Attestation: The patient and all family members were given an opportunity to ask questions and understood the discharge instructions. Discharge instructions specifically effects, indications for sooner follow up or return to the emergency department, and the expected course of current diagnosis. Patient condition: Stable Critical Care Time Critical Care Time Critical Care Time: Yes Total Critical Care Time (min.): 75 Attestation: The high probability of sudden, clinically significant deterioration in the patient's condition required the highest level of my preparedness to intervene urgently. The services I provided to this patient were to treat and/or prevent clinically significant deterioration. Services included the following: chart data review, reviewing nursing notes and/or old charts, documentation time, search engine optimization consultant collaboration regarding findings and treatment options, medication orders and management, direct patient care, vital sign assessments and ordering, interpreting and reviewing diagnostic studies and lab tests. Aggregate critical care time includes only time during which I was engaged in work directly related to the patient's care, as described above, whether at bedside or elsewhere in the Emergency Department. It did not include time spent performing other reported procedures or the services of residents, students, nurses or physician assistants. Discharge Plan Plan Patient Disposition: HOME (Self Care) Prescriptions/Referrals Prescriptions/Med Rec: No Action valproic acid 250 mg capsule 1,250 mg PO Q12H Patient Comments: TAKE 5 CAPSULE BY ORAL ROUTE EVERY 12 HOURS levetiracetam [Keppra] 1,000 mg tablet 1,500 mg PO BID 30 Days Qty: 90 0RF Referrals: Esteban Encarnacion MD [Primary Care Provider] - In 1 week Problem List Clinical Impression: Status epilepticus, Non-compliance, Fever Patient/Caregiver Discharge Instructions Additional Instructions: As we discussed please take your seizure medicines medications exactly as prescribed to avoid the multiple seizures that brought you to the emergency room today that caused a fever tachycardia and restraints as you were combative post ictal/seizure. I am glad you are doing much better. Please take your medicines please do not use drugs. Return if you are getting worse. Print Language: Kiswahili
--- NOTE | 2024-10-27 10:52 | PC.NURSE ---
PT ARRIVED AT 1022 POSTICTAL S/P SEIZURE FOR 20 MINUTES AT HOME AND THEN ANOTHER ENROUTE TO THE HOSPITAL. PT MOVED TO [facility] AND IMMEDIATELY STARTED FIGHTING WITH STAFF, NURSE ATTEMPTING TO PUT PUBLISHING DIRECTOR AND IVL IN. 8 PEOPLE NEEDED TO HOLD PT ON [facility] FOR SAFETY OF PT AND STAFF. IVL STARTED AND MEDS GIVEN, RESTRAINTS APPLIED FOR PT AND STAFF SAFETY. DR. EMMANUEL IN ROOM WHILE PT FIGHTING WITH STAFF AND MEDICATION ORDERS GIVEN
--- NOTE | 2024-10-27 11:00 | PC.NURSE ---
delay in calling sepsis alert due to being unable to get vs's and rectal temp until pt no longer fighting staff. Dr. rubalcava in to see pt and order tests before vs's were done
[2024-10-27 11:12] LABS: Collection Type, Urine Catheter
[2024-10-27 11:19] LABS: Base Excess, Venous -10 (-3-3); O2 Saturation, Venous 97 % (96-97); PCO2, Venous 23 mmHg (36-56); PO2, Venous 84 mmHg (15-58); pH, Venous 7.36 (7.33-7.66)
[2024-10-27 11:19] LABS: Bilirubin,Urine Negative (Negative); Blood,Urine 1+ (Negative); Clarity,Urine Clear (Clear/Hazy); Color,Urine Lt-Yellow (Lt Yel-Yel); Culture Indicated,Urine Not Indicated; Glucose, Urine Negative (Negative); Ketones,Urine 1+ (Negative); Leukocyte Esterase,Urine Negative (Negative); Nitrite,Urine Negative (Negative); PH,Urine 5.5 (5.0-7.0); Protein,Urine 2+ (Neg - Trace); RBC,Urine < 1 /hpf (0-3); Specific Gravity,Urine 1.018 (1.001-1.035); Squamous Epithelial Cell,Urine < 1 /hpf (0-5); Urobilinogen,Urine Negative mg/dL (0.0-1.0); WBC,Urine 1 /hpf (0-5)
[2024-10-27 11:25] LABS: Basophils # (Auto) 0.1 Thou/mm3 (0.0-0.2); Basophils % (Auto) 1 % (0-2.5); Eosinophils # (Auto) 0.1 Thou/mm3 (0.0-0.5); Eosinophils % (Auto) 0 % (0-10); Hematocrit 42.7 % (41.0-53.0); Hemoglobin 14.4 g/dL (13.5-16.0); Immature Granulocytes % (Auto) 5 % (0-0); Immature Granulocytes Auto 0.76 Thou/mm3 (0.00-0.00); Lymphocytes # (Auto) 2.3 Thou/mm3 (1.0-4.8); Lymphocytes % (Auto) 15 % (10-50); Mean Corpuscular HGB Conc 33.7 g/dl (31.0-37.0); Mean Corpuscular Hemoglobin 30.1 pg (25.0-35.0); Mean Corpuscular Volume 89 fL (80-100); Monocytes # (Auto) 0.7 Thou/mm3 (0.0-0.8); Monocytes % (Auto) 5 % (0-12); Neutrophils # (Auto) 11.1 Thou/mm3 (1.8-7.7); Neutrophils % (Auto) 74 % (37-80); Nucleated Red Blood Cell % 0 /100 WBC (0); Platelet Count 288 Thou/mm3 (140-440); Red Blood Count 4.79 Miln/mm3 (4.50-5.90)
[2024-10-27 11:32] LABS: Lactate (Lactic Acid) 14.5 mMol/L (0.4-2.0)
[2024-10-27] MEDS: SODIUM CHLORIDE 0.9% 1000 ML 1,000 ML 999 ML IV (11:45)
[2024-10-27 11:52] LABS: Amphetamine/Methamp Scrn,U Negative (Negative); Barbiturate Screen,Urine Negative (Negative); Benzodiazepines Screen,Urine Positive (Negative); Benzoylecgonine Screen, Ur Negative (Negative); Fentanyl Screen,Urine Negative (Negative); Opiate Screen,Urine Negative (Negative); THC Screen,Urine Negative (Negative)
[2024-10-27 11:55] LABS: Alanine Aminotransferase 26 U/L (10-49); Albumin, Serum 4.5 gm/dL (3.5-5.0); Albumin/Globulin Ratio 1.7 (1.2-2.2); Alkaline Phosphatase 73 U/L (46-116); Anion Gap 25 (7-16); Aspartate Amino Transferase 27 U/L (0-34); BUN/Creatinine Ratio 10 Ratio (12-20); Bilirubin,Total 0.4 mg/dL (0.3-1.2); Blood Urea Nitrogen 11 mg/dL (9-23); Calcium 9.7 mg/dL (8.3-10.6); Calcium (Corrected) 9.7 mg/dL (8.5-10.1); Chloride 104 mMol/L (98-107); Creatinine (Component) 1.1 mg/dL (0.6-1.3); Globulin 2.6 gm/dL (2.3-3.5); Glucose 130 mg/dL (74-106); Osmolality,Calculated 284 (275-295); Sodium 142 mMol/L (136-145); Total Protein 7.1 gm/dL (5.7-8.2); eGFR > 60 See Note
--- NOTE | 2024-10-27 11:55 | PC.NURSE ---
PT ANSWERING SOME QUESTIONS APPROPRIATELY AT THIS TIME. ABLE TO STATED WHERE HE IS AND MONTH OF YEAT. SISTER HERE AND WANTING TO KNOW IF HE HAD ANYTHING IN HIS URINE. INFORMED THAT NURSE WILL LET MD KNOW SHE IS HER
[2024-10-27 12:20] LABS: Carbon Dioxide 12.7 mMol/L (20.0-31.0)
--- NOTE | 2024-10-27 13:00 | PC.NURSE ---
pt asking to use bathroom. Assisted to BSC and did weel. Answering questiona appropriately but sleepy
--- NOTE | 2024-10-27 13:16 | XR_ITS ---
Examination: AP chest single view Technique one AP portable upright chest single view Exam date and time: October 27, 2024 1345 hrs. Comparison October 15, 2024 Indications: History hypoxic respiratory failure postintubation October 15, 2024 Findings: The patient has been extubated Normal heart size The lungs are clear Impression: No pneumonia or pulmonary edema
[2024-10-27 13:45] LABS: Base Excess, Venous -1 (-3-3); O2 Saturation, Venous 65 % (96-97); PCO2, Venous 36 mmHg (36-56); PO2, Venous 34 mmHg (15-58); pH, Venous 7.41 (7.33-7.66)
[2024-10-27 14:02] LABS: INR 1.1 (0.9-1.3); Prothrombin Time 11.9 Seconds (9.0-12.2)
[2024-10-27 14:14] LABS: Reflex Lactate? Y
[2024-10-27 14:16] LABS: Lipase 50 U/L (12-53); Procalcitonin 0.06 ng/ml (0.0-0.49)
--- NOTE | 2024-10-27 14:57 | PC.LAC ---
VISITOR IN ROOM CAME OUT WANTING TO TOXICOLOGY WENT TO ROOM AND SHE STEPPED OUT NOT WANTING TO SPEAK IN FRONT OF PT WANTING TO KNOW HIS TOXICOLOGY AND DONT WANT HIM TO KNOW BECAUSE HE WONT TELL THEM. ADVISED THAT HE IS THE PT AND HE IS ALERT AND ORIENTATED AND WE CANT RELEASE THAT INFO THEY CAN ASK HIM BUT I CANT RELEASE INFO.
[2024-10-27] MEDS: SODIUM CHLORIDE 0.9% 1000 ML 2,000 ML 999 ML IV (15:09)
[2024-10-27 15:14] LABS: Lactate (Lactic Acid) 1.2 mMol/L (0.4-2.0)
[2024-10-27 16:16] LABS: Lactic Acid, 3 HR 0.9 mMol/L (0.4-2.0)
== END 2024-10-27 18:04 | disposition home or self-care (01) ==
PROVIDERS: Emergency Provider Emergency Medicine; PCP Family Medicine
DX: Z91.199 Patient's noncompliance with other medical treatment and regimen due to unspecified reason (principal); R50.9 Fever, unspecified; G40.909 Epilepsy, unspecified, not intractable, without status epilepticus; Z86.718 Personal history of other venous thrombosis and embolism
CPT/HCPCS: 51701; 36415; 71045; 80053; 80307; 81001; 82803; 83605; 83690; 84145; 85025; 85610; 87040; 87400; 87811; 96361; 96374; 96375; 99291; 99292; J1953; J2060; J7030

== ENCOUNTER 2024-11-11 19:13 | Emergency (ER) | payer MEDICAID, SELFPAY ==
[2024-11-11 19:22] VITALS: BP 159/116; PULSE 125; RESP 22; TEMP 36.8; O2SAT 100
[2024-11-11 19:24] VITALS: BMI 26.4
--- NOTE | 2024-11-11 19:28 | EDRME_ITS ---
Rapid Medical Screening Exam [facility] Arrival date/time: 11/11/24 19:13 24M with history of seizures and drug use presents to ED with cocaine intoxication. Patient denies SI/HI and has no complaints besides restlessness. Chief Complaint: General Adult/Misc Complain Vital signs: Vital Signs Temperature 98.2 F 11/11/24 19:22 Pulse Rate 125 H 11/11/24 19:22 Respiratory Rate 22 H 11/11/24 19:22 Blood Pressure 159/116 H 11/11/24 19:22 Pulse Oximetry (%) 100 11/11/24 19:22 Oxygen Delivery Method Room Air 11/11/24 19:22
[2024-11-11] MEDS: DIAZEPAM 5 MG TABLET 10 MG PO (19:49)
[2024-11-11 20:59] VITALS: BP 134/90; PULSE 118; RESP 18; O2SAT 98
--- NOTE | 2024-11-11 21:06 | EDNOTE_ITS ---
ED General RME/HPI General Chief complaint: General Adult/Misc Complain Stated complaint: COCAINE OVERDOSE Time Seen by Provider: 11/11/24 19:51 Arrival date/time: 11/11/24 19:13 RME / HPI RME / HPI narrative: 24M with history of seizures and drug use presents to ED with cocaine intoxication. After using cocaine patient complained of palpitation, jittery, and restlessness. Patient denies SI/HI and has no complaints besides restless ness. Related Data Home Medications ?Medication ?Instructions ?Recorded ?Confirmed valproic acid 250 mg capsule 1,250 mg PO Q12H 10/15/24 10/27/24 Previous Rx's ?Medication ?Instructions ?Recorded levetiracetam 1,000 mg tablet 1,500 mg (1.5 x 1,000 mg ) PO BID 1 10/19/24 (Keppra) month #90 tabs Allergies Allergy/AdvReac Type Severity Reaction Status Date / Time No Known Allergies Allergy Verified 07/23/24 09:34 Review of Systems Review of Systems Narrative Review of Systems: Review of system reviewed and within normal limits except mentioned in HPI ED Exam Narrative Physical exam: VITAL SIGNS: Reviewed. GENERAL APPEARANCE: Alert and interactive, follows commands, no acute distress, HEAD AND FACE: Non-traumatic. ENT: PERRL, pink conjunctivitis, eyelid no trauma, Mucous membrane moist. NECK: Supple, nontender, no nuchal rigidity. CHEST: No tenderness, no crepitus, no paradoxical movement, no retractions. LUNGS: Clear, well ventilated, symmetric, no rales, no wheezing, no ronchi, no stridor, good breath sounds bilaterally. HEART: Regular rate, regular rhythm, no murmur, no gallops. ABDOMEN: Soft, positive bowel sounds, nondistended, no guarding, nontender, no rebound, no masses, RECTAL: Deferred. GENITAL: Deferred. NEUROLOGICAL: Gross motor function intact sensory function intact, Appropriate for age. MUSCULOSKELETAL: low back nontender, full range of motion. EXTREMITIES: Nontender, full range of motion. SKIN: Color pink, dry, no rash, no lacerations, no abrasions, no contusions. LYMPHATICS: Deferred. Course Quality Measures none Orders Category Date Time Status Diazepam [Valium] Med 11/11/24 19:27 Discontinued 10 mg PO X1 ONE Vital Signs Vital signs: Vital Signs Temperature 98.2 F 11/11/24 19:22 Pulse Rate 125 H 11/11/24 19:22 Respiratory Rate 22 H 11/11/24 19:22 Blood Pressure 159/116 H 11/11/24 19:22 Pulse Oximetry (%) 100 11/11/24 19:22 Oxygen Delivery Method Room Air 11/11/24 19:22 MDM Patient data External records reviewed:: None Clinical information provided by:: patient Social determinants that could affect healthcare access:: substance use Patient has the following chronic illnesses:: History of seizure How is presenting disease/condition affected by chronic disease/condition?: exacerbated by Evaluation data The following diagnostics were reviewed and interpreted by me:: other (specify) (None) Lab and/or radiology exams considered but not ordered:: None Interpretation Summary: None Medications Medications considered but not ordered:: None Medication administrations:: Medication Administration History Discontinued Medications Diazepam (Diazepam 5 Mg Tablet) 10 mg PO X1 ONE Stop: 11/11/24 19:28 Last Admin: 11/11/24 19:49 Dose: 10 mg Documented By: OA Volume Consultations Consultation(s) initiated? (list below): No Diagnosis Differential Diagnosis ED Complaint MDM: Cocaine abuse, anxiety, adverse effect of cocaine Most likely diagnosis given after review of the tests above:: Adverse effect of cocaine, cocaine abuse Admission Indicated Admission indicated?: not indicated Explain why admission is indicated or not indicated:: Patient heart rate was noted to be 118 prior to discharge blood pressure is normal and patient is not having any symptoms Admission Request Was there a request for admission?: No Disposition Plan Disposition Plan: Discharge Discharge Attestation Discharge Attestation: The patient was given an opportunity to ask questions and understood the discharge instructions. Discharge instructions specifically effects, indications for sooner follow up or return to the emergency department, and the expected course of current diagnosis. Patient condition: Stable Medical Decision Making MDM Narrative MDM Narrative: 24M with history of seizures and drug use presents to ED with cocaine intoxication. After using cocaine patient complained of palpitation, jittery, and restlessness. Patient denies SI/HI and has no complaints besides restlessness. Workup was not done, patient told me that he is ready to go because the symptoms is totally gone. Patient told me that he is back to baseline now. Patient was advised to stop abusing cocaine. Patient was just smiling when I told him. Patient appears nontoxic and hemodynamically stable. Patient discharged home and instructed to follow-up with primary care provider in 24 to 48 hours. Instructed to return to the emergency department immediately if worsening of symptoms Differential Diagnosis Differential Diagnosis: Cocaine abuse, anxiety, adverse effect of cocaine Discharge Plan Plan Patient Disposition: HOME (Self Care) Disposition Comment: Stable Prescriptions/Referrals Prescriptions/Med Rec: No Action valproic acid 250 mg capsule 1,250 mg PO Q12H Patient Comments: TAKE 5 CAPSULE BY ORAL ROUTE EVERY 12 HOURS levetiracetam [Keppra] 1,000 mg tablet 1,500 mg PO BID 30 Days Qty: 90 0RF Referrals: No Primary/Family,Physician [Primary Care Provider] - In 1 week Problem List Clinical Impression: Cocaine abuse Patient/Caregiver Discharge Instructions Discharge Activity: activity as tolerated Education Materials: ED Drug Abuse Additional Instructions: Thank you for the opportunity for serving you today. You are stable for discharged . You are advised to: Follow-up with your PCP in 1 to 2 days Return to ED for worsening of symptoms Increase oral fluids Please stop abusing cocaine, it will eventually kill you Print Language: Slovak Stand Alone Forms: Vee Award Info., Patient Portal Info Letter [place] Supervising Physician [place] Supervising Physician: MD Sofi
== END 2024-11-11 21:12 | disposition home or self-care (01) ==
PROVIDERS: Emergency Provider Emergency Medicine
DX: F14.10 Cocaine abuse, uncomplicated (principal)
CPT/HCPCS: 99282; A9270

== ENCOUNTER 2024-12-21 03:50 | Emergency (ER) | payer MEDICAID, SELFPAY ==
[2024-12-21] VITALS (9 sets, daily range): BP systolic 98–127; BP diastolic 54–81; PULSE 91–123; RESP 17–20; TEMP 36.6–37; O2SAT 92–100; BMI 25.8
--- NOTE | 2024-12-21 04:49 | EDNOTE_ITS ---
ED Seizures RME/HPI General Chief Complaint: Seizure Stated Complaint: SEIZURE Time Seen by Provider: 12/21/24 03:56 Arrival date/time: 12/21/24 03:50 RME / HPI RME / HPI Narrative: DR. BEN BUSTILLO ED EVALUATION: 24 y/o male with Hx of Epilepsy and Seizure BIBA presents to ED c/o headache s/p seizure x approximately 5 hours ago. Sister states her mother called her when patient experienced a seizure where his eyes were looking around. Patient experienced 6 seizures in total over 5 hours. Patient does not recall any of his seizures. He is currently on Keppra and Valproic acid. No other concerns or complaints expressed at this time. Related Data Home Medications ?Medication ?Instructions ?Recorded ?Confirmed valproic acid 250 mg capsule 1,250 mg PO Q12H 10/15/24 10/27/24 Allergies Allergy/AdvReac Type Severity Reaction Status Date / Time No Known Allergies Allergy Verified 12/21/24 04:08 Review of Systems Review of Systems Systems Reviewed: All systems reviewed, normal except as documented Past Medical History Past Medical History NEUROLOGIC: Positive Neurological Disorders, Seizures and Epilepsy Social History SMOKING STATUS: Never smoker SUBSTANCE USE: unknown ED Exam Narrative Physical exam: GENERAL APPEARANCE: alert and oriented x 4, well-developed, well-nourished, no acute distress VITALS: All vitals were reviewed and the pulse ox is 97% on room air, which is normal according to my interpretation. HEENT: Normocephalic, atraumatic; pupils equal, round, reactive to light; EOMI; mucous membranes pink, moist; oropharynx clear NECK: Supple LUNGS: CTABL; no wheezes, no rales, no rhonchi HEART: Regular rate, regular rhythm; normal S1, S2; no murmurs ABDOMEN: non distended; normal BS; soft, no tenderness, no guarding, no rebound; no masses, no organomegaly, no hernia BACK: no CVA tenderness EXTREMITIES: atraumatic; no edema NEUROLOGIC: awake; alert and oriented x4; cranial nerves II-XII grossly intact; no focal sensory or motor deficits PSYCHIATRIC: appropriate mood and affect SKIN: warm, dry, normal color; no rashes Course Quality Measures none Orders Category Date Time Status Hospital Staff Pharmacist Q4H START 00 Care 12/21/24 04:56 Completed Continuous Pulse Oximetry NOW Care 12/21/24 04:56 Completed Alcohol, Blood Medical Stat Lab 12/21/24 05:10 Completed BMP [Basic Metabolic Panel] Stat Lab 12/21/24 10:27 Completed CBC Stat Lab 12/21/24 05:10 Completed CK [Creatine Kinase] Stat Lab 12/21/24 05:10 Completed CMP [Comprehensive Metabolic Panel] Stat Lab 12/21/24 05:10 Completed Drug Screen,Urine Stat Lab 12/21/24 05:36 Completed Lactate (Lactic Acid) Stat Lab 12/21/24 05:10 Completed Lactate (Lactic Acid) Stat Lab 12/21/24 10:27 Completed Magnesium Stat Lab 12/21/24 05:10 Completed Urinalysis, C/S if Indicated Stat Lab 12/21/24 05:36 Completed LORazepam [Ativan Inj] Med 12/21/24 04:56 Discontinued 1 mg IVP X1 ONE Sodium Chloride 0.9% 1000 ml [Ns] 1,000 ml Med 12/21/24 04:56 Discontinued IV 999 mls/hr Sodium Chloride 0.9% 1000 ml [Ns] 1,000 ml Med 12/21/24 05:30 Discontinued IV 999 mls/hr levETIRAcetam INJ [Keppra Inj] Med 12/21/24 04:56 Discontinued 1,000 mg IVP X1 ONE levETIRAcetam INJ [Keppra Inj] Med 12/21/24 06:00 Discontinued 500 mg IVP X1 ONE Vital Signs Vital signs: Vital Signs Temperature 98.1 F 12/21/24 04:04 Pulse Rate 123 H 12/21/24 04:04 Respiratory Rate 18 12/21/24 04:04 Blood Pressure 116/75 12/21/24 04:04 Pulse Oximetry (%) 92 L 12/21/24 04:04 Oxygen Delivery Method Room Air 12/21/24 04:04 Seizure MDM Narrative MDM Narrative:: Scribe Attestation: IGwen, am scribing for and in the presence of Dr. Chen. Provider Notation: Although this document has been carefully reviewed, there may still be some phonetic and other typographical errors. These errors are purely grammatical due to imperfections in the software program and should not be construed in any way to compromise the substance of the patient's medical care during this visit. Patient data External records reviewed:: [facility] previous records (Prior ED records from 11/11/24 reviewed. Patient was seen for Cocaine abuse.) and EMS form Clinical information provided by:: patient, EMS and family (Sister) Social determinants that could affect healthcare access:: substance use (Cocaine) Patient has the following chronic illnesses:: Seizure, Epilepsy How is presenting disease/condition affected by chronic disease/condition?: caused by Evaluation data The following diagnostics were reviewed and interpreted by me:: lab results Lab and/or radiology exams considered but not ordered:: None Interpretation Summary: Labs are pending at the time of signout. Medications / Prescriptions Medications or Prescriptions considered but not ordered:: None Medication administrations:: Medication Administration History Discontinued Medications Sodium Chloride (Ns) 1,000 mls @ 999 mls/hr IV .Q1H1M ONE Stop: 12/21/24 05:56 Last Infusion: 12/21/24 06:30 Dose: Infused Documented By: Admin: 12/21/24 05:22 Dose: 999 mls/hr Documented By: DONATO Sodium Chloride (Ns) 1,000 mls @ 999 mls/hr IV .Q1H1M ONE Stop: 12/21/24 06:30 Last Infusion: 12/21/24 06:57 Dose: Infused Documented By: Admin: 12/21/24 05:53 Dose: 999 mls/hr Documented By: DONATO Levetiracetam (Levetiracetam Inj 100 Mg/Ml Vial 5ml) 1,000 mg IVP X1 ONE Stop: 12/21/24 04:57 Last Admin: 12/21/24 05:23 Dose: 1,000 mg Documented By: DONATO Levetiracetam (Levetiracetam Inj 100 Mg/Ml Vial 5ml) 500 mg IVP X1 ONE Stop: 12/21/24 06:01 Last Admin: 12/21/24 06:26 Dose: 500 mg Documented By: DONATO Lorazepam (Lorazepam 2 Mg/Ml Vial) 1 mg IVP X1 ONE Stop: 12/21/24 04:57 Last Admin: 12/21/24 05:23 Dose: 1 mg Documented By: DONATO See above if any Consultations Consultation(s) initiated? (list below): No Diagnosis Seizure Differential Diagnosis: intractable seizure disorder, focal seizure, generalized seizure, epileptic seizure and status epilepticus Most likely diagnosis given after review of the tests above:: Breakthrough seizure Admission Indicated Admission indicated?: not indicated (Work up pending) Admission Request Was there a request for admission?: No Disposition Plan Disposition Plan: other (specify) (Signed out to Dr. Noel at 0600 pending work-up.) Discharge Plan Plan Patient Disposition: HOME (Self Care) Prescriptions/Referrals Prescriptions/Med Rec: No Action valproic acid 250 mg capsule 1,250 mg PO Q12H Patient Comments: TAKE 5 CAPSULE BY ORAL ROUTE EVERY 12 HOURS Referrals: No Primary/Family,Physician [Primary Care Provider] - In 1 week Problem List Clinical Impression: Tonic clonic seizures, History of medication noncompliance, Acute lactic acidosis Patient/Caregiver Discharge Instructions Additional Instructions: Please follow-up with your seizure doctor in 2 days as we discussed to get your dosing and seizure management optimized. Return if getting worse. Print Language: Telugu Stand Alone Forms: Patient Portal Info Letter
[2024-12-21 05:19] LABS: Basophils # (Auto) 0.1 Thou/mm3 (0.0-0.2); Basophils % (Auto) 0 % (0-2.5); Eosinophils % (Auto) 0 % (0-10); Hematocrit 43.3 % (41.0-53.0); Hemoglobin 15.1 g/dL (13.5-16.0); Immature Granulocytes % (Auto) 3 % (0-0); Immature Granulocytes Auto 0.73 Thou/mm3 (0.00-0.00); Lymphocytes # (Auto) 2.2 Thou/mm3 (1.0-4.8); Lymphocytes % (Auto) 10 % (10-50); Mean Corpuscular HGB Conc 34.9 g/dl (31.0-37.0); Mean Corpuscular Hemoglobin 31.2 pg (25.0-35.0); Mean Corpuscular Volume 90 fL (80-100); Monocytes # (Auto) 1.1 Thou/mm3 (0.0-0.8); Monocytes % (Auto) 5 % (0-12); Neutrophils # (Auto) 18.7 Thou/mm3 (1.8-7.7); Neutrophils % (Auto) 82 % (37-80); Nucleated Red Blood Cell % 0 /100 WBC (0); Platelet Count 288 Thou/mm3 (140-440); RDW Standard Deviation 43.5 fL (35.1-43.9); Red Blood Count 4.84 Miln/mm3 (4.50-5.90); White Blood Count 22.8 Thou/mm3 (3.8-10.6)
[2024-12-21 05:20] LABS: Lactate (Lactic Acid) 10.1 mMol/L (0.4-2.0)
[2024-12-21] MEDS: SODIUM CHLORIDE 0.9% 1000 ML 1,000 ML 999 ML IV ×2 (05:22→05:53)
[2024-12-21] MEDS: LORazepam 2 MG/ML VIAL 1 MG IVP (05:23)
[2024-12-21] MEDS: levETIRAcetam INJ 100 MG/ML VIAL 5ML 1000 MG IVP (05:23)
[2024-12-21 05:47] LABS: Alanine Aminotransferase 16 U/L (10-49); Albumin, Serum 4.6 gm/dL (3.5-5.0); Albumin/Globulin Ratio 1.8 (1.2-2.2); Alcohol, Blood Medical < 3.0 mg/dL (0-10.0); Alkaline Phosphatase 85 U/L (46-116); Anion Gap 18 (7-16); Aspartate Amino Transferase 23 U/L (0-34); BUN/Creatinine Ratio 10 Ratio (12-20); Bilirubin,Total 0.3 mg/dL (0.3-1.2); Blood Urea Nitrogen 11 mg/dL (9-23); Calcium 8.7 mg/dL (8.3-10.6); Calcium (Corrected) 8.7 mg/dL (8.5-10.1); Chloride 110 mMol/L (98-107); Creatine Kinase 309 U/L (34-171); Creatinine (Component) 1.1 mg/dL (0.6-1.3); Estimated Creatinine Clearance 95.1 mL/min (>60); Globulin 2.6 gm/dL (2.3-3.5); Glucose 161 mg/dL (74-106); Magnesium 2.4 mg/dL (1.6-2.6); Osmolality,Calculated 283 (275-295); Potassium 4.4 mMol/L (3.4-5.1); Sodium 141 mMol/L (136-145); Total Protein 7.2 gm/dL (5.7-8.2); eGFR > 60 See Note
[2024-12-21 06:07] LABS: Carbon Dioxide 12.7 mMol/L (20.0-31.0)
[2024-12-21] MEDS: levETIRAcetam INJ 100 MG/ML VIAL 5ML 500 MG IVP (06:26)
--- NOTE | 2024-12-21 06:26 | PD.EDADDENDU ---
Emergency Room Addendum <Jovana Sandoval - Last Filed: 12/21/24 12:48> Addendum Narrative: 0600: Care assumed from Dr. Chen, the previous shift emergency physician. Past medical, surgical, social and family history reviewed. Vitals and home medications reviewed. I will assume the care of the patient at this time pending labs, reassessment, and final disposition. Please refer to the emergency department record for history and examination from initial visit.?The following addendum documentation note is intended to reflect any pending information, findings, or radiology results not included in the patient?s initial chart. 0635: Patient is sleeping comfortably and in no distress. Mother at bedside made aware of pending labs. 1215: Patients lactic acid and bicarb have normalized. <Frantz Noel MD - Last Filed: 12/21/24 14:31> Addendum Narrative: 0600: Care assumed from Dr. Chen, the previous shift emergency physician. Past medical, surgical, social and family history reviewed. Vitals and home medications reviewed. I will assume the care of the patient at this time pending labs, reassessment, and final disposition. Please refer to the emergency department record for history and examination from initial visit.?The following addendum documentation note is intended to reflect any pending information, findings, or radiology results not included in the patient?s initial chart. 0635: Patient is sleeping comfortably and in no distress. Mother at bedside made aware of pending labs. Patient received hydration while waiting here and then was alert after a good night sleep and eating and drinking without difficulty. His ambulation was good 1215: Patients lactic acid and bicarb have normalized. At 1430 hrs. patient is ready to go home feels good. Patient is alert awake ambulatory eating has no complaints and is aware that he needs to continue taking his medicines as scheduled and follow-up with his seizure doctor which he says he has appointment in 2 days to further define his medication and his dosages. His girlfriend or is in the room and is concerned about him using drugs but his urine drug screen today is negative.
[2024-12-21 06:30] LABS: Collection Type, Urine Clean Catch; Squamous Epithelial Cell,Urine 0 /hpf (0-5)
[2024-12-21 06:41] LABS: Bilirubin,Urine Negative (Negative); Blood,Urine Negative (Negative); Clarity,Urine Clear (Clear/Hazy); Color,Urine Colorless (Lt Yel-Yel); Culture Indicated,Urine Not Indicated; Glucose, Urine Negative (Negative); Hyaline Casts,Urine < 1 /hpf (0-1); Ketones,Urine 1+ (Negative); Leukocyte Esterase,Urine Negative (Negative); Nitrite,Urine Negative (Negative); PH,Urine 5.5 (5.0-7.0); Protein,Urine 1+ (Neg - Trace); RBC,Urine 1 /hpf (0-3); Specific Gravity,Urine 1.017 (1.001-1.035); Urobilinogen,Urine Negative mg/dL (0.0-1.0); WBC,Urine 1 /hpf (0-5)
[2024-12-21 07:05] LABS: Amphetamine/Methamp Scrn,U Negative (Negative); Barbiturate Screen,Urine Negative (Negative); Benzodiazepines Screen,Urine Negative (Negative); Benzoylecgonine Screen, Ur Negative (Negative); Fentanyl Screen,Urine Negative (Negative); Opiate Screen,Urine Negative (Negative); THC Screen,Urine Negative (Negative)
[2024-12-21 08:16] LABS: Reflex Lactate? Y
[2024-12-21 10:53] LABS: Anion Gap 9 (7-16); BUN/Creatinine Ratio 10 Ratio (12-20); Blood Urea Nitrogen 8 mg/dL (9-23); Calcium 8.2 mg/dL (8.3-10.6); Carbon Dioxide 20.4 mMol/L (20.0-31.0); Chloride 110 mMol/L (98-107); Creatinine (Component) 0.8 mg/dL (0.6-1.3); Estimated Creatinine Clearance 130.7 mL/min (>60); Glucose 109 mg/dL (74-106); Osmolality,Calculated 276 (275-295); Potassium 4.3 mMol/L (3.4-5.1); Sodium 139 mMol/L (136-145); eGFR > 60 See Note
== END 2024-12-21 15:07 | disposition home or self-care (01) ==
PROVIDERS: Emergency Medicine; Emergency Provider Emergency Medicine
DX: G40.409 Other generalized epilepsy and epileptic syndromes, not intractable, without status epilepticus (principal)
CPT/HCPCS: 36415; 80048; 80053; 80307; 80320; 81001; 82550; 83605; 83735; 85025; 96361; 96374; 96375; 96376; 99284; J1953; J2060; J7030; G0480

== ENCOUNTER 2025-05-17 02:12 | Inpatient (IN) | payer MEDICAID, SELFPAY ==
[2025-05-17] VITALS (13 sets, daily range): BP systolic 108–133; BP diastolic 68–84; PULSE 84–140; RESP 15–30; TEMP 36.1–37.1; O2SAT 94–100; BMI 32.3; BMI 27.3
--- NOTE | 2025-05-17 02:30 | EDNOTE_ITS ---
ED Seizures RME/HPI General Chief Complaint: Seizure Stated Complaint: SEIZURE Time Seen by Provider: 05/17/25 02:32 Arrival date/time: 05/17/25 02:12 RME / HPI RME / HPI Narrative: Dr. Jones?s Main ED Evaluation: 25yo male with a history of epilepsy BIBA from home presents to the ED for a chief complaint of seizures. Per EMS, family reported the patient had 5 seizures within 1 hour, each lasting 1-2 minutes. EMS witnessed a seizure and administered Versed 4mg en route. Patient takes Keppra 1000mg TID and has reportedly been compliant with it. Full ROS is unobtainable due to the patient's AMS. Related Data Home Medications ?Medication ?Instructions ?Recorded ?Confirmed valproic acid 250 mg capsule 1,250 mg PO Q12H 10/15/24 10/27/24 Allergies Allergy/AdvReac Type Severity Reaction Status Date / Time No Known Allergies Allergy Verified 12/21/24 04:08 Review of Systems Review of Systems ROS Unobtainable: unobtainable due to mental status Past Medical History Past Medical History NEUROLOGIC: Positive Neurological Disorders, Seizures and Epilepsy CARDIAC: Negative Cardiac Disorders or Congestive Heart Failure RESPIRATORY: Negative Chronic Obstructive Pulmonary Disease (COPD) GASTROINTESTINAL: Negative Gastrointestinal Disorders GENITOURINARY: Negative Genitourinary Disorders or Renal Disease MUSCULOSKELETAL: Negative Musculoskeletal Disorders ENDOCRINE: Negative Endocrine Disorders, Diabetes Mellitus Type 1 or Diabetes Mellitus Type 2 HEMATOLOGIC: Negative Blood Disorders Family History FAMILY HISTORY: Negative Family Cardiac Disorders Social History SMOKING STATUS: Never smoker SUBSTANCE USE: unknown ED Exam Narrative Physical exam: Generally patient is lethargic nonverbal and not obeying commands, heart tachycardic rate with regular rhythm, lungs clear to auscultation equal bilaterally, abdomen soft nondistended nontender, neurologic exam shows the patient be lethargic and not obeying commands and nonverbal. He was observed to be moving all 4 extremities. Course Quality Measures none Orders Category Date Time Status CBC Stat Lab 05/17/25 03:04 Completed CMP [Comprehensive Metabolic Panel] Stat Lab 05/17/25 03:04 Completed Drug Screen,Urine Stat Lab 05/17/25 03:46 Completed Lactic Acid [Lactate (Lactic Acid)] Stat Lab 05/17/25 04:01 Ordered Valporic Acid (Depak)* Stat Lab 05/17/25 03:04 Received levETIRAcetam INJ [Keppra Inj] Med 05/17/25 02:40 Discontinued 1,000 mg IVP X1 ONE levETIRAcetam INJ [Keppra Inj] Med 05/17/25 03:50 Discontinued 500 mg IVP X1 ONE Vital Signs Vital signs: Vital Signs Pulse Rate 132 H 05/17/25 02:28 Respiratory Rate 19 05/17/25 02:28 Blood Pressure 122/75 05/17/25 02:28 Pulse Oximetry (%) 100 05/17/25 02:28 Oxygen Delivery Method Oxy Mask 05/17/25 02:28 Fraction of Inspired Oxygen 10 05/17/25 02:28 Seizure MDM Narrative MDM Narrative:: Scribe Attestation: 05/17/25 - Sena Castro am scribing for and in the presence of Dr. Jones. Patient had 5 seizures at home and 1 tonic-clonic seizure in front of the paramedics without regaining consciousness in between. By definition this patient is in status epilepticus. Patient did receive Versed 4 mg IV by paramedics. Here in the emergency room the patient received a total of 1500 mg of Keppra IV. He was slowly improving. Lab work shows a leukocytosis most likely due to stress demargination from the seizure. Chemistry labs show evidence for an increased anion gap metabolic acidosis most likely secondary to a lactic acidosis from the seizure. I discussed this case with the ICU resident and the patient will be admitted to the ICU for further treatment and evaluation for status epilepticus. Urinary tox screen was positive only for benzodiazepines and this urinary tox screen was obtained after the patient received Versed from paramedics. Patient does have a history of having a urinary tox screen in the past positive for methamphetamine as well as cocaine. Patient data External records reviewed:: [facility] previous records (Per chart review, patient was seen here on 12/21/24 for acute lactic acidosis.) and EMS form Clinical information provided by:: EMS Social determinants that could affect healthcare access:: none Patient has the following chronic illnesses:: epilepsy How is presenting disease/condition affected by chronic disease/condition?: caused by Evaluation data The following diagnostics were reviewed and interpreted by me:: lab results Lab and/or radiology exams considered but not ordered:: none Interpretation Summary: See MDM Medications / Prescriptions Medications or Prescriptions considered but not ordered:: none Medication administrations:: Medication Administration History Discontinued Medications Levetiracetam (Levetiracetam Inj 100 Mg/Ml Vial 5ml) 1,000 mg IVP X1 ONE Stop: 05/17/25 02:41 Last Admin: 05/17/25 03:06 Dose: 1,000 mg Documented By: OTILIO Levetiracetam (Levetiracetam Inj 100 Mg/Ml Vial 5ml) 500 mg IVP X1 ONE Stop: 05/17/25 03:51 see above Consultations Consultation(s) initiated? (list below): Yes Diagnosis Seizure Differential Diagnosis: other (See MDM.) Most likely diagnosis given after review of the tests above:: see clinical impression below Admission Indicated Admission indicated?: indicated Admission Request Was there a request for admission?: Yes Admission Attestation Admission request attestation: Discussed case with [] from Hospitalist service regarding admission. Discussed patients ED course, exam findings, labs, and radiology results. The Hospitalist [agrees,declines] to accept the patient for admission. Disposition Plan Disposition Plan: Admit Critical Care Time Critical Care Time Critical Care Time: Yes Total Critical Care Time (min.): 35 Attestation: Excluding other billable procedures Discharge Plan Plan Patient Disposition: Admit Acute Care w/in Hospital Prescriptions/Referrals Prescriptions/Med Rec: No Action valproic acid 250 mg capsule 1,250 mg PO Q12H Patient Comments: TAKE 5 CAPSULE BY ORAL ROUTE EVERY 12 HOURS Problem List Clinical Impression: Status epilepticus Patient/Caregiver Discharge Instructions Print Language: Niuean Stand Alone Forms: Vee Award Info., Patient Portal Info Letter
[2025-05-17] MEDS: levETIRAcetam INJ 100 MG/ML VIAL 5ML 1000 MG IVP (03:06)
[2025-05-17 03:11] LABS: Basophils # (Auto) 0.1 Thou/mm3 (0.0-0.2); Basophils % (Auto) 0 % (0-2.5); Eosinophils # (Auto) 0.1 Thou/mm3 (0.0-0.5); Eosinophils % (Auto) 1 % (0-10); Hematocrit 47.3 % (41.0-53.0); Hemoglobin 15.3 g/dL (13.5-16.0); Immature Granulocytes Auto 2.33 Thou/mm3 (0.00-0.00); Lymphocytes # (Auto) 3.5 Thou/mm3 (1.0-4.8); Lymphocytes % (Auto) 16 % (10-50); Mean Corpuscular HGB Conc 32.3 g/dl (31.0-37.0); Mean Corpuscular Hemoglobin 30.1 pg (25.0-35.0); Mean Corpuscular Volume 93 fL (80-100); Monocytes # (Auto) 0.9 Thou/mm3 (0.0-0.8); Monocytes % (Auto) 4 % (0-12); Neutrophils # (Auto) 14.4 Thou/mm3 (1.8-7.7); Neutrophils % (Auto) 67 % (37-80); Nucleated Red Blood Cell # 0.00 Thou/mm3 (0.00-0.00); Nucleated Red Blood Cell % 0 /100 WBC (0); Platelet Count 290 Thou/mm3 (140-440); RDW Standard Deviation 44.7 fL (35.1-43.9); Red Blood Count 5.08 Miln/mm3 (4.50-5.90); White Blood Count 21.3 Thou/mm3 (3.8-10.6)
[2025-05-17 03:38] LABS: Alanine Aminotransferase 20 U/L (10-49); Albumin, Serum 4.8 gm/dL (3.5-5.0); Albumin/Globulin Ratio 1.9 (1.2-2.2); Alkaline Phosphatase 107 U/L (46-116); Anion Gap 19 (7-16); Aspartate Amino Transferase 31 U/L (0-34); BUN/Creatinine Ratio 5 Ratio (12-20); Bilirubin,Total 0.2 mg/dL (0.3-1.2); Blood Urea Nitrogen 6 mg/dL (9-23); Calcium 9.4 mg/dL (8.3-10.6); Calcium (Corrected) 9.4 mg/dL (8.5-10.1); Carbon Dioxide 15.6 mMol/L (20.0-31.0); Chloride 106 mMol/L (98-107); Creatinine (Component) 1.3 mg/dL (0.6-1.3); Globulin 2.5 gm/dL (2.3-3.5); Glucose 142 mg/dL (74-106); Osmolality,Calculated 280 (275-295); Potassium 4.1 mMol/L (3.4-5.1); Sodium 141 mMol/L (136-145); Total Protein 7.3 gm/dL (5.7-8.2); eGFR > 60 See Note
[2025-05-17 04:16] LABS: Amphetamine/Methamp Scrn,U Negative (Negative); Barbiturate Screen,Urine Negative (Negative); Benzodiazepines Screen,Urine Positive (Negative); Benzoylecgonine Screen, Ur Negative (Negative); Fentanyl Screen,Urine Negative (Negative); Opiate Screen,Urine Negative (Negative); THC Screen,Urine Negative (Negative)
[2025-05-17] MEDS: levETIRAcetam INJ 100 MG/ML VIAL 5ML 500 MG IVP (04:27)
[2025-05-17 04:31] LABS: Lactate (Lactic Acid) 6.9 mMol/L (0.4-2.0)
--- NOTE | 2025-05-17 04:55 | XR_ITS ---
Examination: CT brain head without contrast. 2-D sagittal coronal reconstructions Date and time of exam:May 17, 2025 at 0555 hrs., Comparison October 15, 2024 Indications: Seizure today CTDI: vol (mGy):51.4 DLP: (mGycm):1021 Technique: Multiple CT axial sections of the brain have been obtained, 5 mm slice thickness. Contrast has not been administered. 2-D sagittal, coronal reconstructions have been obtained Low dose protocols were performed. One or more of the following dose reduction techniques were used; automated exposure control, adjustment of the mA and/or KV according to patient size, use of iterative reconstruction technique. Findings: No significant ventricular enlargement. Intra-axial or extra-axial hemorrhage density is not seen. No mass effect or midline shift Basal cisterns are not remarkable. Fourth ventricle is midline. Cranial vault intact. Impression: Negative for acute hemorrhage, mass effect or midline shift Consider elective brain MRI follow-up, pre and postcontrast, seizure protocol
--- NOTE | 2025-05-17 05:10 | PD.RESHP ---
Documentation for date of: 05/17/25 [facility] History of Present Illness History of present illness: A 24-year-old male with a history of seizure disorder (including multiple admissions and a previous episode of status epilepticus) and right upper extremity brachial DVT was brought to the ED by ambulance following a witnessed seizure. The patient lives with his parents, who observed the seizure and called EMS. According to EMS, the patient experienced five seizure episodes without fully regaining consciousness between events. Upon arrival in the ED, the patient had two more witnessed seizures, after which a loading dose of 1500 mg Keppra was administered. The seizures resolved, but the patient remained altered and postictal. Upon evaluation, the patient was alert and oriented x 3, though he appeared more confused than usual. He did not recall the events and stated he was compliant with his home Keppra regimen. Review of his medical record indicated that he had been discharged in October with instructions to continue Keppra 1500 mg twice daily and Depakote. However it appeared that the patient was only taking Keppra on home meds, and his last refill was in November. After further questioning, the patient admitted he had not been taking his Keppra due to lack of refills. Patient did say that for the last 2 or 3 days or experiencing severe headache, and had some vision changes. Denies any chest pain, palpitation, nausea, vomiting, or any other symptoms. On arrival, the patient was tachycardic and tachypneic, with the remainder of his vitals within normal limits. Laboratory results showed leukocytosis (21.3), likely reactive, and CMP results revealed high anion gap metabolic acidosis (anion gap 19, bicarbonate 15.6) and lactic acidosis (6.9). A urine toxicology screen was positive for benzodiazepines, which is consistent with the Versed the patient received prior to arrival. The patient will be admitted to telemetry for further management and close monitoring. PMH as above PSH unknown Allergy NKDA Medication Keppra and Depakote, patient is not compliant with medication Social history patient denies any recreational drug use, alcohol use or smoking, lives with the parents. Review of Systems Review of Systems Systems Reviewed: All systems reviewed, normal except as documented Exam Vital Signs Temp Pulse Resp BP Pulse Ox O2 Del Method O2 Flow Rate 97.8 F 111 H 22 H 128/73 100 Oxy Mask 10 05/17/25 04:24 05/17/25 04:24 05/17/25 04:24 05/17/25 04:24 05/17/25 04:24 05/17/25 04:05/17/25 04:24 FiO2 10 05/17/25 02:28 Narrative Exam GENERAL: no acute distress, AAO x3, postictal, poor historian HEENT: Head AT/ NC. Mucous membranes moist. NECK: Supple, no lymphadenopathy, no carotid bruits. CARDIOVASCULAR: Tachycardic. Normal S1/S2, No m/r/g. No pitting edema of bilateral LEs. RESPIRATORY: CTAB. No wheezing, rhonchi, crackles. GASTROINTESTINAL: Abdomen soft, non tender no palpable masses. MUSCULOSKELETAL:? No cyanosis or edema, no visible joint swelling. NEUROLOGICAL: No focal deficits. Sensation intact, symmetric. Results: Labs 05/17/25 05:05 05/17/25 03:04 Labs: Short CBC 05/17/25 Range/Units 03:04 WBC 21.3 H (3.8-10.6) Thou/mm3 Hgb 15.3 (13.5-16.0) g/dL Hct 47.3 (41.0-53.0) % Plt Count 290 (140-440) Thou/mm3 BMP 05/17/25 03:04 Sodium 141 Potassium 4.1 Chloride 106 Carbon Dioxide 15.6 L BUN 6 L Creatinine 1.3 Glucose 142 H Calcium 9.4 Liver Function 05/17/25 Range/Units 03:04 Total Bilirubin 0.2 L (0.3-1.2) mg/dL AST 31 (0-34) U/L ALT 20 (10-49) U/L Alkaline Phosphatase 107 (46-116) U/L Albumin 4.8 (3.5-5.0) gm/dL Quality Measures Quality Measures none Medications Home Medications and Allergies Home Medications ?Medication ?Instructions ?Recorded ?Confirmed ?Type valproic acid 250 mg capsule 1,250 mg PO Q12H 10/15/24 10/27/24 History Allergies Allergy/AdvReac Type Severity Reaction Status Date / Time No Known Allergies Allergy Verified 12/21/24 04:08 Visit Medications Acetaminophen (Acetaminophen 325 Mg Tablet) 650 mg PO Q6H PRN PRN Reason: Fever >101.5 Stop: 06/16/25 04:46 Heparin Sodium (Porcine) (Heparin Sod Inj 5000 Unit/Ml Vial) 5,000 unit SC Q8HR [facility] Stop: 05/31/25 05:59 Lactated Ringer's (Lactated Ringers) 1,000 mls @ 999 mls/hr IV .Q1H1M ONE Stop: 05/17/25 05:44 Lactated Ringer's (Lactated Ringers) 1,000 mls @ 75 mls/hr IV .[id number] [facility] Stop: 06/16/25 04:59 Levetiracetam (Levetiracetam 250 Mg Tablet) 1,500 mg PO BID [facility] Stop: 06/16/25 08:59 Midazolam HCl (Midazolam Inj 1 Mg/Ml Vial 2 Ml) 2 mg IVP Q5MIN PRN PRN Reason: seizure Ondansetron HCl (Ondansetron Inj 2 Mg/Ml Inj 2 Ml) 4 mg IVP Q6H PRN; Protocol PRN Reason: NAUSEA OR VOMITING Stop: 06/16/25 04:46 Discontinued Medications Levetiracetam (Levetiracetam Inj 100 Mg/Ml Vial 5ml) 1,000 mg IVP X1 ONE Stop: 05/17/25 02:41 Last Admin: 05/17/25 03:06 Dose: 1,000 mg Levetiracetam (Levetiracetam Inj 100 Mg/Ml Vial 5ml) 500 mg IVP X1 ONE Stop: 05/17/25 03:51 Last Admin: 05/17/25 04:27 Dose: 500 mg Assessment & Plan Plan A 24-year-old male with a history of seizure disorder, including multiple admissions and a previous episode of status epilepticus, was admitted for status epilepticus. The episode has since resolved, and the patient is being treated and managed for seizures. #Status epilepticus resolved #Seizure disorder -noncompliant with medication #Intractable headache & blurry vision Patient had multiple episodes of witnessed seizures without completely regaining consciousness Upon arrival patient was tachycardic, however was saturating well and was able to protect airways. EMS gave 4 mg of Versed, in ED patient had another episode of seizure, loading dose of Keppra was given ? Admit to telemetry for continuous monitoring ? Continue Keppra and reassess dosing as necessary ? Consider adjusting or adding another anticonvulsant therapy as needed ? Consider repeat EEG to evaluate for ongoing seizure activity, ? Consider MRI with and without contrast ? Neurocheck every 4 hours ? Seizure precaution ? Aspiration precaution ? Versed 2 mg as needed for seizure ? Monitor close for further seizures or signs of status epilepticus ? Neurology was consulted, recommendations appreciated #High anion gap metabolic acidosis most likely secondary due to lactic acidosis #Lactic acidosis secondary due to seizure Labs revealed high anion gap, elevated lactic acid and decreased bicarb ? Correct metabolic acidosis with appropriate fluid resuscitation and electrolyte replacement ? Will continue adequate hydration and mental renal function. Currently patient is receiving LR bolus, plan to continue with maintenance LR, evaluate renal function, ? Trend lactic acid every 3 hours ? Pending CPK, follow-up with results ? pending VBG ? Monitor urine output closely #Leukocytosis Most likely reactive in the setting of seizure No sign or symptoms of ongoing infection Patient is afebrile ? Continue to monitor for #Social ? Educate the patient and family on the importance of medication adherence and scheduling refills to prevent further seizure ? Discussed the need for regular follow-up with neurology ? patient financial services manager consult Disposition:Telemetry DVT prophylaxis: heparin GI prophylaxis: none Diet: NPO Lines: PIV CODE STATUS:Full code Patient care was discussed with attending physician Dr. Owen Dave MD PGY-3 I have carefully reviewed this document. Due to imperfections in the voice software, there could be grammatical errors including phonetic/typographic errors. This in no way compromises the medical care the patient is receiving Attending Provider Attestation/Addendum After examination of the patient and review of the clinical data I feel that this patient needs admission to the hospital for further treatment/evaluation. Plan of care discussed with patient and is in agreement. I Celestine Weaver MD, attest that I was physically present for zavala portions of evaluation, and examined patient, labs and imagings and plan of care were discussed with IM residents team, and I agree with the findings and plans documented above.
[2025-05-17 05:13] LABS: Base Excess, Venous -7 (-3-3); O2 Saturation, Venous 79 % (96-97); PCO2, Venous 35 mmHg (36-56); PO2, Venous 43 mmHg (15-58); pH, Venous 7.32 (7.33-7.66)
[2025-05-17] MEDS: RINGERS LACTATED 1000 ML 1,000 ML 999 ML IV ×3 (05:16→16:38)
[2025-05-17 05:52] LABS: Basophils # (Auto) 0.1 Thou/mm3 (0.0-0.2); Basophils % (Auto) 1 % (0-2.5); Eosinophils # (Auto) 0.0 Thou/mm3 (0.0-0.5); Eosinophils % (Auto) 0 % (0-10); Hematocrit 44.7 % (41.0-53.0); Hemoglobin 15.0 g/dL (13.5-16.0); Immature Granulocytes Auto 1.11 Thou/mm3 (0.00-0.00); Lymphocytes # (Auto) 1.2 Thou/mm3 (1.0-4.8); Lymphocytes % (Auto) 8 % (10-50); Mean Corpuscular HGB Conc 33.6 g/dl (31.0-37.0); Mean Corpuscular Hemoglobin 30.5 pg (25.0-35.0); Mean Corpuscular Volume 91 fL (80-100); Monocytes # (Auto) 1.0 Thou/mm3 (0.0-0.8); Monocytes % (Auto) 7 % (0-12); Neutrophils # (Auto) 11.8 Thou/mm3 (1.8-7.7); Neutrophils % (Auto) 77 % (37-80); Nucleated Red Blood Cell # 0.00 Thou/mm3 (0.00-0.00); Nucleated Red Blood Cell % 0 /100 WBC (0); Platelet Count 151 Thou/mm3 (140-440); RDW Standard Deviation 45.0 fL (35.1-43.9); Red Blood Count 4.91 Miln/mm3 (4.50-5.90); White Blood Count 15.3 Thou/mm3 (3.8-10.6)
[2025-05-17 06:00] LABS: Creatine Kinase 910 U/L (34-171); Magnesium 2.2 mg/dL (1.6-2.6); Phosphorous 3.5 mg/dL (2.4-5.1)
[2025-05-17] MEDS: HEPARIN SOD INJ 5000 UNIT/ML VIAL SC ×3 (06:19→21:14)
[2025-05-17 06:41] LABS: Path Review Blood Smear Sent to Pathologist
[2025-05-17 07:28] LABS: Reflex Lactate? Y
--- NOTE | 2025-05-17 07:43 | PC.NURSE ---
CONFIRMATION WITH DR. AMANDA, ADMINISTER ONLY 1 L LR AT [facility].
--- NOTE | 2025-05-17 07:44 | PC.NURSE ---
PATIENT UP TO [facility] TRANFER VIA [facility], ALERT AND ORIENTED TO SELF AND PLACE, ROOM AIR, HE IS SLOW TO ANSWER. PT WAS ABLE TO TRANSFER HIMSELF FROM [facility] TO HOSPITAL BED.
--- NOTE | 2025-05-17 07:50 | PC.NURSE ---
SEIZURE PRECAUTIONS AT BEDSIDE.
[2025-05-17 09:20] LABS: Lactate (Lactic Acid) 2.7 mMol/L (0.4-2.0)
--- NOTE | 2025-05-17 10:52 | PC.SS ---
SS met with patient who is alert/oriented. Patient's family was at bedside. Patient's family states patient resides with his mother. Patient was admitted for seizures. Patient is ambulatory and independent with ADL's. Patient does not possess any DME. Patient's family provides transportation assistance to all appointments. Patient's PCP: [facility] in [place]. Last appt. 3 months ago. Patient sees a Neurologist at [facility]. Pharmacy: [facility]. Patient is not employed and is not receiving social security disability. Patient d/c plan to return home. Alt medical decision maker: Angela Kumar, Transportation: family
[2025-05-17 11:08] LABS: Lactate (Lactic Acid) 2.4 mMol/L (0.4-2.0)
--- NOTE | 2025-05-17 11:32 | PD.RESCONSUL ---
HPI Data of Consult Requesting Physician: Cecelia Tom DO Admitting Provider: Celestine Weaver MD Attending Provider: Cecelia Tom DO Primary Care Provider: Physician No Primary/Family Consult Narrative History of present illness: HPI is limited as patient is poor historian at this time and most of history obtained from chart review A 24-year-old male with a history of seizure disorder (including multiple admissions and a previous episode of status epilepticus) and right upper extremity brachial DVT was brought to the ED by ambulance following a witnessed seizure. The patient lives with his parents, who observed the seizure and called EMS. According to EMS, the patient experienced five seizure episodes without fully regaining consciousness between events. Upon arrival in the ED, the patient had two more witnessed seizures, after which a loading dose of 1500 mg Keppra was administered. The seizures resolved, but the patient remained altered and postictal. Upon evaluation, the patient was alert and oriented x 3, though he appeared more confused than usual. He did not recall the events and stated he was compliant with his home Keppra regimen. Review of his medical record indicated that he had been discharged in October with instructions to continue Keppra 1500 mg twice daily and Depakote. However it appeared that the patient was only taking Keppra on home meds, and his last refill was in November. After further questioning, the patient admitted he had not been taking his Keppra due to lack of refills. Patient did say that for the last 2 or 3 days or experiencing severe headache, and had some vision changes. Denies any chest pain, palpitation, nausea, vomiting, or any other symptoms. ED course: On arrival, the patient was tachycardic and tachypneic, with the remainder of his vitals within normal limits. Laboratory results showed leukocytosis (21.3), likely reactive, and CMP results revealed high anion gap metabolic acidosis (anion gap 19, bicarbonate 15.6) and lactic acidosis (6.9). A urine toxicology screen was positive for benzodiazepines, which is consistent with the Versed the patient received prior to arrival. PMHx: as above PSHx: unknown Medications: Keppra and valproic acid, however noncompliant Allergy NKDA Social history patient denies any recreational drug use, alcohol use or smoking, lives with the parents. cc:: cc: Cecelia Tom DO Review of Systems Review of Systems Narrative Review of Systems: 12 point ROS reviewed and is otherwise negative unless stated directly in the HPI Exam Vital Signs Temp Pulse Resp BP Pulse Ox O2 Del Method O2 Flow Rate 98.3 F 115 H 16 120/79 99 Room Air 10 05/17/25 08:00 05/17/25 08:00 05/17/25 08:00 05/17/25 08:00 05/17/25 08:00 05/17/25 08:00 05/17/25 05:17 FiO2 10 05/17/25 02:28 Narrative Exam General: AAOx2, lethargic, poor historian HEENT: Moist mucous membranes, conjunctiva clear, EOMI, PERRLA, Cardiovascular: S1, S2, radial pulses +2 bilat, RRR Pulmonary: CTAB bilat no cough, no wheezing GI: No tenderness to light or deep palpitation, no guarding, rigidity, rebound tenderness or distension Extremities: No presence of trace or pitting edema in lower extremities bilaterally, dorsalis pedis pulses +2 bilaterally Neuro: AAOx2, not oriented to time, postictal Psych: Good judgement, thought and behavior Results Labs 05/18/25 04:59 05/18/25 04:59 Labs: Short CBC 05/17/25 05/17/25 Range/Units 03:04 05:05 WBC 21.3 H 15.3 H D (3.8-10.6) Thou/mm3 Hgb 15.3 15.0 (13.5-16.0) g/dL Hct 47.3 44.7 (41.0-53.0) % Plt Count 290 151 D (140-440) Thou/mm3 BMP 05/17/25 03:04 Sodium 141 Potassium 4.1 Chloride 106 Carbon Dioxide 15.6 L BUN 6 L Creatinine 1.3 Glucose 142 H Calcium 9.4 Cardiac Enzymes 05/17/25 Range/Units 03:04 Total Creatine Kinase 910 H (34-171) U/L Liver Function 05/17/25 Range/Units 03:04 Total Bilirubin 0.2 L (0.3-1.2) mg/dL AST 31 (0-34) U/L ALT 20 (10-49) U/L Alkaline Phosphatase 107 (46-116) U/L Albumin 4.8 (3.5-5.0) gm/dL ABG Interpretation ABG results: 05/17/25 04:25 VBG pH 7.32 L VBG pCO2 35 L VBG pO2 43 VBG Base Excess -7 L Quality Measures Quality Measures none Medications Home Medications and Allergies Home Medications ?Medication ?Instructions ?Recorded ?Confirmed ?Type valproic acid 250 mg capsule 1,250 mg PO Q12H 10/15/24 05/17/25 History levetiracetam 1,000 mg tablet 1,500 mg PO Q12H 05/17/25 05/17/25 History Allergies Allergy/AdvReac Type Severity Reaction Status Date / Time No Known Allergies Allergy Verified 12/21/24 04:08 Visit Medications Acetaminophen (Acetaminophen 325 Mg Tablet) 650 mg PO Q6H PRN PRN Reason: Fever >101.5 Stop: 06/16/25 04:46 Heparin Sodium (Porcine) (Heparin Sod Inj 5000 Unit/Ml Vial) 5,000 unit SC Q8HR [facility] Stop: 05/31/25 05:59 Last Admin: 05/17/25 06:19 Dose: 5,000 unit Levetiracetam (Levetiracetam 250 Mg Tablet) 1,500 mg PO BID [facility] Stop: 06/16/25 08:59 Last Admin: 05/17/25 09:00 Dose: 1,500 mg Midazolam HCl (Midazolam Inj 1 Mg/Ml Vial 2 Ml) 2 mg IVP Q5MIN PRN PRN Reason: seizure Ondansetron HCl (Ondansetron Inj 2 Mg/Ml Inj 2 Ml) 4 mg IVP Q6H PRN; Protocol PRN Reason: NAUSEA OR VOMITING Stop: 06/16/25 04:46 Valproic Acid (Valproic Acid Syrup 250 Mg/5 Ml Udc) 1,250 mg PO BID [facility] Stop: 06/16/25 11:14 Discontinued Medications Lactated Ringer's (Lactated Ringers) 1,000 mls @ 999 mls/hr IV .Q1H1M ONE Stop: 05/17/25 05:44 Last Infusion: 05/17/25 06:05 Dose: 0 mls/hr Lactated Ringer's (Lactated Ringers) 1,000 mls @ 75 mls/hr IV .[id number] [facility] Stop: 06/16/25 04:59 Lactated Ringer's (Lactated Ringers) 2,000 mls @ 999 mls/hr IV .Q2H1M ONE Stop: 05/17/25 08:15 Lactated Ringer's (Lactated Ringers) 1,000 mls @ 999 mls/hr IV .Q1H1M ONE Stop: 05/17/25 09:01 Last Admin: 05/17/25 08:05 Dose: 999 mls/hr Levetiracetam (Levetiracetam Inj 100 Mg/Ml Vial 5ml) 1,000 mg IVP X1 ONE Stop: 05/17/25 02:41 Last Admin: 05/17/25 03:06 Dose: 1,000 mg Levetiracetam (Levetiracetam Inj 100 Mg/Ml Vial 5ml) 500 mg IVP X1 ONE Stop: 05/17/25 03:51 Last Admin: 05/17/25 04:27 Dose: 500 mg Assessment & Plan Plan Assessment: A 24-year-old male with a history of seizure disorder, including multiple admissions and a previous episode of status epilepticus, was admitted for status epilepticus. The episode has since resolved, and the patient is being treated and managed for seizures. #Status epilepticus resolved #Seizure disorder -noncompliant with medication #Intractable headache & blurry vision Patient had multiple episodes of witnessed seizures without completely regaining consciousness Upon arrival patient was tachycardic, however was saturating well and was able to protect airways. EMS gave 4 mg of Versed, in ED patient had another episode of seizure, loading dose of Keppra was given Plan: ? Telemetry ? Keppra 1500 mg IV twice daily ? Depakote 625 mg IV every 6 hours ? Keppra and Depakote levels send out ? Repeat EEG, will adjust antiepileptics based on findings ? Neurocheck every 4 hours ? Seizure precaution ? Aspiration precaution ? Versed 2 mg as needed for seizure ? Monitor close for further seizures or signs of status epilepticus #High anion gap metabolic acidosis most likely secondary due to lactic acidosis #Lactic acidosis secondary due to seizure #Leukocytosis Above handled by primary hospitalist team Patient seen and care discussed with my attending physician, Dr. Francisco Decker, PGY-2 This document was transcribed using voice recognition technology. Minor inaccuracies may be present. Attending Provider Attestation/Addendum I personally have seen and examined the patient at the bedside and agreed with resident's findings, assessment and plan of care. Patient has longstanding seizure disorder, complicated by cocaine use and noncompliance triggering breakthrough seizures. Patient is neurologically afocal at present and he is back to his baseline. Continue with home medications: Keppra and Depakote and follow seizure precautions. Follow-up with EEG to decide about additional antiepileptic drug therapy. Advised him about the importance of compliance and stay quit from cocaine use.
[2025-05-17 12:19] LABS: Reflex Lactate? Y
[2025-05-17] MEDS: VALPROIC ACID SYRUP 250 MG/5 ML UDC 1250 MG PO (12:29)
[2025-05-17 13:27] LABS: Lactic Acid, 3 HR 3.6 mMol/L (0.4-2.0)
[2025-05-17 14:03] LABS: Reflex Lactate? Y
[2025-05-17] MEDS: MIDAZOLAM INJ 1 MG/ML VIAL 2 ML 2 MG IVP (15:21)
--- NOTE | 2025-05-17 15:28 | EKG_ITS ---
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
--- NOTE | 2025-05-17 15:30 | EVENTNT_ITS ---
Documentation for date of: 05/17/25 Event Note Event Note: Rapid Response was called for seizure activity at 3:30PM 05/17, patient was seen undergoing tonic-clonic seizing for <1min, and Versed 2mg was administered from an standing order resulting in cessation of the activity. Patient was in post- ictal period thereafter, unarousable to calls of his name, PERRL , ausculation of lungs did not reveal crackles/rhonchi concerning for aspiration. Neurology was previously consulted was notified of this event EKG showed sinus tachycardia. BP 120/71 and HR 132. A new as needed order for diazepam 5 mg every 15-minute was placed for ongoing seizure activity This case was discussed with my attending physician, Dr. Tom. Rylan Guevara, DO PGY I
[2025-05-17 15:48] LABS: Lactate (Lactic Acid) 19.0 mMol/L (0.4-2.0)
--- NOTE | 2025-05-17 15:50 | ESPR_ITS ---
<Statement entered by Juvenal Banda MD - 05/17/25 20:52> Overnight admission. Seen and examined at bedside in ED and resting comfortably in bed, alert and oriented x 3. States that he has been compliant with his medications and that they have been refilled outpatient. Of note, he had a rapid response today in the afternoon for breakthrough seizure and was given Versed that resolved seizure. Please see event note for details. Patient then transferred to telemetry for closer monitoring. Otherwise, we will await for further recommendations from neurology. ----- Note reviewed and agree with care plan as documented. Please refer to the note below for further details. Plan discussed with attending physician Dr. Negro Banda MD PGY-2 Internal Medicine Documentation for date of: 05/17/25 Subjective Subjective Interval history: Patient was seen lying in bed comfortably and examined. Patient stated that he had been compliant with his seizure medication with the latest refill from [facility]. However per chart review the latest refill was completed in November 2024 for 2 months medication only. The patient states that he does not recall details related to his seizing activities as he is not aware of them. He reports pain on his tongue concerning for tongue bite, denies headache. According to the nurse at the bedside, patient was incontinent. He had 5 witnessed full body tonic-clonic seizures at home and then 2 more in the ED. the episodes lasted less than a minute and patient did not regain full consciousness in between. Patient was given a total of 3 L LR, lactic acid elevated at 6.9. Patient was started on Keppra 1.5 g and within 2-hour he was noted to have improved mentation, alert and oriented x 3, and GCS improved to 15. Heart rate 140s at presentation and 122 right now. He denies headaches, chest pain, or abdominal pain. Exam Vital Signs Temp Pulse Resp BP Pulse Ox O2 Del Method O2 Flow Rate 98.7 F 97 15 108/76 97 Room Air 05/17/25 12:00 05/17/25 12:21 05/17/25 12:00 05/17/25 12:00 05/17/25 12:00 05/17/25 12:05/17/25 05:17 FiO2 05/17/25 02:28 Narrative Exam GENERAL: no acute distress, AAO x3, postictal, poor historian HEENT: Head AT/ NC. Mucous membranes moist. NECK: Supple, no lymphadenopathy, no carotid bruits. CARDIOVASCULAR: Tachycardic. Normal S1/S2, No m/r/g. No pitting edema of bilateral LEs. RESPIRATORY: CTAB. No wheezing, rhonchi, crackles. GASTROINTESTINAL: Abdomen soft, non tender no palpable masses. MUSCULOSKELETAL:? No cyanosis or edema, no visible joint swelling. NEUROLOGICAL: No focal deficits. Sensation intact, symmetric. Objective Labs 05/18/25 04:59 05/18/25 04:59 Labs: Laboratory Results - last 24 hr 05/17/25 05/17/25 05/17/25 03:04 03:46 04:25 WBC 21.3 H RBC 5.08 Hgb 15.3 Hct 47.3 MCV 93 MCH 30.1 MCHC 32.3 RDW Std Deviation 44.7 H Plt Count 290 Neut % (Auto) 67 Lymph % (Auto) 16 [place] % (Auto) 4 Eos % (Auto) 1 Baso % (Auto) 0 Neut # (Auto) 14.4 H Lymph # (Auto) 3.5 [place] # (Auto) 0.9 H Eos # (Auto) 0.1 Baso # (Auto) 0.1 Immature Gran # (Auto) 2.33 H Absolute Nucleated RBC 0.00 Immature Gran % 11 H Nucleated RBC % 0 Smear Path Review Sent to Pathologist VBG pH 7.32 L VBG pCO2 35 L VBG pO2 43 VBG O2 Sat ([place]) 79 L VBG Base Excess -7 L Sodium 141 Potassium 4.1 Chloride 106 Carbon Dioxide 15.6 L Anion Gap 19 H BUN 6 L Creatinine 1.3 Estim Creat Clear Calc Not Performed. eGFR > 60 BUN/Creatinine Ratio 5 L Glucose 142 H Calculated Osmolality 280 Lactic Acid 6.9 H* Calcium 9.4 Corrected Calcium 9.4 Phosphorus 3.5 Magnesium 2.2 Total Bilirubin 0.2 L AST 31 ALT 20 Alkaline Phosphatase 107 Total Creatine Kinase 910 H Total Protein 7.3 Albumin 4.8 Globulin 2.5 Albumin/Globulin Ratio 1.9 Urine Opiates Screen Negative Urine Fentanyl Screen Negative Ur Barbiturates Screen Negative U Amphetamin/Meth Scrn Negative U Benzodiazepines Scrn Positive A U Cocaine Metab Screen Negative U Marijuana (THC) Screen Negative 05/17/25 05/17/25 05/17/25 05:05 09:11 10:59 WBC 15.3 H D RBC 4.91 Hgb 15.0 Hct 44.7 MCV 91 MCH 30.5 MCHC 33.6 RDW Std Deviation 45.0 H Plt Count 151 D Neut % (Auto) 77 Lymph % (Auto) 8 L [place] % (Auto) 7 Eos % (Auto) 0 Baso % (Auto) 1 Neut # (Auto) 11.8 H Lymph # (Auto) 1.2 [place] # (Auto) 1.0 H Eos # (Auto) 0.0 Baso # (Auto) 0.1 Immature Gran # (Auto) 1.11 H Absolute Nucleated RBC 0.00 Immature Gran % 7 H Nucleated RBC % 0 Smear Path Review VBG pH VBG pCO2 VBG pO2 VBG O2 Sat ([place]) VBG Base Excess Sodium Potassium Chloride Carbon Dioxide Anion Gap BUN Creatinine Estim Creat Clear Calc eGFR BUN/Creatinine Ratio Glucose Calculated Osmolality Lactic Acid 2.7 H 2.4 H Calcium Corrected Calcium Phosphorus Magnesium Total Bilirubin AST ALT Alkaline Phosphatase Total Creatine Kinase Total Protein Albumin Globulin Albumin/Globulin Ratio Urine Opiates Screen Urine Fentanyl Screen Ur Barbiturates Screen U Amphetamin/Meth Scrn U Benzodiazepines Scrn U Cocaine Metab Screen U Marijuana (THC) Screen 05/17/25 05/17/25 13:13 15:33 WBC RBC Hgb Hct MCV MCH MCHC RDW Std Deviation Plt Count Neut % (Auto) Lymph % (Auto) [place] % (Auto) Eos % (Auto) Baso % (Auto) Neut # (Auto) Lymph # (Auto) [place] # (Auto) Eos # (Auto) Baso # (Auto) Immature Gran # (Auto) Absolute Nucleated RBC Immature Gran % Nucleated RBC % Smear Path Review VBG pH VBG pCO2 VBG pO2 VBG O2 Sat ([place]) VBG Base Excess Sodium Potassium Chloride Carbon Dioxide Anion Gap BUN Creatinine Estim Creat Clear Calc eGFR BUN/Creatinine Ratio Glucose Calculated Osmolality Lactic Acid 3.6 H 19.0 H* Calcium Corrected Calcium Phosphorus Magnesium Total Bilirubin AST ALT Alkaline Phosphatase Total Creatine Kinase Total Protein Albumin Globulin Albumin/Globulin Ratio Urine Opiates Screen Urine Fentanyl Screen Ur Barbiturates Screen U Amphetamin/Meth Scrn U Benzodiazepines Scrn U Cocaine Metab Screen U Marijuana (THC) Screen ABG Interpretation ABG results: 05/17/25 04:25 VBG pH 7.32 L VBG pCO2 35 L VBG pO2 43 VBG Base Excess -7 L Quality Measures Quality Measures none Assessment & Plan Assessment Current Active Medications: Generic Name Dose Route Start Last Admin Trade Name Freq PRN Reason Stop Dose Admin Acetaminophen 650 mg 05/17/25 15:27 Acetaminophen 325 Mg Tablet PO 06/16/25 04:46 Q6H PRN PAIN OR FEVER > 100.4 Diazepam 5 mg 05/17/25 15:23 Diazepam Inj 5 Mg/Ml Vial 2 Ml IVP Q5MIN PRN seizure Protocol Heparin Sodium (Porcine) 5,000 unit 05/17/25 06:00 05/17/25 13:15 Heparin Sod Inj 5000 Unit/Ml Vial SC 05/31/25 05:59 5,000 unit Q8HR PANCHO Administration Valproic Acid 625 mg/ Sodium 56.25 mls @ 56.25 mls/hr 05/17/25 18:00 Chloride IV 06/16/25 17:59 Q6HR PANCHO Levetiracetam 1,500 mg 05/17/25 21:00 Levetiracetam Inj 100 Mg/Ml Vial 5ml IVP 06/16/25 20:59 Q12HR PANCHO Midazolam HCl 2 mg 05/17/25 04:54 Midazolam Inj 1 Mg/Ml Vial 2 Ml IVP Q5MIN PRN seizure Ondansetron HCl 4 mg 05/17/25 04:47 Ondansetron Inj 2 Mg/Ml Inj 2 Ml IVP 06/16/25 04:46 Q6H PRN NAUSEA OR VOMITING Protocol Plan A 24-year-old male with a history of seizure disorder, including multiple admissions and a previous episode of status epilepticus, was admitted for status epilepticus. The episode has since resolved, and the patient is being treated and managed for seizures. #Breakthrough seizure in the setting of #Status epilepticus, uncontrolled 2/2 #Medication non-compliance Patient had multiple episodes of witnessed seizures without completely regaining consciousness. Patient has been prescribed Keppra p.o. 1.5 g twice daily and valproic acid p.o. 1.25 g twice daily, unsure whether he has been taking them. CT head: Negative for acute hemorrhage, mass effect, or midline shift. Upon arrival patient was tachycardic, however was saturating well and was able to protect airways. EMS gave 4 mg of Versed, in ED patient had another episode of seizure, loading dose of Keppra was given 1.5g. Rapid Response was called for seizure activity at 3:30PM 05/17, patient was seen undergoing tonic-clonic seizing for <1min, and Versed 2mg was administered resulting in cessation of the activity. Patient was in post-ictal period thereafter, PERRL , ausculation of lungs did not reveal crackles/rhonchi concerning for aspiration. EKG showed sinus tachycardia. ? Neurology was consulted, recommendations appreciated ? Continue Keppra IVP 1.5g bid ? Valproate sodium IV 625 mg Q6h ? Versed 2 mg PRN for seizure (1/2 doses given) ? Diazepam IVP 5mg Q5min PRN inj for seizure activity (0/3 doses given). ? Neurocheck every 4 hours ? Monitor close for further seizures or signs of status epilepticus ? Admit to telemetry for continuous monitoring ? Seizure precaution ? Aspiration precaution ? Consider MRI with and without contrast ? Consider repeat EEG to evaluate for ongoing seizure activity #High anion gap metabolic acidosis most likely secondary due to lactic acidosis #Lactic acidosis secondary due to seizure in ED, 2 L of LR was given. Labs revealed high anion gap, elevated lactic acid (19.0) and decreased bicarb (15.6). CPK 910. VBG pH 7.32, pCO2 35, PaO2 43, O2 sat 79% ? Correct metabolic acidosis with appropriate fluid resuscitation and electrolyte replacement ? LR bolus 1 L followed by D5-LR at 100 mL/h ? Trend lactic acid every 6 hours ? pending VBG ? Monitor urine output closely #Leukocytosis Most likely reactive in the setting of seizure No sign or symptoms of ongoing infection Patient is afebrile ? Continue to monitor for #Social ? Educate the patient and family on the importance of medication adherence and scheduling refills to prevent further seizure ? Discussed the need for regular follow-up with neurology ? technical services analyst consult Disposition:Telemetry, working toward seizure control, cessation of breakthrough activity with neurology on board. DVT prophylaxis: heparin GI prophylaxis: none Diet: NPO Lines: PIV CODE STATUS:Full code This case was discussed with my attending physician, Dr. Tom, and senior resident, Dr Solo Hannah. Rylan Guevara DO PGY I Attending Provider Attestation/Addendum I, Cecelia Tom, , attest that I was physically present for the zavala portions of the service and evaluated the patient with the resident and I reviewed and discussed the case with the resident and agree with the resident's findings and plans of care as documented above Patient seen and eval this a.m. Mother, [id number] and brother are at bedside. Mother states that she hands the patient and his pills, but does not watch him swallow them. She is concerned that the patient may be having seizures due to cocaine. However, toxicology is negative for any recreational drugs. Brother states that the patient often uses cocaine and there is potential that he may be noncompliant with his medications. Patient at time of evaluation is quite somnolent, but arousable and able to answer questions and follow commands. Patient states that he has a headache and is quite tired. He otherwise has no other complaints. Lungs are clear to auscultation bilaterally. Patient did have a rapid response in the afternoon due to breakthrough seizure. Seizure resolved after receiving Versed 2 mg IV push. Due to concern for aspiration, medications were switched to IV formulation. Will follow-up with neurology regarding further recommendations regarding further adjustments of AEDs. Will continue current management at this time. Case was discussed with neurology over the phone.
--- NOTE | 2025-05-17 15:53 | PC.NURSE ---
dr. alan anton made aware of lab critical lab: lactic acid 19. to redraw lactic acid. to put in orders. orders received, read back, and carried out.
--- NOTE | 2025-05-17 17:30 | PC.NURSE ---
patient transfer to tele, report given at bedside to Heather rn and Raegan rn. pt alert to self, sister Kellie at bedside update given.
[2025-05-17] MEDS: DEXTROSE 5%-LACTATED RINGERS 1,000 ML 100 ML IV (17:55)
[2025-05-17] MEDS: SODIUM CHLORIDE 0.9% IV ×2 (17:56→23:57)
[2025-05-17] MEDS: VALPROATE SOD IV ×2 (17:56→23:57)
[2025-05-17 18:42] LABS: Reflex Lactate? Y
[2025-05-17 19:27] LABS: Lactic Acid, 3 HR 2.1 mMol/L (0.4-2.0)
[2025-05-17] MEDS: levETIRAcetam INJ 100 MG/ML VIAL 5ML 1500 MG IVP (21:13)
--- NOTE | 2025-05-17 22:28 | RESP.EEG ---
EEG has been completed and is ready for MD interpretation.
[2025-05-17 22:46] LABS: Lactate (Lactic Acid) 1.8 mMol/L (0.4-2.0)
[2025-05-18] VITALS (10 sets, daily range): BP systolic 91–152; BP diastolic 61–85; PULSE 71–111; RESP 15–99; TEMP 36.1–36.6; O2SAT 94–99; BMI 27.1
[2025-05-18] MEDS: DEXTROSE 5%-LACTATED RINGERS 1,000 ML 100 ML IV ×2 (04:31→15:31)
--- NOTE | 2025-05-18 05:30 | PC.NURSE ---
DAVID MADE CALL TO PRIMARY NURSE STATING PT WITH SEIZURE ACTIVITY. UPON ENTERIN ROOM, PT WITH TONIGHT CLONIC SEIZURE, CLENCHED JAW. TURNED TO SIDE. VERSED GIVEN 2 MG X1. OXYGEN 6L NC PLACED. SEIZURE LASTING APPROX 4 MIN LONG. PT IN POST-ICTAL PHASE POST SEIZURE. MINIMALLY AROUSABLE BY STERNAL RUB. SOME IMCOMPREHENSIBLE SOUNDS. UA SENT. NO CHANGED MADE TO MEDICATIONS PER PROVIDERS AT BEDSIDE.
[2025-05-18] MEDS: MIDAZOLAM INJ 1 MG/ML VIAL 2 ML 2 MG IVP (05:34)
[2025-05-18] MEDS: HEPARIN SOD INJ 5000 UNIT/ML VIAL SC (05:47)
--- NOTE | 2025-05-18 05:54 | EVENTNT_ITS ---
Documentation for date of: 05/18/25 Event Note Event Note: Rapid Response Note: Time: 5:30 AM Reason for Activation: Seizure activity Patient experienced a 2-3 minute tonic-clonic seizure without evidence of incontinence. On Arrival ? Vital Signs: * BP: 150/85 mmHg * HR: 111 bpm * RR: 24 breaths/min * O2Sat: 99% on oxymask * Temperature: Afebrile Assessment: Patient was found in a postictal state following seizure resolution. Interventions: * Ween of oxymask - now saturating well on room air * Bedside glucose test performed * Urinalysis (UA) ordered * Versed 2 mg IV push given Plan: Primary team will be notified and evaluate for further seizure management, patient may need escalation of anti-epileptic medication. MRI may be considered, and follow-up on previous EEG results is pending. Patient seen and assessed under supervision of attending physician Dr.Alhalaibeh Alyssa Leos MD PGY-1, Internal Medicine Please note: this document was transcribed using voice recognition technology; minor inaccuracies may be present.
[2025-05-18 06:02] LABS: Basophils # (Auto) 0.1 Thou/mm3 (0.0-0.2); Basophils % (Auto) 1 % (0-2.5); Eosinophils # (Auto) 0.0 Thou/mm3 (0.0-0.5); Eosinophils % (Auto) 0 % (0-10); Hematocrit 39.8 % (41.0-53.0); Hemoglobin 13.2 g/dL (13.5-16.0); Immature Granulocytes Auto 0.11 Thou/mm3 (0.00-0.00); Lymphocytes # (Auto) 3.9 Thou/mm3 (1.0-4.8); Lymphocytes % (Auto) 46 % (10-50); Mean Corpuscular HGB Conc 33.2 g/dl (31.0-37.0); Mean Corpuscular Hemoglobin 31.0 pg (25.0-35.0); Mean Corpuscular Volume 93 fL (80-100); Monocytes # (Auto) 0.6 Thou/mm3 (0.0-0.8); Monocytes % (Auto) 6 % (0-12); Neutrophils # (Auto) 4.0 Thou/mm3 (1.8-7.7); Neutrophils % (Auto) 46 % (37-80); Nucleated Red Blood Cell # 0.00 Thou/mm3 (0.00-0.00); Nucleated Red Blood Cell % 0 /100 WBC (0); Platelet Count 207 Thou/mm3 (140-440); RDW Standard Deviation 46.7 fL (35.1-43.9); Red Blood Count 4.26 Miln/mm3 (4.50-5.90); White Blood Count 8.6 Thou/mm3 (3.8-10.6)
[2025-05-18] MEDS: VALPROATE SOD IV ×3 (06:08→17:44)
[2025-05-18] MEDS: SODIUM CHLORIDE 0.9% IV ×3 (06:08→17:44)
[2025-05-18 06:24] LABS: Anion Gap 10 (7-16); BUN/Creatinine Ratio 7 Ratio (12-20); Blood Urea Nitrogen < 5 mg/dL (9-23); Calcium 8.8 mg/dL (8.3-10.6); Carbon Dioxide 25.9 mMol/L (20.0-31.0); Chloride 108 mMol/L (98-107); Creatinine (Component) 0.7 mg/dL (0.6-1.3); Estimated Creatinine Clearance 160.0 mL/min (>60); Glucose 106 mg/dL (74-106); Osmolality,Calculated 284 (275-295); Potassium 3.8 mMol/L (3.4-5.1); Sodium 144 mMol/L (136-145); eGFR > 60 See Note
[2025-05-18 06:28] LABS: Collection Type, Urine Catheter; Squamous Epithelial Cell,Urine 0 /hpf (0-5)
[2025-05-18 07:51] LABS: Bilirubin,Urine Negative (Negative); Blood,Urine Negative (Negative); Clarity,Urine Clear (Clear/Hazy); Color,Urine Lt-Yellow (Lt Yel-Yel); Culture Indicated,Urine Not Indicated; Glucose, Urine Negative (Negative); Ketones,Urine Trace (Negative); Leukocyte Esterase,Urine Negative (Negative); Nitrite,Urine Negative (Negative); PH,Urine 6.5 (5.0-7.0); Protein,Urine Negative (Neg - Trace); RBC,Urine 2 /hpf (0-3); Specific Gravity,Urine 1.012 (1.001-1.035); Urobilinogen,Urine Negative mg/dL (0.0-1.0); WBC,Urine 1 /hpf (0-5)
[2025-05-18] MEDS: levETIRAcetam INJ 100 MG/ML VIAL 5ML 1500 MG IVP ×2 (09:58→20:29)
--- NOTE | 2025-05-18 11:40 | PD.RESPRO ---
Documentation for date of: 05/18/25 Subjective Subjective Interval history: Patient examined at bedside today. Overnight events included having a seizure for about 4 to 5 minutes that was controlled with Versed 2 mg. Patient reports he is doing well at this time. He has no other complaints. Denies any chest pain or shortness of breath. Exam Vital Signs Temp Pulse Resp BP Pulse Ox O2 Del Method O2 Flow Rate 97.6 F 104 H 15 108/76 97 Room Air 10 05/18/25 08:00 05/18/25 08:00 05/18/25 08:00 05/18/25 08:00 05/18/25 08:00 05/18/25 08:00 05/17/25 05:17 FiO2 10 05/17/25 02:28 Narrative Exam General: AAOx3, no acute distress HEENT: Moist mucous membranes, conjunctiva clear, EOMI, PERRLA, Cardiovascular: S1, S2, radial pulses +2 bilat, RRR Pulmonary: CTAB bilat no cough, no wheezing GI: No tenderness to light or deep palpitation, no guarding, rigidity, rebound tenderness or distension Extremities: No presence of trace or pitting edema in lower extremities bilaterally, dorsalis pedis pulses +2 bilaterally Neuro: AAOx3, no focal motor or sensory deficits at this time Psych: Good judgement, thought and behavior Objective Labs 05/19/25 05:02 05/19/25 06:31 Labs: Laboratory Results - last 24 hr 05/17/25 05/17/25 05/17/25 13:13 15:33 19:00 WBC RBC Hgb Hct MCV MCH MCHC RDW Std Deviation Plt Count Neut % (Auto) Lymph % (Auto) [place] % (Auto) Eos % (Auto) Baso % (Auto) Neut # (Auto) Lymph # (Auto) [place] # (Auto) Eos # (Auto) Baso # (Auto) Immature Gran # (Auto) Absolute Nucleated RBC Immature Gran % Nucleated RBC % Sodium Potassium Chloride Carbon Dioxide Anion Gap BUN Creatinine Estim Creat Clear Calc eGFR BUN/Creatinine Ratio Glucose Calculated Osmolality Lactic Acid 3.6 H 19.0 H* 2.1 H Calcium Ur Collection Type Urine Color Urine Clarity Urine pH Ur Specific [place] Urine Protein Urine Glucose (UA) Urine Ketones Urine Blood Urine Nitrite Urine Bilirubin Urine Urobilinogen (Auto) Ur Leukocyte Esterase Urine RBC Urine WBC Ur Squamous Epith Cells Urine Bacteria Ur Culture Indicated? 05/17/25 05/18/25 05/18/25 22:25 04:59 05:53 WBC 8.6 D RBC 4.26 L Hgb 13.2 L Hct 39.8 L MCV 93 MCH 31.0 MCHC 33.2 RDW Std Deviation 46.7 H Plt Count 207 D Neut % (Auto) 46 Lymph % (Auto) 46 [place] % (Auto) 6 Eos % (Auto) 0 Baso % (Auto) 1 Neut # (Auto) 4.0 Lymph # (Auto) 3.9 [place] # (Auto) 0.6 Eos # (Auto) 0.0 Baso # (Auto) 0.1 Immature Gran # (Auto) 0.11 H Absolute Nucleated RBC 0.00 Immature Gran % 1 H Nucleated RBC % 0 Sodium 144 Potassium 3.8 Chloride 108 H Carbon Dioxide 25.9 Anion Gap 10 BUN < 5 L Creatinine 0.7 D Estim Creat Clear Calc 160.0 eGFR > 60 BUN/Creatinine Ratio 7 L Glucose 106 Calculated Osmolality 284 Lactic Acid 1.8 Calcium 8.8 Ur Collection Type Catheter Urine Color Lt-Yellow Urine Clarity Clear Urine pH 6.5 Ur Specific [place] 1.012 Urine Protein Negative Urine Glucose (UA) Negative Urine Ketones Trace Urine Blood Negative Urine Nitrite Negative Urine Bilirubin Negative Urine Urobilinogen (Auto) Negative Ur Leukocyte Esterase Negative Urine RBC 2 Urine WBC 1 Ur Squamous Epith Cells 0 Urine Bacteria None Ur Culture Indicated? Not Indicated ABG Interpretation ABG results: 05/17/25 04:25 VBG pH 7.32 L VBG pCO2 35 L VBG pO2 43 VBG Base Excess -7 L Quality Measures Quality Measures none Assessment & Plan Assessment Current Active Medications: Generic Name Dose Route Start Last Admin Trade Name Freq PRN Reason Stop Dose Admin Acetaminophen 650 mg 05/17/25 15:27 Acetaminophen 325 Mg Tablet PO 06/16/25 04:46 Q6H PRN PAIN OR FEVER > 100.4 Diazepam 5 mg 05/17/25 15:23 Diazepam Inj 5 Mg/Ml Vial 2 Ml IVP Q5MIN PRN seizure Protocol Dextrose/Lactated Ringer's 1,000 mls @ 100 mls/hr 05/17/25 16:30 05/18/25 04:31 D5-Lr IV 06/16/25 16:29 100 mls/hr .Q10H PANCHO Administration Valproic Acid 625 mg/ Sodium 56.25 mls @ 56.25 mls/hr 05/18/25 12:00 Chloride IV 06/16/25 17:59 Q6HR PANCHO Levetiracetam 1,500 mg 05/17/25 21:00 05/18/25 09:58 Levetiracetam Inj 100 Mg/Ml Vial 5ml IVP 06/16/25 20:59 1,500 mg Q12HR PANCHO Administration Ondansetron HCl 4 mg 05/17/25 04:47 Ondansetron Inj 2 Mg/Ml Inj 2 Ml IVP 06/16/25 04:46 Q6H PRN NAUSEA OR VOMITING Protocol Plan Assessment: A 24-year-old male with a history of seizure disorder, including multiple admissions and a previous episode of status epilepticus, was admitted for status epilepticus. The episode has since resolved, and the patient is being treated and managed for seizures. #Status epilepticus resolved #Seizure disorder -noncompliant with medication #Intractable headache & blurry vision Patient had multiple episodes of witnessed seizures without completely regaining consciousness Upon arrival patient was tachycardic, however was saturating well and was able to protect airways. EMS gave 4 mg of Versed, in ED patient had another episode of seizure, loading dose of Keppra was given Plan: ? Telemetry ? Keppra 1500 mg IV twice daily ? Depakote 625 mg IV every 6 hours ? Keppra and Depakote levels send out ? Repeat EEG, will adjust antiepileptics based on findings ? Neurocheck every 4 hours ? Seizure precaution ? Aspiration precaution ? Versed 2 mg as needed for seizure ? Monitor close for further seizures or signs of status epilepticus #High anion gap metabolic acidosis most likely secondary due to lactic acidosis #Lactic acidosis secondary due to seizure #Leukocytosis Above handled by primary hospitalist team Patient seen and care discussed with my attending physician, Dr. Francisco Decker, PGY-2 This document was transcribed using voice recognition technology. Minor inaccuracies may be present. Attending Provider Attestation/Addendum I personally have seen and examined the patient at the bedside and I agreed with resident's findings, assessment and plan of care. Noted a breakthrough seizure this morning lasted for 4 to 5 minutes despite being on Keppra and valproic acid. As the EEG showed interictal and electrographic seizures, we will consider adding Vimpat and continuing Keppra and valproic acid at maximum doses: 1500 mg twice a day each. Talked to him about the importance of compliance to prevent recurrence and stay away from cocaine.
--- NOTE | 2025-05-18 13:18 | ESPR_ITS ---
<Statement entered by Juvenal Banda MD - 05/18/25 16:46> Overnight patient had second rapid response for tonic-clonic seizure that lasted approximately 4 minutes and was given midazolam that did eventually break patient out of his seizure. At bedside, he was oriented to self, year, and place but not birthdate. Spoke to neurology and will give loading dose of lacosamide 200 mg x1 and then 100 mg BID thereafter. Will continue to follow neurology recommendations at this time. ----- Note reviewed and agree with care plan as documented. Please refer to the note below for further details. Plan discussed with attending physician Dr. Alessio Banda MD PGY-2 Internal Medicine Documentation for date of: 05/18/25 Subjective Subjective Interval history: Patient was seen last sitting in his bed comfortably, and examined. He was alert, oriented, and conversant. Post ictal phase after breakthrough seizure at 5:30 in the morning had completely resolved. Patient denied headache, chest pain. Diet had been advanced to regular with dinner, which the patient tolerated without nausea or vomiting after. Patient was accompanied by parents in the room and awaiting the serving of breakfast. Immediately after the event, HR 111, BP 150s/85, RR 24, O2 sat 99% on oxy mask. By 9 AM, vitals had stabilized. Exam Vital Signs Temp Pulse Resp BP Pulse Ox O2 Del Method O2 Flow Rate 97.2 F 96 20 111/77 97 Room Air 10 05/18/25 12:00 05/18/25 12:00 05/18/25 12:05/18/25 12:05/18/25 12:05/18/25 12:05/17/25 05:17 FiO2 05/17/25 02:28 Narrative Exam GENERAL: no acute distress, AAO x3, postictal, poor historian HEENT: Head AT/ NC. Mucous membranes moist. NECK: Supple, no lymphadenopathy, no carotid bruits. CARDIOVASCULAR: Tachycardic. Normal S1/S2, No m/r/g. No pitting edema of bilateral LEs. RESPIRATORY: CTAB. No wheezing, rhonchi, crackles. GASTROINTESTINAL: Abdomen soft, non tender no palpable masses. MUSCULOSKELETAL:? No cyanosis or edema, no visible joint swelling. NEUROLOGICAL: No focal deficits. Sensation intact, symmetric. Objective Labs 05/19/25 05:02 09/19/25 06:31 Labs: Laboratory Results - last 24 hr 05/17/25 05/17/25 05/17/25 13:13 15:33 19:00 WBC RBC Hgb Hct MCV MCH MCHC RDW Std Deviation Plt Count Neut % (Auto) Lymph % (Auto) [place] % (Auto) Eos % (Auto) Baso % (Auto) Neut # (Auto) Lymph # (Auto) [place] # (Auto) Eos # (Auto) Baso # (Auto) Immature Gran # (Auto) Absolute Nucleated RBC Immature Gran % Nucleated RBC % Sodium Potassium Chloride Carbon Dioxide Anion Gap BUN Creatinine Estim Creat Clear Calc eGFR BUN/Creatinine Ratio Glucose Calculated Osmolality Lactic Acid 3.6 H 19.0 H* 2.1 H Calcium Ur Collection Type Urine Color Urine Clarity Urine pH Ur Specific Temple Urine Protein Urine Glucose (UA) Urine Ketones Urine Blood Urine Nitrite Urine Bilirubin Urine Urobilinogen (Auto) Ur Leukocyte Esterase Urine RBC Urine WBC Ur Squamous Epith Cells Urine Bacteria Ur Culture Indicated? 05/17/25 05/18/25 05/18/25 22:25 04:59 05:53 WBC 8.6 D RBC 4.26 L Hgb 13.2 L Hct 39.8 L MCV 93 MCH 31.0 MCHC 33.2 RDW Std Deviation 46.7 H Plt Count 207 D Neut % (Auto) 46 Lymph % (Auto) 46 [place] % (Auto) 6 Eos % (Auto) 0 Baso % (Auto) 1 Neut # (Auto) 4.0 Lymph # (Auto) 3.9 [place] # (Auto) 0.6 Eos # (Auto) 0.0 Baso # (Auto) 0.1 Immature Gran # (Auto) 0.11 H Absolute Nucleated RBC 0.00 Immature Gran % 1 H Nucleated RBC % 0 Sodium 144 Potassium 3.8 Chloride 108 H Carbon Dioxide 25.9 Anion Gap 10 BUN < 5 L Creatinine 0.7 D Estim Creat Clear Calc 160.0 eGFR > 60 BUN/Creatinine Ratio 7 L Glucose 106 Calculated Osmolality 284 Lactic Acid 1.8 Calcium 8.8 Ur Collection Type Catheter Urine Color Lt-Yellow Urine Clarity Clear Urine pH 6.5 Ur Specific [place] 1.012 Urine Protein Negative Urine Glucose (UA) Negative Urine Ketones Trace Urine Blood Negative Urine Nitrite Negative Urine Bilirubin Negative Urine Urobilinogen (Auto) Negative Ur Leukocyte Esterase Negative Urine RBC 2 Urine WBC 1 Ur Squamous Epith Cells 0 Urine Bacteria None Ur Culture Indicated? Not Indicated ABG Interpretation ABG results: 05/17/25 04:25 VBG pH 7.32 L VBG pCO2 35 L VBG pO2 43 VBG Base Excess -7 L Quality Measures Quality Measures none Assessment & Plan Assessment Current Active Medications: Generic Name Dose Route Start Last Admin Trade Name Freq PRN Reason Stop Dose Admin Acetaminophen 650 mg 05/17/25 15:27 Acetaminophen 325 Mg Tablet PO 06/16/25 04:46 Q6H PRN PAIN OR FEVER > 100.4 Diazepam 5 mg 05/17/25 15:23 Diazepam Inj 5 Mg/Ml Vial 2 Ml IVP Q5MIN PRN seizure Protocol Dextrose/Lactated Ringer's 1,000 mls @ 100 mls/hr 05/17/25 16:30 05/18/25 04:31 D5-Lr IV 06/16/25 16:29 100 mls/hr .Q10H PANCHO Administration Valproic Acid 625 mg/ Sodium 56.25 mls @ 56.25 mls/hr 05/18/25 12:00 05/18/25 12:55 Chloride IV 06/16/25 17:59 56.25 mls/hr Q6HR PANCHO Administration Levetiracetam 1,500 mg 05/17/25 21:00 05/18/25 09:58 Levetiracetam Inj 100 Mg/Ml Vial 5ml IVP 06/16/25 20:59 1,500 mg Q12HR PANCHO Administration Ondansetron HCl 4 mg 05/17/25 04:47 Ondansetron Inj 2 Mg/Ml Inj 2 Ml IVP 06/16/25 04:46 Q6H PRN NAUSEA OR VOMITING Protocol Plan A 24-year-old male with a history of seizure disorder, including multiple admissions and a previous episode of status epilepticus, was admitted for status epilepticus. The episode has since resolved, and the patient is being treated and managed for seizures. #Breakthrough seizure in the setting of #Status epilepticus, uncontrolled 2/2 #Medication non-compliance Patient had multiple episodes of witnessed seizures without completely regaining consciousness. Patient has been prescribed Keppra p.o. 1.5 g twice daily and valproic acid p.o. 1.25 g twice daily, unsure whether he has been taking them. CT head: Negative for acute hemorrhage, mass effect, or midline shift. Upon arrival patient was tachycardic, however was saturating well and was able to protect airways. EMS gave 4 mg of Versed, in ED patient had another episode of seizure, loading dose of Keppra was given 1.5g. Rapid Response was called for seizure activity at 3:30PM 05/17, patient was seen undergoing tonic-clonic seizing for <1min, and Versed 2mg was administered resulting in cessation of the activity. Patient was in post-ictal period thereafter, PERRL , ausculation of lungs did not reveal crackles/rhonchi concerning for aspiration. EKG showed sinus tachycardia. Second rapid response was called at the daybreak of 05/08. Patient experienced 4 to 5-minute tonic- clonic seizure, without incontinence. Second dose of Versed IVP 2 mg was given. Plan: ? Neurology was consulted, appreciate recs ? Continue Keppra IVP 1.5g bid ? Lacosamide (Vimpat) IVP 200mg x1, followed by IVP 100mg bid. ? Valproate sodium (Depacon) IV 625 mg Q6h ? Versed 2 mg PRN for seizure (2/2 doses given) ? Diazepam IVP 5mg Q5min PRN inj for seizure activity (0/3 doses given). ? Neurocheck every 4 hours ? Monitor close for further seizures or signs of status epilepticus ? Admit to telemetry for continuous monitoring ? Seizure precaution ? Aspiration precaution ? Consider MRI with and without contrast ? Consider repeat EEG to evaluate for ongoing seizure activity #Leukocytosis, resolved Most likely reactive in the setting of seizure No sign or symptoms of ongoing infection Patient is afebrile 05/18: WBC 8.6, trended down from 15.3 the day before ? Continue to monitor #Social ? Educate the patient and family on the importance of medication adherence and scheduling refills to prevent further seizure ? Discussed the need for regular follow-up with neurology ? 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 Labs revealed high anion gap, elevated lactic acid (19.0) and decreased bicarb (15.6). CPK 910. VBG pH 7.32, pCO2 35, PaO2 43, O2 sat 79% 05/18: AG 10, LA 1.8 ? Correct metabolic acidosis with appropriate fluid resuscitation and electrolyte replacement ? LR bolus 1 L followed by D5-LR at 100 mL/h ? Trend lactic acid every 6 hours ? pending VBG ? Monitor urine output closely Disposition:Telemetry. Medical management with goal of seizure control: cessation of breakthrough activity with neurology on board. Added Vimpat to his medication. DVT prophylaxis: heparin GI prophylaxis: none Diet: NPO Lines: PIV CODE STATUS:Full code This case was discussed with my attending physician, Dr. Mcacllum, and senior resident, Dr Solo Hannah. Rylan Guevara, DO PGY I Attending Provider Attestation/Addendum I Dina Mccallum MD reviewed the note and agree with the resident's assessment & plan with modifications/additions/exceptions as below. I have personally reviewed labs, imaging, home meds/prior records, examined the patient, formulated and discussed management plan with the IM team. A 25-year-old male with history of seizure disorder and coccidioidomycosis noncompliant with medication admitted with status epilepticus. Breakthrough seizures currently controlled with Versed, resumed Keppra and valproate home dose, consulted neurology, obtain MRI brain and EEG for further workup. Initially had significant lactic acidosis stenosis which has been resolved. CT head remained unremarkable. Follow-up with PCP/ID regarding further workup for cocci IgM positive.
[2025-05-18] MEDS: LACOSAMIDE INJ 200 MG/20 ML VIAL IVP (14:52)
[2025-05-19] VITALS: BP 127/82; PULSE 90; RESP 17; TEMP 36.1; O2SAT 98
[2025-05-19] MEDS: VALPROATE SOD IV ×2 (00:16→05:43)
[2025-05-19] MEDS: SODIUM CHLORIDE 0.9% IV ×2 (00:16→05:43)
[2025-05-19] MEDS: DEXTROSE 5%-LACTATED RINGERS 1,000 ML 100 ML IV (00:22)
[2025-05-19 04:00] VITALS: BP 103/63; PULSE 70; PULSE 80; RESP 16; TEMP 36.6; O2SAT 96
[2025-05-19 06:01] LABS: Basophils # (Auto) 0.1 Thou/mm3 (0.0-0.2); Basophils % (Auto) 1 % (0-2.5); Eosinophils # (Auto) 0.1 Thou/mm3 (0.0-0.5); Eosinophils % (Auto) 1 % (0-10); Hematocrit 40.4 % (41.0-53.0); Hemoglobin 13.4 g/dL (13.5-16.0); Immature Granulocytes Auto 0.14 Thou/mm3 (0.00-0.00); Lymphocytes # (Auto) 3.9 Thou/mm3 (1.0-4.8); Lymphocytes % (Auto) 50 % (10-50); Mean Corpuscular HGB Conc 33.2 g/dl (31.0-37.0); Mean Corpuscular Hemoglobin 30.6 pg (25.0-35.0); Mean Corpuscular Volume 92 fL (80-100); Monocytes # (Auto) 0.5 Thou/mm3 (0.0-0.8); Monocytes % (Auto) 6 % (0-12); Neutrophils # (Auto) 3.2 Thou/mm3 (1.8-7.7); Neutrophils % (Auto) 40 % (37-80); Nucleated Red Blood Cell # 0.00 Thou/mm3 (0.00-0.00); Nucleated Red Blood Cell % 0 /100 WBC (0); Platelet Count 163 Thou/mm3 (140-440); RDW Standard Deviation 47.8 fL (35.1-43.9); Red Blood Count 4.38 Miln/mm3 (4.50-5.90); White Blood Count 7.8 Thou/mm3 (3.8-10.6)
[2025-05-19 07:27] LABS: Anion Gap 10 (7-16); BUN/Creatinine Ratio 7 Ratio (12-20); Blood Urea Nitrogen < 5 mg/dL (9-23); Calcium 8.9 mg/dL (8.3-10.6); Carbon Dioxide 25.8 mMol/L (20.0-31.0); Chloride 108 mMol/L (98-107); Creatinine (Component) 0.7 mg/dL (0.6-1.3); Estimated Creatinine Clearance 160.0 mL/min (>60); Glucose 103 mg/dL (74-106); Magnesium 1.8 mg/dL (1.6-2.6); Osmolality,Calculated 284 (275-295); Phosphorous 4.0 mg/dL (2.4-5.1); Potassium 3.9 mMol/L (3.4-5.1); Sodium 144 mMol/L (136-145); eGFR > 60 See Note
[2025-05-19 08:00] VITALS: BP 113/69; PULSE 76; RESP 16; TEMP 36.1; O2SAT 98
[2025-05-19] MEDS: levETIRAcetam INJ 100 MG/ML VIAL 5ML 1500 MG IVP (10:00)
[2025-05-19] MEDS: LACOSAMIDE INJ 200 MG/20 ML VIAL 100 MG IVP (10:00)
[2025-05-19 11:09] VITALS: PULSE 73; RESP 19; RESP 99
--- NOTE | 2025-05-19 11:29 | PC.NURSE ---
Discharge order on hold due to strickland removal/voiding trial. Will discharge once this is complete and successful
[2025-05-19 12:00] VITALS: BP 110/77; PULSE 89; RESP 18; TEMP 36.1; O2SAT 98
--- NOTE | 2025-05-19 13:14 | ESDS_ITS ---
<Statement entered by Dina Mccallum MD - 05/19/25 14:51> I Dina Mccallum MD reviewed the note and agree with the resident's assessment & plan with modifications/additions/exceptions as below. I have personally reviewed labs, imaging, home meds/prior records, examined the patient, formulated and discussed management plan with the IM team. Patient admitted with status epilepticus due to medication noncompliance. Continue epileptic medicines and aspirin changed to Keppra and Vimpat. Discontinue valproic acid. IgG and positive for coccidioidomycosis will empir ically start on fluconazole, will obtain cocci titers and follow-up with PCP. <Statement entered by Davion Palacios MD - 05/19/25 14:03> Patient was examined with the team including attending physician. Note reviewed, I agree with the discharge plan as documented. - Davion Palacios MD PGY 3 Disclaimer: The document may contain phonetic/typographic errors due to voice recognition software. Planned Discharge Date 05/19/25 DS: Providers Provider Date of admission: 05/17/25 04:47 Primary care physician: Physician No Primary/Family Admitting Provider: Celestine Weaver MD Attending Provider on Admission: Cecelia Tom DO Consults: 05/17/25 04:55 Consult to Neurology / Tele-Neurology Routine Comment: seizure Consulting Provider: Raul Singh Attending Provider on DC: Susan José Discharging Provider: Susan José DS: Diagnosis Problem List Completed Was Problem List Reviewed/Reconciled?: Yes Hospital Course Hospital Course Hospital course: Marc Evangelista, 25 year old male with past medical history of seizure disorder (including multiple admissions and a previous episode of status epilepticus) and right upper extremity brachial DVT was brought to the ED at [facility] on 05/19/25 by ambulance following a witnessed seizure. In the ED patient was found to be tachycardic (HR 132), tachypneic, lethargic, nonverbal, and not obeying commands, likely in postictal state. Laboratory results showed leukocytosis (21.3), likely reactive, and CMP results revealed high anion gap metabolic acidosis (anion gap 19, bicarbonate 15.6) and lactic acidosis (6.9). Patient admitted for breakthrough seizures and metabolic acidosis. Ideology behind breakthrough seizures is likely medication non-compliance as patient reports missing doses and have not seen Dr. Singh since October when he was last instructed to. Metabolic acidosis was corrected with appropriate fluid resuscitation and electrolyte replacement. Neurology (Dr. Singh) was consulted. On 05/17/25 a rapid response was called for seizure activity at 3:30PM and Versed 2mg was administered resulting in cessation of the activity. Seizure disorder was managed with Valproic Acid 625mg Q6HR, and Keppra 1500 mg Q12H. IgM for cocci was found to be positive, patient started on flucanazole. Patient had no further breakthrough seizure but continues to be high risk for breakthrough seizures especially if medication noncompliance persists. Extensive patient education regarding importance of medication compliance and patient showed understanding. Patient is back to baseline and to be discharged on 05/19/25 and followed outpatient with primary care provider and neurology within 1-2 weeks. Problem List #Breakthrough seizure #Status epilepticus #Medication non-compliance #Leukocytosis #High anion gap metabolic acidosis #Lactic acidosis secondary due to seizure Discharge Instructions - Follow up with you primary doctor within 1 week. - Follow up with Neurology (Dr. Singh) within 1-2 weeks. Call to schedule appointment. - Please take all 3 of your Seizure medications as prescribed: Valproic Acid 1250mg (it will be multiple capsules each time which is normal) every morning and evening. Keppra 1500mg every morning and evening. Vimpat 100 mg every morning and evening. - One of your tests was positive for a fungal infection, make sure to take the prescribed anti fungal medication (flucanazole) a prescribed and follow up with your primary doctor. - Slowly ease into physical activity, do not lift heavy weights or exert yourself without presence of someone that can help you. - Return to the ED if symptom worsen or reoccur. Patient care and discharge plan discussed with my attending Dr. Mccallum and senior resident Dr. Palacios. Sunshine Gomez OMS IV Dr. Palacios PGY-III Time Spent with Patient Time attestation: Total time spent providing and/or coordinating discharge services: Time spent: Greater than 30 minutes Exam Vital Signs Temp Pulse Resp BP Pulse Ox O2 Del Method O2 Flow Rate 96.9 F 89 18 110/77 98 Room Air 10 05/19/25 12:00 05/19/25 12:00 05/19/25 12:00 05/19/25 12:00 05/19/25 12:00 05/19/25 12:00 05/17/25 05:17 FiO2 10 05/17/25 02:28 Narrative Exam Gen: Alert, no acute distress. Pleasantly conversational and non-toxic appearing. Skin: Poor skin turgor, no rash, ecchymoses, and no signs of cyanosis. HEENT: Normocephalic, atraumatic.? Normal conjunctiva, PERRL. Dry oral mucosa. No obvious lesions in oropharynx. Cardiovascular: Regular rate and rhythm, no murmur, +S1/S2. Respiratory: Lungs are clear to auscultation, respirations unlabored, no crackles, no wheezing. Gastrointestinal: Soft, nontender, non-distended. No guarding or rebound tenderness. Extremities: No edema, no cyanosis, no clubbing. Neuro: Alert and oriented x3.No focal deficits observed. Conversant, moving all extremities. No motor or sensory deficits in bilateral upper or lower extremities. No overt cerebellar signs/incoordination. Psychiatric: Cooperative, appropriate affect Discharge Plan Plan Patient Disposition: HOME (Self Care) Patient condition on transfer: Stable Care Plan Goals: - Follow up with you primary doctor within 1 week. - Follow up with Neurology (Dr. Singh) within 1-2 weeks. Call to schedule appointment. - Please take all 3 of your Seizure medications as prescribed: Valproic Acid 1250mg (it will be multiple capsules each time which is normal) every morning and evening. Keppra 1500mg every morning and evening. Vimpat 100 mg every morning and evening. - One of your tests was positive for a fungal infection, make sure to take the prescribed anti fungal medication (flucanazole) a prescribed and follow up with your primary doctor. - Slowly ease into physical activity, do not lift heavy weights or exert yourself without presence of someone that can help you. - Return to the ED if symtpoms worsen or reocur. Prescriptions/Referrals Prescriptions/Med Rec: New valproic acid 250 mg capsule 1,250 mg PO BID 30 Days Qty: 300 1RF lacosamide [Vimpat] 100 mg tablet 100 mg PO BID 30 Days Qty: 60 0RF Continued levetiracetam 1,000 mg tablet 1,500 mg PO Q12H Patient Comments: TAKE 1 TABLET BY MOUTH EVERY 8 HOURS Discontinued valproic acid 250 mg capsule 1,250 mg PO Q12H Patient Comments: TAKE 5 CAPSULE BY ORAL ROUTE EVERY 12 HOURS Referrals: No Primary/Family,Physician [Primary Care Provider] Patient/Caregiver Discharge Instructions Discharge Activity: activity as tolerated Education Materials: Self-Care for Epilepsy, Anatomy of the Brain, ED Seizure, Recurrent (Adult) Print Language: Japanese Stand Alone Forms: Vee Award Info., Patient Portal Info Letter Discharge Order Discharge Orders: Discharge (Routine); Ordered 05/19/25 Ordered By: Davion Palacios Quality Discharge Quality Measures VTE prophylaxis
--- NOTE | 2025-05-19 23:06 | VVPN_ITS ---
Telemedicine visit statement This visit was conducted with the use of phone was obtained on 05/19/25 Documentation for date of: 05/19/25 Subjective Subjective Interval history: Patient is in telemetry, no seizures reported overnight or more than 24 hours. No side effects reported on current medications Virtual exam Vital Signs Temp Pulse Resp BP Pulse Ox O2 Del Method O2 Flow Rate 96.9 F 89 18 110/77 98 Room Air 10 05/19/25 12:00 05/19/25 12:00 05/19/25 12:00 05/19/25 12:00 05/19/25 12:00 05/19/25 12:00 05/17/25 05:17 FiO2 10 05/17/25 02:28 Objective Labs 05/19/25 05:02 05/19/25 06:31 Labs: Laboratory Results - last 24 hr 05/19/25 05/19/25 05:02 06:31 WBC 7.8 RBC 4.38 L Hgb 13.4 L Hct 40.4 L MCV 92 MCH 30.6 MCHC 33.2 RDW Std Deviation 47.8 H Plt Count 163 D Neut % (Auto) 40 Lymph % (Auto) 50 [place] % (Auto) 6 Eos % (Auto) 1 Baso % (Auto) 1 Neut # (Auto) 3.2 Lymph # (Auto) 3.9 [place] # (Auto) 0.5 Eos # (Auto) 0.1 Baso # (Auto) 0.1 Immature Gran # (Auto) 0.14 H Absolute Nucleated RBC 0.00 Immature Gran % 2 H Nucleated RBC % 0 Sodium 144 Potassium 3.9 Chloride 108 H Carbon Dioxide 25.8 Anion Gap 10 BUN < 5 L Creatinine 0.7 Estim Creat Clear Calc 160.0 eGFR > 60 BUN/Creatinine Ratio 7 L Glucose 103 Calculated Osmolality 284 Calcium 8.9 Phosphorus 4.0 Magnesium 1.8 ABG Interpretation ABG results: 05/17/25 04:25 VBG pH 7.32 L VBG pCO2 35 L VBG pO2 43 VBG Base Excess -7 L Assessment & Plan Problem List (1) Seizure disorder: Status: Chronic Assessment and plan: Continue with Keppra, Depakote and Vimpat twice a day continue to monitor for any breakthrough seizures and Ativan for breakthrough. Patient is stable from neurology standpoint for discharge Advised him about the importance of compliance and to stay away from cocaine. Follow-up with his neurologist in [place]. (2) Status epilepticus: Status: Resolved
[2025-05-22 09:19] LABS: Levetiracetam (Keppra)* 20.9 mcg/mL (6.0-46.0)
[2025-05-25 06:54] LABS: Valporic Acid (Depak)* 71.4 mg/L (50.0-100.0)
== END 2025-05-19 13:35 | disposition home or self-care (01) | DRG 53 ==
LOC: SERX 05:50 → SERHOLD 05:55 → S3SX 07:46 → S2NX 05-18 05:38
PROVIDERS: Student in an Organized Health Care Education/Training Program; Admitting Provider Student in an Organized Health Care Education/Training Program; Emergency Provider Emergency Medicine; Visit Provider Internal Medicine
DX: G40.901 Epilepsy, unspecified, not intractable, with status epilepticus (principal); Z86.718 Personal history of other venous thrombosis and embolism; Z91.148 Patient's other noncompliance with medication regimen for other reason; F14.90 Cocaine use, unspecified, uncomplicated; E87.20 Acidosis, unspecified; D72.829 Elevated white blood cell count, unspecified; B38.9 Coccidioidomycosis, unspecified; Z79.899 Other long term (current) drug therapy
CPT/HCPCS: 36415; 70450; 80048; 80053; 80164; 80177; 80307; 81001; 82550; 82803; 83605; 83735; 84100; 85025; 93005; 95816; 96361; 96372; 96374; 96375; 96376; 99284; C9254; J1644; J1953; J2250; J7120; J7121; A9270

== ENCOUNTER 2025-06-21 03:35 | Inpatient (IN) | payer MEDICAID, SELFPAY ==
[2025-06-21] VITALS (50 sets, daily range): BP systolic 80–143; BP diastolic 50–98; PULSE 100–160; RESP 15–41; TEMP 36.8–38.1; O2SAT 92–100; BMI 25.2
--- NOTE | 2025-06-21 03:39 | PD.EDSEIZ ---
ED Seizures RME/HPI General Chief Complaint: Seizure Stated Complaint: SEIZURE Time Seen by Provider: 06/21/25 03:41 Arrival date/time: 06/21/25 03:35 RME / HPI RME / HPI Narrative: Dr. Jones?s Main ED Evaluation: 25yo male with a history of epilepsy BIBA from home presents to the ED due to having multiple seizures. Per EMS, family on scene found the patient to be having a seizure that lasted 4-5 minutes, although it's unknown if or how many seizures the patient had prior. EMS witnessed 4 seizures en route and administered a total of Versed 10mg (8mg IM and 2mg IV). Family reported the patient did not take his Keppra today, but it's unknown if he took his Valproic Acid or Vimpat. Family denies any recent illness, but reported possible cocaine use. Full ROS is unobtainable due to the patient's AMS. Related Data Home Medications ?Medication ?Instructions ?Recorded ?Confirmed levetiracetam 1,000 mg tablet 1,500 mg PO Q12H 05/17/25 05/17/25 Previous Rx's ?Medication ?Instructions ?Recorded valproic acid 250 mg capsule 1,250 mg (5 x 250 mg) PO BID 1 05/19/25 month #300 caps Allergies Allergy/AdvReac Type Severity Reaction Status Date / Time No Known Allergies Allergy Verified 12/21/24 04:08 Review of Systems Review of Systems ROS Unobtainable: unobtainable due to medical condition ED Exam Narrative Physical exam: Generally patient is comatose, head is normocephalic atraumatic, eyes show pupils to be midrange and reactive bilaterally, heart tachycardic rate regular rhythm, skin is cool pale and diaphoretic, abdomen is soft and nondistended, neurologic exam patient grimaces to painful stimuli Course Quality Measures none Orders Category Date Time Status Rodriguez [Urinary Catheter] QS Care 06/21/25 03:44 Active CBC Stat Lab 06/21/25 03:53 Completed CMP [Comprehensive Metabolic Panel] Stat Lab 06/21/25 03:53 Received Drug Screen,Urine Stat Lab 06/21/25 03:53 Completed Midazolam Inj [Versed Inj] Med 06/21/25 03:50 Discontinued 10 mg IVP X1 ONE Midazolam Inj [Versed Inj] Med 06/21/25 03:47 Discontinued 4 mg .ROUTE .STK-MED ONE Midazolam Inj [Versed Inj] Med 06/21/25 03:45 Discontinued 6 mg .ROUTE .STK-MED ONE levETIRAcetam INJ [Keppra Inj] Med 06/21/25 03:43 Discontinued 4,000 mg .ROUTE .STK-MED ONE levETIRAcetam INJ [Keppra Inj] Med 06/21/25 03:41 Discontinued 4,500 mg IVP X1 ONE levETIRAcetam INJ [Keppra Inj] Med 06/21/25 04:02 Discontinued 500 mg .ROUTE .STK-MED ONE Vital Signs Vital signs: Vital Signs Pulse Rate 153 H 06/21/25 03:49 Respiratory Rate 27 H 06/21/25 03:49 Blood Pressure 143/98 H 06/21/25 03:49 Pulse Oximetry (%) 98 06/21/25 03:49 Oxygen Delivery Method Oxy Mask 06/21/25 03:49 Oxygen Flow Rate 15 06/21/25 03:49 Seizure MDM Narrative MDM Narrative:: Scribe Attestation: 06/21/25 - Sena Castro am scribing for and in the presence of Dr. Jones. Patient has seized multiple times at home and seized 4 times with the paramedics and then seized 1 time here and by definition is status epilepticus. Here the patient received 10 mg of midazolam IV as well as status epilepticus dose of Keppra at 4.5 g IV. Patient became somewhat hypotensive with a systolic blood pressure in the 90s. There is a leukocytosis but I believe the leukocytosis to be due to the seizure. Patient urinary tox screen was positive for cocaine. Patient's seizures were controlled. At this time he is supporting his airway. At this time there is no need for intubation however this will be watched very closely. I discussed this case with the ICU physician and the patient will be admitted to the hospital for further treatment and evaluation for status epilepticus and cocaine abuse. I interpreted all labs. Differential diagnosis: Status epilepticus, seizure disorder, medical noncompliance, substance abuse Patient data External records reviewed:: [facility] previous records (Per chart review, patient was admitted here on 05/17/25 for status epilepticus.) and EMS form Clinical information provided by:: EMS Social determinants that could affect healthcare access:: none Patient has the following chronic illnesses:: epilepsy How is presenting disease/condition affected by chronic disease/condition?: caused by Evaluation data The following diagnostics were reviewed and interpreted by me:: lab results Lab and/or radiology exams considered but not ordered:: none Interpretation Summary: See MDM Medications / Prescriptions Medications or Prescriptions considered but not ordered:: none Medication administrations:: Medication Administration History Discontinued Medications Levetiracetam (Levetiracetam Inj 100 Mg/Ml Vial 5ml) 4,500 mg IVP X1 ONE Stop: 06/21/25 03:42 Levetiracetam (Levetiracetam Inj 100 Mg/Ml Vial 5ml) Confirm Administered Dose 4,000 mg .ROUTE .STK-MED ONE Stop: 06/21/25 03:44 Last Admin: 06/21/25 03:54 Dose: Not Given Documented By: [email or web address] Non-Admin Reason: Override Medication Levetiracetam (Levetiracetam Inj 100 Mg/Ml Vial 5ml) Confirm Administered Dose 500 mg .ROUTE .STK-MED ONE Stop: 06/21/25 04:03 Last Admin: 06/21/25 04:15 Dose: Not Given Documented By: [email or web address] Non-Admin Reason: Override Medication Midazolam HCl (Midazolam Inj 1 Mg/Ml Vial 2 Ml) Confirm Administered Dose 6 mg .ROUTE .STK-MED ONE Stop: 06/21/25 03:46 Last Admin: 06/21/25 03:53 Dose: Not Given Documented By: [email or web address] Non-Admin Reason: Override Medication Midazolam HCl (Midazolam Inj 1 Mg/Ml Vial 2 Ml) 10 mg IVP X1 ONE Stop: 06/21/25 03:51 Last Admin: 06/21/25 03:50 Dose: 10 mg Documented By: JENNIFER Midazolam HCl (Midazolam Inj 1 Mg/Ml Vial 2 Ml) Confirm Administered Dose 4 mg .ROUTE .STK-MED ONE Stop: 06/21/25 03:48 Last Admin: 06/21/25 03:53 Dose: Not Given Documented By: [email or web address] Non-Admin Reason: Override Medication see above Consultations Consultation(s) initiated? (list below): Yes Diagnosis Seizure Differential Diagnosis: other (See MDM) Most likely diagnosis given after review of the tests above:: see clinical impression below Admission Indicated Admission indicated?: indicated Admission Request Was there a request for admission?: Yes Admission Attestation Admission request attestation: Discussed case with [] from Hospitalist service regarding admission. Discussed patients ED course, exam findings, labs, and radiology results. The Hospitalist [agrees,declines] to accept the patient for admission. Disposition Plan Disposition Plan: Admit Critical Care Time Critical Care Time Critical Care Time: Yes Total Critical Care Time (min.): 35 Attestation: Excluding other billable procedures Discharge Plan Plan Patient Disposition: Admit Acute Care w/in Hospital Prescriptions/Referrals Prescriptions/Med Rec: No Action levetiracetam 1,000 mg tablet 1,500 mg PO Q12H Patient Comments: TAKE 1 TABLET BY MOUTH EVERY 8 HOURS valproic acid 250 mg capsule 1,250 mg PO BID 30 Days Qty: 300 1RF Referrals: No Primary/Family,Physician [Primary Care Provider] - In 1 week Problem List Clinical Impression: Status epilepticus, Cocaine abuse Patient/Caregiver Discharge Instructions Print Language: Brazilian Stand Alone Forms: Vee Award Info., Patient Portal Info Letter
[2025-06-21] MEDS: levETIRAcetam INJ 100 MG/ML VIAL 5ML 4500 MG IVP (03:45)
[2025-06-21] MEDS: SODIUM CHLORIDE 0.9% 1000 ML 1,000 ML 999 ML IV (03:45)
[2025-06-21] MEDS: MIDAZOLAM INJ 1 MG/ML VIAL 2 ML 10 MG IVP ×2 (03:50→05:49)
[2025-06-21 04:04] LABS: Basophils # (Auto) 0.1 Thou/mm3 (0.0-0.2); Basophils % (Auto) 0 % (0-2.5); Eosinophils # (Auto) 0.3 Thou/mm3 (0.0-0.5); Eosinophils % (Auto) 1 % (0-10); Hematocrit 48.0 % (41.0-53.0); Hemoglobin 15.1 g/dL (13.5-16.0); Immature Granulocytes Auto 2.25 Thou/mm3 (0.00-0.00); Lymphocytes # (Auto) 10.7 Thou/mm3 (1.0-4.8); Lymphocytes % (Auto) 37 % (10-50); Mean Corpuscular HGB Conc 31.5 g/dl (31.0-37.0); Mean Corpuscular Hemoglobin 30.8 pg (25.0-35.0); Mean Corpuscular Volume 98 fL (80-100); Monocytes # (Auto) 2.1 Thou/mm3 (0.0-0.8); Monocytes % (Auto) 7 % (0-12); Neutrophils # (Auto) 13.4 Thou/mm3 (1.8-7.7); Neutrophils % (Auto) 47 % (37-80); Nucleated Red Blood Cell # 0.05 Thou/mm3 (0.00-0.00); Nucleated Red Blood Cell % 0 /100 WBC (0); Platelet Count 319 Thou/mm3 (140-440); RDW Standard Deviation 50.9 fL (35.1-43.9); Red Blood Count 4.91 Miln/mm3 (4.50-5.90); White Blood Count 28.7 Thou/mm3 (3.8-10.6)
[2025-06-21 04:16] LABS: Amphetamine/Methamp Scrn,U Negative (Negative); Barbiturate Screen,Urine Negative (Negative); Benzodiazepines Screen,Urine Negative (Negative); Benzoylecgonine Screen, Ur Positive (Negative); Fentanyl Screen,Urine Negative (Negative); Opiate Screen,Urine Negative (Negative); THC Screen,Urine Negative (Negative)
[2025-06-21 05:13] LABS: Alanine Aminotransferase 51 U/L (10-49); Albumin, Serum 5.2 gm/dL (3.5-5.0); Albumin/Globulin Ratio 2.2 (1.2-2.2); Alkaline Phosphatase 119 U/L (46-116); Anion Gap 31 (7-16); Aspartate Amino Transferase 44 U/L (0-34); BUN/Creatinine Ratio 7 Ratio (12-20); Bilirubin,Total 0.2 mg/dL (0.3-1.2); Blood Urea Nitrogen 10 mg/dL (9-23); Calcium 9.5 mg/dL (8.3-10.6); Calcium (Corrected) 9.5 mg/dL (8.5-10.1); Chloride 101 mMol/L (98-107); Creatinine (Component) 1.4 mg/dL (0.6-1.3); Estimated Creatinine Clearance 84.7 mL/min (>60); Globulin 2.4 gm/dL (2.3-3.5); Glucose 265 mg/dL (74-106); Osmolality,Calculated 291 (275-295); Potassium 4.5 mMol/L (3.4-5.1); Sodium 142 mMol/L (136-145); Total Protein 7.6 gm/dL (5.7-8.2); eGFR > 60 See Note
[2025-06-21 05:15] LABS: Carbon Dioxide < 10.0 mMol/L (20.0-31.0)
[2025-06-21 05:24] LABS: Path Review Blood Smear Sent to Pathologist
--- NOTE | 2025-06-21 05:24 | PC.NURSE ---
PTS SISTER JASWANT CALLED THE POINT OF CONTACT TO CHECK ON PTS STATUS
--- NOTE | 2025-06-21 05:42 | PC.NURSE ---
MADE ATTEMPT TO CALL DR JOHANSEN TO UPDATE HER ON THAT PT HAD A 1 MIN LONG SEIZURE SHORTLY AFTER SHE LEFT PTS ROOM
--- NOTE | 2025-06-21 05:55 | EVENTNT_ITS ---
Documentation for date of: 06/21/25 Event Note Event Note: Received call for admission from ED around 5AM Patient presented with breakthrough seizures, status epilepticus. He was given multiple doses of Versed and loading dose of Keppra in the ED. Chem panel showed bicarb <10. No ABG or VBG noted. On exam, patient is saturating 100% on 2L via oxymask, sedated post benzos but protecting airway at this time. ED requested to get ABG or VBG stat to evaluate acidosis. I ordered LA levels as well, AG 31. Replete Bicarb if pH <7.1 and/or assess if intubation is needed. WBC elevated as well, request ED to get CXR to complete work up. ED to call back with ABG results, after stabilizing patient. Plan of care discussed with attending Dr Thapa - Davion Palacios M.D. PGY3 Disclaimer: Minor errors in regional director of admissions may be present as this note was dictated using voice recognition software.
[2025-06-21 06:06] LABS: Base Excess -5 (-3-3); HCO3 22 mEq/L (20-26); Inspired O2, VO2 Liters 15 L/min; O2 Saturation 99 % (91-98); PCO2 46 mmHg (32.0-48.0); PO2 123 mmHg (83-108); pH, Arterial 7.29 (7.35-7.45)
[2025-06-21 06:07] LABS: Allen Test Performed/OK; Puncture Site Right Radial
[2025-06-21 06:26] LABS: Lactate (Lactic Acid) 4.2 mMol/L (0.4-2.0)
--- NOTE | 2025-06-21 06:28 | PC.NURSE ---
CALLED DR JOHANSEN TO NOTIFY HER OF CRITICAL LAB VALUE OF 4.2 LACTIC. SHE TOLD BILLIARD PARLOR MANAGER TO NOTIFY ER ATTENDING DR ALSO NOTIFIED HER OF SEIZURE THAT PT HAD
--- NOTE | 2025-06-21 07:01 | PC.NURSE ---
CALLED DR BETTS TO NOTIFY HIM OF PT ACTIVELY SEIZING AND ACUPUNCTURIST IS REQUESTING PRN MEDS FOR SEIZURES
[2025-06-21] MEDS: LORazepam 2 MG/ML VIAL IVP (07:30)
--- NOTE | 2025-06-21 07:34 | PC.NURSE ---
admit providers at bedside for eval. and admit
--- NOTE | 2025-06-21 07:42 | XR_ITS ---
EXAMINATION: AP chest single view TECHNIQUE: AP portable semiupright chest single view Date and time: June 21, 2025, 0746 hours, comparison October 27, 2024 INDICATIONS: Seizure activity today FINDINGS: Opacity at the right base, consider aspiration pneumonia The right hilum is mildly prominent Normal heart size The osseous fractures are intact IMPRESSION: Opacity right base most consistent with pneumonia, consider aspiration pneumonia Recommend follow-up chest imaging to document clearing
[2025-06-21] MEDS: RINGERS LACTATED 1000 ML 1,000 ML 999 ML IV ×2 (08:22→09:45)
[2025-06-21 08:43] LABS: Lactate (Lactic Acid) 2.5 mMol/L (0.4-2.0)
[2025-06-21] MEDS: PIPER/TAZO 3.375 GM PREMIX 3.375 GM/50 ML BAG IV ×2 (08:48→17:41)
[2025-06-21] MEDS: LACOSAMIDE INJ 200 MG/20 ML VIAL IVP (08:52)
[2025-06-21 09:06] LABS: Creatine Kinase 361 U/L (34-171); Magnesium 2.4 mg/dL (1.6-2.6); Phosphorous 3.9 mg/dL (2.4-5.1)
--- NOTE | 2025-06-21 09:09 | PC.NURSE ---
report given ti icu nurse amanuel pt will be transported to icu to bed 253.
[2025-06-21 09:22] LABS: Reflex Lactate? Y
[2025-06-21] MEDS: RINGERS LACTATED 1000 ML 1,000 ML 100 ML IV ×2 (10:30→19:37)
[2025-06-21] MEDS: SODIUM CHLORIDE 0.9% IV ×2 (11:02→17:42)
[2025-06-21] MEDS: VALPROATE SOD IV ×2 (11:02→17:42)
[2025-06-21 11:38] LABS: Reflex Lactate? Y
--- NOTE | 2025-06-21 11:46 | ESHP_ITS ---
<Statement entered by Avila Artis MD - 06/21/25 15:10> This patient is a 25-year-old male with past medical history of recurrent seizures, active cocaine use presented to the ED today with status epilepticus. Overnight, patient had more than 10 seizures lasting more than 10 minutes and received Versed 20 mg x 1 in the ED with loading dose of Keppra. Patient was seen actively seizing while he was examined in the ER this morning. He was given Ativan 2 mg x 1. Patient was not intubated during the time of refractory seizures at night. He was able to open his eyes and interact but was extremely drowsy. Patient was maintaining good saturation above 90% with respiratory rate of 20. Initially, patient was on 10 L weaned off to 2 L of oxygen. Will continue with Keppra, Depakote and Vimpat , his home medications. Ordered an EEG. Neurology has been consulted for evaluating EEG for seizures. Patient did had a white count of 28.7 with chest x-ray concerning for right lower lobe pneumonia therefore Zosyn was started. ABGs showed pH 7.29, pCO2 46 and pO2 123. Lactic acid was 4.2 down trended to 2.1. Patient was given 2 L bolus of LR and maintenance fluids. Bicarb was less than 10. We repeated labs this afternoon. Will follow-up with neurology recommendations and afternoon labs.Continue with seizure and aspiration precautions. I discussed and supervised with the [employer] compliance internship physician who took care of this patient. I personally saw and examined the patient. I agree with most of the assessment and plan. Disclaimer: Despite multiple revisions, due to the dictation software being used, the document bellow may not be free of grammatical errors including phonetic/typographic errors. However, this does not deter from our commitment to providing health care in the patient's best interest in mind. Plan of care discussed with attending Physician Dr.Ahmad Avila Artis MD PGY-3 Documentation for date of: 06/21/25 HPI History of Present Illness Chief complaint: Status Epilepticus History of present illness: Patient is a 25-year-old male with a history of epilepsy on antiseizure medications presented to the ED after having multiple seizures, continued to have breakthrough seizures in the ED and was given Versed 20 mg for 1 hour and a loading dose of Keppra. At the time of examination of the patient, he was unable to give a history. Patient was spontaneously moving extremities, able to open eyes to voice and briefly track for seconds at a time. Patient appeared tired and lethargic. Patient was shivering and was diaphoretic and was saturating well on 10 L OxyMask in the ED. Patient was brought to the ICU, was saturating well on 5 L, was being weaned down on supplemental oxygen. He has a history of being noncompliant with his antiseizure medications, but was reported to have been more compliant in the recent months. Patient's UTOX showed cocaine positive, chemistry panel showed bicarb less than 10, WBC levels were elevated to 28. Patient was restarted on home anti-seizure meds (below), has not had any seizures after being brought to the ICU. Past Medical History: above Family History: unknown Surgical History: unknown Social History: unknown Current Medications: Keppra, Depakote, Vimpat Allergies: No known drug allergies ED Course: -Initial vitals were temperature 100.5, pulse 144 bpm, respiratory rate 33, blood pressure 96/61, oxygen saturation 93% on 15 L OxyMask -Labs are significant for WBCs of 28.7, ABG showing pH of 7.29, pCO2 46, bicarb 22; chemistry panel showing bicarb less than 10.0, anion gap 31, creatinine 1.4, glucose 265, lactic acid 4.2, AST 44, ALT 51, alk phos 119, total CK 361, cocaine positive, valproic acid levels pending -Imaging included Chest x-ray showed opacity at right base most consistent with pneumonia possible aspiration pneumonia. EEG ordered -In the ED, Patient was given loading dose Keppra, multiple Versed pushes, 1 L normal saline bolus, Ativan push x 1, LR 1 L bolus x 1 -Patient was admitted to ICU for management of status epilepticus Review of Systems Review of systems otherwise negative except what is mentioned above. Exam Vital Signs Temp Pulse Resp BP Pulse Ox O2 Del Method O2 Flow Rate 98.3 F 102 H 21 H 102/80 100 Oxy Mask 10 06/21/25 09:28 06/21/25 11:00 06/21/25 11:00 06/21/25 11:00 06/21/25 11:00 06/21/25 08:00 06/21/25 08:00 Narrative Exam General: No acute distress; resting in bed; GCS 11 (Eye response to verbal commands, Verbal response makes incomprehensible sounds, Motor response obeys commands Skin: Warm, intact, no obvious rash. HENT: NCAT, EOMI/PERRL, not icteric. External ears normal. No rhinorrhea. Moist mucous membranes Cardiovascular: Tachycardic, regular rhythm, no murmur, +S1/S2. Respiratory: Lungs CTAB GI: Soft, nontender, non-distended. No guarding or rebound tenderness. : No suprapubic tenderness. No flank tenderness bilaterally. Extremities: no edema, no cyanosis, no clubbing. Extremity pulses present Neuro: Grossly nonfocal. Moving all 4 extremities. CN not formally tested but appear grossly intact. Results: Labs 06/21/25 03:53 06/21/25 15:12 Labs: Short CBC 06/21/25 Range/Units 03:53 WBC 28.7 H (3.8-10.6) Thou/mm3 Hgb 15.1 (13.5-16.0) g/dL Hct 48.0 (41.0-53.0) % Plt Count 319 D (140-440) Thou/mm3 BMP 06/21/25 03:53 Sodium 142 Potassium 4.5 Chloride 101 Carbon Dioxide < 10.0 L* BUN 10 Creatinine 1.4 H Glucose 265 H Calcium 9.5 Cardiac Enzymes 06/21/25 Range/Units 08:17 Total Creatine Kinase 361 H D (34-171) U/L Liver Function 06/21/25 Range/Units 03:53 Total Bilirubin 0.2 L (0.3-1.2) mg/dL AST 44 H (0-34) U/L ALT 51 H (10-49) U/L Alkaline Phosphatase 119 H (46-116) U/L Albumin 5.2 H (3.5-5.0) gm/dL ABG Interpretation ABG results: 06/21/25 06:00 ABG pH 7.29 L ABG pCO2 46 ABG pO2 123 H ABG HCO3 22 ABG O2 Saturation 99 H ABG Base Excess -5 L Quality Measures Quality Measures VTE prophylaxis Medications Home Medications and Allergies Home Medications ?Medication ?Instructions ?Recorded ?Confirmed ?Type levetiracetam 1,000 mg tablet 1,000 mg PO Q8HR 5 06/21/25 History lacosamide 100 mg tablet 100 mg PO Q12H 06/21/2506/01 History Allergies Allergy/AdvReac Type Severity Reaction Status Date / Time No Known Allergies Allergy Verified 12/21/24 04:08 Visit Medications Acetaminophen (Acetaminophen 325 Mg Tablet) 650 mg PO Q6H PRN PRN Reason: Fever >101.5 Stop: 07/21/25 07:41 Acetaminophen (Acetaminophen 325 Mg Tablet) 650 mg PO Q6H PRN PRN Reason: PAIN SCALE 1-3 (mild Stop: 07/21/25 07:41 Heparin Sodium (Porcine) (Heparin Sod Inj 5000 Unit/Ml Vial) 5,000 unit SC Q8HR PANCHO Stop: 07/05/25 13:59 Piperacillin/Tazobactam/Dextrose (Zosyn) 3.375 gm in 50 mls @ 100 mls/hr IV Q6HR PANCHO; Protocol Stop: 06/28/25 08:10 Last Infusion: 06/21/25 10:03 Dose: Infused Norepinephrine/Dextrose (Levophed In D5w 8mg/250ml) 8 mg in 250 mls @ 7.5 mls/hr IV .Q24H PRN; Protocol PRN Reason: PER PROTOCOL Stop: 07/21/25 08:14 Valproic Acid 625 mg/ Sodium (Chloride) 56.25 mls @ 56.25 mls/hr IV Q6HR [facility] Stop: 07/21/25 09:14 Last Admin: 06/21/25 11:02 Dose: 56.25 mls/hr Midazolam HCl (Versed Pf Inj In Ns Premix) 100 mg in 100 mls @ 1 mls/hr IV .Q24H PRN; Protocol PRN Reason: PER PROTOCOL Stop: 06/26/25 08:00 Propofol (Diprivan Ivpb) 1,000 mg in 100 mls @ 2.4 mls/hr IV .Q24H PRN; Protocol PRN Reason: PER PROTOCOL Stop: 07/21/25 09:03 Lactated Ringer's (Lactated Ringers) 1,000 mls @ 100 mls/hr IV .Q10H [facility]CHO Stop: 07/21/25 09:06 Last Admin: 06/21/25 10:30 Dose: 100 mls/hr Levetiracetam (Levetiracetam Inj 100 Mg/Ml Vial 5ml) 1,500 mg IVP Q12HR PANCHO Stop: 07/21/25 20:59 Ondansetron HCl (Ondansetron Inj 2 Mg/Ml Inj 2 Ml) 4 mg IVP Q6H PRN; Protocol PRN Reason: NAUSEA OR VOMITING Stop: 07/21/25 07:41 Pantoprazole Sodium (Pantoprazole Inj 40 Mg Vial) 40 mg IVP QDAY PANCHO Stop: 07/21/25 08:59 Last Admin: 06/21/25 08:25 Dose: 40 mg Discontinued Medications Etomidate (Etomidate Inj 2 Mg/Ml Vial 10 Ml) 20 mg IVP X1 ONE Stop: 06/21/25 08:01 Last Admin: 06/21/25 11:03 Dose: Not Given Fentanyl Citrate (Fentanyl Cit Inj 50 Mcg/Ml Amp 2ml) 100 mcg IVP X1 ONE Stop: 06/21/25 08:01 Last Admin: 06/21/25 11:03 Dose: Not Given Sodium Chloride (Ns) 1,000 mls @ 999 mls/hr IV .Q1H1M ONE Stop: 06/21/25 05:46 Last Infusion: 06/21/25 04:53 Dose: Infused Midazolam HCl (Versed Pf Inj In Ns Premix) 100 mg in 100 mls @ 1 mls/hr IV .Q24H PRN; Protocol PRN Reason: PER PROTOCOL Stop: 06/26/25 08:00 Lactated Ringer's (Lactated Ringers) 1,000 mls @ 999 mls/hr IV .Q1H1M ONE Stop: 06/21/25 09:04 Last Infusion: 06/21/25 10:03 Dose: Infused Lactated Ringer's (Lactated Ringers) 1,000 mls @ 999 mls/hr IV .Q1H1M ONE Stop: 06/21/25 10:21 Last Infusion: 06/21/25 11:03 Dose: Infused Lacosamide (Lacosamide Inj 200 Mg/20 Ml Vial) 200 mg IVP X1 ONE Stop: 06/21/25 08:18 Last Admin: 06/21/25 08:52 Dose: 200 mg Levetiracetam (Levetiracetam Inj 100 Mg/Ml Vial 5ml) 4,500 mg IVP X1 ONE Stop: 06/21/25 03:42 Last Admin: 06/21/25 03:45 Dose: 4,500 mg Lorazepam (Lorazepam 2 Mg/Ml Vial) 2 mg IVP X1 ONE Stop: 06/21/25 07:04 Last Admin: 06/21/25 07:30 Dose: 2 mg Midazolam HCl (Midazolam Inj 1 Mg/Ml Vial 2 Ml) 10 mg IVP X1 ONE Stop: 06/21/25 03:51 Last Admin: 06/21/25 03:50 Dose: 10 mg Midazolam HCl (Midazolam Inj 1 Mg/Ml Vial 2 Ml) 10 mg IVP X1 ONE Stop: 06/21/25 05:36 Last Admin: 06/21/25 05:49 Dose: 10 mg Rocuronium Fr[place] (Rocuronium Inj 10 Mg/Ml Vial 10 Ml) 100 mg IV X1 ONE Stop: 06/21/25 08:01 Last Admin: 06/21/25 11:03 Dose: Not Given Sodium Chloride (Sodium Chloride Rt 10% 15 Ml Nebu) 5 ml INH X1 ONE Stop: 06/21/25 08:09 Last Admin: 06/21/25 11:03 Dose: Not Given Valproic Acid (Valproate Sod Inj 100 Mg/Ml Vial 5 Ml) 1,250 mg IV BID PANCHO Stop: 07/21/25 08:59 Assessment & Plan Plan Patient is a 25-year-old male with a history of epilepsy on antiseizure medications presented to the ED after having multiple seizures, continued to have breakthrough seizures in the ED, admitted to ICU for management of status epilepticus Neurology #Status Epilepticus DDx: Cocaine vs non-compliance with medication Dx: -UTox positive for cocaine -Patient reported seizing at home and in ED -EEG done, awaiting results -home meds of Keppra, Depakote, Vimpat -CK level of 361 -TSH ordered Rx: -Given versed and ativan pushes -Given Keppra loading dose -Neurology consulted, appreciate recs -Ordered patient home meds for inpatient: Keppra 1500 mg IV q12hr, Depakote 625 mg IV q6hr, Vimpat 100 mg IV BID RRx: -Etomidate, Rocuronium, fentanyl was ordered for potential intubation, no longer needed at this moment, DC'd Cardiovascular #Tachycardia, improving DDx: Seizures, cocaine, less likely infection Dx: - HR up to 130s, has been low 100s most recently Rx: - Treating underlying cause - Will monitor for expected improvement in HR Respiratory #Acute Hypoxic Respiratory Failure likely 2/2 seizures #Aspiration PNA DDx: Seizures vs Less likely sepsis Dx: -Patient was initially on 15 L oxymask in ED while seizures were occuring -ABG showing pH of 7.29, pCO2 46, bicarb 22 -CXR shows right base opacity consistent with pneumonia; TMAX 100.5 in ED, afebrile since -When examined in ED by ICU team, patient was not seizing, was shivering, saturating well on 10 L. -Patient brought to ICU saturating well on 5 L -> 1L. -End tidal CO2 currently showing 38 mmHg Rx: -Started zosyn 3.375 IV q6hr -Continue to wean patient off supplemental oxygen as appropriate -Will monitor o2 saturation, respiratory status. RRx: -Etomidate, Rocuronium, fentanyl was ordered for potential intubation, no longer needed at this moment, DC'd GI and F/E/N #transaminitis DDx: seizures causing mild metabolic stress on liver and/or mild muscle strain/damage. Dx: -AST 44, ALT 51, Alk Phos 119 Rx: -Received 3 L IV bolus fluids, on 1 L maint fluid -Will trend ast/alt/alkphos Renal #HAGMA, resolved #CECILE #Elevated CK level DDx: Seizures with lactic acidosis Dx: -Admission CMP showed bicarb <10 and lactic acid 4.2 with AGap of 31. -BMP repeated in afternoon showed Bicarb 24.3 (<10 initially), AGap of 12, lactic acid 1.5 -Cr 1.4 -> 0.9 -CK 361 -2.2L urine output so far Rx: -Patient was given 3 L IV bolus', currently on 1 L maintenance fluid -Will continue to monitor patient's fluid status & will trend morning chemistries Heme #Leukocytosis DDx: Reactive from seizures vs infection from pneumonia Dx: -WBC 28.7 -TMAX 100.5 in ED, afebrile since Rx: -Will continue to monitor for signs of infection -Treating with abx given imaging of pneumonia Endo #Hyperglycemia, improved DDx: likely due to stress from seizures Dx: -No history of diabetes -glucose 265 -> 97 Rx: -will continue to trend glucose labs ID #Aspiration Pneumonia Dx: -TMAX 100.5 in ED, afebrile since -CXR shows right base opacity consistent with pneumonia, aspiration. Rx: -Started zosyn 3.375 IV q6hr -Will continue to monitor for signs of infection Disposition: ICU - status epilepticus DVT prophylaxis: Heparin GI prophylaxis: Protonix Diet: NPO Rodriguez: yes Lines: Peripherals Drips: none Vent: none CODE STATUS: Full Code Patient plan of care was discussed with the attending physician, Dr. Mosley & senior resident Dr. Steff Mcarthur MD PGY-1 Attending Provider Attestation/Addendum Patient seen and examined with the above resident, Bravo Mcarthur MD. I agree with the findings, assessment, and plan of care as documented except for any differences below. Patient well known to our service, recent admission with status epilepticus requiring intubation. I have seen him at least twice in the last 12 months. Patient now admitted from the ED. Unfortunately again he is abusing drugs, cocaine positive. His family is very involved and likely he is compliant with medications but we will need to wait for them to arrive to obtain additional history. He is adequately protecting his airway. Fluids given for resuscitation, adequate urine outpt. Patient with improving labs through the day. Left on ETCO2 with adequate ventilation, initial ABG likely reflected inadequate compensation for metabolic acidosis due to sedatives. HE was loaded with vimpat as second line in addition to home regimen of depakote and keppra with adequate control. Await neurology input for final selection of AE regimen. On antibiotics for RLL pneumonia, likely aspiration. Patient did have an EEG done. Does easily arouse on verbal stimulation. Monitor closely in the ICU for the next 24 hours. Total critical care time: I personally spent 45 minutes for review of physiologic parameters, directing plan of care, and coordination of care with other specialists. This is exclusive of time spent teaching housestaff or performing any separate billable procedures. Patient remains at significant risk for further morbidity and mortality warranting close monitoring and care only available in the ICU. Critical care services for status epilepticus, cocaine intoxication, aspiration pneumonia, severe sepsis, and lactic acidosis.
--- NOTE | 2025-06-21 12:21 | RESP.EEG ---
EEG is completed and will be ready for review.
[2025-06-21] MEDS: HEPARIN SOD INJ 5000 UNIT/ML VIAL SC ×2 (13:20→21:03)
[2025-06-21 13:46] LABS: Lactic Acid, 3 HR 2.1 mMol/L (0.4-2.0)
[2025-06-21 15:18] LABS: Lactate (Lactic Acid) 1.5 mMol/L (0.4-2.0)
[2025-06-21] MEDS: LACOSAMIDE INJ 200 MG/20 ML VIAL 100 MG IVP (15:27)
[2025-06-21 15:39] LABS: Anion Gap 12 (7-16); BUN/Creatinine Ratio 9 Ratio (12-20); Blood Urea Nitrogen 8 mg/dL (9-23); Calcium 8.7 mg/dL (8.3-10.6); Carbon Dioxide 24.3 mMol/L (20.0-31.0); Chloride 111 mMol/L (98-107); Creatinine (Component) 0.9 mg/dL (0.6-1.3); Estimated Creatinine Clearance 131.8 mL/min (>60); Glucose 97 mg/dL (74-106); Osmolality,Calculated 290 (275-295); Potassium 4.3 mMol/L (3.4-5.1); Sodium 147 mMol/L (136-145); eGFR > 60 See Note
--- NOTE | 2025-06-21 16:17 | ESCONSULT_ITS ---
HPI Data of Consult Requesting Physician: Chintan Mosley MD Admitting Provider: Avila Artis MD Attending Provider: Chintan Mosley MD Primary Care Provider: Physician No Primary/Family Consult Narrative Reason for consult: Breakthrough seizures History of present illness: Marc Gustafson is 25 yr male with PMH of seizures, cocci, upper extremity DVT, previous admission on 05/19 admitted for breakthrough seizures. Presenting to ED again for breakthrough seizure. History obtained from chart review. Family had witnessed seizure that lasted for about 4 to 5 minutes. EMS had witnessed additional 4 seizures and route to the ED. He was given total of 10 mg Versed along with Keppra loading dose 4.5 g as he was also witnessed to have additional seizure episodes in the ED. Patient was transferred to ICU for closer monitoring. Did not require intubation. He was last discharged with valproic acid 625 mg every 6, Keppra 1500 mg twice daily, Vimpat 100 mg twice daily. There has been issue of noncompliance. Family again endorses noncompliance since his last discharge. U tox was positive for cocaine. Labs significant for elevated leukocytes 28, hemoglobin 15. Creatinine elevated 1.4, metabolic acidosis bicarb 10, Lactic downtrended from 4.2-2.5. Plan to continue valproic acid, Keppra, Vimpat. Monitor for recurring seizures. Repeat EEG and consider starting versed drip if episodes reoccur. Patient is very somnolent at bedside. Opens eyes to sternal rub and was able to follow commands. Pupils reactive. cc:: cc: Chintan Mosley MD Review of Systems Review of Systems ROS Unobtainable: unobtainable due to mental status Exam Vital Signs Temp Pulse Resp BP Pulse Ox O2 Del Method O2 Flow Rate 98.7 F 102 H 22 H 107/67 100 Oxy Mask 1 06/21/25 12:00 06/21/25 15:00 06/21/25 15:00 06/21/25 15:00 06/21/25 15:00 06/21/25 08:00 06/21/25 14:02 Narrative Exam General: Young male, No acute distress, somnolent from medication HEENT: NCAT, No JVD noted. Mucosa moist. Pupils are equal and reactive to light bilaterally Cardiovascular: Normal S1 and S2. Regular rate and rhythm. Respiratory: Lungs are clear to auscultation bilaterally. No wheezing or crackles heard. Abdomen: Soft, nontender, not distended, normal bowel sounds. Skin: Warm to touch, dry, no rashes noted Musculoskeletal: No gross injuries. No pitting edema Neuro: Deferred due to mental status Results Labs 06/23/25 05:10 06/23/25 05:10 Labs: Short CBC 06/21/25 Range/Units 03:53 WBC 28.7 H (3.8-10.6) Thou/mm3 Hgb 15.1 (13.5-16.0) g/dL Hct 48.0 (41.0-53.0) % Plt Count 319 D (140-440) Thou/mm3 BMP 06/21/25 06/21/25 03:53 15:12 Sodium 142 147 H Potassium 4.5 4.3 Chloride 101 111 H Carbon Dioxide < 10.0 L* 24.3 BUN 10 8 L Creatinine 1.4 H 0.9 D Glucose 265 H 97 D Calcium 9.5 8.7 Cardiac Enzymes 06/21/25 Range/Units 08:17 Total Creatine Kinase 361 H D (34-171) U/L Liver Function 06/21/25 Range/Units 03:53 Total Bilirubin 0.2 L (0.3-1.2) mg/dL AST 44 H (0-34) U/L ALT 51 H (10-49) U/L Alkaline Phosphatase 119 H (46-116) U/L Albumin 5.2 H (3.5-5.0) gm/dL ABG Interpretation ABG results: 06/21/25 06:00 ABG pH 7.29 L ABG pCO2 46 ABG pO2 123 H ABG HCO3 22 ABG O2 Saturation 99 H ABG Base Excess -5 L Quality Measures Quality Measures VTE prophylaxis Medications Home Medications and Allergies Home Medications ?Medication ?Instructions ?Recorded ?Confirmed ?Type lacosamide 100 mg tablet 100 mg PO Q12H 06/21/2506/01 History Allergies Allergy/AdvReac Type Severity Reaction Status Date / Time No Known Allergies Allergy Verified 12/21/24 04:08 Visit Medications Acetaminophen (Acetaminophen 325 Mg Tablet) 650 mg PO Q6H PRN PRN Reason: Fever >101.5 Stop: 07/21/25 07:41 Acetaminophen (Acetaminophen 325 Mg Tablet) 650 mg PO Q6H PRN PRN Reason: PAIN SCALE 1-3 (mild Stop: 07/21/25 07:41 Heparin Sodium (Porcine) (Heparin Sod Inj 5000 Unit/Ml Vial) 5,000 unit SC Q8HR [facility] Stop: 07/05/25 13:59 Last Admin: 06/21/25 13:20 Dose: 5,000 unit Piperacillin/Tazobactam/Dextrose (Zosyn) 3.375 gm in 50 mls @ 100 mls/hr IV Q6HR PANCHO; Protocol Stop: 06/28/25 08:10 Last Admin: 06/21/25 12:00 Dose: Not Given Norepinephrine/Dextrose (Levophed In D5w 8mg/250ml) 8 mg in 250 mls @ 7.5 mls/hr IV .Q24H PRN; Protocol PRN Reason: PER PROTOCOL Stop: 07/21/25 08:14 Valproic Acid 625 mg/ Sodium (Chloride) 56.25 mls @ 56.25 mls/hr IV Q6HR [facility] Stop: 07/21/25 09:14 Last Infusion: 06/21/25 13:17 Dose: Infused Midazolam HCl (Versed Pf Inj In Ns Premix) 100 mg in 100 mls @ 1 mls/hr IV .Q24H PRN; Protocol PRN Reason: PER PROTOCOL Stop: 06/26/25 08:00 Propofol (Diprivan Ivpb) 1,000 mg in 100 mls @ 2.4 mls/hr IV .Q24H PRN; Protocol PRN Reason: PER PROTOCOL Stop: 07/21/25 09:03 Lactated Ringer's (Lactated Ringers) 1,000 mls @ 100 mls/hr IV .Q10H [facility] Stop: 07/21/25 09:06 Last Admin: 06/21/25 10:30 Dose: 100 mls/hr Lacosamide (Lacosamide Inj 200 Mg/20 Ml Vial) 100 mg IVP BID [facility] Stop: 07/21/25 15:14 Last Admin: 06/21/25 15:27 Dose: 100 mg Levetiracetam (Levetiracetam Inj 100 Mg/Ml Vial 5ml) 1,500 mg IVP Q12HR [facility] Stop: 07/21/25 20:59 Ondansetron HCl (Ondansetron Inj 2 Mg/Ml Inj 2 Ml) 4 mg IVP Q6H PRN; Protocol PRN Reason: NAUSEA OR VOMITING Stop: 07/21/25 07:41 Pantoprazole Sodium (Pantoprazole Inj 40 Mg Vial) 40 mg IVP QDAY [facility] Stop: 07/21/25 08:59 Last Admin: 06/21/25 08:25 Dose: 40 mg Discontinued Medications Etomidate (Etomidate Inj 2 Mg/Ml Vial 10 Ml) 20 mg IVP X1 ONE Stop: 06/21/25 08:01 Last Admin: 06/21/25 11:03 Dose: Not Given Fentanyl Citrate (Fentanyl Cit Inj 50 Mcg/Ml Amp 2ml) 100 mcg IVP X1 ONE Stop: 06/21/25 08:01 Last Admin: 06/21/25 11:03 Dose: Not Given Sodium Chloride (Ns) 1,000 mls @ 999 mls/hr IV .Q1H1M ONE Stop: 06/21/25 05:46 Last Infusion: 06/21/25 04:53 Dose: Infused Midazolam HCl (Versed Pf Inj In Ns Premix) 100 mg in 100 mls @ 1 mls/hr IV .Q24H PRN; Protocol PRN Reason: PER PROTOCOL Stop: 06/26/25 08:00 Lactated Ringer's (Lactated Ringers) 1,000 mls @ 999 mls/hr IV .Q1H1M ONE Stop: 06/21/25 09:04 Last Infusion: 06/21/25 10:03 Dose: Infused Lactated Ringer's (Lactated Ringers) 1,000 mls @ 999 mls/hr IV .Q1H1M ONE Stop: 06/21/25 10:21 Last Infusion: 06/21/25 11:03 Dose: Infused Lacosamide (Lacosamide Inj 200 Mg/20 Ml Vial) 200 mg IVP X1 ONE Stop: 06/21/25 08:18 Last Admin: 06/21/25 08:52 Dose: 200 mg Levetiracetam (Levetiracetam Inj 100 Mg/Ml Vial 5ml) 4,500 mg IVP X1 ONE Stop: 06/21/25 03:42 Last Admin: 06/21/25 03:45 Dose: 4,500 mg Lorazepam (Lorazepam 2 Mg/Ml Vial) 2 mg IVP X1 ONE Stop: 06/21/25 07:04 Last Admin: 06/21/25 07:30 Dose: 2 mg Midazolam HCl (Midazolam Inj 1 Mg/Ml Vial 2 Ml) 10 mg IVP X1 ONE Stop: 06/21/25 03:51 Last Admin: 06/21/25 03:50 Dose: 10 mg Midazolam HCl (Midazolam Inj 1 Mg/Ml Vial 2 Ml) 10 mg IVP X1 ONE Stop: 06/21/25 05:36 Last Admin: 06/21/25 05:49 Dose: 10 mg Rocuronium [place] (Rocuronium Inj 10 Mg/Ml Vial 10 Ml) 100 mg IV X1 ONE Stop: 06/21/25 08:01 Last Admin: 06/21/25 11:03 Dose: Not Given Sodium Chloride (Sodium Chloride Rt 10% 15 Ml Nebu) 5 ml INH X1 ONE Stop: 06/21/25 08:09 Last Admin: 06/21/25 11:03 Dose: Not Given Valproic Acid (Valproate Sod Inj 100 Mg/Ml Vial 5 Ml) 1,250 mg IV BID PANCHO Stop: 07/21/25 08:59 Assessment & Plan Plan 25-year-old man presenting to ED with breakthrough seizures. Patient has history of recurrent seizures, cocaine use, noncompliance with his seizure medications. Family witnessed seizure and continue to have recurrent seizures in the ED. Started on antipeptic medication. Neurology consulted for breakthrough seizures. #Status epilepticus Patient has hx for recurrent seizures. Also with neurologist in [place]. Issue with noncompliance. Was started on lipoic acid, Keppra, Vimpat after last admission. He endorses continued noncompliance. UTOX positive for cocaine. Metabolic acidosis with bicarb of 10, lactic acid elevated 4.2 now improving to 2.5. EEG showed proximal generalized and multifocal epileptic seizures. -Seizure precautions - valproic acid 625 mg q6hr - Keppra 1500 mg BID - Vimpat 100 mg BID -increase vimpat to 150mg BID if breakthrough seizure -neuro checks -depakote levels pending -[employer] guidance counselor patient and family on compliance Primary care team to manage above conditions and ongoing care needs. The patient's management plan was discussed with my attending physician Dr. Singh. Brigitte Alvarado, PGY-2 Attending Provider Attestation/Addendum I personally have seen and examined the patient at the bedside and I agreed with resident's findings, assessment and plan of care. Patient has hx for recurrent seizures from noncompliance and cocaine abuse. EEG showed proximal generalized and multifocal epileptic seizures. Follow Seizure precautions, valproic acid 625 mg q6hr, Keppra 1500 mg BID and Vimpat 150 mg BID Addressed compliance with family.
[2025-06-21 16:51] LABS: Collection Type, Urine Clean Catch
[2025-06-21 16:59] LABS: Chloride,Urine Random 92.0 mMol/L (55.0-125.0); Potassium,Urine Random 34 mMol/L (12-62); Sodium,Urine Random 95.1 mMol/L (20.0-110.0)
[2025-06-21 17:10] LABS: Bacteria,Urine Rare; Bilirubin,Urine Negative (Negative); Blood,Urine 1+ (Negative); Clarity,Urine Clear (Clear/Hazy); Color,Urine Colorless (Lt Yel-Yel); Glucose, Urine Negative (Negative); Ketones,Urine Negative (Negative); Leukocyte Esterase,Urine Negative (Negative); Nitrite,Urine Negative (Negative); PH,Urine 6.5 (5.0-7.0); Protein,Urine Negative (Neg - Trace); RBC,Urine 13 /hpf (0-3); Specific Gravity,Urine 1.009 (1.001-1.035); Squamous Epithelial Cell,Urine < 1 /hpf (0-5); Urobilinogen,Urine Negative mg/dL (0.0-1.0); WBC,Urine 4 /hpf (0-5)
[2025-06-21 18:23] LABS: Lactate (Lactic Acid) 1.9 mMol/L (0.4-2.0)
[2025-06-21] MEDS: levETIRAcetam INJ 100 MG/ML VIAL 5ML 1500 MG IVP (21:03)
[2025-06-21 22:03] LABS: Lactate (Lactic Acid) 1.3 mMol/L (0.4-2.0)
[2025-06-22] VITALS (48 sets, daily range): BP systolic 110–135; BP diastolic 65–89; PULSE 99–120; RESP 16–32; TEMP 36.6–37.6; O2SAT 91–99
[2025-06-22] MEDS: VALPROATE SOD IV ×2 (00:24→05:30)
[2025-06-22] MEDS: SODIUM CHLORIDE 0.9% IV ×2 (00:24→05:30)
[2025-06-22] MEDS: PIPER/TAZO 3.375 GM PREMIX 3.375 GM/50 ML BAG IV ×2 (05:14)
[2025-06-22] MEDS: RINGERS LACTATED 1000 ML 1,000 ML 100 ML IV ×2 (05:18→16:03)
[2025-06-22] MEDS: HEPARIN SOD INJ 5000 UNIT/ML VIAL SC ×3 (05:19→21:24)
--- NOTE | 2025-06-22 05:28 | PC.RT ---
spoke to Dr. Suzanne ROBERTS aware pt unable to expectorate sputum culture, per leave the order she will talk to morning team.
[2025-06-22 06:10] LABS: Basophils # (Auto) 0.1 Thou/mm3 (0.0-0.2); Basophils % (Auto) 0 % (0-2.5); Eosinophils # (Auto) 0.0 Thou/mm3 (0.0-0.5); Eosinophils % (Auto) 0 % (0-10); Hematocrit 39.2 % (41.0-53.0); Hemoglobin 13.1 g/dL (13.5-16.0); Immature Granulocytes Auto 0.11 Thou/mm3 (0.00-0.00); Lymphocytes # (Auto) 2.4 Thou/mm3 (1.0-4.8); Lymphocytes % (Auto) 17 % (10-50); Mean Corpuscular HGB Conc 33.4 g/dl (31.0-37.0); Mean Corpuscular Hemoglobin 30.8 pg (25.0-35.0); Mean Corpuscular Volume 92 fL (80-100); Monocytes # (Auto) 1.5 Thou/mm3 (0.0-0.8); Monocytes % (Auto) 11 % (0-12); Neutrophils # (Auto) 9.9 Thou/mm3 (1.8-7.7); Neutrophils % (Auto) 71 % (37-80); Nucleated Red Blood Cell # 0.00 Thou/mm3 (0.00-0.00); Nucleated Red Blood Cell % 0 /100 WBC (0); Platelet Count 234 Thou/mm3 (140-440); RDW Standard Deviation 49.5 fL (35.1-43.9); Red Blood Count 4.25 Miln/mm3 (4.50-5.90); White Blood Count 13.9 Thou/mm3 (3.8-10.6)
[2025-06-22 06:30] LABS: INR 1.0 (0.9-1.3); Partial Thromboplastin Time 26.9 Seconds (22.0-36.0); Prothrombin Time 11.1 Seconds (9.0-12.2)
[2025-06-22 06:44] LABS: Alanine Aminotransferase 37 U/L (10-49); Albumin, Serum 4.0 gm/dL (3.5-5.0); Albumin/Globulin Ratio 2.0 (1.2-2.2); Alkaline Phosphatase 70 U/L (46-116); Anion Gap 13 (7-16); Aspartate Amino Transferase 38 U/L (0-34); BUN/Creatinine Ratio 8 Ratio (12-20); Bilirubin,Total 0.5 mg/dL (0.3-1.2); Blood Urea Nitrogen 7 mg/dL (9-23); Calcium 8.8 mg/dL (8.3-10.6); Calcium (Corrected) 8.8 mg/dL (8.5-10.1); Carbon Dioxide 25.8 mMol/L (20.0-31.0); Cardiac Risk Estimate 2.6 RATIO (4.0-6.7); Chloride 106 mMol/L (98-107); Cholesterol 118 mg/dL (132-200); Creatinine (Component) 0.9 mg/dL (0.6-1.3); Estimated Creatinine Clearance 131.8 mL/min (>60); Globulin 2.0 gm/dL (2.3-3.5); Glucose 89 mg/dL (74-106); HDL Cholesterol 46 mg/dL (40-60); LDL Cholesterol,Calculated 50 mg/dL (0-130); Magnesium 2.0 mg/dL (1.6-2.6); Osmolality,Calculated 285 (275-295); Phosphorous 4.2 mg/dL (2.4-5.1); Potassium 3.6 mMol/L (3.4-5.1); Sodium 145 mMol/L (136-145); Thyroid Stimulating Hormone 3.14 uIU/mL (0.55-4.78); Total Protein 6.0 gm/dL (5.7-8.2); Triglycerides 110 mg/dL (30-150); eGFR > 60 See Note
[2025-06-22] MEDS: LACOSAMIDE INJ 200 MG/20 ML VIAL 100 MG IVP (08:56)
[2025-06-22] MEDS: levETIRAcetam INJ 100 MG/ML VIAL 5ML 1500 MG IVP (08:56)
--- NOTE | 2025-06-22 10:20 | ESPR_ITS ---
<Statement entered by Nadeem Martinez MD - 06/23/25 10:55> TOTAL TIME: 45MINUTES ON DIRECT MEDICAL CARE, MANAGEMENT - COORDINATION AND COUNSELING > 50% OF TOTAL TIME I saw and evaluated the patient. I reviewed the resident?s note and agree with findings and plan as documented in the resident?s note. Improved, narrowed to ceftriaxone based off past microbiology culture results. Had MRSA a year ago,, Clinically however significantly improving If new fever, broadened with vancomycin <Statement entered by Avila Artis MD - 06/22/25 15:27> Patient was seen and examined at the bedside in the ICU. No acute overnight events reported. Patient was continuously tachycardic. Rest of the vitals were unremarkable. Patient was feeling better and reported to feel hungry. No seizures were reported in the last 24 hours. Antiseizure medications were transitioned from IV to p.o. He was transition from Zosyn to Rocephin based on previous microbiology sputum cultures growing Klebsiella in the past and zosyn lowers seizure threshold as well. We Will continue with 2 g Rocephin once daily for 4 more days to complete antibiotic course. If patient develops systemic signs of fever and tachycardia or worsening respiratory distress recommended to add on MRSA coverage based on prev cx of MRSA in the past. Patient is stable for management on floors. Patient will be downgraded to floors for continuation of care. I discussed and supervised with the internal revenue agent physician who took care of this patient. I personally saw and examined the patient. I agree with most of the assessment and plan. Disclaimer: Despite multiple revisions, due to the dictation software being used, the document bellow may not be free of grammatical errors including phonetic/typographic errors. However, this does not deter from our commitment to providing health care in the patient's best interest in mind. Plan of care discussed with attending Physician Dr. Michelle Artis MD PGY-3 Documentation for date of: 06/22/25 Subjective Subjective Interval history: Patient is a 25-year-old male with a history of epilepsy on antiseizure medications presented to the ED after having multiple seizures, continued to have breakthrough seizures in the ED and was given Versed 20 mg for 1 hour and a loading dose of Keppra. At the time of examination of the patient, he was unable to give a history. Patient was spontaneously moving extremities, able to open eyes to voice and briefly track for seconds at a time. Patient appeared tired and lethargic. Patient was shivering and was diaphoretic and was saturating well on 10 L OxyMask in the ED. Patient was brought to the ICU, was saturating well on 5 L, was being weaned down on supplemental oxygen. He has a history of being noncompliant with his antiseizure medications, but was reported to have been more compliant in the recent months. Patient's UTOX showed cocaine positive, chemistry panel showed bicarb less than 10, WBC levels were elevated to 28. Patient was restarted on home anti-seizure meds (below), has not had any seizures after being brought to the ICU. ED Course: Initial vitals were temperature 100.5, pulse 144 bpm, respiratory rate 33, blood pressure 96/61, oxygen saturation 93% on 15 L OxyMask. Labs are significant for WBCs of 28.7, ABG showing pH of 7.29, pCO2 46, bicarb 22; chemistry panel showing bicarb less than 10.0, anion gap 31, creatinine 1.4, glucose 265, lactic acid 4.2, AST 44, ALT 51, alk phos 119, total CK 361, cocaine positive, valproic acid levels pending. Imaging included Chest x-ray showed opacity at right base most consistent with pneumonia possible aspiration pneumonia. EEG ordered. In the ED, Patient was given loading dose Keppra, multiple Versed pushes, 1 L normal saline bolus, Ativan push x 1, LR 1 L bolus x 1 Patient was admitted to ICU for management of status epilepticus. Interval History: 06/22/2025: Patient did not have any acute events overnight. Patient continues to be tachycardic. The rest of patient's vitals are unremarkable. Patient states he feels a lot better and that he has a little bit more energy. No seizures have been noted since being in the ICU. Patient will be transitioned to PO anti- seizure medications today. Patient has been saturating well on room air without distress. Will continue antibiotics for aspiration pneumonia, changing to rocephin, for a total antibiotic course of 5 days that includes the 1 day of zosyn. Patient is no longer needing to have ICU level of care, planned to downgrade to telemetry today. Exam Vital Signs Temp Pulse Resp BP Pulse Ox O2 Del Method O2 Flow Rate 98.3 F 109 H 30 H 121/78 99 Room Air 1 06/22/25 08:00 06/22/25 10:00 06/22/25 10:00 06/22/25 10:00 06/22/25 10:00 06/22/25 09:00 06/21/25 14:02 Narrative Exam General: No acute distress; A&Ox3 Skin: Warm, intact, no obvious rash. HENT: NCAT, EOMI/PERRL, not icteric. External ears normal. No rhinorrhea. Moist mucous membranes, leukoplakia Cardiovascular: Tachycardic, regular rhythm, no murmur, +S1/S2. Respiratory: Lungs CTAB GI: Soft, nontender, non-distended. No guarding or rebound tenderness. : No suprapubic tenderness. No flank tenderness bilaterally. Extremities: no edema, no cyanosis, no clubbing. Extremity pulses present Neuro: Grossly nonfocal. Moving all 4 extremities. CN not formally tested but appear grossly intact. Objective Labs 06/22/25 04:15 06/22/25 04:15 Labs: Laboratory Results - last 24 hr 06/21/25 06/21/25 06/21/25 13:40 15:12 16:40 WBC RBC Hgb Hct MCV MCH MCHC RDW Std Deviation Plt Count Neut % (Auto) Lymph % (Auto) Vance % (Auto) Eos % (Auto) Baso % (Auto) Neut # (Auto) Lymph # (Auto) Vance # (Auto) Eos # (Auto) Baso # (Auto) Immature Gran # (Auto) Absolute Nucleated RBC Immature Gran % Nucleated RBC % PT INR APTT Sodium 147 H Potassium 4.3 Chloride 111 H Carbon Dioxide 24.3 Anion Gap 12 BUN 8 L Creatinine 0.9 D Estim Creat Clear Calc 131.8 eGFR > 60 BUN/Creatinine Ratio 9 L Glucose 97 D Calculated Osmolality 290 Lactic Acid 2.1 H 1.5 Calcium 8.7 Corrected Calcium Phosphorus Magnesium Total Bilirubin AST ALT Alkaline Phosphatase Total Protein Albumin Globulin Albumin/Globulin Ratio Triglycerides Cholesterol LDL Cholesterol, Calc HDL Cholesterol Cholesterol/HDL Ratio TSH Ur Collection Type Clean Catch Urine Color Colorless A Urine Clarity Clear Urine pH 6.5 Ur Specific Keller 1.009 Urine Protein Negative Urine Glucose (UA) Negative Urine Ketones Negative Urine Blood 1+ A Urine Nitrite Negative Urine Bilirubin Negative Urine Urobilinogen (Auto) Negative Ur Leukocyte Esterase Negative Urine RBC 13 H Urine WBC 4 Ur Squamous Epith Cells < 1 Urine Bacteria Rare Ur Random Sodium 95.1 Ur Random Potassium 34 Ur Random Chloride 92.0 06/21/25 06/21/25 06/22/25 18:02 21:55 04:15 WBC 13.9 H D RBC 4.25 L Hgb 13.1 L D Hct 39.2 L MCV 92 MCH 30.8 MCHC 33.4 RDW Std Deviation 49.5 H Plt Count 234 D Neut % (Auto) 71 Lymph % (Auto) 17 Vance % (Auto) 11 Eos % (Auto) 0 Baso % (Auto) 0 Neut # (Auto) 9.9 H Lymph # (Auto) 2.4 Vance # (Auto) 1.5 H Eos # (Auto) 0.0 Baso # (Auto) 0.1 Immature Gran # (Auto) 0.11 H Absolute Nucleated RBC 0.00 Immature Gran % 1 H Nucleated RBC % 0 PT 11.1 INR 1.0 APTT 26.9 Sodium 145 Potassium 3.6 D Chloride 106 Carbon Dioxide 25.8 Anion Gap 13 BUN 7 L Creatinine 0.9 Estim Creat Clear Calc 131.8 eGFR > 60 BUN/Creatinine Ratio 8 L Glucose 89 Calculated Osmolality 285 Lactic Acid 1.9 1.3 Calcium 8.8 Corrected Calcium 8.8 Phosphorus 4.2 Magnesium 2.0 Total Bilirubin 0.5 AST 38 H ALT 37 Alkaline Phosphatase 70 D Total Protein 6.0 Albumin 4.0 D Globulin 2.0 L Albumin/Globulin Ratio 2.0 Triglycerides 110 Cholesterol 118 L LDL Cholesterol, Calc 50 HDL Cholesterol 46 Cholesterol/HDL Ratio 2.6 L TSH 3.14 Ur Collection Type Urine Color Urine Clarity Urine pH Ur Specific Keller Urine Protein Urine Glucose (UA) Urine Ketones Urine Blood Urine Nitrite Urine Bilirubin Urine Urobilinogen (Auto) Ur Leukocyte Esterase Urine RBC Urine WBC Ur Squamous Epith Cells Urine Bacteria Ur Random Sodium Ur Random Potassium Ur Random Chloride ABG Interpretation ABG results: 06/21/25 06:00 ABG pH 7.29 L ABG pCO2 46 ABG pO2 123 H ABG HCO3 22 ABG O2 Saturation 99 H ABG Base Excess -5 L Quality Measures Quality Measures VTE prophylaxis Assessment & Plan Assessment Current Active Medications: Generic Name Dose Route Start Last Admin Trade Name Freq PRN Reason Stop Dose Admin Acetaminophen 650 mg 10/22/25 07:42 Acetaminophen 325 Mg Tablet PO 07/21/25 07:41 Q6H PRN Fever >101.5 Acetaminophen 650 mg 06/21/25 07:42 Acetaminophen 325 Mg Tablet PO 07/21/25 07:41 Q6H PRN PAIN SCALE 1-3 (mild Heparin Sodium (Porcine) 5,000 unit 06/21/25 14:00 06/22/25 05:19 Heparin Sod Inj 5000 Unit/Ml Vial SC 07/05/25 13:59 5,000 unit Q8HR PANCHO Administration Norepinephrine/Dextrose 8 mg in 250 mls @ 7.5 mls/hr 06/21/25 08:15 Levophed In D5w 8mg/250ml IV 07/21/25 08:14 .Q24H PRN PER PROTOCOL Protocol 0.05 MCG/KG/MIN Midazolam HCl 100 mg in 100 mls @ 1 mls/hr 06/21/25 09:07 Versed Pf Inj In Ns Premix IV 06/26/25 08:00 .Q24H PRN PER PROTOCOL Protocol 1 MG/HR Propofol 1,000 mg in 100 mls @ 2.4 mls/hr 06/21/25 09:04 Diprivan Ivpb IV 07/21/25 09:03 .Q24H PRN PER PROTOCOL Protocol 5 MCG/KG/MIN Lactated Ringer's 1,000 mls @ 100 mls/hr 06/21/25 09:07 06/22/25 05:18 Lactated Ringers IV 07/21/25 09:06 100 mls/hr .Q10H PANCHO Administration Ceftriaxone Sodium/Dextrose 2 gm in 50 mls @ 100 mls/hr 06/22/25 09:27 Rocephin/D5w 2gm IV 06/29/25 09:26 QDAY PANCHO Lacosamide 100 mg 06/22/25 21:00 Lacosamide 50 Mg Tablet PO 07/22/25 20:59 Q12HR PANCHO Levetiracetam 1,000 mg 06/22/25 14:00 Levetiracetam Liqd 500 Mg/5 Ml Udc PO 07/22/25 13:59 Q8HR PANCHO Midazolam HCl 5 mg 06/21/25 18:23 Midazolam Inj 1 Mg/Ml Vial 2 Ml IVP 06/26/25 18:22 Q5MIN PRN breakthrough seizures Ondansetron HCl 4 mg 06/21/25 07:42 Ondansetron Inj 2 Mg/Ml Inj 2 Ml IVP 07/21/25 07:41 Q6H PRN NAUSEA OR VOMITING Protocol Pantoprazole Sodium 40 mg 06/21/25 09:00 06/22/25 08:56 Pantoprazole Inj 40 Mg Vial IVP 07/21/25 08:59 40 mg QDAY PANCHO Administration Valproic Acid 1,250 mg 06/22/25 21:00 Valproic Acid Syrup 250 Mg/5 Ml Udc PO 07/22/25 20:59 BID PANCHO Plan Patient is a 25-year-old male with a history of epilepsy on antiseizure medications presented to the ED after having multiple seizures, continued to have breakthrough seizures in the ED, admitted to ICU for management of status epilepticus Neurology #Status Epilepticus DDx: Cocaine vs non-compliance with medication Dx: -Patient reported seizing at home and in ED -UTox positive for cocaine; CK level of 361; TSH wnl -EEG done, awaiting results -home meds of Keppra, Depakote, Vimpat -No seizures have been noted since being in the ICU. Rx: -Changed IV seizure meds today to Oral (pass speech swallow eval): keppra 1000 mg po q8hr, depakote 1250 mg po bid, vimpat 100 mg po bid RRx: -In ED, given Keppra loading dose versed and ativan pushes -IV seizure meds discontinued (Keppra 1500 mg IV q12hr, Depakote 625 mg IV q6hr, Vimpat 100 mg IV BID) -Etomidate, Rocuronium, fentanyl was ordered for potential intubation, no longer needed, DC'd Cardiovascular #Tachycardia DDx: Seizures, cocaine, less likely infection Dx: - HR up to 130s, has been low 100s most recently Rx: - Treating underlying cause - Will monitor for expected improvement in HR Respiratory #Acute Hypoxic Respiratory Failure likely 2/2 seizures #Aspiration PNA DDx: Seizures vs Less likely sepsis Dx: -Patient was initially on 15 L oxymask in ED while seizures were occurring -ABG showing pH of 7.29, pCO2 46, bicarb 22 -CXR shows right base opacity consistent with pneumonia; TMAX 100.5 in ED, afebrile since -When examined in ED by ICU team, patient was not seizing, was shivering, saturating well on 10 L. -Patient brought to ICU saturating well on 5 L -> 1L. -End tidal CO2 trending between 35-45 -06/22: Patient oxygen saturation mid-upper 90s on room air; in no acute distress; afebrile since Rx: -Started Rocephin 2 g IV qday for a total antibiotic course of 5 days that includes the 1 day of zosyn (start date 06/21 - end date 06/26) -Will monitor o2 saturation, respiratory status. RRx: -Discontinued zosyn 3.375 IV q6hr -Etomidate, Rocuronium, fentanyl was ordered for potential intubation, no longer needed at this moment, DC'd GI and F/E/N #transaminitis improving DDx: seizures causing mild metabolic stress on liver and/or mild muscle strain/damage. Dx: -AST 44, ALT 51, Alk Phos 119 -06/22: all improved Rx: -Will trend ast/alt/alkphos RRx: -Received 3 L IV bolus fluids, 1 L maint fluid Renal #HAGMA, resolved #CECILE, resolved #Elevated CK level DDx: Seizures with lactic acidosis Dx: -Admission CMP showed bicarb <10 and lactic acid 4.2 with AGap of 31. -BMP repeated in afternoon showed Bicarb 24.3 (<10 initially), AGap of 12, lactic acid 1.5 -Cr 1.4 -> 0.9 -CK 361 -Continues to make good UOP Rx: -Will continue to monitor patient's fluid status & will trend morning chemistries RRx: -Received 3 L IV bolus fluids, 1 L maint fluid Heme #Leukocytosis DDx: Reactive from seizures vs infection from pneumonia Dx: -WBC 28.7 -TMAX 100.5 in ED, afebrile since Rx: -Will continue to monitor for signs of infection -Treating with abx given imaging of pneumonia Endo #Hyperglycemia, resolved DDx: likely due to stress from seizures Dx: -No history of diabetes -glucose 265 -> 97 Rx: -will continue to trend glucose labs ID #Aspiration Pneumonia Dx: -TMAX 100.5 in ED, afebrile since -CXR shows right base opacity consistent with pneumonia, aspiration. -Patient's micro history shows multiple infections with klebsiella in the past which have been sensitive to ceftriaxone. Patient has also had a positive MRSA nares and MRSA ET tube cultured Rx: -Will continue to monitor for signs of infection -Started Rocephin 2 g IV qday for a total antibiotic course of 5 days that includes the 1 day of zosyn (start date 06/21 - end date 06/26) -Will add MRSA coverage if MRSA nares comes back positive RRx: -Discontinued zosyn 3.375 IV q6hr Disposition: ICU - status epilepticus DVT prophylaxis: Heparin GI prophylaxis: none Diet: Regular Rodriguez: no Lines: Peripherals Drips: none Vent: none CODE STATUS: Full Code Patient plan of care was discussed with the attending physician, Dr. Martinez & senior resident Dr. Steff Mcarthur MD PGY-1
[2025-06-22] MEDS: cefTRIAXone/D5w 2gm 2 GM/50 ML BAG IV (10:25)
--- NOTE | 2025-06-22 13:11 | PC.SS ---
LICENSED CLINICAL PSYCHOLOGIST conducted bedside contact with the patient conduct initial assessment and to discuss discharge planning.? Patient confirmed demographic information.? Patient resides at home with mother, Angela Evangelista.? Patient possesses a history of recurrent seizures.? Patient does not utilize any form of DME to assist with ambulation.? Patient does not utilize home oxygen.? Patient describes the ability to complete ADL?s independently.? Patient identified sister, Kellie Mora ; as surrogate medical decision maker.? Patient?s PCP is Dr. Lance, [facility].? Patient?s neurologist is Dr. Bassett, [facility].? Patient does not participate with dialysis.? Patient utilizes [facility] for medication services.? Plan is for the patient to return home at the time of discharge.? Family will provide transportation on behalf of the patient.? No further discharge needs identified by the patient.? No further intervention required at this time, social worker assistant will be available to address any further concerns.? Next of Kin: Kellie Morgan D/C Plan: Home
--- NOTE | 2025-06-22 15:44 | ESPR_ITS ---
<Statement entered by Gene Hunter MD - 06/22/25 16:00> I have reviewed the note and agree with the resident's assessment & plan with exceptions as below. I have personally reviewed labs, imaging, home meds/prior records, examined the patient, formulated and discussed management plan with my attending. Patient was seen and examined at bedside this morning. No acute overnight events. Patient was in ICU downgrade after patient was admitted for status epilepticus. Today patient was found to be stable enough to be downgraded to the medical floors. Patient has not had any seizures for the last 24 hours. Currently on ceftriaxone for Klebsiella and the sputum secondary to aspiration pneumonia. Currently on lacosamide 100 mg twice daily, valproic acid 1250 mg twice daily as well as Keppra 1000 mg every 8 hours. Patient did seem a little bit more confused today, but was AO x 3. Neurology is on board. Will monitor patient overnight and possible discharge 24 to 48 hours if no further seizures and neurology okay with plan. Gene Hunter PGY2 Disclaimer: Even though this this note was dictated by speech recognition and even though it was carefully revised there may still be minor errors in field application engineer due to voice recognition software. Documentation for date of: 06/22/25 Subjective Subjective Interval history: Patient downgraded from ICU. During ICU stay, patient's breakthrough seizures were controlled by Versed and Ativan as well as home antiseizure meds. Patient reports feeling well, no complaints. However per sister at bedside, she reports patient is confused as he reported that he last used cocaine about a month ago when she reports he knows he used it 2 days ago. Vitals and labs reviewed, patient still tachycardic. WBC decreased now 13.9, hemoglobin 13.1, sodium 145, potassium 3.6. Neurology on board. Continue antiseizure medication of Keppra, Depakote and Vimpat and continue to monitor for further seizures. Per ICU switch Zosyn to ceftriaxone to end until 06/26. Exam Vital Signs Temp Pulse Resp BP Pulse Ox O2 Del Method O2 Flow Rate 98.2 F 120 H 32 H 118/86 H 98 Room Air 1 06/22/25 11:00 06/22/25 11:00 06/22/25 11:00 06/22/25 11:00 06/22/25 11:00 06/22/25 09:00 06/21/25 14:02 Narrative Exam GENERAL: AOx3, no acute distress, slight confusion HEENT: mucous membranes moist, bilateral sclera anicteric CARDIOVASCULAR: regular rhythm, tachycardic, S1/S2 present, no murmurs appreciated PULMONARY: clear to auscultation bilaterally, no rales/rhonchi/wheezes ABDOMINAL: soft, non-tender, non-distended, no rebound/guarding, bowel sounds present EXTREMITIES: no peripheral edema SKIN: warm and dry, intact, no rashes NEURO: CN II-XII grossly intact, no focal deficits, alert, following commands Objective Labs 06/22/25 04:15 06/22/25 04:15 Labs: Laboratory Results - last 24 hr 06/21/25 06/21/25 06/21/25 15:12 16:40 18:02 WBC RBC Hgb Hct MCV MCH MCHC RDW Std Deviation Plt Count Neut % (Auto) Lymph % (Auto) [place] % (Auto) Eos % (Auto) Baso % (Auto) Neut # (Auto) Lymph # (Auto) [place] # (Auto) Eos # (Auto) Baso # (Auto) Immature Gran # (Auto) Absolute Nucleated RBC Immature Gran % Nucleated RBC % PT INR APTT Sodium 147 H Potassium 4.3 Chloride 111 H Carbon Dioxide 24.3 Anion Gap 12 BUN 8 L Creatinine 0.9 D Estim Creat Clear Calc 131.8 eGFR > 60 BUN/Creatinine Ratio 9 L Glucose 97 D Calculated Osmolality 290 Lactic Acid 1.5 1.9 Calcium 8.7 Corrected Calcium Phosphorus Magnesium Total Bilirubin AST ALT Alkaline Phosphatase Total Protein Albumin Globulin Albumin/Globulin Ratio Triglycerides Cholesterol LDL Cholesterol, Calc HDL Cholesterol Cholesterol/HDL Ratio TSH Ur Collection Type Clean Catch Urine Color Colorless A Urine Clarity Clear Urine pH 6.5 Ur Specific [place] 1.009 Urine Protein Negative Urine Glucose (UA) Negative Urine Ketones Negative Urine Blood 1+ A Urine Nitrite Negative Urine Bilirubin Negative Urine Urobilinogen (Auto) Negative Ur Leukocyte Esterase Negative Urine RBC 13 H Urine WBC 4 Ur Squamous Epith Cells < 1 Urine Bacteria Rare Ur Random Sodium 95.1 Ur Random Potassium 34 Ur Random Chloride 92.0 06/21/25 06/22/25 21:55 04:15 WBC 13.9 H D RBC 4.25 L Hgb 13.1 L D Hct 39.2 L MCV 92 MCH 30.8 MCHC 33.4 RDW Std Deviation 49.5 H Plt Count 234 D Neut % (Auto) 71 Lymph % (Auto) 17 [place] % (Auto) 11 Eos % (Auto) 0 Baso % (Auto) 0 Neut # (Auto) 9.9 H Lymph # (Auto) 2.4 [place] # (Auto) 1.5 H Eos # (Auto) 0.0 Baso # (Auto) 0.1 Immature Gran # (Auto) 0.11 H Absolute Nucleated RBC 0.00 Immature Gran % 1 H Nucleated RBC % 0 PT 11.1 INR 1.0 APTT 26.9 Sodium 145 Potassium 3.6 D Chloride 106 Carbon Dioxide 25.8 Anion Gap 13 BUN 7 L Creatinine 0.9 Estim Creat Clear Calc 131.8 eGFR > 60 BUN/Creatinine Ratio 8 L Glucose 89 Calculated Osmolality 285 Lactic Acid 1.3 Calcium 8.8 Corrected Calcium 8.8 Phosphorus 4.2 Magnesium 2.0 Total Bilirubin 0.5 AST 38 H ALT 37 Alkaline Phosphatase 70 D Total Protein 6.0 Albumin 4.0 D Globulin 2.0 L Albumin/Globulin Ratio 2.0 Triglycerides 110 Cholesterol 118 L LDL Cholesterol, Calc 50 HDL Cholesterol 46 Cholesterol/HDL Ratio 2.6 L TSH 3.14 Ur Collection Type Urine Color Urine Clarity Urine pH Ur Specific [place] Urine Protein Urine Glucose (UA) Urine Ketones Urine Blood Urine Nitrite Urine Bilirubin Urine Urobilinogen (Auto) Ur Leukocyte Esterase Urine RBC Urine WBC Ur Squamous Epith Cells Urine Bacteria Ur Random Sodium Ur Random Potassium Ur Random Chloride ABG Interpretation ABG results: 06/21/25 06:00 ABG pH 7.29 L ABG pCO2 46 ABG pO2 123 H ABG HCO3 22 ABG O2 Saturation 99 H ABG Base Excess -5 L Quality Measures Quality Measures VTE prophylaxis Assessment & Plan Assessment Current Active Medications: Generic Name Dose Route Start Last Admin Trade Name Freq PRN Reason Stop Dose Admin Acetaminophen 650 mg 06/21/25 07:42 Acetaminophen 325 Mg Tablet PO 07/21/25 07:41 Q6H PRN PAIN SCALE 1-3 (mild Heparin Sodium (Porcine) 5,000 unit 06/21/25 14:00 06/22/25 05:19 Heparin Sod Inj 5000 Unit/Ml Vial SC 07/05/25 13:59 5,000 unit Q8HR PANCHO Administration Lactated Ringer's 1,000 mls @ 100 mls/hr 06/21/25 09:07 06/22/25 05:18 Lactated Ringers IV 07/21/25 09:06 100 mls/hr .Q10H PANCHO Administration Ceftriaxone Sodium/Dextrose 2 gm in 50 mls @ 100 mls/hr 06/22/25 09:27 06/22/25 10:25 Rocephin/D5w 2gm IV 06/26/25 09:26 100 mls/hr QDAY PANCHO Administration Lacosamide 100 mg 06/22/25 21:00 Lacosamide 50 Mg Tablet PO 07/22/25 20:59 Q12HR PANCHO Levetiracetam 1,000 mg 06/22/25 14:00 Levetiracetam Liqd 500 Mg/5 Ml Udc PO 07/22/25 13:59 Q8HR PANCHO Midazolam HCl 5 mg 06/21/25 18:23 Midazolam Inj 1 Mg/Ml Vial 2 Ml IVP 06/26/25 18:22 Q5MIN PRN breakthrough seizures Ondansetron HCl 4 mg 06/21/25 07:42 Ondansetron Inj 2 Mg/Ml Inj 2 Ml IVP 07/21/25 07:41 Q6H PRN NAUSEA OR VOMITING Protocol Valproic Acid 1,250 mg 06/22/25 21:00 Valproic Acid Syrup 250 Mg/5 Ml Udc PO 07/22/25 20:59 BID PANCHO Plan Marc Evangelista 25M pmhx significant for epilepsy on antiseizure medications and cocaine use presented to [facility] ED 06/21 for multiple seizures, continued to have breakthrough seizures in the ED, admitted to ICU for management of status epilepticus, downgraded 06/22 to floors for further management. #Status Epilepticus Presented with multiple seizures despite medication adherence of Keppra, depakote and vimpat. Neurologist in [place] and last saw right after previous admission in mid May. Has had previous admission for status epilepticus. UDS+ for cocaine. CK 361. In ICU, patient was treated with versed and ativan supplemental to home antiseizure meds. DDx: Cocaine vs non-compliance with medication Plan: -Neurology consulted, appreciate recs: continue Keppra 1500 mg PO q12hr, Depakote 1250 mg PO BID, Vimpat 100 mg PO BID. Vimpat 150 mg BID for breakthrough seizures - CTM for further seizures #Acute Hypoxic Respiratory Failure likely 2/2 seizures #Aspiration PNA #Leukocytosis On admission, TMAX 100.5 in ED, afebrile since, and patient was intially on 15L oxymask while seizures occurring. WBC 28.7 on admission and ABG 7.29, pCO2 46, bicarb 22. CXR shows right base opacity consistent with pneumonia, aspiration. DDx: Seizures vs aspiration PNA Zosyn (06/21-06/22) Plan: - Started ceftriaxone 2g QD (06/22-06/26) - Continue to wean patient off supplemental oxygen as appropriate - Will monitor o2 saturation, respiratory status. #Tachycardia, improving HR up to 130s, has been low 100s most recently DDx: Seizures, cocaine, less likely infection Plan: - Treating underlying cause - Will monitor for expected improvement in HR #Transaminitis, resolving On admission, AST 44, ALT 51, Alk Phos 119. s/p 3L IVF DDx: seizures causing mild metabolic stress on liver and/or mild muscle strain/damage. Plan: - CTM LFTs #HAGMA, resolved #CECILE, resolved #Elevated CK level Admission CMP showed bicarb <10 and lactic acid 4.2 with AGap of 31. BMP repeated in afternoon showed Bicarb 24.3 (<10 initially), AGap of 12, lactic acid 1.5. CK 361. s/p 3L IVF DDx: Seizures with lactic acidosis Plan: - CTM CMP Hospital management: Lines: PIV Diet: Regular Bowel: not indicated GI prophylaxis: none DVT prophylaxis: heparin q8h Disposition: [facility] for monitoring CODE STATUS: FULL CODE Plan of care discussed with attending Dr. Ruiz, and PGY-2 Dr. Walker. Luba Hannah, DO PGY-1 Internal Medicine Attending Provider Attestation/Addendum I have seen and examined the patient. I was physically present for the zavala portions of the services provided including history, physical exam, diagnosis, treatment plans and orders. I agree with assessment and plan of care as documented by residents. Patient seen and examined at bedside this morning. He is a 25 years old male with past medical history of seizure disorder, coccidioidomycosis, upper extremity DVT, recent admission for breakthrough seizures who presented to the ED with complaint of another breakthrough seizure. Patient was found to be on new status epilepticus in the ED, and was admitted to ICU for further management. In the ICU, patient received Versed, Ativan pushes along with Keppra, Depakote and Vimpat. Patient did not require intubation. There was also concern for aspiration pneumonia, patient was started on IV Zosyn. With stabilization, patient is transferred to telemetry for further management. At bedside, patient was able to answer or orientation question but appears slightly confused on further questioning about his current condition and details of his cocaine abuse and doctor visits. Continues to be on IV Zosyn for pneumonia. Continues to be on lacosamide 100 mg twice daily, valproic acid 1250 twice daily, Keppra 1000 mg every 8 hours. Vital signs are stable except for mild tachycardia, saturating well on room air. Lab results are stable as well, WBC is downtrending. Neurology following closely, appreciate recommendations. We will monitor him closely overnight, if remains stable, we will plan for discharge in next 24 to 48 hours. Even though this this note was carefully revised there may still be minor errors in field application engineer due to voice recognition software. Moses Ruiz MD
[2025-06-22] MEDS: levETIRAcetam LIQD 500 MG/5 ML UDC 1000 MG PO ×2 (16:02→21:17)
--- NOTE | 2025-06-22 21:08 | ESPR_ITS ---
Documentation for date of: 06/22/25 Subjective Subjective Interval history: Patient examined at bedside. Vitals are stable, leukocytosis improving to 14. He has remained seizure-free since starting epileptic agents. Alert and oriented x 3 at bedside. Upon further questioning patient admits to noncompliance and cocaine use. He was counseled on the importance of taking medications and close follow-up with neurology after his discharge. Last visit with neurology in [place] was beginning of this year. Started on ceftriaxone for aspiration pneumonia. Continue lacosamide, valproic acid, Keppra. Exam Vital Signs Temp Pulse Resp BP Pulse Ox O2 Del Method O2 Flow Rate 99 F 108 H 18 135/89 H 97 Room Air 1 06/22/25 18:15 06/22/25 18:15 06/22/25 18:15 06/22/25 18:15 06/22/25 18:15 06/22/25 18:15 06/21/25 14:02 Narrative Exam General: Young male, No acute distress, awake HEENT: NCAT, No JVD noted. Mucosa moist. Pupils are equal and reactive to light bilaterally Cardiovascular: Normal S1 and S2. Regular rate and rhythm. Respiratory: Lungs are clear to auscultation bilaterally. No wheezing or crackles heard. Abdomen: Soft, nontender, not distended, normal bowel sounds. Skin: Warm to touch, dry, no rashes noted MUSCULOSKELETAL: No cervical, thoracic, lumbar or midline bony tenderness. Normal inspection. NEURO: Alert, awake and oriented x3. Cranial nerves: II through XII grossly intact. Speech and language: Normal with no dysarthria or dysphasia. Motor system: Tone and bulk: Normal: Strength: 5 out of 5 in all 4 extremities; No pronator drift noted. Deep tendon reflexes: 2+ bilaterally symmetrical. Plantar reflex: Downgoing bilaterally. Sensory system: Intact to all modalities of sensation bilaterally. Coordination: Intact to [id number] and [id number] test bilaterally. No ataxia, no dysmetria, or dysdiadochokinesia noted. No intention tremors noted. Gait: Not tested. No signs of meningeal irritation noted. PSYCHIATRIC: Normal mood and affect. Objective Labs 06/23/25 05:10 06/23/25 05:10 Labs: Laboratory Results - last 24 hr 06/21/25 06/22/25 21:55 04:15 WBC 13.9 H D RBC 4.25 L Hgb 13.1 L D Hct 39.2 L MCV 92 MCH 30.8 MCHC 33.4 RDW Std Deviation 49.5 H Plt Count 234 D Neut % (Auto) 71 Lymph % (Auto) 17 [place] % (Auto) 11 Eos % (Auto) 0 Baso % (Auto) 0 Neut # (Auto) 9.9 H Lymph # (Auto) 2.4 [place] # (Auto) 1.5 H Eos # (Auto) 0.0 Baso # (Auto) 0.1 Immature Gran # (Auto) 0.11 H Absolute Nucleated RBC 0.00 Immature Gran % 1 H Nucleated RBC % 0 PT 11.1 INR 1.0 APTT 26.9 Sodium 145 Potassium 3.6 D Chloride 106 Carbon Dioxide 25.8 Anion Gap 13 BUN 7 L Creatinine 0.9 Estim Creat Clear Calc 131.8 eGFR > 60 BUN/Creatinine Ratio 8 L Glucose 89 Calculated Osmolality 285 Lactic Acid 1.3 Calcium 8.8 Corrected Calcium 8.8 Phosphorus 4.2 Magnesium 2.0 Total Bilirubin 0.5 AST 38 H ALT 37 Alkaline Phosphatase 70 D Total Protein 6.0 Albumin 4.0 D Globulin 2.0 L Albumin/Globulin Ratio 2.0 Triglycerides 110 Cholesterol 118 L LDL Cholesterol, Calc 50 HDL Cholesterol 46 Cholesterol/HDL Ratio 2.6 L TSH 3.14 ABG Interpretation ABG results: 06/21/25 06:00 ABG pH 7.29 L ABG pCO2 46 ABG pO2 123 H ABG HCO3 22 ABG O2 Saturation 99 H ABG Base Excess -5 L Quality Measures Quality Measures VTE prophylaxis Assessment & Plan Assessment Current Active Medications: Generic Name Dose Route Start Last Admin Trade Name Majo PRN Reason Stop Dose Admin Acetaminophen 650 mg 06/21/25 07:42 Acetaminophen 325 Mg Tablet PO 07/21/25 07:41 Q6H PRN PAIN SCALE 1-3 (mild Heparin Sodium (Porcine) 5,000 unit 06/21/25 14:00 06/22/25 16:03 Heparin Sod Inj 5000 Unit/Ml Vial SC 07/05/25 13:59 5,000 unit Q8HR PANCHO Administration Lactated Ringer's 1,000 mls @ 100 mls/hr 06/21/25 09:07 06/22/25 16:03 Lactated Ringers IV 07/21/25 09:06 100 mls/hr .Q10H PANCHO Administration Ceftriaxone Sodium/Dextrose 2 gm in 50 mls @ 100 mls/hr 06/22/25 09:27 06/22/25 10:25 Rocephin/D5w 2gm IV 06/26/25 09:26 100 mls/hr QDAY PANCHO Administration Lacosamide 100 mg 06/22/25 21:00 Lacosamide 50 Mg Tablet PO 07/22/25 20:59 Q12HR PANCHO Levetiracetam 1,000 mg 06/22/25 14:00 06/22/25 16:02 Levetiracetam Liqd 500 Mg/5 Ml Udc PO 07/22/25 13:59 1,000 mg Q8HR PANCHO Administration Midazolam HCl 5 mg 06/21/25 18:23 Midazolam Inj 1 Mg/Ml Vial 2 Ml IVP 06/26/25 18:22 Q5MIN PRN breakthrough seizures Ondansetron HCl 4 mg 06/21/25 07:42 Ondansetron Inj 2 Mg/Ml Inj 2 Ml IVP 07/21/25 07:41 Q6H PRN NAUSEA OR VOMITING Protocol Valproic Acid 1,250 mg 06/22/25 21:00 Valproic Acid Syrup 250 Mg/5 Ml Udc PO 07/22/25 20:59 BID PANCHO Plan 25-year-old man presenting to ED with breakthrough seizures. Patient has history of recurrent seizures, cocaine use, noncompliance with his seizure medications. Family witnessed seizure and continue to have recurrent seizures in the ED. Started on antipeptic medication. Neurology consulted for breakthrough seizures. #Status epilepticus #Seizure history #cocaine use Patient has hx for recurrent seizures. Also with neurologist in [place]. Issue with noncompliance. Was started on lipoic acid, Keppra, Vimpat after last admission. He endorses continued noncompliance. UTOX positive for cocaine. Metabolic acidosis with bicarb of 10, lactic acid elevated 4.2 now improving to 2.5. EEG showed proximal generalized and multifocal epileptic seizures. -Seizure precautions - valproic acid 625 mg q6hr - Keppra 1500 mg BID - Vimpat 100 mg BID -increase vimpat to 150mg BID if breakthrough seizure -neuro checks -depakote levels pending -senior genetic counselor patient and family on compliance Primary care team to manage above conditions and ongoing care needs. The patient's management plan was discussed with my attending physician Dr. Singh. Brigitte Alvarado, PGY-2 Attending Provider Attestation/Addendum I personally have seen and examined the patient at the bedside and I agreed with resident's findings, assessment and plan of care. Patient has hx for recurrent seizures from noncompliance and cocaine abuse. EEG showed proximal generalized and multifocal epileptic seizures. Follow Seizure precautions, valproic acid 625 mg q6hr, Keppra 1500 mg BID and Vimpat 150 mg BID Addressed compliance with family.
[2025-06-22] MEDS: VALPROIC ACID SYRUP 250 MG/5 ML UDC 1250 MG PO (21:17)
[2025-06-22] MEDS: LACOSAMIDE 50 MG TABLET 100 MG PO (21:17)
[2025-06-23] VITALS (7 sets, daily range): BP systolic 110–131; BP diastolic 70–81; PULSE 74–103; RESP 16–96; TEMP 36.7–37; O2SAT 94–97; BMI 24.8
[2025-06-23] MEDS: RINGERS LACTATED 1000 ML 1,000 ML 100 ML IV (00:35)
[2025-06-23] MEDS: HEPARIN SOD INJ 5000 UNIT/ML VIAL SC (05:31)
[2025-06-23] MEDS: levETIRAcetam LIQD 500 MG/5 ML UDC 1000 MG PO (05:31)
[2025-06-23 06:17] LABS: Basophils # (Auto) 0.1 Thou/mm3 (0.0-0.2); Basophils % (Auto) 1 % (0-2.5); Eosinophils # (Auto) 0.1 Thou/mm3 (0.0-0.5); Eosinophils % (Auto) 1 % (0-10); Hematocrit 38.9 % (41.0-53.0); Hemoglobin 13.0 g/dL (13.5-16.0); Immature Granulocytes Auto 0.07 Thou/mm3 (0.00-0.00); Lymphocytes # (Auto) 3.4 Thou/mm3 (1.0-4.8); Lymphocytes % (Auto) 42 % (10-50); Mean Corpuscular HGB Conc 33.4 g/dl (31.0-37.0); Mean Corpuscular Hemoglobin 30.9 pg (25.0-35.0); Mean Corpuscular Volume 92 fL (80-100); Monocytes # (Auto) 0.6 Thou/mm3 (0.0-0.8); Monocytes % (Auto) 8 % (0-12); Neutrophils # (Auto) 3.8 Thou/mm3 (1.8-7.7); Neutrophils % (Auto) 48 % (37-80); Nucleated Red Blood Cell # 0.00 Thou/mm3 (0.00-0.00); Nucleated Red Blood Cell % 0 /100 WBC (0); Platelet Count 201 Thou/mm3 (140-440); RDW Standard Deviation 46.9 fL (35.1-43.9); Red Blood Count 4.21 Miln/mm3 (4.50-5.90); White Blood Count 8.0 Thou/mm3 (3.8-10.6)
[2025-06-23 06:47] LABS: Alanine Aminotransferase 32 U/L (10-49); Albumin, Serum 4.1 gm/dL (3.5-5.0); Albumin/Globulin Ratio 2.1 (1.2-2.2); Alkaline Phosphatase 66 U/L (46-116); Anion Gap 13 (7-16); Aspartate Amino Transferase 41 U/L (0-34); BUN/Creatinine Ratio 6 Ratio (12-20); Bilirubin,Total 0.3 mg/dL (0.3-1.2); Blood Urea Nitrogen 5 mg/dL (9-23); Calcium 9.2 mg/dL (8.3-10.6); Calcium (Corrected) 9.2 mg/dL (8.5-10.1); Carbon Dioxide 24.9 mMol/L (20.0-31.0); Chloride 105 mMol/L (98-107); Creatinine (Component) 0.8 mg/dL (0.6-1.3); Estimated Creatinine Clearance 148.3 mL/min (>60); Globulin 2.0 gm/dL (2.3-3.5); Glucose 94 mg/dL (74-106); Magnesium 1.8 mg/dL (1.6-2.6); Osmolality,Calculated 282 (275-295); Phosphorous 4.8 mg/dL (2.4-5.1); Potassium 3.7 mMol/L (3.4-5.1); Sodium 143 mMol/L (136-145); Total Protein 6.1 gm/dL (5.7-8.2); eGFR > 60 See Note
[2025-06-23] MEDS: VALPROIC ACID SYRUP 250 MG/5 ML UDC 1250 MG PO (08:39)
[2025-06-23] MEDS: levETIRAcetam LIQD 500 MG/5 ML UDC 1500 MG PO (08:40)
[2025-06-23] MEDS: LACOSAMIDE 50 MG TABLET 100 MG PO (08:40)
[2025-06-23] MEDS: cefTRIAXone/D5w 2gm 2 GM/50 ML BAG IV (08:41)
--- NOTE | 2025-06-23 12:59 | ESDS_ITS ---
<Statement entered by Cecelia Tom DO - 06/24/25 07:34> I, Cecelia Tom DO, attest that I was physically present for the zavala portions of the service and evaluated the patient with the resident and I reviewed and discussed the case with the resident and agree with the resident's findings and plans of care as documented above Patient is stable for discharge home. Counselled patient regarding medication compliance and cessation of recreational drug habits. <Statement entered by Gene Hunter MD - 06/23/25 17:00> I have reviewed the note and agree with the resident's assessment & plan with exceptions as below. I have personally reviewed labs, imaging, home meds/prior records, examined the patient, formulated and discussed management plan with my attending Gene Hunter PGY2 Disclaimer: Even though this this note was dictated by speech recognition and even though it was carefully revised there may still be minor errors in mother tester due to voice recognition software. Planned Discharge Date 06/23/25 DS: Providers Provider Date of admission: 06/21/25 07:59 Primary care physician: Physician No Primary/Family Admitting Provider: Avila Artis MD Attending Provider on Admission: Cecelia Tom DO Consults: 06/21/25 08:01 Referral Respiratory Therapy Stat Comment: 06/21/25 08:03 Consult to Neurology / Tele-Neurology Routine Comment: Consulting Provider: Raul Singh Attending Provider on DC: Cecelia Tom DO Discharging Provider: Cecelia Tom DO DS: Diagnosis Problem List Completed Was Problem List Reviewed/Reconciled?: Yes Hospital Course Hospital Course Hospital course: Summary: Marc Evangelista 25M pmhx significant for epilepsy on antiseizure medications and cocaine use presented to [facility] ED 06/21 for multiple seizures, continued to have breakthrough seizures in the ED, admitted to ICU for management of status epilepticus, downgraded 06/22 to floors for further management. Presented with multiple seizures despite medication adherence of Keppra, depakote and vimpat. Neurologist in [place] and last saw right after previous admission in [facility] with no medication changes. Patient has had previous admission for status epilepticus. UDS+ for cocaine, slight CECILE and CK 361. In ICU, patient was treated with versed and ativan supplemental to home antiseizure meds. Patient admits to cocaine use and nonadherence to antiseizure medications which likely caused breakthrough seizures. Neurology consulted, was consulted and regimen adjusted. Of note, during ICU stay, patient developed acute proximal ristra failure secondary to likely aspiration pneumonia as chest x-ray showed right base opacity consistent with pneumonia aspiration. Patient was treated with antibiotics. Patient was also noted to be tachycardic, likely secondary to seizure. Furthermore, patient AST/ALT slightly elevated likely secondary to seizures causing metabolic stress. On discharge, patient is hemodynamically stable, vitals and labs reviewed, and patient is ready to be discharged home. Imaging: CXR shows right base opacity consistent with pneumonia, aspiration Discharge Recommendations: - Please take all medications as prescribed - START Keppra 1500 mg twice daily, Depakote 1250 mg twice daily, Vimpat 100 mg twice daily - Continue all home medications except as above - Please follow up with your PCP within one week of discharge - Please follow up with your neurologist within one week of discharge - If your symptoms worsen, please seek immediate medical attention and return to your nearest emergency room. - If you do not have a PCP, you may follow up at [facility] at [address] [place] [address] [address], [facility] [address], Hospital Diagnoses: #Status Epilepticus #Acute Hypoxic Respiratory Failure likely 2/2 seizures #Aspiration PNA #Leukocytosis #Tachycardia, improving #Transaminitis, resolving #HAGMA, resolved #CECILE, resolved #Elevated CK level Plan of care discussed with attending Dr. Tom, and PGY-2 Dr. Walker. Luba Hannah, DO Internal Medicine, PGY-1 Time Spent with Patient Time attestation: Total time spent providing and/or coordinating discharge services: Time spent: Greater than 30 minutes Exam Vital Signs Temp Pulse Resp BP Pulse Ox O2 Del Method O2 Flow Rate 98.3 F 99 20 114/77 94 L Room Air 1 06/23/25 08:00 06/23/25 08:25 06/23/25 08:25 06/23/25 08:00 06/23/25 08:00 06/23/25 08:00 06/21/25 14:02 Narrative Exam GENERAL: AOx3, no acute distress HEENT: mucous membranes moist, bilateral sclera anicteric CARDIOVASCULAR: regular rhythm, tachycardic, S1/S2 present, no murmurs appreciated PULMONARY: clear to auscultation bilaterally, no rales/rhonchi/wheezes ABDOMINAL: soft, non-tender, non-distended, no rebound/guarding, bowel sounds present EXTREMITIES: no peripheral edema SKIN: warm and dry, intact, no rashes NEURO: CN II-XII grossly intact, no focal deficits, alert, following commands Discharge Plan Plan Patient Disposition: HOME (Self Care) Care Plan Goals: Please follow up with your primary care physician within 2-3 days upon discharge Please follow up with your Neurologist within 5-7 days upon discharge We have changed your levetiracetam to 1,500mg twice daily Continue all other home medications as prescribed It is of vital importance that you abstain from all types of drugs and alcohol as these can be contributing to your seizures Please come back to the ER if sysmptoms persist or worsen Prescriptions/Referrals Prescriptions/Med Rec: Continued valproic acid 250 mg capsule 1,250 mg PO BID 30 Days Qty: 300 1RF lacosamide 100 mg tablet 100 mg PO Q12H Patient Comments: TAKE 1 TABLET BY MOUTH TWICE A DAY Changed levetiracetam 1,000 mg tablet 1,500 mg PO BID 30 Days Qty: 90 0RF Patient Comments: TAKE 1 TABLET BY MOUTH EVERY 8 HOURS Referrals: No Primary/Family,Physician [Primary Care Provider] Patient/Caregiver Discharge Instructions Other Discharge Activity Instructions:: Please follow up with your primary care physician within 2-3 days upon discharge Please follow up with your Neurologist within 5-7 days upon discharge We have changed your levetiracetam to 1,500mg twice daily Continue all other home medications as prescribed It is of vital importance that you abstain from all types of drugs and alcohol as these can be contributing to your seizures Please come back to the ER if sysmptoms persist or worsen Education Materials: Anatomy of the Brain, Cocaine: Understanding Its Effects, ED Seizure, Recurrent (Adult) Print Language: Nepali Stand Alone Forms: Vee Award Info., Patient Portal Info Letter Discharge Order Discharge Orders: Discharge (Routine); Ordered 06/23/25 Ordered By: Gene Hunter Quality Discharge Quality Measures VTE prophylaxis
--- NOTE | 2025-06-24 09:47 | VVPN_ITS ---
Telemedicine visit statement This visit was conducted with the use of interactive audio and video telecommunications system that permits real time communication between the patient and the provider. Patient's verbal consent for virtual visit was obtained on 06/23/25 Documentation for date of: 06/23/25 Subjective Subjective Interval history: Patient is in telemetry, no seizures reported overnight or more than 24 hours. No side effects reported on current medications Virtual exam Vital Signs Temp Pulse Resp BP Pulse Ox O2 Del Method O2 Flow Rate 98.6 F 103 H 16 131/81 H 95 Room Air 1 06/23/25 14:00 06/23/25 14:00 06/23/25 14:00 06/23/25 14:00 06/23/25 14:00 06/23/25 14:00 06/21/25 14:02 Objective Labs 06/23/25 05:10 06/23/25 05:10 ABG Interpretation ABG results: 06/21/25 06:00 ABG pH 7.29 L ABG pCO2 46 ABG pO2 123 H ABG HCO3 22 ABG O2 Saturation 99 H ABG Base Excess -5 L Assessment & Plan Problem List (1) Seizure disorder: Status: Chronic Assessment and plan: Continue with Keppra, Depakote and Vimpat twice a day continue to monitor for any breakthrough seizures and Ativan for breakthrough. Patient is stable from neurology standpoint for discharge Advised him about the importance of compliance and to stay away from cocaine. Follow-up with his neurologist in [place]. (2) Status epilepticus: Status: Resolved
[2025-06-26 06:57] LABS: Valporic Acid (Depak)* 44.6 mg/L (50.0-100.0)
== END 2025-06-23 14:30 | disposition home or self-care (01) | DRG 53 ==
LOC: SERX 06:21 → SERHOLD 08:06 → S2SX 09:26 → S2NX 06-22 18:01
PROVIDERS: Student in an Organized Health Care Education/Training Program; Admitting Provider Student in an Organized Health Care Education/Training Program; Emergency Provider Emergency Medicine; Visit Provider Internal Medicine
DX: G40.901 Epilepsy, unspecified, not intractable, with status epilepticus (principal); F14.10 Cocaine abuse, uncomplicated; F14.129 Cocaine abuse with intoxication, unspecified; J18.9 Pneumonia, unspecified organism; J69.0 Pneumonitis due to inhalation of food and vomit; J96.01 Acute respiratory failure with hypoxia; N17.9 Acute kidney failure, unspecified; Z79.899 Other long term (current) drug therapy; R74.01 Elevation of levels of liver transaminase levels; E87.20 Acidosis, unspecified; Z86.718 Personal history of other venous thrombosis and embolism; Z91.148 Patient's other noncompliance with medication regimen for other reason
CPT/HCPCS: 36415; 36600; 71045; 80048; 80053; 80061; 80164; 80307; 81001; 82436; 82550; 82803; 83605; 83735; 84100; 84133; 84300; 84443; 85025; 85610; 85730; 87040; 87081; 87205; 95816; 96361; 96365; 96372; 96375; 96376; 99285; A4314; C9254; J0696; J1644; J1953; J2060; J2250; J2470; J2543; J7030; J7120; A9270